=== PATIENT | female | born 1950 | race African-American/Black ===

== ENCOUNTER 2019-01-11 18:27 | Inpatient (IN) | payer MEDICARE, MEDICAID ==
[2019-01-11] MEDS ORDERED: Dextrose 50% Abboject 50 ML SYRINGE ONE ×2 (19:50→19:51)
[2019-01-11 19:52] LABS: Anion Gap 13 mmol/L (10-20); BUN (Urea Nitrogen) 87 mg/dL (9.8-20.1); Calc. Creatinine Clearance 0 mL/min (70-130); Calcium 7.3 mg/dL (7.8-10.44); Carbon Dioxide 9 mmol/L (23-31); Chloride 124 mmol/L (98-107); Estimated GFR-MDRD 16; Glucose 32 mg/dL (80-115); Potassium 3.7 mmol/L (3.5-5.1); Sodium 142 mmol/L (136-145)
[2019-01-11] MEDS ORDERED: Prevnar 13-Val Conj/PF 0.5 ML SYRINGE IM ONE (21:45)
[2019-01-11 22:24] LABS: Troponin I Less than 0.010 ng/mL (< 0.028)
[2019-01-11 22:52] VITALS: BMI 27.7
[2019-01-11] MEDS ORDERED: hydrALAZINE 20 MG/ML VIAL SLOW IVP PRN (23:09)
[2019-01-11] MEDS ORDERED: Ondansetron ODT 4 MG TAB PO PRN (23:09)
[2019-01-11] MEDS ORDERED: Loratadine 10 MG TAB PO PRN (23:09)
[2019-01-11] MEDS ORDERED: Ondansetron PF 4 MG/2 ML Vial IVP PRN (23:09)
[2019-01-11] MEDS ORDERED: Sodium Chloride 0.9% 1,000 ML IV SCH (23:15)
[2019-01-12 01:40] LABS: Troponin I Less than 0.010 ng/mL (< 0.028)
--- NOTE | 2019-01-12 03:31 | HP ---
PRIMARY CARE PROVIDER: Farzana Rose. PRIMARY OPERATIONS EXECUTIVE: Eulogio Gomez M.D. CHIEF COMPLAINT: Elevated potassium. HISTORY OF PRESENT ILLNESS: This is a 68-year-old female with longstanding history of chronic kidney disease, currently stage 4-5 monitored on outpatient basis by her primary manager truck. The patient states she was instructed to undergo routine laboratory evaluation at which point, a potassium level was drawn showing a value of 6.7. The patient was referred to the emergency room for treatment. The patient received 1 amp of D50 and repeat potassium level at 7:14 p.m. on 01/11/2019 showed a value of 3.7. The patient has been noted with elevated potassium levels intermittently over the last 2-3 years. The patient denies any dietary indiscretion, chest pain, shortness of breath or known symptoms. The patient states she feels fine and had no specific symptoms prior to doing her lab work. The patient denied any specific diarrhea, dysuria, blood in the stool, cough, congestion, or documented fever. PAST MEDICAL HISTORY: 1. Left eye cataracts. 2. Coronary artery disease. 3. History of gout. 4. Hypertension. 5. Chronic kidney disease stage 4 to 5. 6. Smokeless tobacco use. 7. Anxiety/depression. PAST SURGICAL HISTORY: 1. Status post hysterectomy. 2. Status post bilateral tubal ligation. CURRENT MEDICATIONS: 1. Amlodipine 10 mg p.o. daily. 2. Enteric-coated aspirin 81 mg p.o. daily. 3. Atenolol 50 mg p.o. b.i.d. 4. Claritin 10 mg p.o. daily. 5. Crestor 40 mg p.o. at bedtime. 6. Terazosin 2 mg p.o. at bedtime. ALLERGIES: LISINOPRIL, TRAMADOL, CODEINE. FAMILY HISTORY: Positive for hypertension. SOCIAL HISTORY: The patient resides in the [place], [place] area. Uses smokeless tobacco daily. No alcohol or illicit drug use. Ambulatory with occasional use of a cane. Lives independently. REVIEW OF SYSTEMS: CONSTITUTIONAL: Negative for weight loss or gain, ability to conduct usual activities. SKIN: Negative for rash, itching. EYES: Negative for double vision, pain. ENT/MOUTH: Negative for nose bleeding, neck stiffness, pain, tenderness. CARDIOVASCULAR: Negative for palpitations, dyspnea on exertion, orthopnea. RESPIRATORY: Negative for shortness of breath, wheezing, cough, hemoptysis, fever or night sweats. GASTROINTESTINAL: Negative for poor appetite, abdominal pain, heartburn, nausea, vomiting, constipation, or diarrhea. GENITOURINARY: Negative for urgency, frequency, dysuria, nocturia. MUSCULOSKELETAL: Negative for pain, swelling. NEUROLOGIC/PSYCHIATRIC: Negative for anxiety, depression. ALLERGY/IMMUNOLOGIC: Negative for skin rash, bleeding tendency Otherwise negative except as stated per HPI. PHYSICAL EXAMINATION: VITAL SIGNS: On admission, blood pressure 189/84, pulse 58, respiratory rate 16, temperature 98.4 degrees Fahrenheit, O2 saturation 99% on room air. GENERAL APPEARANCE: This is a 68-year-old female, alert and oriented x3, pleasant, responsive, in no acute distress. HEENT: Pupils are equal, round, reactive to light and accommodation. Extraocular muscles are intact. No scleral icterus. No conjunctival injection. Nares patent. OP is clear. Teeth in good repair. NECK: Supple. No cervical adenopathy. No thyromegaly. No carotid bruits. No JVD appreciated. Cervical spine with full active and passive range of motion. No meningeal signs noted. CHEST: Lungs are clear to auscultation bilaterally. CARDIOVASCULAR: S1, S2 without noted murmur, rub, or gallop. ABDOMEN: Rounded, soft, nontender, and nondistended. Bowel sounds are positive in all 4 quadrants. There is no hepatosplenomegaly. No abdominal bruits. No rebound or guarding appreciated. EXTREMITIES: Warm and dry with fair turgor. No clubbing, cyanosis, or asymmetric edema appreciated. Pulses palpable distally at the dorsalis pedis, posterior tibial, and popliteal arteries bilaterally. Capillary refill less than 2 seconds. NEUROLOGIC: Cranial nerves 2 through 12 are grossly intact. No focal or lateralizing signs appreciated. PERTINENT LAB AND X-RAY FINDINGS: Sodium 142, potassium ranged between 3.7 to 6.7, chloride 124, CO2 9, BUN 87, creatinine 3.41, estimated GFR of 16. Initial glucose greater than 200. Calcium 7.3, magnesium level 2.0. LFTs within normal limits. CBC showed a white blood cell count of 4.7, hemoglobin 10, hematocrit 33, MCV 87, platelet count 243 with normal differential. EKG dated 01/11/2019 by my interpretation shows sinus bradycardia with heart rates in the high 50s. Normal R-wave progression noted in the precordial leads. Normal axis. Voltage criteria consistent with left ventricular hypertrophy. No acute ST-T wave changes appreciated. ASSESSMENT/PLAN: 1. Hyperkalemia secondarily to chronic kidney disease. Improved after treatment with 1 amp of D50. We will continue serial potassium monitoring. Consult Nephrology Service in the a.m. Avoid potassium supplements. 2. Chronic kidney disease stage 4 to 5. We will continue serial creatinine monitoring. Avoid nephrotoxic agents and limit contrast exposure. Continue intravenous normal saline at 50 mL/hour. Consult Nephrology Service in the a.m. 3. Hyperglycemia. We will check A1c level in the a.m. Serial Accu-Cheks. 4. Sinus bradycardia. Hold atenolol. Suspect iatrogenic. Continue cardiac monitoring on the telemetry unit. 5. Hypertension. Resume home antihypertensive regimen with exception of atenolol. Serial blood pressure monitoring. Hydralazine IV p.r.n. systolic greater than or equal to 180. 6. Prophylaxis. Sequential compression devices while in bed. Pepcid 20 mg p.o. b.i.d.. CODE STATUS: Full. Surrogate medical decision maker is the patient's sister, Catalina Arechiga. Job ID: [id number]
[2019-01-12 05:45] LABS: Reticulocyte Count 1.6 % (0.5-1.5)
[2019-01-12 05:53] LABS: Hemoglobin A1c 4.4 % (4.0-6.0)
[2019-01-12 05:59] LABS: Eosinophils 5 % (0-10); Hemoglobin 8.3 g/dL (12.0-16.0); Lymphocytes 25 % (21-51); MDiff Complete? YES; Mean Corpuscular HGB CONC 32.2 g/dL (32.0-36.0); Mean Corpuscular Hemoglobin 27.5 pg (27.0-31.0); Mean Corpuscular Volume 85.5 fL (78.0-98.0); Mean Platelet Volume 9.2 fL (7.4-10.4); Monocytes 11 % (0-10); Neutrophil 59 % (42-75); Platelet Count 253 thou/uL (130-400); Platelet Morphology Comment Appears Adequate; RBC Distribution Width 15.4 % (11.5-14.5); Red Blood Cell (RBC) Count 3.02 mill/uL (4.20-5.40); White Blood Cell (WBC) Count 4.7 thou/uL (4.8-10.8)
[2019-01-12 06:04] LABS: Iron 58 ug/dL (50-170); Iron Binding Capacity, Total 234 mcg/dL (265-497); Phosphorus 2.6 mg/dL (2.3-4.7)
[2019-01-12 06:06] LABS: Iron 56 ug/dL (50-170); Iron Binding Capacity, Total 240 mcg/dL (265-497)
[2019-01-12 06:09] LABS: Troponin I Less than 0.010 ng/mL (< 0.028)
[2019-01-12 07:15] LABS: Anion Gap 14 mmol/L (10-20); BUN (Urea Nitrogen) 108 mg/dL (9.8-20.1); Calc. Creatinine Clearance 15 mL/min (70-130); Calcium 9.1 mg/dL (7.8-10.44); Carbon Dioxide 13 mmol/L (23-31); Chloride 114 mmol/L (98-107); Estimated GFR-MDRD 12; Glucose 110 mg/dL (80-115); Magnesium 1.6 mg/dL (1.6-2.6); Sodium 135 mmol/L (136-145)
--- NOTE | 2019-01-12 08:14 | PDOC.PN ---
- Subjective Encounter Start Date: 01/12/19 Encounter Start Time: 08:11 Subjective: no complaints - Objective Resuscitation Status - Order Detail: 01/11/19 23:04 Resuscitation Status Routine Resuscitation Status: FULL: Full Resuscitation MAR Reviewed: Yes Vital Signs & Weight: Vital Signs (12 hours) Temp Pulse Resp BP Pulse Ox 01/12/19 07:22 98.8 F 61 14 171/81 H 97 01/12/19 04:18 98.2 F 62 16 126/59 L 95 01/12/19 00:09 95.2 F L 01/11/19 21:10 95.7 F L 50 L 18 167/74 H 99 Weight Weight 166 lb 9 oz I&O: 01/11/19 01/12/19 01/13/19 06:59 06:59 06:59 Intake Total 1250 Output Total 1000 Balance 250 Result Diagrams: 01/12/19 04:50 01/12/19 06:37 Additional Labs: Accuchecks 01/12/19 01/11/19 01/11/19 06:08 22:08 20:34 POC Glucose 127 H 212 H 204 H Phys Exam - Physical Examination Neck: no JVD Respiratory: clear to auscultation bilateral Cardiovascular: RRR, no significant murmur Gastrointestinal: soft, positive bowel sounds Musculoskeletal: no edema Dx/Plan (1) CKD (chronic kidney disease) stage 4, GFR 15-29 ml/min Code(s): N18.4 - CHRONIC KIDNEY DISEASE, STAGE 4 (SEVERE) Status: Chronic (2) Hyperkalemia Code(s): E87.5 - HYPERKALEMIA Status: Acute Comment: improved (3) HTN (hypertension) Code(s): I10 - ESSENTIAL (PRIMARY) HYPERTENSION Status: Chronic Qualifiers: Hypertension type: essential hypertension Qualified Code(s): I10 - Essential (primary) hypertension (4) CAD (coronary artery disease) Code(s): I25.10 - ATHSCL HEART DISEASE OF [place] CORONARY ARTERY W/O ANG PCTRS Status: Acute Qualifiers: Coronary Disease-Associated Artery/Lesion type: [place] artery [place] vs. transplanted heart: [place] heart Associated angina: without angina Qualified Code(s): I25.10 - Atherosclerotic heart disease of [place] coronary artery without angina pectoris - Plan [facility] now -: renal consult -: selected home meds -: diertary consult for low K+, low protein diet * .
[2019-01-12] MEDS: Famotidine 20 MG TAB PO SCH (08:44)
[2019-01-12] MEDS: Aspirin 81 mg Enteric Coated Tablet PO SCH (08:44)
[2019-01-12] MEDS: Amlodipine 10 MG TAB PO SCH (08:44)
[2019-01-12] MEDS ORDERED: Sodium Bicarbonate 150 MEQ in Dextrose 5% in Water 1,000 ML IV SCH (08:45)
[2019-01-12 15:49] LABS: Anion Gap 15 mmol/L (10-20); BUN (Urea Nitrogen) 99 mg/dL (9.8-20.1); Calc. Creatinine Clearance 16 mL/min (70-130); Carbon Dioxide 16 mmol/L (23-31); Chloride 113 mmol/L (98-107); Estimated GFR-MDRD 13; Glucose 109 mg/dL (80-115); Potassium 5.9 mmol/L (3.5-5.1); Sodium 138 mmol/L (136-145)
--- NOTE | 2019-01-12 16:00 | PDOC.EVN ---
Event Note - Event Note Event Note: with Dr Guy re hyperkalemix, cont bicab infusion, rpt [facility]ex[facility]
[2019-01-12] MEDS: Terazosin HCl 1 MG CAP PO SCH (20:13)
[2019-01-12] MEDS: Acetaminophen 500 MG TAB PO PRN (21:41)
--- NOTE | 2019-01-12 21:51 | CON ---
DATE OF CONSULTATION: 01/12/2019 CONSULTING PHYSICIAN: Dr. Lake. REASON FOR CONSULT: Hyperkalemia and chronic kidney disease. REASON FOR ADMISSION: Abnormal labs. HISTORY OF PRESENT ILLNESS: A 68-year-old female with history of coronary artery disease, CKD, hypertension came to the hospital with above complaints and was admitted, potassium was 6.7, outpatient was 6. She also has worsening creatinine. She is noncompliant with her visits at the clinic. PAST MEDICAL HISTORY: Positive for cataracts, coronary artery disease, gout, hypertension, CKD, anxiety and depression. PAST SURGICAL HISTORY: Hysterectomy, bilateral tubal ligation. HOME MEDICATION: 1. Amlodipine. 2. Aspirin. 3. Atenolol. 4. Claritin. 5. Crestor. 6. Terazosin. ALLERGIES: LISINOPRIL, TRAMADOL, CODEINE. FAMILY HISTORY: Positive for hypertension. SOCIAL HISTORY: Uses smokeless tobacco. No alcohol or illicit drug abuse. REVIEW OF SYSTEMS: CONSTITUTIONAL: Negative for weight loss or gain, ability to conduct usual activities. SKIN: Negative for rash, itching. EYES: Negative for double vision, pain. ENT/MOUTH: Negative for nose bleeding, neck stiffness, pain, tenderness. CARDIOVASCULAR: Negative for palpitations, dyspnea on exertion, orthopnea. RESPIRATORY: Negative for shortness of breath, wheezing, cough, hemoptysis, fever or night sweats. GASTROINTESTINAL: Negative for poor appetite, abdominal pain, heartburn, nausea, vomiting, constipation, or diarrhea. GENITOURINARY: Negative for urgency, frequency, dysuria, nocturia. MUSCULOSKELETAL: Negative for pain, swelling. NEUROLOGIC/PSYCHIATRIC: Negative for anxiety, depression. ALLERGY/IMMUNOLOGIC: Negative for skin rash, bleeding tendency. PHYSICAL EXAMINATION: GENERAL: female, in no apparent distress. VITAL SIGNS: Temperature 98.6, pulse 65, respiratory rate 18, blood pressure 177/81. LABORATORY DATA: Potassium 6.7, BUN is 108, creatinine is 4.3. ASSESSMENT AND PLAN: 1. Acute kidney injury on chronic kidney disease stage 4. Agree with hydration as tolerated. 2. Hyperkalemia. Agree with medical management. 3. Metabolic acidosis. We will add bicarb drip. 4. Edema, controlled. 5. Hypertension. 6. Anemia. PLAN: No acute indication for dialysis, but we will continue to follow. Job ID: [id number]
[2019-01-13] MEDS: Acetaminophen 500 MG TAB PO PRN ×3 (04:01→13:45)
[2019-01-13] MEDS ORDERED: Eucerin (Mineral Oil/Petrolatum,White) 30 gm Jar TOP PRN (08:35)
[2019-01-13] MEDS ORDERED: Sodium Chloride 0.65% Nasal 44 ML BOT EA NARE PRN (08:35)
[2019-01-13] MEDS ORDERED: Cepastat Lozenges 1 LOZ PO PRN (08:35)
[2019-01-13] MEDS ORDERED: Diabetic Tussin 200 MG/10 ML UDCUP PO PRN (08:35)
[2019-01-13] MEDS ORDERED: Zolpidem Tartrate 5 MG TAB PO PRN (08:35)
[2019-01-13] MEDS ORDERED: Artificial Tear Sol 15 ML BOT EA EYE PRN (08:35)
[2019-01-13] MEDS ORDERED: Senokot S 8.6-50 MG TAB PO PRN (08:35)
[2019-01-13] MEDS ORDERED: Loperamide HCl 2 MG CAP PO PRN (08:35)
[2019-01-13] MEDS ORDERED: Bisacodyl 10 MG SUPP PR PRN (08:35)
[2019-01-13] MEDS: Aspirin 81 mg Enteric Coated Tablet PO SCH (09:04)
[2019-01-13] MEDS: Amlodipine 10 MG TAB PO SCH (09:04)
[2019-01-13] MEDS: Famotidine 20 MG TAB PO SCH (09:04)
[2019-01-13] MEDS: Heparin 5,000 UNITS/ML VIAL SC SCH ×2 (09:04→20:49)
[2019-01-13] MEDS ORDERED: Potassium Chloride 20 MEQ in Premix Bag 1 BAG IVPB SCH (10:00)
[2019-01-13] MEDS ORDERED: Colchicine 0.3 MG TAB PO SCH (10:15)
[2019-01-13 12:30] LABS: Anion Gap 16 mmol/L (10-20); BUN (Urea Nitrogen) 98 mg/dL (9.8-20.1); Calc. Creatinine Clearance 15 mL/min (70-130); Calcium 8.9 mg/dL (7.8-10.44); Carbon Dioxide 18 mmol/L (23-31); Chloride 109 mmol/L (98-107); Estimated GFR-MDRD 12; Glucose 137 mg/dL (80-115); Potassium 4.7 mmol/L (3.5-5.1); Sodium 138 mmol/L (136-145)
--- NOTE | 2019-01-13 12:41 | PDOC.PN ---
- Subjective Encounter Start Date: 01/13/19 Encounter Start Time: 07:50 -: old records requested/rev Patient seen and examined. No new complaints. No overnight events - Objective Resuscitation Status - Order Detail: 01/11/19 23:04 Resuscitation Status Routine Resuscitation Status: FULL: Full Resuscitation MAR Reviewed: Yes Vital Signs & Weight: Vital Signs (12 hours) Temp Pulse Resp BP Pulse Ox 01/13/19 12:11 67 22 H 170/81 H 97 01/13/19 09:04 97 01/13/19 07:13 97.6 F 65 14 143/67 H 97 01/13/19 04:17 98.6 F 66 139/65 98 Weight Weight 166 lb 14.4 oz I&O: 01/12/19 01/13/19 01/14/19 06:59 06:59 06:59 Intake Total 1250 2660 Output Total 1000 950 Balance 250 1710 Result Diagrams: 01/12/19 04:50 01/13/19 11:47 EKG Reviewed by me: Yes Phys Exam - Physical Examination Constitutional: NAD HEENT: PERRLA, moist MMs, sclera anicteric Neck: no JVD, supple Respiratory: no wheezing, no rales, no rhonchi Cardiovascular: RRR, no significant murmur, no rub Gastrointestinal: soft, non-tender, no distention, positive bowel sounds Musculoskeletal: no edema, pulses present Neurological: non-focal, normal sensation Lymphatic: no nodes Psychiatric: normal affect, A&O x 3 Skin: no rash, normal turgor Dx/Plan (1) Acute gout Code(s): M10.9 - GOUT, UNSPECIFIED Status: Acute (2) Acute worsening of stage 4 chronic kidney disease Code(s): N18.4 - CHRONIC KIDNEY DISEASE, STAGE 4 (SEVERE) Status: Acute (3) Hyperkalemia Code(s): E87.5 - HYPERKALEMIA Status: Acute Comment: improved (4) Metabolic acidosis Code(s): E87.2 - ACIDOSIS Status: Acute Comment: improved (5) Anemia of renal disease Code(s): N18.9 - CHRONIC KIDNEY DISEASE, UNSPECIFIED; D63.1 - ANEMIA IN CHRONIC KIDNEY DISEASE Status: Chronic (6) CAD (coronary artery disease) Code(s): I25.10 - ATHSCL HEART DISEASE OF [place] CORONARY ARTERY W/O ANG PCTRS Status: Chronic Qualifiers: Coronary Disease-Associated Artery/Lesion type: [place] artery [place] vs. transplanted heart: [place] heart Associated angina: without angina Qualified Code(s): I25.10 - Atherosclerotic heart disease of [place] coronary artery without angina pectoris (7) HTN (hypertension) Code(s): I10 - ESSENTIAL (PRIMARY) HYPERTENSION Status: Chronic Qualifiers: Hypertension type: essential hypertension Qualified Code(s): I10 - Essential (primary) hypertension - Plan cont current plan of care * medication reviewed as below * symptomatic treatment * continue bicarbonate * nephrology following * add colchicine. Review of Systems - Review of Systems ENT: negative: Ear Pain, Ear Discharge, Nose Pain, Nose Discharge, Nose Congestion, Mouth Pain, Mouth Swelling, Throat Pain, Throat Swelling, Other Respiratory: negative: Cough, Dry, Shortness of Breath, Hemoptysis, SOB with Excertion, Pleuritic Pain, Sputum, Wheezing Cardiovascular: negative: chest pain, palpitations, orthopnea, paroxysmal nocturnal dyspnea, edema, light headedness, other Gastrointestinal: negative: Nausea, Vomiting, Abdominal Pain, Diarrhea, Constipation, Melena, Hematochezia, Other Genitourinary: negative: Dysuria, Frequency, Incontinence, Hematuria, Retention , Other Musculoskeletal: negative: Neck Pain, Shoulder Pain, Arm Pain, Back Pain, Hand Pain, Leg Pain, Foot Pain, Other Skin: negative: Rash, Lesions, [place], Bruising, Other - Medications/Allergies Allergies/Adverse Reactions: Allergies Allergy/AdvReac Type Severity Reaction Status Date / Time lisinopril Allergy Nausea Verified 08/17/16 19:58 tramadol Allergy Nausea Verified 08/17/16 19:58 codeine AdvReac Nausea Verified 08/17/16 19:58 Medications: Current Medications Acetaminophen (Tylenol) 500 mg PO Q6H PRN PRN Reason: Mild Pain (1-3) Last Admin: 01/13/19 09:04 Dose: 500 mg Amlodipine Besylate (Norvasc) 10 mg PO DAILY [facility] Last Admin: 01/13/19 09:04 Dose: 10 mg Artificial Tears (Liquitears 15ml Bottle) 2 drop EA EYE PRN PRN PRN Reason: Dry Eyes Aspirin (Ecotrin) 81 mg PO DAILY [facility] Last Admin: 01/13/19 09:04 Dose: 81 mg Bisacodyl (Dulcolax) 10 mg [place] DAILYPRN PRN PRN Reason: Constipation Colchicine (Colcrys) 0.3 mg PO BID [facility] Famotidine (Pepcid) 20 mg PO 0900 [facility] Last Admin: 01/13/19 09:04 Dose: 20 mg Guaifenesin (Robitussin Sf) 200 mg PO Q4H PRN PRN Reason: Cough Heparin Sodium (Porcine) (Heparin) 5,000 units SC BID [facility] Last Admin: 01/13/19 09:04 Dose: 5,000 units Hydralazine HCl (Apresoline) 10 mg SLOW IVP Q4H PRN PRN Reason: SBP > 180 and HR < 70 Loperamide HCl (Imodium) 2 mg PO PRN PRN PRN Reason: Diarrhea/Loose Stools Loratadine (Claritin) 10 mg PO DAILY PRN PRN Reason: Allergies Mineral Oil/White Petrolatum (Eucerin Cream) 0 gm TOP BIDPRN PRN PRN Reason: Dry Skin Ondansetron HCl (Zofran Odt) 4 mg PO Q6H PRN PRN Reason: Nausea/Vomiting Ondansetron HCl (Zofran) 4 mg IVP Q6H PRN PRN Reason: Nausea/Vomiting Senna/Docusate Sodium (Senokot S) 2 tab PO BID PRN PRN Reason: Constipation Sodium Chloride (Flush - Normal Saline) 10 ml IVF Q12HR [facility] Last Admin: 01/13/19 09:05 Dose: 10 ml Sodium Chloride (Flush - Normal Saline) 10 ml IVF PRN PRN PRN Reason: Saline Flush Sodium Chloride ([place] Nasal [place] 0.65%) 0 ml EA NARE QIDPRN PRN PRN Reason: Nasal Congestion Terazosin HCl (Hytrin) 2 mg PO HS [facility] Last Admin: 01/12/19 20:13 Dose: 2 mg Throat Lozenges (Cepastat Lozenges) 1 yves PO Q2H PRN PRN Reason: Sore Throat Zolpidem Tartrate (Ambien) 5 mg PO HSPRN PRN PRN Reason: Insomnia
--- NOTE | 2019-01-13 12:48 | PRG ---
DATE OF SERVICE: 01/13/2019 SUBJECTIVE: Patient was seen and examined at bedside and overnight events noted. Patient denies any shortness of breath or chest pain or palpitation. No history of nausea or vomiting or diarrhea or fever or chills or cramps. OBJECTIVE: GENERAL: This is a thin-built female, in no apparent distress. VITAL SIGNS: Temperature 96. Heart rate 63. Respiratory rate 18. Blood pressure 129/65. HEENT: Atraumatic, normocephalic. Oral mucosa is moist NECK: Supple. CARDIOVASCULAR: S1, S2 heard. Rate and rhythm regular. RESPIRATORY: Clear to auscultation. GASTROINTESTINAL: Abdomen is soft. MUSCULOSKELETAL: No tenderness. No edema. DERMATOLOGIC: No skin rash. NEUROLOGIC: Alert and awake and oriented X3. No focal neurologic deficits. Moving all the extremities. PSYCHIATRIC: Mood and affect normal. LABORATORY DATA: Pending today. ASSESSMENT AND PLAN: 1. Acute kidney injury on chronic kidney disease, stage 4. 2. Hyperkalemia. Repeat labs. 3. Metabolic acidosis. 4. Edema. 5. Hypertension. 6. Anemia of chronic disease. We will continue to follow. Repeat labs. Job ID: [id number]
[2019-01-13] MEDS ORDERED: Sodium Bicarbonate Tab 325 MG TAB PO SCH (17:00)
[2019-01-13] MEDS ORDERED: Morphine 2 MG/ML SYRINGE SLOW IVP SCH (19:45)
[2019-01-13] MEDS: Colchicine 0.3 MG TAB PO SCH (20:44)
[2019-01-13] MEDS: Terazosin HCl 1 MG CAP PO SCH (20:51)
[2019-01-13] MEDS: Sodium Bicarbonate Tab 325 MG TAB PO SCH (20:51)
[2019-01-13] MEDS: HYDROcodone/Acetaminophen 5/325 mg Tablet PO PRN (20:56)
[2019-01-13] MEDS ORDERED: Colchicine 0.6 MG TAB PO SCH (21:00)
[2019-01-13] MEDS ORDERED: Morphine 4 MG/ML VIAL SLOW IVP PRN (23:17)
[2019-01-14] MEDS: HYDROcodone/Acetaminophen 5/325 mg Tablet PO PRN ×4 (01:43→20:07)
[2019-01-14] MEDS: Amlodipine 10 MG TAB PO SCH (08:31)
[2019-01-14] MEDS: Sodium Bicarbonate Tab 325 MG TAB PO SCH ×3 (08:31→20:06)
[2019-01-14] MEDS: Colchicine 0.3 MG TAB PO SCH ×2 (08:31→20:06)
[2019-01-14] MEDS: Famotidine 20 MG TAB PO SCH (08:31)
[2019-01-14] MEDS: Aspirin 81 mg Enteric Coated Tablet PO SCH (08:31)
[2019-01-14] MEDS: Heparin 5,000 UNITS/ML VIAL SC SCH ×2 (08:32→20:08)
[2019-01-14] MEDS ORDERED: NIFEdipine XL 30 MG TAB PO SCH (09:00)
[2019-01-14 09:06] LABS: #Eosinphils 0.1 thou/uL (0.0-0.7); #Monocytes 0.7 thou/uL (0.11-0.59); #Neutrophils 4.1 thou/uL (1.40-6.50); %Basophils 0.4 % (0.0-1.0); %Eosinophils 1.3 % (0.0-10.0); %Lymphocytes 16.4 % (21.0-51.0); %Monocytes 11.9 % (0.0-10.0); Hemoglobin 8.2 g/dL (12.0-16.0); Mean Corpuscular HGB CONC 33.1 g/dL (32.0-36.0); Mean Corpuscular Hemoglobin 27.7 pg (27.0-31.0); Mean Corpuscular Volume 83.5 fL (78.0-98.0); Platelet Count 195 thou/uL (130-400); RBC Distribution Width 15.1 % (11.5-14.5); Red Blood Cell (RBC) Count 2.97 mill/uL (4.20-5.40); White Blood Cell (WBC) Count 5.9 thou/uL (4.8-10.8)
[2019-01-14 09:25] LABS: Anion Gap 17 mmol/L (10-20); BUN (Urea Nitrogen) 89 mg/dL (9.8-20.1); CRP (Inflammatory) 7.32 mg/dL (= or < 0.5); Calc. Creatinine Clearance 16 mL/min (70-130); Calcium 8.9 mg/dL (7.8-10.44); Carbon Dioxide 18 mmol/L (23-31); Chloride 104 mmol/L (98-107); Estimated GFR-MDRD 13; Glucose 114 mg/dL (80-115); Potassium 4.8 mmol/L (3.5-5.1); Sodium 134 mmol/L (136-145)
[2019-01-14] MEDS ORDERED: predniSONE 20 MG TAB PO SCH (10:15)
--- NOTE | 2019-01-14 10:16 | PDOC.PN ---
- Subjective Encounter Start Date: 01/14/19 Encounter Start Time: 07:50 - Objective Resuscitation Status - Order Detail: 01/11/19 23:04 Resuscitation Status Routine Resuscitation Status: FULL: Full Resuscitation MAR Reviewed: Yes Vital Signs & Weight: Vital Signs (12 hours) Temp Pulse Resp BP Pulse Ox 01/14/19 08:31 97 01/14/19 07:12 82 01/14/19 07:06 98.1 F 82 18 182/80 H 97 01/14/19 04:00 98.5 F 79 16 156/77 H 96 Weight Weight 166 lb 14.4 oz I&O: 01/13/19 01/14/19 01/15/19 06:59 06:59 06:59 Intake Total 2660 2270 Output Total 950 1650 Balance 1710 620 Result Diagrams: 01/14/19 08:50 01/14/19 08:50 EKG Reviewed by me: Yes Phys Exam - Physical Examination Constitutional: NAD HEENT: PERRLA, moist MMs, sclera anicteric Neck: no JVD, supple Respiratory: no wheezing, no rales, no rhonchi Cardiovascular: RRR, no significant murmur, no rub, irregular Gastrointestinal: soft, non-tender, no distention, positive bowel sounds Musculoskeletal: no edema, pulses present, edema present Neurological: non-focal, normal sensation, moves all 4 limbs Lymphatic: no nodes Psychiatric: normal affect, A&O x 3 Skin: no rash, normal turgor Dx/Plan (1) Acute gout Code(s): M10.9 - GOUT, UNSPECIFIED Status: Acute (2) Acute worsening of stage 4 chronic kidney disease Code(s): N18.4 - CHRONIC KIDNEY DISEASE, STAGE 4 (SEVERE) Status: Acute (3) Hyperkalemia Code(s): E87.5 - HYPERKALEMIA Status: Acute Comment: improved (4) Metabolic acidosis Code(s): E87.2 - ACIDOSIS Status: Acute Comment: improved (5) Anemia of renal disease Code(s): N18.9 - CHRONIC KIDNEY DISEASE, UNSPECIFIED; D63.1 - ANEMIA IN CHRONIC KIDNEY DISEASE Status: Chronic (6) CAD (coronary artery disease) Code(s): I25.10 - ATHSCL HEART DISEASE OF [place] CORONARY ARTERY W/O ANG PCTRS Status: Chronic Qualifiers: Coronary Disease-Associated Artery/Lesion type: [place] artery [place] vs. transplanted heart: [place] heart Associated angina: without angina Qualified Code(s): I25.10 - Atherosclerotic heart disease of [place] coronary artery without angina pectoris (7) HTN (hypertension) Code(s): I10 - ESSENTIAL (PRIMARY) HYPERTENSION Status: Chronic Qualifiers: Hypertension type: essential hypertension Qualified Code(s): I10 - Essential (primary) hypertension - Plan cont current plan of care * pt is not interested in HD or necessary procedure * control acute gout * add prednisone * medication reviewed as below * symptomatic treatment. Review of Systems - Review of Systems ENT: negative: Ear Pain, Ear Discharge, Nose Pain, Nose Discharge, Nose Congestion, Mouth Pain, Mouth Swelling, Throat Pain, Throat Swelling, Other Respiratory: negative: Cough, Dry, Shortness of Breath, Hemoptysis, SOB with Excertion, Pleuritic Pain, Sputum, Wheezing Cardiovascular: negative: chest pain, palpitations, orthopnea, paroxysmal nocturnal dyspnea, edema, light headedness, other Genitourinary: negative: Dysuria, Frequency, Incontinence, Hematuria, Retention , Other Musculoskeletal: Foot Pain - Medications/Allergies Allergies/Adverse Reactions: Allergies Allergy/AdvReac Type Severity Reaction Status Date / Time lisinopril Allergy Nausea Verified 08/17/16 19:58 tramadol Allergy Nausea Verified 08/17/16 19:58 codeine AdvReac Nausea Verified 08/17/16 19:58 Medications: Current Medications Acetaminophen (Tylenol) 500 mg PO Q6H PRN PRN Reason: Mild Pain (1-3) Last Admin: 01/13/19 13:45 Dose: 500 mg Hydrocodone Bitart/Acetaminophen ([place] 5/325) 1 tab PO Q4H PRN PRN Reason: Moderate Pain (4-6) Last Admin: 01/14/19 06:56 Dose: 1 tab Amlodipine Besylate (Norvasc) 10 mg PO DAILY [facility] Last Admin: 01/14/19 08:31 Dose: 10 mg Artificial Tears (Liquitears 15ml Bottle) 2 drop EA EYE PRN PRN PRN Reason: Dry Eyes Aspirin (Ecotrin) 81 mg PO DAILY [facility] Last Admin: 01/14/19 08:31 Dose: 81 mg Bisacodyl (Dulcolax) 10 mg [place] DAILYPRN PRN PRN Reason: Constipation Colchicine (Colcrys) 0.3 mg PO BID [facility] Last Admin: 01/14/19 08:31 Dose: 0.3 mg Famotidine (Pepcid) 20 mg PO 0900 [facility] Last Admin: 01/14/19 08:31 Dose: 20 mg Guaifenesin (Robitussin Sf) 200 mg PO Q4H PRN PRN Reason: Cough Heparin Sodium (Porcine) (Heparin) 5,000 units SC BID [facility] Last Admin: 01/14/19 08:32 Dose: 5,000 units Hydralazine HCl (Apresoline) 10 mg SLOW IVP Q4H PRN PRN Reason: SBP > 180 and HR < 70 Last Admin: 01/14/19 07:12 Dose: 10 mg Loperamide HCl (Imodium) 2 mg PO PRN PRN PRN Reason: Diarrhea/Loose Stools Loratadine (Claritin) 10 mg PO DAILY PRN PRN Reason: Allergies Mineral Oil/White Petrolatum (Eucerin Cream) 0 gm TOP BIDPRN PRN PRN Reason: Dry Skin Morphine Sulfate (Morphine) 4 mg SLOW IVP Q4H PRN PRN Reason: Moderate to Severe Pain (6-10) Ondansetron HCl (Zofran Odt) 4 mg PO Q6H PRN PRN Reason: Nausea/Vomiting Ondansetron HCl (Zofran) 4 mg IVP Q6H PRN PRN Reason: Nausea/Vomiting Senna/Docusate Sodium (Senokot S) 2 tab PO BID PRN PRN Reason: Constipation Sodium Bicarbonate (Bicarbonate, Sodium) 650 mg PO TID [facility] Last Admin: 01/14/19 08:31 Dose: 650 mg Sodium Chloride (Flush - Normal Saline) 10 ml IVF Q12HR [facility] Last Admin: 01/14/19 08:32 Dose: 10 ml Sodium Chloride (Flush - Normal Saline) 10 ml IVF PRN PRN PRN Reason: Saline Flush Sodium Chloride ([place] Nasal [place] 0.65%) 0 ml EA NARE QIDPRN PRN PRN Reason: Nasal Congestion Terazosin HCl (Hytrin) 2 mg PO HS [facility] Last Admin: 01/13/19 20:51 Dose: 2 mg Throat Lozenges (Cepastat Lozenges) 1 yves PO Q2H PRN PRN Reason: Sore Throat Zolpidem Tartrate (Ambien) 5 mg PO HSPRN PRN PRN Reason: Insomnia Last Admin: 01/13/19 23:10 Dose: 5 mg
--- NOTE | 2019-01-14 11:58 | EKG ---
Test Reason : Blood Pressure : / mmHG Vent. Rate : 056 BPM Atrial Rate : 056 BPM P-R Int : 190 ms QRS Dur : 088 ms QT Int : 444 ms P-R-T Axes : 042 -21 047 degrees QTc Int : 428 ms Sinus bradycardia Voltage criteria for left ventricular hypertrophy Abnormal ECG Confirmed by STEVEN OLIVARES M.D. ([id number]), marketing editor ELAINA KERR ([id number] on 01/14/2019 11:58:13 AM Referred By: Confirmed By:STEVEN OLIVARES M.D.
[2019-01-14] MEDS ORDERED: EPOETIN ALFA-EPBX (ESRD) 10,000 UNIT/ML VIAL SC SCH (16:15)
--- NOTE | 2019-01-14 16:51 | PRG ---
DATE OF SERVICE: 01/14/2019 SUBJECTIVE: Patient was seen and examined at bedside and overnight events noted. Patient denies any shortness of breath or chest pain or palpitation. No history of nausea or vomiting or diarrhea or fever or chills or cramps. OBJECTIVE: GENERAL: This is a well-built female, in no acute distress. VITAL SIGNS: Temperature . Heart rate 82. Respiratory rate 16. Blood pressure 158/72. HEENT: Atraumatic, normocephalic. Oral mucosa is moist NECK: Supple. CARDIOVASCULAR: S1, S2 heard. Rate and rhythm regular. RESPIRATORY: Clear to auscultation. GASTROINTESTINAL: Abdomen is soft. MUSCULOSKELETAL: No tenderness. No edema. DERMATOLOGIC: No skin rash. NEUROLOGIC: Alert and awake and oriented X3. No focal neurologic deficits. Moving all the extremities. PSYCHIATRIC: Mood and affect normal. LABORATORY DATA: Potassium is 4.8, BUN is 89, and creatinine 4.06. ASSESSMENT AND PLAN: 1. Chronic kidney disease, stage IV, getting better. 2. Acute kidney injury. 3. Hyperkalemia, better. 4. Metabolic acidosis, stable. 5. Edema, controlled. 6. Hypertension. 7. Anemia of chronic disease. Labs are stable. The patient does not want to start fistula placement. We will add sodium bicarb and monitor. Job ID: [id number]
[2019-01-14] MEDS: Terazosin HCl 1 MG CAP PO SCH (20:05)
[2019-01-15 05:52] LABS: Anion Gap 17 mmol/L (10-20); BUN (Urea Nitrogen) 94 mg/dL (9.8-20.1); Calc. Creatinine Clearance 14 mL/min (70-130); Calcium 8.9 mg/dL (7.8-10.44); Carbon Dioxide 19 mmol/L (23-31); Chloride 103 mmol/L (98-107); Estimated GFR-MDRD 11; Glucose 103 mg/dL (80-115); Potassium 4.7 mmol/L (3.5-5.1); Sodium 134 mmol/L (136-145)
[2019-01-15] MEDS ORDERED: predniSONE 20 MG TAB PO SCH (08:00)
--- NOTE | 2019-01-15 08:10 | PDOC.PN ---
- Subjective Encounter Start Date: 01/15/19 Encounter Start Time: 07:10 Patient seen and examined. No new complaints. No overnight events - Objective Resuscitation Status - Order Detail: 01/11/19 23:04 Resuscitation Status Routine Resuscitation Status: FULL: Full Resuscitation MAR Reviewed: Yes Vital Signs & Weight: Vital Signs (12 hours) Temp Pulse Resp BP Pulse Ox 01/15/19 04:00 98.5 F 73 18 157/70 H 93 L 01/14/19 20:25 95 Weight Weight 166 lb 14.4 oz I&O: 01/14/19 01/15/19 01/16/19 06:59 06:59 06:59 Intake Total 2270 1160 Output Total 1650 800 Balance 620 360 Result Diagrams: 01/14/19 08:50 01/15/19 05:00 EKG Reviewed by me: Yes Phys Exam - Physical Examination Constitutional: NAD HEENT: PERRLA, moist MMs, sclera anicteric Neck: no JVD, supple Respiratory: no wheezing, no rales, no rhonchi Cardiovascular: RRR, no significant murmur, no rub Gastrointestinal: soft, non-tender, no distention, positive bowel sounds Musculoskeletal: no edema, pulses present Neurological: non-focal, normal sensation, moves all 4 limbs Psychiatric: normal affect, A&O x 3 Skin: no rash, normal turgor Dx/Plan (1) Acute gout Code(s): M10.9 - GOUT, UNSPECIFIED Status: Acute (2) Acute worsening of stage 4 chronic kidney disease Code(s): N18.4 - CHRONIC KIDNEY DISEASE, STAGE 4 (SEVERE) Status: Acute (3) Hyperkalemia Code(s): E87.5 - HYPERKALEMIA Status: Acute Comment: improved (4) Metabolic acidosis Code(s): E87.2 - ACIDOSIS Status: Acute Comment: improved (5) Anemia of renal disease Code(s): N18.9 - CHRONIC KIDNEY DISEASE, UNSPECIFIED; D63.1 - ANEMIA IN CHRONIC KIDNEY DISEASE Status: Chronic (6) CAD (coronary artery disease) Code(s): I25.10 - ATHSCL HEART DISEASE OF [place] CORONARY ARTERY W/O ANG PCTRS Status: Chronic Qualifiers: Coronary Disease-Associated Artery/Lesion type: [place] artery [place] vs. transplanted heart: [place] heart Associated angina: without angina Qualified Code(s): I25.10 - Atherosclerotic heart disease of [place] coronary artery without angina pectoris (7) HTN (hypertension) Code(s): I10 - ESSENTIAL (PRIMARY) HYPERTENSION Status: Chronic Qualifiers: Hypertension type: essential hypertension Qualified Code(s): I10 - Essential (primary) hypertension - Plan cont current plan of care * medication reviewed as below * symptomatic treatment * see discharge summery * prednisone, colchicine, allopurinol for gout. Review of Systems - Review of Systems ENT: negative: Ear Pain, Ear Discharge, Nose Pain, Nose Discharge, Nose Congestion, Mouth Pain, Mouth Swelling, Throat Pain, Throat Swelling, Other Respiratory: negative: Cough, Dry, Shortness of Breath, Hemoptysis, SOB with Excertion, Pleuritic Pain, Sputum, Wheezing Cardiovascular: negative: chest pain, palpitations, orthopnea, paroxysmal nocturnal dyspnea, edema, light headedness, other Gastrointestinal: negative: Nausea, Vomiting, Abdominal Pain, Diarrhea, Constipation, Melena, Hematochezia, Other Genitourinary: negative: Dysuria, Frequency, Incontinence, Hematuria, Retention , Other Musculoskeletal: negative: Neck Pain, Shoulder Pain, Arm Pain, Back Pain, Hand Pain, Leg Pain, Foot Pain, Other - Medications/Allergies Allergies/Adverse Reactions: Allergies Allergy/AdvReac Type Severity Reaction Status Date / Time lisinopril Allergy Nausea Verified 08/17/16 19:58 tramadol Allergy Nausea Verified 08/17/16 19:58 codeine AdvReac Nausea Verified 08/17/16 19:58 Medications: Current Medications Acetaminophen (Tylenol) 500 mg PO Q6H PRN PRN Reason: Mild Pain (1-3) Last Admin: 01/13/19 13:45 Dose: 500 mg Hydrocodone Bitart/Acetaminophen ([place] 5/325) 1 tab PO Q4H PRN PRN Reason: Moderate Pain (4-6) Last Admin: 01/14/19 20:07 Dose: 1 tab Amlodipine Besylate (Norvasc) 10 mg PO DAILY [facility] Last Admin: 01/14/19 08:31 Dose: 10 mg Artificial Tears (Liquitears 15ml Bottle) 2 drop EA EYE PRN PRN PRN Reason: Dry Eyes Aspirin (Ecotrin) 81 mg PO DAILY [facility] Last Admin: 01/14/19 08:31 Dose: 81 mg Bisacodyl (Dulcolax) 10 mg [place] DAILYPRN PRN PRN Reason: Constipation Calcitriol (Rocaltrol) 0.25 mcg PO DAILY [facility] Colchicine (Colcrys) 0.3 mg PO BID [facility] Last Admin: 01/14/19 20:06 Dose: 0.3 mg Famotidine (Pepcid) 20 mg PO 0900 [facility] Last Admin: 01/14/19 08:31 Dose: 20 mg Guaifenesin (Robitussin Sf) 200 mg PO Q4H PRN PRN Reason: Cough Heparin Sodium (Porcine) (Heparin) 5,000 units SC BID [facility] Last Admin: 01/14/19 20:08 Dose: 5,000 units Hydralazine HCl (Apresoline) 10 mg SLOW IVP Q4H PRN PRN Reason: SBP > 180 and HR < 70 Last Admin: 01/14/19 07:12 Dose: 10 mg Loperamide HCl (Imodium) 2 mg PO PRN PRN PRN Reason: Diarrhea/Loose Stools Loratadine (Claritin) 10 mg PO DAILY PRN PRN Reason: Allergies Mineral Oil/White Petrolatum (Eucerin Cream) 0 gm TOP BIDPRN PRN PRN Reason: Dry Skin Morphine Sulfate (Morphine) 4 mg SLOW IVP Q4H PRN PRN Reason: Moderate to Severe Pain (6-10) Last Admin: 01/14/19 10:12 Dose: 4 mg Ondansetron HCl (Zofran Odt) 4 mg PO Q6H PRN PRN Reason: Nausea/Vomiting Ondansetron HCl (Zofran) 4 mg IVP Q6H PRN PRN Reason: Nausea/Vomiting Prednisone (Prednisone) 40 mg PO QAM[facility] Senna/Docusate Sodium (Senokot S) 2 tab PO BID PRN PRN Reason: Constipation Sodium Bicarbonate (Bicarbonate, Sodium) 650 mg PO TID [facility] Last Admin: 01/14/19 20:06 Dose: 650 mg Sodium Chloride (Flush - Normal Saline) 10 ml IVF Q12HR [facility] Last Admin: 01/14/19 20:14 Dose: 10 ml Sodium Chloride (Flush - Normal Saline) 10 ml IVF PRN PRN PRN Reason: Saline Flush Sodium Chloride ([place] Nasal [place] 0.65%) 0 ml EA NARE QIDPRN PRN PRN Reason: Nasal Congestion Terazosin HCl (Hytrin) 2 mg PO HS [facility] Last Admin: 01/14/19 20:05 Dose: 2 mg Throat Lozenges (Cepastat Lozenges) 1 yves PO Q2H PRN PRN Reason: Sore Throat Zolpidem Tartrate (Ambien) 5 mg PO HSPRN PRN PRN Reason: Insomnia Last Admin: 01/13/19 23:10 Dose: 5 mg
--- NOTE | 2019-01-15 08:43 | DIS ---
DATE OF ADMISSION: 01/11/2019 DATE OF DISCHARGE: 01/15/2019 PRIMARY CARE PHYSICIAN: Abran Tapia MD. DISCHARGE DISPOSITION: Home. PRIMARY DISCHARGE DIAGNOSES: Acute on chronic kidney failure, baseline chronic kidney disease stage 4; acute gout; hyperkalemia; metabolic acidosis. SECONDARY DISCHARGE DIAGNOSES: Chronic kidney disease, stage 4; hypertension; coronary artery disease; anemia of renal disease; vitamin D deficiency. PRIMARY PROCEDURE/OPERATION: None. RADIOLOGICAL INVESTIGATION: None. SIGNIFICANT LABORATORY DATA: WBC 5.9, hemoglobin 8.2, platelets 195. Creatinine 4.64. Vitamin D level 7.1, PTH 292, CRP 7.32. DISCHARGE MEDICATIONS: 1. Amlodipine 10 mg daily. 2. Aspirin 81 mg daily. 3. Atenolol 50 mg b.i.d. 4. Claritin 10 mg daily p.r.n. 5. Omeprazole 40 mg daily. 6. Crestor 40 mg p.o. at bedtime. 7. Terazosin 2 mg p.o. at bedtime. 8. Tylenol 500 mg q.6 hourly p.r.n. 9. Allopurinol 100 mg daily. 10. Colchicine 0.3 mg b.i.d. 11. Calcitriol 0.25 mcg p.o. daily. 12. Lasix 20 mg p.o. daily. 13. Prednisone 40 mg p.o. daily for 5 days. 14. Sodium bicarbonate 650 mg t.i.d. CONTRAINDICATION: None. CODE STATUS: Full code. INPATIENT LEAD SOFTWARE TEST ENGINEER: Dr. Guy was following while in hospital. TEST RESULT PENDING ON DISCHARGE: None. ALLERGIES: LISINOPRIL, TRAMADOL, CODEINE. DISCHARGE PLAN: Posthospital, the patient will follow up with Dr. Guy as instructed, and she will make appointment with primary care physician. HOSPITAL COURSE: A 68-year-old female, who was admitted by Dr. Lake, please see his H and P for further details. On admission, the patient was having hyperkalemia, metabolic acidosis, and acute on chronic kidney failure. The patient was admitted to telemetry floor. She was treated in [facility] [place] for hyperkalemia. During this admission, we started on sodium bicarbonate. Vitamin D level was low and that is why calcitriol was prescribed on the day of discharge. While in hospital, she had acute gout, which was treated with colchicine, prednisone, and her uric acid level was high and that is why we started allopurinol on discharge. Nephrology was following while in hospital. This patient has advanced renal insufficiency. We discussed with her option of renal replacement therapy and possible need of AV fistula, but the patient is not interested in going for any kind of procedure to start dialysis. At this point, the patient has made her mind that she does not want to go for any surgical procedure for dialysis and that is why we are considering her discharge home and she will follow up with Nephrology as an outpatient basis, and outpatient followup Nephrology will arrange dialysis access if needed. This patient is at high risk for recurrent admission because of her advanced renal insufficiency. The patient is seen and examined at bedside today. Please see my progress note from today for further detail. All new medication prescription given to her. Job ID: [id number]
[2019-01-15] MEDS: Aspirin 81 mg Enteric Coated Tablet PO SCH (08:59)
[2019-01-15] MEDS: Colchicine 0.3 MG TAB PO SCH (08:59)
[2019-01-15] MEDS: Sodium Bicarbonate Tab 325 MG TAB PO SCH (08:59)
[2019-01-15] MEDS: Famotidine 20 MG TAB PO SCH (09:00)
[2019-01-15] MEDS: Heparin 5,000 UNITS/ML VIAL SC SCH (09:00)
[2019-01-15] MEDS ORDERED: Calcitriol 0.25 MCG CAP PO SCH (09:00)
[2019-01-15] MEDS: Amlodipine 10 MG TAB PO SCH (09:02)
[2019-01-15] MEDS: HYDROcodone/Acetaminophen 5/325 mg Tablet PO PRN (11:13)
[2019-01-15 12:41] VITALS: BP 179/84; TEMP 97.9
--- NOTE | 2019-01-16 10:01 | PRG ---
DATE OF SERVICE: 01/15/2019 SUBJECTIVE: Patient was seen and examined at bedside and overnight events noted. Patient denies any shortness of breath or chest pain or palpitation. No history of nausea or vomiting or diarrhea or fever or chills or cramps. OBJECTIVE: GENERAL: This is a well developed female, in no acute distress. VITAL SIGNS: Temperature 97.9. Heart rate 70. Respiratory rate 18. Blood pressure 179/84. HEENT: Atraumatic, normocephalic. Oral mucosa is moist NECK: Supple. CARDIOVASCULAR: S1, S2 heard. Rate and rhythm regular. RESPIRATORY: Clear to auscultation. GASTROINTESTINAL: Abdomen is soft. MUSCULOSKELETAL: No tenderness. No edema. DERMATOLOGIC: No skin rash. NEUROLOGIC: Alert and awake and oriented X3. No focal neurologic deficits. Moving all the extremities. PSYCHIATRIC: Mood and affect normal. LABORATORY DATA: Potassium 4.7, BUN is 94, creatinine is 4.0. ASSESSMENT AND PLAN: 1. Chronic kidney disease stage 5, stable. 2. Hyperkalemia, better. 3. Metabolic acidosis. 4. Hypertension. 5. Anemia. The patient refuses to have any access placement at this time. The patient was advised to follow up with in one week. Need access placement for getting ready for dialysis. She probably needs renal replacement in the next few months. Job ID: [id number]
== END 2019-01-15 14:40 | disposition home or self-care (01) | DRG 641 ==
LOC: ERS 18:27 → 2NO 19:21
PROVIDERS: ADMIT Internal Medicine; ATTEND Internal Medicine
DX: E87.5 Hyperkalemia (principal); N17.9 Acute kidney failure, unspecified; N18.4 Chronic kidney disease, stage 4 (severe); I25.10 Atherosclerotic heart disease of native coronary artery without angina pectoris; F41.9 Anxiety disorder, unspecified; F32.9 Major depressive disorder, single episode, unspecified; F17.290 Nicotine dependence, other tobacco product, uncomplicated; Z90.710 Acquired absence of both cervix and uterus; Z98.51 Tubal ligation status; Z79.82 Long term (current) use of aspirin; Z88.5 Allergy status to narcotic agent; Z79.899 Other long term (current) drug therapy; Z88.8 Allergy status to other drugs, medicaments and biological substances; R73.9 Hyperglycemia, unspecified; R00.1 Bradycardia, unspecified; D63.1 Anemia in chronic kidney disease; E87.2 Acidosis; M10.9 Gout, unspecified; I13.10 Hypertensive heart and chronic kidney disease without heart failure, with stage 1 through stage 4 chronic kidney disease, or unspecified chronic kidney disease; E55.9 Vitamin D deficiency, unspecified
CPT/HCPCS: 36415; 36416; 80048; 82274; 82306; 82728; 83036; 83540; 83550; 83735; 83970; 84100; 84484; 84550; 85007; 85025; 85027; 85046; 85652; 86140; 90471; 90670; 93005; 96374; G0009; J0360; J1644; J2270; J7070; J7512; Q5105

== ENCOUNTER 2019-02-08 17:07 | Inpatient (IN) | payer MEDICARE, MEDICAID ==
[2019-02-08 18:29] LABS: Anion Gap 16 mmol/L (10-20); BUN (Urea Nitrogen) 67 mg/dL (9.8-20.1); CK (CPK) 46 U/L (29-168); Calc. Creatinine Clearance 0 mL/min (70-130); Calcium 9.9 mg/dL (7.8-10.44); Carbon Dioxide 15 mmol/L (23-31); Chloride 110 mmol/L (98-107); Estimated GFR-MDRD 13; Glucose 88 mg/dL (80-115); Potassium 5.4 mmol/L (3.5-5.1); Sodium 136 mmol/L (136-145)
--- NOTE | 2019-02-08 18:46 | ULT ---
US Venous Doppler Rt Unilat History: [Pain in right shoulder] Comparison: None. Findings: Real-time grayscale, color, and spectral analysis of the right upper extremity venous syste m was performed. The internal jugular, subclavian, axillary veins as well as of the brachial, basilic, cephalic veins as well as the radial and ulnar veins were interrogated. Normal flow, augmentation, and compression. Impression: No deep venous thrombosis.
[2019-02-08] MEDS ORDERED: HYDROcodone/Acetaminophen 5/325 mg Tablet ONE (20:39)
[2019-02-08] MEDS ORDERED: Ondansetron ODT 4 MG TAB PO PRN (21:21)
[2019-02-08] MEDS ORDERED: Ondansetron PF 4 MG/2 ML Vial IVP PRN (21:21)
[2019-02-08] MEDS ORDERED: predniSONE 20 MG TAB PO SCH (21:30)
--- NOTE | 2019-02-08 21:58 | RAD ---
XR Elbow Rt 2 View History: [Swelling.] Comparison: None. Findings: Large joint effusion. Exam is limited to only 2 views. Likely a radial neck fracture. Impression: Large joint effusion limited to only 2 views. Likely a radial neck fracture. 4 views are recommended.
--- NOTE | 2019-02-08 21:59 | RAD ---
XR Hand Rt 2 View History: [Pain] Comparison: None. Findings: No acute fracture or malalignment. Subcortical cyst formation of the medial margin of the l unate. Erosive changes are present of the proximal phalangeal joint of the fourth digit. No acute fracture or malalignment. Impression: 1. No acute fracture or malalignment. 2. Erosive degenerative changes proximal and phalangeal joint of the fourth digit with soft tissue sw elling. 3. Erosive changes medial marginal lunate can be seen with ulnocarpal abutment syndrome.
--- NOTE | 2019-02-08 22:00 | RAD ---
XR Shoulder Rt 2 View History: [Pain] Comparison: None. Findings: No acute fracture or malalignment. Soft tissues are unremarkable. Ribs are unremarkable. Impression: No acute abnormality.
[2019-02-08 23:25] VITALS: BMI 27.6
[2019-02-08] MEDS: Acetaminophen 325 MG TAB PO PRN (23:49)
--- NOTE | 2019-02-09 01:25 | HP ---
PRIMARY CARE DOCTOR: Abran Tapia MD CODE STATUS: Full code. TIME OF EVALUATION: 08:15 p.m. CHIEF COMPLAINT: Body aches. HISTORY OF PRESENT ILLNESS: This is a 68-year-old female patient, transferred from [place]. The patient reported having some severe pain on the right arm and hand, also extended to bilateral feet with no clear triggers, no alleviating factors. The patient denies any trauma on the right upper extremity. The patient also has chronic kidney disease, followed by Dr. Gomez and she was found to have hyperkalemia. She reported being unable to stand up and walk since February 01. She was found to have hyperkalemia. For that reason, she has been transferred here. The patient received treatment for high potassium and the potassium has come down. Dr. Gomez will be consulted for any further recommendations. The patient also was found to have right elbow effusion associated with right radial head fracture that will need to be addressed with Orthopedics to see what treatment would be best for patient. REVIEW OF SYSTEMS: CONSTITUTIONAL: No fever, chills, or generalized weakness. RESPIRATORY: No cough, sputum production, or shortness of breath. CARDIOVASCULAR: No chest pain or palpitation. GASTROINTESTINAL: No nausea, vomiting, diarrhea, or abdominal pain. POWER ORIGINATOR: No dizziness, headache, or feeling lightheaded. GENITOURINARY: No burning on urination. EXTREMITIES: The patient has bilateral leg swelling and also right upper extremity swelling and decreased range of motion. The patient is unable to move the right arm. All other systems were reviewed and negative except for the findings mentioned above. PAST MEDICAL HISTORY: Positive for bilateral cataract, coronary artery disease, gout, hypertension, chronic kidney disease stage 3. PAST SURGICAL HISTORY: Bilateral cataract, hysterectomy, tubal ligation. FAMILY HISTORY: Reviewed and noncontributory for current presentation. PSYCHIATRIC HISTORY: No previous psych history except for anxiety and depression. SOCIAL HISTORY: No alcohol. No drugs. The patient lives alone at home. KNOWN ALLERGIES: Codeine, lisinopril, and tramadol. REPORTED MEDICATIONS: Aspirin, amlodipine, atenolol, furosemide, Crestor, omeprazole, sodium, calcitriol, terazosin, loratadine. PHYSICAL EXAMINATION: VITAL SIGNS: On presentation, blood pressure 151/113, heart rate 71, respiratory rate was 17, temperature 98.1. Pain was 9/10. GENERAL APPEARANCE: The patient is alert, oriented, not in acute distress. HEENT: Eyes, normal conjunctivae. Moist oral mucosa. Anicteric. No JVD. RESPIRATORY: Bilateral air entry. No rales. No wheezes. Symmetric expansion. CARDIOVASCULAR: Normal rate, regular rhythm. No murmurs. No gallop. Bilateral leg edema. ABDOMEN: Soft. Normal bowel sounds. MUSCULOSKELETAL: Baseline range of motion and strength. No tenderness except for bilateral lower extremities that seem to be tender and with decreased range of motion in the right upper extremity, the patient has decreased range of motion associated with tenderness and swelling. No redness. SKIN: Warm and intact. No pallor. No rash. No redness. Peripheral pulses are present. Capillary refill seems to be intact. NEUROLOGIC: No evidence of any new focal weakness. Baseline speech. Cranial nerves seem to be intact. PSYCH: The patient is in good mood. No anxiety. Optimal judgment. DIAGNOSTIC STUDIES: EKG was reviewed. The patient has sinus bradycardia at the rate of 58, left ventricular hypertrophy with repolarization abnormalities. Checks x-ray was not done. Vascular ultrasound was done and showed no DVT in the right upper extremity. Elbow x-ray was done and showed large joint effusion and likely a radial neck fracture. A hand x-ray showed no acute fracture or malalignment; erosive degenerative changes proximal to phalangeal joint of the 4th digit with soft tissue swelling and erosive changes of medial marginal lunate can be seen with ulnocarpal abutment syndrome. Shoulder x-rays show no acute abnormalities. LABORATORY DATA: Labs were reviewed. The patient had white count 9.0, hemoglobin 9.6, MCV 88.5, platelet count 297. Chemistry; sodium 136, potassium 5.4, chloride 110, carbon dioxide 15, anion gap 16, BUN 67, GFR today was 13, creatinine 4.12, glucose was 88. Lactic acid 0.9, calcium 9.9. Troponin was negative. Urine was done and was negative. ASSESSMENT AND PLAN: The patient will be placed in the hospital with following medical problems: 1. Hyperkalemia. The patient has potassium in the range of levels higher than 6. Received treatment before being transferred here. The last potassium here was 5.4, the patient has chronic kidney disease and has been followed with Dr. Gomez as outpatient. We will place consult for Dr. Gomez to see her as inpatient for any further recommendations prior to discharge. 2. Right radial fracture with large joint effusion in the elbow. We will consult Orthopedics to follow recommendations. 3. Chronic kidney disease. Treatment as above. 4. Chronic normocytic anemia. We will monitor. This is likely secondary to underlying chronic kidney disease. No need for any acute intervention at this point. 5. Non-anion gap metabolic acidosis likely secondary to chronic kidney disease. We will treat the underlying condition. 6. Uncontrolled hypertension. The patient had blood pressure on presentation, systolic 175. Reconcile home medications. We will adjust treatment as needed. Job ID: [id number] [facility]
[2019-02-09] MEDS ORDERED: HYDROcodone/Acetaminophen 7.5/325 mg Tablet PO SCH (03:00)
[2019-02-09] MEDS ORDERED: Atenolol 50 MG TAB PO SCH ×2 (03:00→09:00)
[2019-02-09 05:58] LABS: #Lymphocytes 0.7 thou/uL (1.20-3.40); #Monocytes 0.3 thou/uL (0.11-0.59); #Neutrophils 8.6 thou/uL (1.40-6.50); %Eosinophils 0.1 % (0.0-10.0); %Lymphocytes 6.8 % (21.0-51.0); %Monocytes 3.4 % (0.0-10.0); %Neutrophils 89.7 % (42.0-75.0); Hemoglobin 8.4 g/dL (12.0-16.0); Mean Corpuscular HGB CONC 32.1 g/dL (32.0-36.0); Mean Corpuscular Hemoglobin 28.5 pg (27.0-31.0); Mean Corpuscular Volume 88.6 fL (78.0-98.0); Mean Platelet Volume 8.4 fL (7.4-10.4); Platelet Count 308 thou/uL (130-400); RBC Distribution Width 15.3 % (11.5-14.5); Red Blood Cell (RBC) Count 2.95 mill/uL (4.20-5.40); White Blood Cell (WBC) Count 9.6 thou/uL (4.8-10.8)
[2019-02-09 06:20] LABS: Anion Gap 17 mmol/L (10-20); BUN (Urea Nitrogen) 66 mg/dL (9.8-20.1); Calc. Creatinine Clearance 16 mL/min (70-130); Calcium 9.4 mg/dL (7.8-10.44); Carbon Dioxide 13 mmol/L (23-31); Chloride 109 mmol/L (98-107); Estimated GFR-MDRD 13; Glucose 147 mg/dL (80-115); Potassium 6.2 mmol/L (3.5-5.1); Sodium 133 mmol/L (136-145)
[2019-02-09] MEDS: Amlodipine 10 MG TAB PO SCH (07:49)
[2019-02-09] MEDS: Aspirin 81 mg Enteric Coated Tablet PO SCH (07:49)
[2019-02-09] MEDS: predniSONE 20 MG TAB PO SCH (07:51)
[2019-02-09] MEDS ORDERED: Enoxaparin Sodium 40 MG/0.4 ML SYRINGE SC SCH (09:00)
--- NOTE | 2019-02-09 09:14 | RAD ---
Left knee: 3 views INDICATIONS: Knee pain and swelling Moderate degenerative changes. Mild loss of medial joint space. Prominent spurring from all joint com partments. No significant joint effusion. IMPRESSION: Moderately severe degenerative changes
[2019-02-09] MEDS ORDERED: Sodium Chloride 0.9% 1,000 ML IV SCH (11:00)
[2019-02-09] MEDS ORDERED: Sodium Bicarb 50 MEQ/50 ML VIAL IVP SCH (13:00)
[2019-02-09] MEDS: Sodium Bicarbonate 150 MEQ in Dextrose 5% in Water 1,000 ML IV SCH (13:15)
[2019-02-09 14:37] LABS: Anion Gap 15 mmol/L (10-20); BUN (Urea Nitrogen) 70 mg/dL (9.8-20.1); Calc. Creatinine Clearance 14 mL/min (70-130); Carbon Dioxide 18 mmol/L (23-31); Chloride 104 mmol/L (98-107); Estimated GFR-MDRD 12; Glucose 276 mg/dL (80-115); Potassium 6.2 mmol/L (3.5-5.1); Sodium 131 mmol/L (136-145)
--- NOTE | 2019-02-09 16:16 | CON ---
DATE OF CONSULTATION: This is Izaiah Barksdale PA-C dictating a report for Rusty Moe MD. HISTORY OF PRESENT ILLNESS: We were asked by the [facility] to see the patient. The patient states she awoke with some right elbow pain. She is not sure where it originated and she does not recall any falls or injury, but she has some increased edema. She is able to lift her arm and move her fingers. It is quite painful in doing so. No numbness or tingling. She also has some complaints of some left knee pain and swelling. Apparently over the past week or so, she has had increased body aches and pain that has prevented her from moving. She had to have a neighbor come with her up and I asked her again if could hit her elbow with moving her and the patient does not recall any incident. PAST MEDICAL HISTORY: Positive for cataract surgery, coronary artery disease, gout, hypertension, and chronic kidney disease. PAST SURGICAL HISTORY: Cataract, hysterectomy, tubal ligation. PSYCHIATRIC HISTORY: She also suffers from some mild anxiety and depression. SOCIAL HISTORY: Lives alone. No alcohol or nicotine products. No illicit drugs. ALLERGIES: CODEINE, LISINOPRIL, AND TRAMADOL. MEDICATIONS: 1. Aspirin. 2. Amlodipine. 3. Atenolol. 4. Furosemide. 5. Crestor. 6. Omeprazole. 7. Sodium. 8. Calcitriol. 9. Terazosin. 10. Loratadine. REVIEW OF SYSTEMS: No complaints of chest pain or shortness of breath. No bowel or bladder problems, but definitely has more achiness. She does state she has arthritis and it has gotten worse over the past week. Most notably pain in the elbow and left knee. PHYSICAL EXAMINATION: GENERAL: Well-nourished, well-developed female in room 4408, in no acute distress. Speech clear. Affect pleasant. Answers questions appropriately. Alert and oriented x3. HEENT: Face is symmetric. Tongue is midline. Eyes, track well. Ears, no hearing deficits. NECK: Supple. Trachea midline. EXTREMITIES: Upper extremities; right upper extremity is a little bit more swollen in the hand, in the elbow compared to the left, but both are moving okay having more pain in the right with movement. Palpation of the elbow does elicit little pain, but there is no increased warmth that would make me think there is some form of infection brewing currently. Pulses equal. Lower extremities; bilateral lower extremities equal size, shape, symmetry, normal bulk and tone. With exception, left knee is a little more swollen and painful and again, no increased warmth. Feet have some swelling, but DP and PT pulses are intact as are sensations. RESPIRATORY: No distress. DIAGNOSTIC DATA: X-rays, I reviewed x-rays. It looks like she has a sail sign and may be a radial head and neck fracture, but it is very subtle. The patient is a little tender over this area. ASSESSMENT: Right elbow pain, left knee pain. PLAN: At least for the elbow, we will get her put into a sling elevated and I see if this helps. She has very bad kidneys. Dr. Gomez has seen the patient for this, so no NSAIDs will be given at least by our group. I told her to work that arm little bit and see if she can get some of that edema out of there with some elevation and just movement. Sling for comfort only and for lower extremity, I ordered some knee x-rays on her left knee. Again, she has a history of gout and she has a history of arthritis, so this could be a flare or could be your kidneys, but anyhow patient is happy currently with the plan. We will review the x-rays once are done and see the patient on an as-needed basis. She can follow up in our clinic in 2 to 4 weeks. Job ID: [id number]
--- NOTE | 2019-02-09 16:51 | PRG ---
DATE OF SERVICE: 02/09/2019 SUBJECTIVE: The patient is seen and examined at the bedside. She had pain in her right leg, but now she is more complaining about the right upper extremity pain and the left knee pain. Her pain in the right side of the lower extremity is completely gone. OBJECTIVE: VITAL SIGNS: Blood pressure is 139/74, pulse is 70, temperature is 98.0, respirations 18, O2 saturation is 95% on room air. HEENT: Head is atraumatic and normocephalic. Eyes are PERRLA. Sclerae are nonicteric. Oral mucosa is moist. NECK: Supple. LUNGS: Clear. HEART: S1 and S2 normal. There is a systolic murmur mostly audible at the right sternal border, 2/6. ABDOMEN: Soft, nontender. Bowel sounds are present. No organomegaly. EXTREMITIES: Right upper extremity is swollen and tender to touch. The range of motion is significantly limited by the pain. The left knee area is somewhat swollen, also tender to palpation. Range of motion decreased too. NEUROLOGICAL: She is alert and oriented x4. There are no any motor deficits. Cranial nerves are intact. LABORATORY DATA: Labs showed sodium of 131, potassium 6.2, chloride 104, CO2 of 18, BUN 70, creatinine 4.57, glucose 276, calcium 9.0. Microbiology, nothing. Left knee x-ray showed moderately severe degenerative changes. IMPRESSION: 1. Hyperkalemia, recurrent. The patient was seen by Dr. Gomez, Nephrology evaluation. He started her on D5 water plus a bicarb and Kayexalate. We are going to follow up her potassium closely. 2. Right radial fracture with large joint effusion. I am still awaiting for the final report from Orthopedic consultation. Apparently, they do not recommend any surgical intervention at this point, and they recommend a sling. 3. Chronic kidney disease, it is getting worse. 4. Chronic normocytic anemia related to kidney disease stage 4 or 5. 5. Non-anion gap metabolic acidosis, again secondary to chronic kidney disease and worsening kidney function. 6. Uncontrolled hypertension, improved. PLAN: I am going to check uric acid level. The patient was started on prednisone. She is going to use the sling for her right arm. She received Kayexalate and bicarb, started on D5 water per Nephrology. We will continue that. We will follow up with serial potassium levels. With a worsening kidney function, Nephrology will make more recommendations amlodipine, aspirin, metoprolol, and prednisone. Job ID: [id number]
[2019-02-09 16:58] LABS: Potassium 5.6 mmol/L (3.5-5.1)
--- NOTE | 2019-02-09 19:09 | CON ---
DATE OF CONSULTATION: 02/09/2019 REASON FOR CONSULTATION: Hyperkalemia. HISTORY OF PRESENT ILLNESS: This is a very pleasant 68-year-old female, followed by me in the outpatient clinic, presented to the hospital after she was noted to have hyperkalemia and body aches. The patient also had a fracture. The patient's creatinine has increased from a baseline of 3 to gradually more than 4. The patient denies any headache or tingling. 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 SOCIAL HISTORY: No drug or alcohol use. FAMILY HISTORY: Negative for ESRD. ALLERGIES: REVIEWED. HOME MEDICATIONS: List reviewed. REVIEW OF SYSTEMS: A 15-point review of systems was performed and was negative except for positives noted above. GENERAL: HEAD: NECK: No swelling or lumps. NOSE: No epistaxis or discharge. EYES: No diplopia or pain. 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 NEUROPSYCHIATIC SYSTEMS: No suicidal ideation. No ideation. SKIN: Denies any rash or ulcer. CONSTITUTIONAL: No fever or chills. PHYSICAL EXAMINATION: See above. CONSTITUTIONAL: The patient is awake and alert, in no acute distress. VITAL SIGNS: Afebrile. Pulse 69, breathing 16, blood pressure GENERAL APPEARANCE AND MENTAL STATUS: Fair. HEAD/NECK: Normocephalic. Atraumatic. EYES: EOMI. No deformity. EARS: Clear. No ulcers. NOSE: Intact. No lesions. MOUTH: Clear. No discharge. THROAT: Clear. No exudate. LUNGS: Clear. No crackles. CARDIAC: S1, S2. No rub. ABDOMEN: Benign. Bowel sounds positive. GENITALIA/RECTUM: Lopez absent. BACK/EXTREMITIES: Edema 0+. NEUROLOGICAL: Alert and motor intact. SKIN: LYMPHATICS: LABORATORY DATA: Labs show potassium 6.2, bicarb 13. IMPRESSION AND PLAN: 1. Acute kidney injury with chronic kidney disease due to acute tubular necrosis. Offered dialysis. The patient declined. We will start the patient on bicarb drip and follow renal function closely. 2. Hyperkalemia. Plan bicarbonate drip and Kayexalate. 3. Metabolic acidosis. Plan bicarbonate drip. 4. Medication based on GFR, change atenolol to metoprolol and avoid Lovenox. Multiple findings were discussed with the patient. All questions were answered. Job ID: [id number]
[2019-02-09] MEDS: Rosuvastatin 10 MG TAB PO SCH (19:49)
[2019-02-09 20:21] LABS: Anion Gap 17 mmol/L (10-20); BUN (Urea Nitrogen) 70 mg/dL (9.8-20.1); Calc. Creatinine Clearance 14 mL/min (70-130); Calcium 8.8 mg/dL (7.8-10.44); Carbon Dioxide 16 mmol/L (23-31); Chloride 104 mmol/L (98-107); Estimated GFR-MDRD 12; Glucose 203 mg/dL (80-115); Sodium 132 mmol/L (136-145)
[2019-02-10] MEDS: Sodium Bicarbonate 150 MEQ in Dextrose 5% in Water 1,000 ML IV SCH ×2 (01:10→06:21)
[2019-02-10] MEDS: Acetaminophen 325 MG TAB PO PRN ×2 (05:10→09:24)
[2019-02-10 07:40] LABS: Anion Gap 16 mmol/L (10-20); BUN (Urea Nitrogen) 68 mg/dL (9.8-20.1); Calc. Creatinine Clearance 15 mL/min (70-130); Calcium 8.3 mg/dL (7.8-10.44); Carbon Dioxide 21 mmol/L (23-31); Chloride 103 mmol/L (98-107); Estimated GFR-MDRD 12; Glucose 112 mg/dL (80-115); Potassium 4.1 mmol/L (3.5-5.1); Sodium 136 mmol/L (136-145)
[2019-02-10 07:42] LABS: #Eosinphils 0.1 thou/uL (0.0-0.7); #Lymphocytes 0.9 thou/uL (1.20-3.40); #Monocytes 0.4 thou/uL (0.11-0.59); #Neutrophils 6.2 thou/uL (1.40-6.50); %Basophils 0.1 % (0.0-1.0); %Eosinophils 0.8 % (0.0-10.0); %Lymphocytes 11.3 % (21.0-51.0); %Monocytes 4.9 % (0.0-10.0); %Neutrophils 82.8 % (42.0-75.0); Hemoglobin 7.2 g/dL (12.0-16.0); Mean Corpuscular HGB CONC 31.9 g/dL (32.0-36.0); Mean Corpuscular Volume 87.6 fL (78.0-98.0); Platelet Count 267 thou/uL (130-400); RBC Distribution Width 15.1 % (11.5-14.5); Red Blood Cell (RBC) Count 2.57 mill/uL (4.20-5.40); White Blood Cell (WBC) Count 7.5 thou/uL (4.8-10.8)
[2019-02-10] MEDS: predniSONE 20 MG TAB PO SCH (08:21)
[2019-02-10] MEDS: Aspirin 81 mg Enteric Coated Tablet PO SCH (08:21)
[2019-02-10] MEDS: Amlodipine 10 MG TAB PO SCH (08:21)
--- NOTE | 2019-02-10 10:37 | PRG ---
DATE OF SERVICE: 02/10/2019 SUBJECTIVE: A 68-year-old female being seen for end-stage renal disease. The patient denied nausea, vomiting, or chest pain. OBJECTIVE: See above. CONSTITUTIONAL: The patient is awake, alert. VITAL SIGNS: Afebrile, pulse 75, breathing 16, and blood pressure 163/76. GENERAL APPEARANCE AND MENTAL STATUS: Fair. HEAD/NECK: Normocephalic. Atraumatic. EYES: EOMI. No deformity. EARS: Clear. No ulcers. NOSE: Intact. No lesions. MOUTH: Clear. No discharge. THROAT: Clear. No exudate. LUNGS: Clear. No crackles. CARDIAC: S1, S2. No rub. ABDOMEN: Benign. Bowel sounds positive. GENITALIA/RECTUM: Lopez absent. BACK/EXTREMITIES: Edema 0+. NEUROLOGICAL: Alert and motor intact. SKIN: LYMPHATICS: LABORATORY DATA: Hemoglobin 7.2. Creatinine 4.3. ASSESSMENT AND PLAN: 1. Chronic kidney disease stage 5, stable. Acute kidney injury due to acute tubular necrosis, improved. 2. Hyperkalemia, improved. 3. Metabolic acidosis. We can stop the bicarb drip as her bicarb has improved. No indication for dialysis, but we will consult Dr. Truong for low potassium diet. The patient will need Veltassa every day. Job ID: [id number]
[2019-02-10] MEDS ORDERED: hydrALAZINE 25 MG TAB PO SCH (11:00)
[2019-02-10] MEDS ORDERED: HYDROcodone/Acetaminophen 5/325 mg Tablet PO PRN (11:08)
--- NOTE | 2019-02-10 11:17 | PRG ---
DATE OF SERVICE: 02/10/2019 SUBJECTIVE: The patient is seen and examined at the bedside. She does not have good appetite. She still has quite a bit of pain in her right elbow and left knee and left ankle despite of taking Tylenol 650 mg. OBJECTIVE: VITAL SIGNS: Blood pressure is 176/74, pulse is 70, temperature is 98.1, maximal temperature is 99.6, respiratory rate is 18, and O2 saturation is 98% on room air. HEENT: Head is atraumatic and normocephalic. Sclerae are nonicteric. Oral mucosa is moist. NECK: Supple. LUNGS: Clear. HEART: S1 and S2 normal. No S3. No S4. ABDOMEN: Soft, nontender, and nondistended. EXTREMITIES: Right elbow area is swollen and tender to touch secondary to fracture and the left knee showed some swelling and range of motion is diminished. Left ankle shows lateral swelling and pain to palpation and range of motion significantly diminished. NEUROLOGIC: She is alert and oriented x3. There is no any motor deficits. LABORATORY DATA: Shows hemoglobin of 7.2, white count of 7.5, hematocrit 22.5, and platelet count is 267,000. Sodium of 136, potassium 4.1, chloride 103, CO2 of 21, BUN 68, creatinine 4.34, glucose 112, calcium 8.3, and estimated GFR is 12. IMPRESSION: 1. Hyperkalemia, recurrent, improved with a Nephrology help. 2. Right radial fracture with large joint effusion. Orthopedic surgeon is down to recommend any intervention at this point. 3. Chronic kidney disease. 4. Chronic normocytic anemia, most likely related to kidney disease, stage 4 or 5. 5. Nonanion gap metabolic acidosis, improved. 6. Uncontrolled hypertension. 7. Left ankle swelling and pain. PLAN: We are going to get x-ray of this left ankle 3 views. I am going to start her on hydrocodone 5 mg q.4 hours p.r.n. as needed, since this Tylenol is not really helping her pain. Also, I am going to start her on hydralazine 25 mg twice a day to help her blood pressure. We will continue her amlodipine and metoprolol on the top of that. We will continue prednisone. This should help her and as I mentioned before, uric acid level will be checked. Job ID: [id number]
--- NOTE | 2019-02-10 11:19 | RAD ---
LEFTankle 3 views INDICATION: Ankle injury. COMPARISON: None. FINDINGS: Bones: Intact. There is diffuse osteopenia Ankle mortise: Symmetric. Talar Dome: Intact. Subtalar joint: Normal. Visualized hindfoot: There is moderate to severe osteoarthrosis of the mid foot. There is moderate en thesopathic change off of the calcaneus. There are soft tissue calcifications involving the Achilles tendon. Periarticular soft tissues: Normal. IMPRESSION: 1. No acute fracture or subluxation demonstrated.
[2019-02-10] MEDS: HYDROcodone/Acetaminophen 5/325 mg Tablet PO PRN ×2 (11:49→20:08)
--- NOTE | 2019-02-10 15:38 | HP ---
HISTORY OF PRESENT ILLNESS: Susy Marcos is a 68-year-old black female, very pleasant with chronic kidney disease secondary to hypertension. The patient has been seen by Dr. Gomez who has asked me to see her regarding arrangement for dialysis access. She has a bandage over her left IC indicating IV access. She has an IV in left hand. She has extreme pain from her right shoulder to her hand. She has weakness of her right arm. She has weakness of her left leg. She has been nonambulatory in the last 5 to 6 days, but prior to that, was ambulating independently and normally. She has been admitted by the hospitalist service. She has been seen by Orthopedics. She thinks some of her problems could be related to her gout exacerbation. She, however, has severe weakness of her left leg, not able to ambulate. I have ordered Neurosurgery consultation evaluation and we will leave imaging up to them. The patient is right-handed. White count is 7, hemoglobin is 7.2. Sodium 136, carbon dioxide 21, BUN 68, creatinine 4.3, GFR 12. Plan is to obtain ultrasound vein mapping in both arms for dialysis access and plan right or left arm dialysis access as an inpatient or outpatient. If she is still in the hospital next Wednesday, she is scheduled for Wednesday for this; however, if she is discharged home in the interim, my office should be notified and the proper paperwork and forms can be made out for outpatient surgery Wednesday or another day of the patient's choosing. Access should be done soon as she will need to initiate dialysis in the near future. Hope is to avoid a dialysis catheter. ALLERGIES: LISINOPRIL, TRAMADOL, CODEINE. TRAMADOL CAUSES GI UPSET. CODEINE CAUSES GI UPSET. SOCIAL HISTORY: Tobacco, none. Alcohol, none. She does dip snuff. MEDICATIONS: Outpatient medications: 1. Veltassa 8.4 mg a day. 2. Claritin p.r.n. 3. Aspirin 81 mg a day. 4. Tylenol p.r.n. 5. Calcitriol 0.25 mcg daily. 6. Amlodipine 10 mg a day. 7. Terazosin 2 mg at bedtime. 8. Furosemide 20 mg a day. 9. Rosuvastatin 40 mg at bedtime. 10. Atenolol 50 mg b.i.d. 11. Bicarbonate 650 t.i.d. PAST SURGICAL HISTORY: Bilateral tubal ligation prior to a total abdominal hysterectomy, bilateral salpingo-oophorectomy. She is up-to-date on her colonoscopies, last performed 4 years ago. PAST MEDICAL HISTORY: Hypertension, gout. She has a history of coronary artery disease, but does not have a history of stenting or bypass. She reports having had a cardiac catheterization in the past, but did not require any intervention. REVIEW OF SYSTEMS: Ten-point noncontributory. SOCIAL HISTORY: The patient lives by herself in [place]. PHYSICAL EXAMINATION: VITAL SIGNS: Height 5 feet 5 inches, weight 166 pounds, 27 BMI, temperature 98.1 degrees, heart rate 71, blood pressure 79/66. HEAD, EYES, EARS, NOSE AND THROAT: Neurologically intact. LUNGS: Clear to auscultation. CARDIAC: Regular rate and rhythm without murmur or gallop. ABDOMEN: Soft and nontender. No hernia is evident. EXTREMITIES: Unremarkable. Palpable radial pulses bilaterally. Ice pack right arm. Pain in her right hand and right arm. Good palpable radial pulses. Left arm is normal. NEUROLOGICAL: The patient has severe pain in her right arm, shoulder to hand, hand is worse. She has weakness in her right arm. She has weakness in her left leg and cannot even lift it off the bed. ASSESSMENT/PLAN: 1. Chronic kidney disease. We will need dialysis access. We will plan hemodialysis access with a right or left arm fistula (right-handed) pending vein mapping, which has been ordered today, but has not yet been done. We will plan this next Wednesday, if she is still in the hospital; however, if it needs to be postponed for medical reasons, we can. If she needs hemodialysis catheter on the day, we can perform one if it is decided that she will need to initiate dialysis immediately. We will schedule left or right arm dialysis fistula under regional anesthesia and sedation, the right or left arm pending vein mapping. She understands risks and benefits, and consents. We will plan this in the hospital; however, if she is discharged home prior, nursing should call my office as I will be off Wednesday, Wednesday, Wednesday and Wednesday, and my office can rearrange another day per the patient's liking. This should be scheduled soon as the patient needs to have a dialysis fistula placed. All efforts should be made to avoid IV access and blood draws above her wrist preserving her veins for dialysis access. 2. Hypertension. 3. Anemia. 4. Up-to-date on colonoscopies. 5. Severe right arm pain and weakness, severe left leg weakness. No explanation has been provided, and we will ask Neurosurgery to see her with imaging to be determined by them. 6. History of coronary artery disease, although the patient denies history of intervention, she does report a cardiac catheterization in the past that did not require any intervention. Job ID: [id number]
--- NOTE | 2019-02-10 16:29 | ULT ---
BILATERAL UPPER EXTREMITY VENOUS DOPPLER ULTRASOUND FOR DIALYSIS ACCESS: 02/10/19 HISTORY: End-stage renal disease. RIGHT UPPER EXTREMITY BRACHIAL ARTERY: Duplicated measuring 4.3 and 4.4 mm respectively. RADIAL ARTERY: 2.6 mm ULNAR ARTERY: 2.5 mm CEPHALIC VEIN Proximal Arm: 3.1 mm Mid Arm: 2.5 mm Distal Arm: 2.7 mm Antecubital Fossa: 1.8 mm Proximal Forearm: 1.2 mm Mid Forearm: 1 mm Distal Forearm: 3.7 mm BASILIC VEIN Proximal Arm: 4 mm Mid Arm: 4.2 mm Distal Arm: 4.5 mm Antecubital Fossa: 5.1 mm Proximal Forearm: 1.9 mm Mid Forearm: 2.2 mm Distal Forearm: 1.5 mm LEFT UPPER EXTREMITY BRACHIAL ARTERY: 5 mm RADIAL ARTERY: 2.5 mm ULNAR ARTERY: 1.8 mm CEPHALIC VEIN Proximal Arm: 2.2 mm Mid Arm: 1.1 mm Distal Arm: 1.1 mm Antecubital Fossa: 2.3 mm Proximal Forearm: 1.7 mm Mid Forearm: 1 mm Distal Forearm: 1.1 mm BASILIC VEIN Proximal Arm: 3.1 mm Mid Arm: 5.6 mm Distal Arm: 3.1 mm Antecubital Fossa: 3.4 mm Proximal Forearm: 1 mm Mid Forearm: 1.1 mm Distal Forearm: 0.6 mm POS: [facility]
[2019-02-10] MEDS: Rosuvastatin 10 MG TAB PO SCH (20:07)
[2019-02-10] MEDS: hydrALAZINE 25 MG TAB PO SCH (20:07)
[2019-02-11] MEDS: HYDROcodone/Acetaminophen 5/325 mg Tablet PO PRN ×3 (01:14→10:39)
[2019-02-11] MEDS ORDERED: predniSONE 20 MG TAB PO SCH (08:00)
[2019-02-11] MEDS: Amlodipine 10 MG TAB PO SCH (08:01)
[2019-02-11] MEDS: Aspirin 81 mg Enteric Coated Tablet PO SCH (08:01)
[2019-02-11] MEDS: hydrALAZINE 25 MG TAB PO SCH ×3 (08:01→20:59)
[2019-02-11] MEDS: predniSONE 20 MG TAB PO SCH (08:01)
[2019-02-11 08:12] LABS: Anion Gap 17 mmol/L (10-20); BUN (Urea Nitrogen) 74 mg/dL (9.8-20.1); Calc. Creatinine Clearance 15 mL/min (70-130); Calcium 8.6 mg/dL (7.8-10.44); Carbon Dioxide 23 mmol/L (23-31); Chloride 105 mmol/L (98-107); Estimated GFR-MDRD 12; Glucose 84 mg/dL (80-115); Potassium 3.9 mmol/L (3.5-5.1); Sodium 141 mmol/L (136-145)
[2019-02-11 09:09] LABS: #Eosinphils 0.2 thou/uL (0.0-0.7); #Lymphocytes 1.6 thou/uL (1.20-3.40); #Neutrophils 7.5 thou/uL (1.40-6.50); %Basophils 0.4 % (0.0-1.0); %Eosinophils 1.5 % (0.0-10.0); %Lymphocytes 15.4 % (21.0-51.0); %Monocytes 10.1 % (0.0-10.0); %Neutrophils 72.7 % (42.0-75.0); Hemoglobin 8.1 g/dL (12.0-16.0); Mean Corpuscular HGB CONC 32.5 g/dL (32.0-36.0); Mean Corpuscular Hemoglobin 28.2 pg (27.0-31.0); Mean Corpuscular Volume 86.7 fL (78.0-98.0); Mean Platelet Volume 8.2 fL (7.4-10.4); Platelet Count 334 thou/uL (130-400); Red Blood Cell (RBC) Count 2.87 mill/uL (4.20-5.40); White Blood Cell (WBC) Count 10.3 thou/uL (4.8-10.8)
--- NOTE | 2019-02-11 11:22 | PRG ---
DATE OF SERVICE: 02/11/2019 SUBJECTIVE: Patient was seen and examined at bedside and overnight events noted. Patient denies any shortness of breath or chest pain or palpitation. No history of nausea or vomiting or diarrhea or fever or chills or cramps. OBJECTIVE: GENERAL: This is a well developed female, in no apparent distress. VITAL SIGNS: Temperature . Pulse 65. Respiratory rate 16. Blood pressure 151/76. HEENT: Atraumatic, normocephalic. Oral mucosa is moist NECK: Supple. CARDIOVASCULAR: S1, S2 heard. Rate and rhythm regular. RESPIRATORY: Clear to auscultation. GASTROINTESTINAL: Abdomen is soft. MUSCULOSKELETAL: No tenderness. No edema. DERMATOLOGIC: No skin rash. NEUROLOGIC: Alert and awake and oriented X3. No focal neurologic deficits. Moving all the extremities. PSYCHIATRIC: Mood and affect normal. LABORATORY DATA: Potassium is 3.9, BUN is 74, and creatinine is 4.3. ASSESSMENT AND PLAN: 1. Acute kidney injury on chronic kidney disease stage 5, renal function stable. 2. Acute tubular necrosis, stable. 3. Hyperkalemia, better. Limit potassium intake. 4. Metabolic acidosis. 5. Edema. 6. hypertension. 7. Anemia of chronic disease. No acute indication for dialysis. The patient is resisting to start dialysis. We will follow. Job ID: [id number]
--- NOTE | 2019-02-11 13:44 | PRG ---
DATE OF SERVICE: 02/11/2019 SUBJECTIVE: The patient is seen and examined at the bedside. She feels significantly better. Her pain is under better control. Her appetite is quite poor. OBJECTIVE: VITAL SIGNS: Blood pressure is 161/76, pulse is 65, temperature is 98.2, respiratory rate is 16, O2 saturation is 98% on room air. HEENT: Her eyes are PERRLA. Sclerae are nonicteric. Oral mucosa is moist. NECK: Supple. LUNGS: Clear. ABDOMEN: Soft, nontender. Bowel sounds present. HEART: S1, S2 normal. No S3. No S4. EXTREMITIES: Right upper extremity is in a sling area of the right elbow is significantly swollen and tender to palpation. The left knee is still swollen and tender to range of motion. NEUROLOGICAL: She follows my commands. She moves her all 4 extremities, but with limitations since she has significant amount of pain while doing range of motion. LABORATORY DATA: Labs showed white count of 10.3, hemoglobin of 8.1, hematocrit 24.9, platelet count is 334,000. Normal electrolytes. BUN is 74, creatinine 4.34, glucose is 84, calcium 8.6. Microbiology, none. Uric acid is elevated at 9.6. IMPRESSION: 1. Hyperkalemia, recurrent, improved. 2. Right radial fracture with large joint effusion. 3. Chronic kidney disease. Dr. Truong is seeing the patient for fistula placement ultrasound was done. Apparently, she resists hemodialysis so far. 4. Chronic normocytic anemia, most likely related to stage 4 or 5 of her kidney disease. 5. Non-anion gap metabolic acidosis, improved. 6. Uncontrolled hypertension. We will try to adjust medicine. 7. Left ankle swelling and pain, most likely related to gouty arthritis. I am going to increase her prednisone to 40 mg once a day since we could not use any colchicine or NSAIDs secondary to her advanced renal disease. Also, I am planning to continue her hydrocodone as needed and her hydralazine to 50 mg three times a day to control her blood pressure. She was not started on uric-lowering agent since this is most likely gouty arthritis in acute phase and first, we are going to treat her inflammation, then when this is under control, we will start using lowering uric acid agent. Job ID: [id number]
--- NOTE | 2019-02-11 18:45 | EKG ---
Test Reason : Blood Pressure : / mmHG Vent. Rate : 058 BPM Atrial Rate : 058 BPM P-R Int : 208 ms QRS Dur : 088 ms QT Int : 386 ms P-R-T Axes : 050 -11 106 degrees QTc Int : 378 ms Sinus bradycardia Left ventricular hypertrophy with repolarization abnormality Left axis deviation Abnormal ECG Confirmed by MARIA C PITT DO ([id number]), editorial manager ETHAN HARDY ([id number] on 02/11/2019 6:45:02 PM Referred By: Confirmed By:MARIA C PITT DO
[2019-02-11] MEDS: Rosuvastatin 10 MG TAB PO SCH (20:59)
[2019-02-12] MEDS: HYDROcodone/Acetaminophen 5/325 mg Tablet PO PRN ×4 (03:53→22:07)
[2019-02-12 06:16] LABS: Anion Gap 18 mmol/L (10-20); BUN (Urea Nitrogen) 83 mg/dL (9.8-20.1); Calc. Creatinine Clearance 15 mL/min (70-130); Calcium 8.4 mg/dL (7.8-10.44); Carbon Dioxide 22 mmol/L (23-31); Chloride 100 mmol/L (98-107); Estimated GFR-MDRD 12; Glucose 89 mg/dL (80-115); Potassium 3.8 mmol/L (3.5-5.1); Sodium 136 mmol/L (136-145)
[2019-02-12] MEDS ORDERED: Bisacodyl 5 MG TAB PO PRN (07:49)
[2019-02-12] MEDS: hydrALAZINE 25 MG TAB PO SCH ×3 (07:55→20:54)
[2019-02-12] MEDS: predniSONE 20 MG TAB PO SCH (07:56)
[2019-02-12] MEDS: Amlodipine 10 MG TAB PO SCH (07:56)
[2019-02-12] MEDS: Aspirin 81 mg Enteric Coated Tablet PO SCH (07:57)
--- NOTE | 2019-02-12 10:54 | PRG ---
DATE OF SERVICE: 02/12/2019 SUBJECTIVE: Patient was seen and examined at bedside and overnight events noted. Patient denies any shortness of breath or chest pain or palpitation. No history of nausea or vomiting or diarrhea or fever or chills or cramps. OBJECTIVE: GENERAL: This is a well built female, in no apparent distress. VITAL SIGNS: Temperature 98.3. Heart rate 93. Respiratory rate 18. Blood pressure 175/80. HEENT: Atraumatic, normocephalic. Oral mucosa is moist NECK: Supple. CARDIOVASCULAR: S1, S2 heard. Rate and rhythm regular. RESPIRATORY: Clear to auscultation. GASTROINTESTINAL: Abdomen is soft. MUSCULOSKELETAL: No tenderness. No edema. DERMATOLOGIC: No skin rash. NEUROLOGIC: Alert and awake and oriented X3. No focal neurologic deficits. Moving all the extremities. PSYCHIATRIC: Mood and affect normal. LABORATORY DATA: Potassium is 3.8, BUN is 33, and creatinine is 4.4. ASSESSMENT AND PLAN: 1. Acute kidney injury on chronic kidney disease stage 5 with stable labs. The patient does tend to have dialysis access placed. Consult regarding complications of emergent dialysis and catheter. Advised to have fistula placement during this admission. The patient wants to discuss with her family. 2. Hyperkalemia, better. High risk for recurrence and complications. The patient was advised to limit potassium intake and advised to take Veltassa regularly. 3. Metabolic acidosis. 4. Edema. 5. Hypertension. 6. Anemia of chronic disease. 7. Prognosis guarded. The patient was consulted to have dialysis access placed as soon as possible. Job ID: [id number]
--- NOTE | 2019-02-12 16:34 | PRG ---
DATE OF SERVICE: 02/12/2019 SUBJECTIVE: The patient is seen and examined at the bedside. She still complains about the pain in her right arm, left knee, and left ankle. We are still awaiting for orthopedic surgeon to come and re-evaluate her. OBJECTIVE: VITAL SIGNS: Blood pressure is 152/80, pulse is 76, temperature is 98.0, respiratory rate is 18, and O2 saturation is 100% on room air. HEENT: Head is atraumatic and normocephalic. Eyes are PERRLA. Sclerae are nonicteric. Oral mucosa is moist. NECK: Supple. LUNGS: Clear. HEART: S1 and S2 normal. ABDOMEN: Soft and nontender. EXTREMITIES: Right upper extremity in the sling and left knee swollen and tender to touch and left ankle is swollen and tender to touch to range of motion. NEUROLOGIC: She is responsive and alert appropriately. There is no any motor deficits. LABORATORY DATA: Labs showed sodium of 136, potassium 3.8, chloride 100, CO2 is 22, BUN 83, and creatinine 4.44. IMPRESSION AND PLAN: 1. Hyperkalemia, recurrent, improved. 2. Right radial fracture with large joint effusion. 3. Chronic kidney disease consulted to have dialysis access placed as soon as possible. She is somewhat resistant to that. She wants to discuss with the family. 4. Left knee and left ankle swelling and pain, most likely inflammatory arthritis secondary to hyperuricemia. Orthopedic surgeon is reconsulted and I increase her prednisone dose to 40 mg once a day and we will continue her Vicodin. We cannot use any nonsteroidal anti-inflammatory drugs because of the kidney failure at this point. We will consult PT. Job ID: [id number]
[2019-02-12] MEDS: cloNIDine 0.1 MG TAB PO SCH (20:54)
[2019-02-12] MEDS: Rosuvastatin 10 MG TAB PO SCH (20:54)
[2019-02-13] MEDS: cloNIDine 0.1 MG TAB PO SCH ×2 (08:35→20:47)
[2019-02-13] MEDS: hydrALAZINE 25 MG TAB PO SCH ×3 (08:36→20:47)
[2019-02-13] MEDS: HYDROcodone/Acetaminophen 5/325 mg Tablet PO PRN ×2 (08:37→12:54)
[2019-02-13] MEDS: Aspirin 81 mg Enteric Coated Tablet PO SCH (08:38)
[2019-02-13] MEDS: Amlodipine 10 MG TAB PO SCH (08:38)
[2019-02-13] MEDS: predniSONE 20 MG TAB PO SCH (08:39)
--- NOTE | 2019-02-13 10:44 | PRG ---
DATE OF SERVICE: 02/13/2019 SUBJECTIVE: Patient was seen and examined at bedside and overnight events noted. Patient denies any shortness of breath or chest pain or palpitation. No history of nausea or vomiting or diarrhea or fever or chills or cramps. OBJECTIVE: GENERAL: This is a well-built female, in no apparent distress. VITAL SIGNS: Temperature 97.8. Heart rate 53. Respiratory rate 18. Blood pressure 122/72. HEENT: Atraumatic, normocephalic. Oral mucosa is moist NECK: Supple. CARDIOVASCULAR: S1, S2 heard. Rate and rhythm regular. RESPIRATORY: Clear to auscultation. GASTROINTESTINAL: Abdomen is soft. MUSCULOSKELETAL: No tenderness. No edema. DERMATOLOGIC: No skin rash. NEUROLOGIC: Alert and awake and oriented X3. No focal neurologic deficits. Moving all the extremities. PSYCHIATRIC: Mood and affect normal. LABORATORY DATA: Potassium is 3.8, BUN is 83, and creatinine is 4.4. ASSESSMENT AND PLAN: 1. Chronic kidney disease stage 4. Renal function is stable. No acute indication for dialysis. The patient was sent to have dialysis access placed. 2. Hyperkalemia better. Limit potassium. 3. Edema. 4. Hypertension. 5. Anemia. The patient was advised to have dialysis access placed as soon as possible. Job ID: [id number]
--- NOTE | 2019-02-13 13:39 | PDOC.PN ---
- Subjective Encounter Start Date: 02/13/19 Encounter Start Time: 10:00 Subjective: is sitting in chair, family at bedside -: c/o pain in right forearm, left knee and ankle -: has barely stood up with PT - Objective Resuscitation Status - Order Detail: 02/08/19 21:21 Resuscitation Status Routine Resuscitation Status: FULL: Full Resuscitation MAR Reviewed: Yes Vital Signs & Weight: Vital Signs (12 hours) Temp Pulse Resp BP Pulse Ox 02/13/19 11:32 97.4 F L 59 L 18 106/62 100 02/13/19 08:00 97 02/13/19 07:23 97.8 F 56 L 17 122/72 97 Weight Admit Weight 166 lb 6 oz Weight 166 lb 6 oz I&O: 02/12/19 02/13/19 02/14/19 06:59 06:59 06:59 Intake Total 820 840 Balance 820 840 Result Diagrams: 02/11/19 08:48 02/12/19 04:33 Phys Exam - Physical Examination HEENT: PERRLA, moist MMs Neck: no JVD, supple Respiratory: no wheezing, no rales Cardiovascular: RRR, no significant murmur Gastrointestinal: soft, non-tender, positive bowel sounds Musculoskeletal: pulses present right UE in sling, has edema+ Neurological: non-focal, moves all 4 limbs Psychiatric: normal affect, A&O x 3 Dx/Plan (1) Acute worsening of stage 4 chronic kidney disease Code(s): N18.4 - CHRONIC KIDNEY DISEASE, STAGE 4 (SEVERE) Status: Acute (2) Acute gout Code(s): M10.9 - GOUT, UNSPECIFIED Status: Acute Qualifiers: Gout site: ankle Encounter type: subsequent encounter Laterality: left (3) Hyperkalemia Code(s): E87.5 - HYPERKALEMIA Status: Resolved (4) Metabolic acidosis Code(s): E87.2 - ACIDOSIS Status: Acute Comment: improved (5) Anemia of renal disease Code(s): N18.9 - CHRONIC KIDNEY DISEASE, UNSPECIFIED; D63.1 - ANEMIA IN CHRONIC KIDNEY DISEASE Status: Chronic (6) CAD (coronary artery disease) Code(s): I25.10 - ATHSCL HEART DISEASE OF [place] CORONARY ARTERY W/O ANG PCTRS Status: Chronic Qualifiers: Coronary Disease-Associated Artery/Lesion type: [place] artery [place] vs. transplanted heart: [place] heart Associated angina: without angina Qualified Code(s): I25.10 - Atherosclerotic heart disease of [place] coronary artery without angina pectoris (7) HTN (hypertension) Code(s): I10 - ESSENTIAL (PRIMARY) HYPERTENSION Status: Chronic Qualifiers: Hypertension type: essential hypertension Qualified Code(s): I10 - Essential (primary) hypertension (8) Dyslipidemia Code(s): E78.5 - HYPERLIPIDEMIA, UNSPECIFIED Status: Chronic - Plan is on prednisone for left knee and ankle pain sec to gout -: alex/ckd, will need HD access -: deconditioning, d/w CM, likely dc plan to [facility] -: continue asp, crestor, norvasc, clonidine, hydralazine, toprol xl -: needs to mobilize more, will place a lidocaine tts over knee/ankle * . Review of Systems - Medications/Allergies Allergies/Adverse Reactions: Allergies Allergy/AdvReac Type Severity Reaction Status Date / Time lisinopril Allergy Nausea Verified 02/08/19 23:23 tramadol Allergy Nausea Verified 02/08/19 23:23 codeine AdvReac Nausea Verified 02/08/19 23:23 Medications: Current Medications Acetaminophen (Tylenol) 650 mg PO Q4H PRN PRN Reason: Headache/Fever/Mild Pain (1-3) Last Admin: 02/10/19 09:24 Dose: 650 mg Hydrocodone Bitart/Acetaminophen ([place] 5/325) 1 tab PO Q4H PRN PRN Reason: Pain Last Admin: 02/13/19 12:54 Dose: 1 tab Hydrocodone Bitart/Acetaminophen ([place] 5/325) 1 tab PO Q4H PRN PRN Reason: Pain Amlodipine Besylate (Norvasc) 10 mg PO DAILY [facility] Last Admin: 02/13/19 08:38 Dose: 10 mg Aspirin (Ecotrin) 81 mg PO DAILY [facility] Last Admin: 02/13/19 08:38 Dose: 81 mg Bisacodyl (Dulcolax) 10 mg PO DAILYPRN PRN PRN Reason: Constipation Clonidine (Catapres) 0.1 mg PO BID [facility] Last Admin: 02/13/19 08:35 Dose: 0.1 mg Hydralazine HCl (Apresoline) 50 mg PO TID [facility] Last Admin: 02/13/19 08:36 Dose: 50 mg Metoprolol Succinate (Toprol Xl) 25 mg PO DAILY [facility] Last Admin: 02/13/19 08:38 Dose: 25 mg Ondansetron HCl (Zofran Odt) 4 mg PO Q6H PRN PRN Reason: Nausea/Vomiting Ondansetron HCl (Zofran) 4 mg IVP Q6H PRN PRN Reason: Nausea/Vomiting Prednisone (Prednisone) 40 mg PO QAM[facility] Last Admin: 02/13/19 08:39 Dose: 40 mg Rosuvastatin Calcium (Crestor) 10 mg PO [facility] Last Admin: 02/12/19 20:54 Dose: Not Given
[2019-02-13] MEDS: Lidocaine Patch Removal 1 EACH TOP SCH (20:47)
[2019-02-13] MEDS: Rosuvastatin 10 MG TAB PO SCH ×2 (20:47→20:48)
[2019-02-14] MEDS: Aspirin 81 mg Enteric Coated Tablet PO SCH (08:25)
[2019-02-14] MEDS: hydrALAZINE 25 MG TAB PO SCH ×3 (08:25→20:06)
[2019-02-14] MEDS: predniSONE 20 MG TAB PO SCH (08:25)
[2019-02-14] MEDS: Amlodipine 10 MG TAB PO SCH (08:25)
[2019-02-14] MEDS: cloNIDine 0.1 MG TAB PO SCH ×2 (08:25→20:06)
[2019-02-14] MEDS: HYDROcodone/Acetaminophen 5/325 mg Tablet PO PRN (08:26)
[2019-02-14] MEDS: Lidocaine 5% Patch TD SCH (08:26)
--- NOTE | 2019-02-14 12:30 | PDOC.PN ---
- Subjective Encounter Start Date: 02/14/19 Encounter Start Time: 09:30 Subjective: awake, son at bedside -: shoulder pain is better with lidocaine patch -: left knee and ankle pain is better as well - Objective Resuscitation Status - Order Detail: 02/08/19 21:21 Resuscitation Status Routine Resuscitation Status: FULL: Full Resuscitation MAR Reviewed: Yes Vital Signs & Weight: Vital Signs (12 hours) Temp Pulse Resp BP Pulse Ox 02/14/19 08:25 60 02/14/19 07:48 97.6 F 60 18 122/65 100 Weight Admit Weight 166 lb 6 oz Weight 166 lb 6 oz I&O: 02/13/19 02/14/19 02/15/19 06:59 06:59 06:59 Intake Total 840 Balance 840 Result Diagrams: 02/11/19 08:48 02/12/19 04:33 Phys Exam - Physical Examination HEENT: PERRLA, moist MMs Neck: no JVD, supple Respiratory: no wheezing, no rales Cardiovascular: RRR, no significant murmur Gastrointestinal: soft, non-tender, positive bowel sounds Musculoskeletal: pulses present right UE edema+ Neurological: non-focal, moves all 4 limbs Psychiatric: normal affect, A&O x 3 Dx/Plan (1) Acute worsening of stage 4 chronic kidney disease Code(s): N18.4 - CHRONIC KIDNEY DISEASE, STAGE 4 (SEVERE) Status: Acute (2) Acute gout Code(s): M10.9 - GOUT, UNSPECIFIED Status: Acute Qualifiers: Gout site: ankle Encounter type: subsequent encounter Laterality: left (3) Hyperkalemia Code(s): E87.5 - HYPERKALEMIA Status: Resolved (4) Metabolic acidosis Code(s): E87.2 - ACIDOSIS Status: Acute Comment: improved (5) Anemia of renal disease Code(s): N18.9 - CHRONIC KIDNEY DISEASE, UNSPECIFIED; D63.1 - ANEMIA IN CHRONIC KIDNEY DISEASE Status: Chronic (6) CAD (coronary artery disease) Code(s): I25.10 - ATHSCL HEART DISEASE OF [place] CORONARY ARTERY W/O ANG PCTRS Status: Chronic Qualifiers: Coronary Disease-Associated Artery/Lesion type: [place] artery [place] vs. transplanted heart: [place] heart Associated angina: without angina Qualified Code(s): I25.10 - Atherosclerotic heart disease of [place] coronary artery without angina pectoris (7) HTN (hypertension) Code(s): I10 - ESSENTIAL (PRIMARY) HYPERTENSION Status: Chronic Qualifiers: Hypertension type: essential hypertension Qualified Code(s): I10 - Essential (primary) hypertension (8) Dyslipidemia Code(s): E78.5 - HYPERLIPIDEMIA, UNSPECIFIED Status: Chronic - Plan hemostable -: prednisone, lidocaine patch -: awaiting swing bed placement, may dc if ready -: continue asp, crestor, norvasc, clonidine, hydralazine and toprol xl -: to mobilize more as tolerated * . Review of Systems - Medications/Allergies Allergies/Adverse Reactions: Allergies Allergy/AdvReac Type Severity Reaction Status Date / Time lisinopril Allergy Nausea Verified 02/08/19 23:23 tramadol Allergy Nausea Verified 02/08/19 23:23 codeine AdvReac Nausea Verified 02/08/19 23:23 Medications: Current Medications Acetaminophen (Tylenol) 650 mg PO Q4H PRN PRN Reason: Headache/Fever/Mild Pain (1-3) Last Admin: 02/10/19 09:24 Dose: 650 mg Hydrocodone Bitart/Acetaminophen ([place] 5/325) 1 tab PO Q4H PRN PRN Reason: Pain Last Admin: 02/14/19 08:26 Dose: 1 tab Hydrocodone Bitart/Acetaminophen ([place] 5/325) 1 tab PO Q4H PRN PRN Reason: Pain Amlodipine Besylate (Norvasc) 10 mg PO DAILY [facility] Last Admin: 02/14/19 08:25 Dose: 10 mg Aspirin (Ecotrin) 81 mg PO DAILY [facility] Last Admin: 02/14/19 08:25 Dose: 81 mg Bisacodyl (Dulcolax) 10 mg PO DAILYPRN PRN PRN Reason: Constipation Clonidine (Catapres) 0.1 mg PO BID [facility] Last Admin: 02/14/19 08:25 Dose: 0.1 mg Hydralazine HCl (Apresoline) 50 mg PO TID [facility] Last Admin: 02/14/19 08:25 Dose: 50 mg Lidocaine (Lidoderm 5% Patch) 1 patch TD DAILY REPLACED BY [facility] Last Admin: 02/14/19 08:26 Dose: 1 patch Metoprolol Succinate (Toprol Xl) 25 mg PO DAILY [facility] Last Admin: 02/14/19 08:24 Dose: 25 mg Miscellaneous Medication (Lidocaine Patch Removal) 1 each TOP 2100 REPLACED BY [facility] Last Admin: 02/13/19 20:47 Dose: 1 each Ondansetron HCl (Zofran Odt) 4 mg PO Q6H PRN PRN Reason: Nausea/Vomiting Ondansetron HCl (Zofran) 4 mg IVP Q6H PRN PRN Reason: Nausea/Vomiting Prednisone (Prednisone) 40 mg PO QAM-[facility] Last Admin: 02/14/19 08:25 Dose: 40 mg Rosuvastatin Calcium (Crestor) 10 mg PO [facility] Last Admin: 02/13/19 20:48 Dose: Not Given
--- NOTE | 2019-02-14 14:53 | PRG ---
DATE OF SERVICE: 02/14/2019 SUBJECTIVE: Patient was seen and examined at bedside and overnight events noted. Patient denies any shortness of breath or chest pain or palpitation. No history of nausea or vomiting or diarrhea or fever or chills or cramps. OBJECTIVE: GENERAL: This is a well-built female, in no apparent distress. VITAL SIGNS: Temperature 97.6. Heart rate 60. Respiratory rate 18. Blood pressure 122/65. HEENT: Atraumatic, normocephalic. Oral mucosa is moist NECK: Supple. CARDIOVASCULAR: S1, S2 heard. Rate and rhythm regular. RESPIRATORY: Clear to auscultation. GASTROINTESTINAL: Abdomen is soft. MUSCULOSKELETAL: No tenderness. No edema. DERMATOLOGIC: No skin rash. NEUROLOGIC: Alert and awake and oriented X3. No focal neurologic deficits. Moving all the extremities. PSYCHIATRIC: Mood and affect normal. LABORATORY DATA: No labs were done today. ASSESSMENT AND PLAN: 1. Chronic kidney disease, stage 5. No acute indication for dialysis. The patient will be scheduled to have a dialysis access placed. 2. Hyperkalemia. 3. Edema. 4. Hypertension. 5. Anemia. We will monitor. Continue counseling. Job ID: [id number]
[2019-02-14 20:02] VITALS: TEMP 97.4
[2019-02-14] MEDS: Lidocaine Patch Removal 1 EACH TOP SCH (20:07)
[2019-02-14] MEDS: Rosuvastatin 10 MG TAB PO SCH (20:07)
[2019-02-15] MEDS: Aspirin 81 mg Enteric Coated Tablet PO SCH (08:18)
[2019-02-15] MEDS: predniSONE 20 MG TAB PO SCH (08:18)
[2019-02-15] MEDS: Amlodipine 10 MG TAB PO SCH (08:19)
[2019-02-15] MEDS: hydrALAZINE 25 MG TAB PO SCH ×2 (08:20→14:32)
[2019-02-15] MEDS: cloNIDine 0.1 MG TAB PO SCH (08:20)
[2019-02-15] MEDS: Lidocaine 5% Patch TD SCH (08:21)
[2019-02-15] MEDS: HYDROcodone/Acetaminophen 5/325 mg Tablet PO PRN ×2 (08:25→14:33)
[2019-02-15 10:04] LABS: #Eosinphils 0.1 thou/uL (0.0-0.7); #Lymphocytes 1.6 thou/uL (1.20-3.40); #Monocytes 0.7 thou/uL (0.11-0.59); %Basophils 0.2 % (0.0-1.0); %Eosinophils 0.9 % (0.0-10.0); %Monocytes 6.6 % (0.0-10.0); %Neutrophils 77.3 % (42.0-75.0); Hemoglobin 8.1 g/dL (12.0-16.0); Mean Corpuscular HGB CONC 32.6 g/dL (32.0-36.0); Mean Corpuscular Hemoglobin 28.4 pg (27.0-31.0); Mean Corpuscular Volume 87.1 fL (78.0-98.0); Mean Platelet Volume 8.2 fL (7.4-10.4); Platelet Count 420 thou/uL (130-400); Red Blood Cell (RBC) Count 2.85 mill/uL (4.20-5.40); White Blood Cell (WBC) Count 10.4 thou/uL (4.8-10.8)
[2019-02-15 10:24] LABS: Anion Gap 19 mmol/L (10-20); Calc. Creatinine Clearance 15 mL/min (70-130); Calcium 8.2 mg/dL (7.8-10.44); Carbon Dioxide 18 mmol/L (23-31); Chloride 94 mmol/L (98-107); Estimated GFR-MDRD 12; Glucose 115 mg/dL (80-115); Potassium 4.4 mmol/L (3.5-5.1); Sodium 127 mmol/L (136-145)
[2019-02-15 10:41] LABS: BUN (Urea Nitrogen) 121 mg/dL (9.8-20.1)
[2019-02-15 14:14] VITALS: BP 127/65
--- NOTE | 2019-02-15 14:49 | PDOC.PN ---
- Subjective Encounter Start Date: 02/15/19 Encounter Start Time: 13:00 Subjective: no sob or chest pain -: refuses to have HD access put in today - Objective Resuscitation Status - Order Detail: 02/08/19 21:21 Resuscitation Status Routine Resuscitation Status: FULL: Full Resuscitation MAR Reviewed: Yes Vital Signs & Weight: Vital Signs (12 hours) Temp Pulse Resp BP BP Pulse Ox 02/15/19 14:32 68 127/65 02/15/19 14:13 68 20 127/65 96 02/15/19 08:20 56 L 02/15/19 08:19 56 L 124/68 02/15/19 08:07 97.4 F L 56 L 16 124/68 99 02/15/19 08:00 99 Weight Admit Weight 166 lb 6 oz Weight 166 lb 6 oz Result Diagrams: 02/15/19 09:47 02/15/19 09:47 Phys Exam - Physical Examination HEENT: PERRLA, moist MMs Neck: no JVD, supple Respiratory: no wheezing, no rales Cardiovascular: RRR, no significant murmur Gastrointestinal: soft, non-tender, positive bowel sounds Musculoskeletal: no edema, pulses present Neurological: non-focal, moves all 4 limbs Dx/Plan (1) Acute worsening of stage 4 chronic kidney disease Code(s): N18.4 - CHRONIC KIDNEY DISEASE, STAGE 4 (SEVERE) Status: Acute (2) Acute gout Code(s): M10.9 - GOUT, UNSPECIFIED Status: Acute Qualifiers: Gout site: ankle Encounter type: subsequent encounter Laterality: left (3) Hyperkalemia Code(s): E87.5 - HYPERKALEMIA Status: Resolved (4) Metabolic acidosis Code(s): E87.2 - ACIDOSIS Status: Acute Comment: improved (5) Anemia of renal disease Code(s): N18.9 - CHRONIC KIDNEY DISEASE, UNSPECIFIED; D63.1 - ANEMIA IN CHRONIC KIDNEY DISEASE Status: Chronic (6) CAD (coronary artery disease) Code(s): I25.10 - ATHSCL HEART DISEASE OF [place] CORONARY ARTERY W/O ANG PCTRS Status: Chronic Qualifiers: Coronary Disease-Associated Artery/Lesion type: three [place] artery [place] vs. transplanted heart: [place] heart Associated angina: without angina Qualified Code(s): I25.10 - Atherosclerotic heart disease of [place] coronary artery without angina pectoris (7) HTN (hypertension) Code(s): I10 - ESSENTIAL (PRIMARY) HYPERTENSION Status: Chronic Qualifiers: Hypertension type: essential hypertension Qualified Code(s): I10 - Essential (primary) hypertension (8) Dyslipidemia Code(s): E78.5 - HYPERLIPIDEMIA, UNSPECIFIED Status: Chronic - Plan will need rapid taper of prednisone -: bun has gone up likely due to steroids? -: d/w , pt has been refusing HD access and prep towards esrd -: I have updated , is high risk for re-admission -: Hopefully she will ambulate and go home from swing bed * . Continue current meds which are reconciled. Prognosis guarded.
--- NOTE | 2019-02-15 15:38 | PRG ---
DATE OF SERVICE: 02/15/2019 SUBJECTIVE: Patient was seen and examined at bedside and overnight events noted. Patient denies any shortness of breath or chest pain or palpitation. No history of nausea or vomiting or diarrhea or fever or chills or cramps. OBJECTIVE: GENERAL: This is a well-built female, in no apparent distress. VITAL SIGNS: Temperature 97.5. Heart rate 68. Respiratory rate . Blood pressure 127/65. HEENT: Atraumatic, normocephalic. Oral mucosa is moist NECK: Supple. CARDIOVASCULAR: S1, S2 heard. Rate and rhythm regular. RESPIRATORY: Clear to auscultation. GASTROINTESTINAL: Abdomen is soft. MUSCULOSKELETAL: No tenderness. No edema. DERMATOLOGIC: No skin rash. NEUROLOGIC: Alert and awake and oriented X3. No focal neurologic deficits. Moving all the extremities. PSYCHIATRIC: Mood and affect normal. LABORATORY DATA: Sodium 127, BUN is 121, and creatinine is 4.4. ASSESSMENT AND PLAN: 1. Acute kidney injury on chronic kidney disease stage 5, stable. 2. Azotemia, most likely from steroids. Agree with holding steroids. The patient has been refusing dialysis access placement. Okay to assess. 3. Hyperkalemia, better. 4. Edema. 5. Hypertension. 6. Anemia. Okay to discharge. We will continue close followup with Dr. Gomez as an outpatient. Job ID: [id number]
--- NOTE | 2019-02-16 11:39 | DIS ---
DATE OF ADMISSION: 02/09/2019 DATE OF DISCHARGE: 02/15/2019 DISCHARGE DISPOSITION: [facility]. PRIMARY DISCHARGE DIAGNOSES: Acute worsening of stage 4 chronic kidney disease, acute gout; hyperkalemia on admission, metabolic acidosis, both secondary to worsening kidney disease; coronary artery disease, hypertension, severe deconditioning, dyslipidemia. PROCEDURES DONE DURING HOSPITALIZATION: Right upper extremity venous Doppler done showed no evidence of DVT. Right hand two-view x-ray done showed no acute fracture or malalignment. There was erosive degenerative changes seen in the proximal interphalangeal joint of the fourth digit with soft tissue swelling, erosive changes at the medial marginal lunate with ulnocarpal abutment syndrome. Right elbow 2-view x-ray done showed large joint effusion with likely radial neck fracture. Left knee 3-view x-ray done shows moderately severe degenerative changes. Right shoulder 2-view x-ray done showed no acute abnormality. Left ankle 3-view x-ray done showed no acute fracture or subluxation. H and H of 8 and 24, platelet count 420, MCV is 87, white count of 10. Discharge BUN and creatinine were 121 and 4.4. Serum bicarb was 18 on the day of discharge. Uric acid was 9.6. Troponin I less than 0.01. Serum bicarb was 12 on the day of admission with discharge numbers of 18. Her potassium gone up to 6.2 on the with discharge numbers of 4.4. DISCHARGE MEDICATIONS: 1. Crestor 40 mg p.o. at bedtime. 2. Aspirin 81 mg p.o. daily. 3. Norvasc 10 mg p.o. daily. 4. Calcitriol 0.25 mcg p.o. daily. 5. Clonidine 0.1 mg p.o. twice daily. 6. Hydralazine 50 mg p.o. three times daily. 7. Lidoderm 5% transdermal patch daily. 8. Toprol-XL 25 mg daily. 9. Prednisone 10 mg twice daily for three days, then daily for 3 days, then half a tablet for 4 days and to discontinue. 10. Sodium bicarbonate 650 mg p.o. three times daily. ALLERGIES: LISINOPRIL, TRAMADOL, AND CODEINE. INPATIENT CONSULT: Dr. Guy for Nephrology; Dr. Moe for Orthopedic Surgery. DISCHARGE PLAN: The patient to follow up with Dr. Moe as advised. She also needs to follow up with Dr. Gomez/Brooks for Nephrology. The patient will likely need hemodialysis access, if she consents for the same through Dr. Truong. BRIEF COURSE DURING HOSPITALIZATION: The patient initially was taken to [place] [facility] with complaints of generalized body aches. She had multiple imaging studies done, which revealed right radial fracture. Her right upper extremity was edematous as well. She had ultrasound venous Doppler done, which showed no evidence of DVT. The patient has known history of CKD stage III and had worsening of the same. She also had severe pain in her left knee and left ankle as well. She had hyperkalemia with metabolic acidosis due to acute kidney injury on top of chronic kidney disease. The patient had multiple medical issues and was initially admitted to telemetry and later downgraded to medical floor. Multiple attempts at ambulating the patient were not successful, but the patient was able to stand for 30 seconds. She had refused placement to [facility]. The patient also refused dialysis access procedures. In fact, OR time was fixed on the for her to have an AV fistula in preparation for end-stage renal disease, but the patient declined the same. She was willing to go to [place] [facility] and this has been arranged via Case Management. Her right upper extremity is placed in a sling, and she was evaluated by Dr. Moe for Orthopedic Surgery. The patient had hypertensive emergency on arrival, which has resolved with current medications. A total of 35 minutes was spent on discharge plan. I have given complete updates to Dr. Rojas. The patient's elevated BUN likely is due to steroids that was placed for possible gout flare-up. She was also placed on lidocaine patch for pain relief, which has helped. She is hemodynamically stable and will be shortly discharged to swing bed in [place]. Please see a [id number] documentation for the day of discharge on [employer]. Job ID: [id number]
== END 2019-02-15 15:16 | DRG 640 ==
LOC: ERS 17:07 → T4-A 19:26 → OBSVTOIN 02-09 13:37
PROVIDERS: ADMIT Hospitalist; ATTEND Hospitalist
DX: E87.5 Hyperkalemia (principal); N17.0 Acute kidney failure with tubular necrosis; I12.0 Hypertensive chronic kidney disease with stage 5 chronic kidney disease or end stage renal disease; N18.5 Chronic kidney disease, stage 5; M10.9 Gout, unspecified; E87.2 Acidosis; F41.9 Anxiety disorder, unspecified; F32.9 Major depressive disorder, single episode, unspecified; D63.1 Anemia in chronic kidney disease; I25.10 Atherosclerotic heart disease of native coronary artery without angina pectoris; S52.91XG Unspecified fracture of right forearm, subsequent encounter for closed fracture with delayed healing; Z98.51 Tubal ligation status; Z90.710 Acquired absence of both cervix and uterus; Z88.5 Allergy status to narcotic agent; Z88.8 Allergy status to other drugs, medicaments and biological substances; Z79.82 Long term (current) use of aspirin; Z79.899 Other long term (current) drug therapy
CPT/HCPCS: 36415; 80048; 82550; 84550; 85025; 93005; 93970; G0365; J1650; J7070; J7512

== ENCOUNTER 2019-02-24 07:37 | Day surgery (SDC) | payer MEDICARE, MEDICAID ==
--- NOTE | 2019-02-23 12:46 | HP ---
HISTORY OF PRESENT ILLNESS: A 68-year-old black female, rehab patient, seen in the hospital initially for right arm pain, left leg pain, weakness, becoming nonambulatory, found to be with chronic kidney disease, followed by Dr. Guy. I am asked to see her regarding placement of a primary fistula. The patient, however, refused. Her pain in the right arm has improved. The patient now reports for placement of right arm fistula. Her ultrasound vein mapping suggests veins in the right arm to be more amenable to on arteriovenous fistula. She understands the risks and benefits, and consents. We will plan right arm fistula, possible graft as an outpatient. Questions were answered. Please see details of recent consultation/history and physical when I saw her in the hospital on 02/10/2019. She has not started dialysis yet. PHYSICAL EXAMINATION: VITAL SIGNS: Weight 170 pounds, blood pressure 130/56, heart rate 66, and temperature 97 degrees. HEAD, EARS, EYES, NOSE, AND THROAT: Unremarkable. LUNGS: Clear to auscultation. HEART: Regular rate and rhythm without murmur or gallop. ABDOMEN: Soft and nontender. EXTREMITIES: Left hand heplock reach the transfusion recently. ASSESSMENT AND PLAN: Chronic kidney disease, not yet started dialysis. We will plan placement of right arm fistula or graft. She understands risks and benefits, and consents. We will plan this under regional TIVA anesthesia or anesthesia of choice per Anesthesia evaluation. Job ID: [id number]
[2019-02-24] MEDS ORDERED: Fentanyl 100 MCG/2 ML VIAL ONE (09:10)
[2019-02-24] MEDS ORDERED: Ioversol 68 % 50 ML VIAL ONE (12:20)
[2019-02-24] MEDS ORDERED: Protamine Sulfate 250 MG/25 ML VIAL ONE (12:20)
[2019-02-24] MEDS ORDERED: Lidocaine 2% PF 5 ML VIAL ONE (12:20)
[2019-02-24] MEDS ORDERED: Heparin 5,000 UNITS/ML VIAL ONE (12:20)
[2019-02-24] MEDS ORDERED: Bupivacaine HCl 0.5%/Epinephrine 1:200,000/PF 30 ml Vial ONE (12:20)
[2019-02-24] MEDS ORDERED: Protamine Sulfate 50 MG/5 ML VIAL ONE (12:23)
[2019-02-24] MEDS ORDERED: Sodium Chloride 0.9% 20 ML ONE (12:23)
[2019-02-24] MEDS ORDERED: Meperidine HCl/PF 25 MG/ML VIAL ONE (12:38)
[2019-02-24] MEDS ORDERED: Propofol 1,000 MG/100 ML VIAL IV ONE (12:38)
[2019-02-24] MEDS ORDERED: Midazolam HCl 2 mg/2 ml Vial ONE (12:38)
[2019-02-24] MEDS ORDERED: HYDROcodone/Acetaminophen 5/325 mg Tablet ONE (15:34)
[2019-02-24] MEDS ORDERED: Heparin 10,000 UNITS/ 10 ML VIAL ONE (15:59)
--- NOTE | 2019-02-24 22:21 | OP ---
DATE OF PROCEDURE: 02/24/2019 PREOPERATIVE DIAGNOSIS: End-stage renal disease, in need of dialysis access to initiate dialysis, poor veins, ultrasound vein mapping. POSTOPERATIVE DIAGNOSIS: End-stage renal disease, in need of dialysis access to initiate dialysis, poor veins, ultrasound vein mapping with inadequate vein for an arteriovenous vein fistula. PROCEDURES PERFORMED: Right internal jugular cuffed tunneled hemodialysis catheter, AngioDynamics, precurved, using ultrasound fluoroscopy for placement. Right arm exploration finding veins inadequate requiring a right arm dialysis graft. Brachial artery above the antecubital fossa, outflow axillary vein. Both brachial artery and axillary vein with excellent caliber. Tapered graft 4T07 PTFE graft. ANESTHESIA: Regional, TIVA, local of 0.5% Marcaine with epinephrine 30 mL mixed with 2% Xylocaine 10 mL. DESCRIPTION OF PROCEDURE: The patient was taken to the operating room where under regional anesthesia, intravenous sedation, right upper extremity, neck and chest, axilla prepared with ChloraPrep and draped in routine fashion. Using ultrasound guidance, right internal jugular vein was cannulated with a trocar catheter, J-wire threaded, trocar catheter removed and skin site entry site enlarged sharply. A stab incision was made over the right chest at the planned exit site of the catheter. Using the tunneling device, the precurved AngioDynamics cuffed-tunneled hemodialysis catheter tunneled between 2 incisions, placed the fabric cuff beneath the skin exit site and catheter secured with 2 interrupted suture of 3-0 nylon and sterile dressings applied. Small and medium sized dilators were placed over the J-wire into the internal jugular vein and removed. Dilator and Peel-Away sheath placed over the J-wire into the internal jugular vein, superior vena cava and dilator and J-wire were removed. Catheter was placed with the Peel-Away sheath and Peel-Away sheath was removed. Platysma was approximated with 4-0 Monocryl, skin with subdermal 4-0 Monocryl and [place] glue applied. Each port aspirated blood and flushed with saline solution and heparinized saline solution 1000 units heparin per mL indicating the volume of the port. Dermabond. Sterile dressings applied. Attention was then turned to the right upper extremity. Right upper extremity had been prepared with ChloraPrep and draped in routine fashion. Incision was made in the right wrist and carried down through the skin and subcutaneous tissue and cephalic vein at the wrist was inadequate. Another incision was made below the antecubital fossa longitudinally, carried down through the skin and subcutaneous tissue and the cephalic vein was fibrotic. Basilic vein was inadequate. Both these incisions were closed by approximating subcutaneous tissues with 3-0 Monocryl, skin with subdermal 4-0 Monocryl and [place] glue applied. Attention was then turned to placement of right upper extremity graft. Incision was made over the brachial artery above the antecubital fossa with a longitudinal incision, deep to the fascia. The brachial artery was of excellent caliber, dissected free without arteriosclerotic disease and it was surrounded with silastic vessel loop. Another incision was made in the right axilla longitudinally, carried down through the skin and subcutaneous tissue and deep to the fascia. There was an excellent sized axillary vein, dissected free, controlled proximally and distally with silastic vessel loops and branch controlled with another silastic vessel loop. It was of excellent caliber vein. Radha Wick tunneler was then used to tunnel a tapered graft placed brachial artery. The patient was then given 6000 units of heparin intravenously. After adequate circulation time, the brachial artery was clamped proximally and distally with atraumatic vascular clamps. Longitudinal arteriotomy was made sharply, elongated with Xie scissors for a 2.5 cm anastomosis tailoring the 4 mm end of the graft appropriately for the end graft to side brachial artery anastomosis, created with continuous suture of 6-0 Prolene, completing the anastomosis, placing Surgicel, releasing the clamps from the brachial artery and placed a clamp on the graft. Attention was then turned to the axilla. The axillary vein was controlled proximally and distally with silastic vessel loops. Longitudinal venotomy made sharply, elongated for a 3 cm anastomosis with stay suture of 6-0 Prolene placed to control the vein. The graft was tailored to length for an end graft to side vein anastomosis. Continuous suture of 6-0 Prolene was used for the anastomosis. The arterial inflow was then released and the graft filled with blood and flushed with air and then venous outflow released and there was good flow in the fistula. Good hemostasis obtained with 6-0 Prolene. The patient given protamine by Anesthesia 50 mg intravenously. Good hemostasis noted. Good flow in the graft noted. Subcutaneous tissue was approximated with 3-0 Monocryl, skin with subdermal 4-0 Monocryl and [place] glue applied. The patient tolerated the procedure well. Job ID: [id number]
== END 2019-02-24 16:10 | disposition critical access hospital (66) ==
LOC: SDC 07:37
PROVIDERS: ATTEND Specialist
PROC: 05HM33Z Insertion of Infusion Device into Right Internal Jugular Vein, Percutaneous Approach (ICD-10-PCS; principal; 2019-02-24)
DX: N18.6 End stage renal disease (principal); Z88.5 Allergy status to narcotic agent
CPT/HCPCS: 36825; C1752; C1769; L8670; J0670; J0690; J1642; J1644; J2001; J2175; J2250; J2704; J2720; J3010; Q9967

== ENCOUNTER 2019-02-25 10:29 | Inpatient (IN) | payer MEDICARE, MEDICAID ==
[2019-02-25] MEDS ORDERED: Heparin 10,000 UNITS/ 10 ML VIAL ONE (11:11)
[2019-02-25] MEDS ORDERED: Ondansetron PF 4 MG/2 ML Vial IVP PRN (11:52)
[2019-02-25] MEDS ORDERED: Nitroglycerin 0.4 MG TAB (25 Tab Bottle) SL PRN (11:53)
[2019-02-25] MEDS ORDERED: Tuberculin PPD 0.1 ML VIAL I-DERMAL SCH (12:00)
[2019-02-25] MEDS ORDERED: Lidocaine 5% Patch TD SCH (13:00)
[2019-02-25 13:43] LABS: Anion Gap 19 mmol/L (10-20); CRP (Inflammatory) 1.55 mg/dL (= or < 0.5); Calc. Creatinine Clearance 0 mL/min (70-130); Calcium 9.2 mg/dL (7.8-10.44); Carbon Dioxide 18 mmol/L (23-31); Chloride 108 mmol/L (98-107); Estimated GFR-MDRD 12; Glucose 135 mg/dL (80-115); Potassium 5.7 mmol/L (3.5-5.1); Sodium 139 mmol/L (136-145)
[2019-02-25 13:54] LABS: BUN (Urea Nitrogen) 147 mg/dL (9.8-20.1)
[2019-02-25] MEDS: EPOETIN ALFA-EPBX (ESRD) 10,000 UNIT/ML VIAL IVP SCH (14:24)
[2019-02-25 15:21] VITALS: BMI 30.1
[2019-02-25] MEDS: Heparin 5,000 UNITS/ML VIAL SC SCH ×2 (15:24→20:13)
[2019-02-25] MEDS: hydrALAZINE 25 MG TAB PO SCH ×2 (15:24→20:13)
[2019-02-25] MEDS ORDERED: traMADol HCl 50 MG TAB PO PRN ×2 (17:02→17:33)
[2019-02-25] MEDS: Senokot S 8.6-50 MG TAB PO PRN (17:15)
[2019-02-25] MEDS ORDERED: Famotidine 20 MG TAB PO SCH (17:30)
[2019-02-25] MEDS: oxyCODONE 5 MG TAB PO PRN ×2 (17:55→23:36)
[2019-02-25] MEDS: cloNIDine 0.1 MG TAB PO SCH (20:13)
[2019-02-25] MEDS: Lidocaine Patch Removal 1 EACH TOP SCH (20:14)
--- NOTE | 2019-02-25 20:41 | HP ---
CHIEF COMPLAINT: Needs dialysis. HISTORY OF PRESENT ILLNESS: The patient is a 68-year-old female who recently was discharged from the hospital to a swing facility on the for rehabilitation, who comes in for dialysis. Apparently, per reports, it was noted that the patient was refusing dialysis at that point; however, after talking with her multiple times with different physicians, she agreed on dialysis. The patient had a catheter placed yesterday by surgery, it was a temporary dialysis catheter and the patient was initially transferred to our facility only for dialysis. However, since this is her first time dialysis, she would require multiple sessions of dialysis. At this time, the decision was made to admit her as an inpatient and this was also talked over with Nephrology. The patient currently denies any chest pain, nausea, vomiting, shortness of breath. She does state that she does have pain in her lower bilateral feet for which she was put on prednisone and states that she has been ambulating with maximal assistance at the facility. PAST MEDICAL HISTORY: 1. Coronary artery disease. 2. Hypertension. 3. Gout. 4. CKD, currently on dialysis. PAST SURGICAL HISTORY: 1. She has had a bilateral cataract extraction. 2. Hysterectomy. 3. Tubal ligation. 4. She has also had a temporary dialysis catheter and a graft that is supposed to be started on her right arm. FAMILY HISTORY: No history of heart disease or cancer. ALLERGIES: 1. LISINOPRIL. 2. TRAMADOL. 3. CODEINE. MEDICATIONS: 1. She takes Tylenol 500 mg q.6 hours p.r.n. 2. Amlodipine 10 mg daily. 3. Aspirin 81 mg daily. 4. Clonidine 0.1 p.o. b.i.d. 5. Hydralazine 50 mg t.i.d. 6. Lidoderm patch one daily. 7. Metoprolol 25 mg daily. REVIEW OF SYSTEMS: All negative except for the ones mentioned above in the HPI. PHYSICAL EXAMINATION: VITAL SIGNS: Are as of the following; temperature of 98.7, heart rate of 72, 16, 96% on room air, 130/76. GENERAL: She is awake, alert, and oriented x3. Does not appear in distress. HEENT: Normocephalic, atraumatic. No lymphadenopathy noted. Pupils are equal and reactive to light. CV: S1 and S2 present. No murmurs, rubs, or gallops. ABDOMEN: Soft and nontender. Bowel sounds are present x2. LUNGS: Clear to auscultation. No rhonchi or wheezes noted. NEUROLOGIC: No focal deficits noted. SKIN: No cuts, lesions or bruises noted. She does have carlos to her right arm around the graft site area and she does have a temporary catheter to her right chest wall area. LABORATORY RESULTS: As of the following; WBCs of 9.5, hemoglobin of 7.2, hematocrit of 22.7 with platelets of 262. Chemistry: Sodium of 139, potassium of 5.7, BUN of 147, creatinine of 4.40. ASSESSMENT AND PLAN: The patient is a very pleasant 68-year-old female who comes to the hospital for dialysis. 1. End-stage renal disease. Starting on new dialysis. The patient does have a temporary dialysis catheter. Nephrology has been consulted. The patient is going to have a few hours of dialysis today. 2. Bilateral lower extremity foot pain, most likely secondary to gout flare. The patient was given a steroid taper. I will check an ESR, CRP, and also I will get a uric acid level. The patient is not on any maintenance therapy for her gout. Possibly starting her on some medications for antigout would be helpful since the patient has been having difficulty walking due to pain in her bilateral lower feet. 3. Hypertension. We will continue her home medications. 4. Deep venous thrombosis prophylaxis. We will put the patient on sequential compression devices. Job ID: [id number]
[2019-02-26 05:04] LABS: #Eosinphils 0.1 thou/uL (0.0-0.7); #Lymphocytes 1.7 thou/uL (1.20-3.40); #Monocytes 1.1 thou/uL (0.11-0.59); #Neutrophils 5.3 thou/uL (1.40-6.50); %Basophils 0.4 % (0.0-1.0); %Eosinophils 1.5 % (0.0-10.0); %Lymphocytes 20.1 % (21.0-51.0); %Monocytes 13.3 % (0.0-10.0); %Neutrophils 64.8 % (42.0-75.0); Hemoglobin 7.3 g/dL (12.0-16.0); Mean Corpuscular HGB CONC 31.7 g/dL (32.0-36.0); Mean Corpuscular Hemoglobin 28.7 pg (27.0-31.0); Mean Corpuscular Volume 90.5 fL (78.0-98.0); Mean Platelet Volume 8.8 fL (7.4-10.4); Platelet Count 262 thou/uL (130-400); RBC Distribution Width 15.7 % (11.5-14.5); Red Blood Cell (RBC) Count 2.54 mill/uL (4.20-5.40); White Blood Cell (WBC) Count 8.3 thou/uL (4.8-10.8)
[2019-02-26 05:32] LABS: Anion Gap 15 mmol/L (10-20); BUN (Urea Nitrogen) 97 mg/dL (9.8-20.1); Calc. Creatinine Clearance 21 mL/min (70-130); Carbon Dioxide 23 mmol/L (23-31); Chloride 106 mmol/L (98-107); Estimated GFR-MDRD 16; Glucose 83 mg/dL (80-115); Potassium 5.3 mmol/L (3.5-5.1); Sodium 139 mmol/L (136-145)
[2019-02-26] MEDS ORDERED: Loratadine 10 MG TAB PO PRN (07:32)
[2019-02-26] MEDS ORDERED: hydrALAZINE 20 MG/ML VIAL SLOW IVP PRN (07:32)
[2019-02-26] MEDS ORDERED: Diabetic Tussin 200 MG/10 ML UDCUP PO PRN (07:32)
[2019-02-26] MEDS ORDERED: Cepastat Lozenges 1 LOZ PO PRN (07:32)
[2019-02-26] MEDS ORDERED: Zolpidem Tartrate 5 MG TAB PO PRN (07:32)
[2019-02-26] MEDS ORDERED: Artificial Tears 18 DROP/0.9 ML EA EYE PRN (07:32)
[2019-02-26] MEDS ORDERED: Sodium Chloride 0.65% Nasal 44 ML BOT EA NARE PRN (07:32)
[2019-02-26] MEDS ORDERED: Loperamide HCl 2 MG CAP PO PRN (07:32)
[2019-02-26] MEDS ORDERED: Ondansetron ODT 4 MG TAB PO PRN (07:32)
[2019-02-26] MEDS ORDERED: EPOETIN ALFA-EPBX (ESRD) 10,000 UNIT/ML VIAL SC SCH (08:00)
[2019-02-26] MEDS: hydrALAZINE 25 MG TAB PO SCH ×4 (08:35→20:25)
[2019-02-26] MEDS: Aspirin 81 mg Enteric Coated Tablet PO SCH (08:35)
[2019-02-26] MEDS: cloNIDine 0.1 MG TAB PO SCH ×2 (08:35→20:24)
[2019-02-26] MEDS: Heparin 5,000 UNITS/ML VIAL SC SCH ×3 (08:35→20:26)
[2019-02-26] MEDS: Ferrous Sulfate 325 MG TAB PO SCH ×2 (08:36→18:45)
[2019-02-26] MEDS: Amlodipine 10 MG TAB PO SCH (08:36)
[2019-02-26] MEDS: Lidocaine 5% Patch TD SCH (08:37)
[2019-02-26] MEDS: oxyCODONE 5 MG TAB PO PRN ×2 (08:37→23:37)
[2019-02-26] MEDS ORDERED: predniSONE 5 MG TAB PO SCH (09:00)
--- NOTE | 2019-02-26 09:50 | PDOC.PN ---
- Subjective Encounter Start Date: 02/26/19 Encounter Start Time: 07:30 -: old records requested/rev Patient seen and examined. No new complaints. No overnight events - Objective Resuscitation Status - Order Detail: 02/25/19 11:52 Resuscitation Status Routine Resuscitation Status: FULL: Full Resuscitation MAR Reviewed: Yes Vital Signs & Weight: Vital Signs (12 hours) Temp Pulse Resp BP BP Pulse Ox 02/26/19 08:36 74 02/26/19 08:35 74 173/78 H 02/26/19 03:05 98 F 77 18 137/63 95 Weight Weight 180 lb 15.992 oz Result Diagrams: 02/26/19 04:33 02/26/19 04:33 EKG Reviewed by me: Yes (nsr) Phys Exam - Physical Examination Constitutional: NAD HEENT: PERRLA, moist MMs, sclera anicteric Neck: no JVD, supple Respiratory: no wheezing, no rales, no rhonchi right side tunneled HD catheter Cardiovascular: RRR, no significant murmur, no rub Gastrointestinal: soft, non-tender, no distention, positive bowel sounds Musculoskeletal: no edema, pulses present Neurological: non-focal, normal sensation, moves all 4 limbs Lymphatic: no nodes Psychiatric: normal affect, A&O x 3 Skin: no rash, normal turgor Dx/Plan (1) ESRD on hemodialysis Code(s): N18.6 - END STAGE RENAL DISEASE; Z99.2 - DEPENDENCE ON RENAL DIALYSIS Status: Acute (2) Acute gout Code(s): M10.9 - GOUT, UNSPECIFIED Status: Acute (3) Hyperkalemia Code(s): E87.5 - HYPERKALEMIA Status: Acute (4) Anemia of renal disease Code(s): N18.9 - CHRONIC KIDNEY DISEASE, UNSPECIFIED; D63.1 - ANEMIA IN CHRONIC KIDNEY DISEASE Status: Chronic (5) CAD (coronary artery disease) Code(s): I25.10 - ATHSCL HEART DISEASE OF [place] CORONARY ARTERY W/O ANG PCTRS Status: Chronic Qualifiers: (6) Dyslipidemia Code(s): E78.5 - HYPERLIPIDEMIA, UNSPECIFIED Status: Chronic (7) HTN (hypertension) Code(s): I10 - ESSENTIAL (PRIMARY) HYPERTENSION Status: Chronic Qualifiers: (8) Obesity (BMI 30.0-34.9) Code(s): E66.9 - OBESITY, UNSPECIFIED Status: Chronic - Plan cont current plan of care * add colchicine for her gout pain in foot * continue HD as per nephrology * medication reviewed as below * symptomatic treatment * will need outpt HD arrangement * start PT/OT. Review of Systems - Review of Systems ENT: negative: Ear Pain, Ear Discharge, Nose Pain, Nose Discharge, Nose Congestion, Mouth Pain, Mouth Swelling, Throat Pain, Throat Swelling, Other Respiratory: negative: Cough, Dry, Shortness of Breath, Hemoptysis, SOB with Excertion, Pleuritic Pain, Sputum, Wheezing Cardiovascular: negative: chest pain, palpitations, orthopnea, paroxysmal nocturnal dyspnea, edema, light headedness, other Gastrointestinal: negative: Nausea, Vomiting, Abdominal Pain, Diarrhea, Constipation, Melena, Hematochezia, Other Genitourinary: negative: Dysuria, Frequency, Incontinence, Hematuria, Retention , Other Musculoskeletal: Foot Pain. negative: Neck Pain, Shoulder Pain, Arm Pain, Back Pain, Hand Pain, Leg Pain, Other - Medications/Allergies Allergies/Adverse Reactions: Allergies Allergy/AdvReac Type Severity Reaction Status Date / Time lisinopril Allergy Severe Swollen Verified 02/15/19 16:22 Lips tramadol Allergy Nausea Verified 02/15/19 16:22 codeine AdvReac Nausea Verified 02/15/19 16:22 Medications: Current Medications Acetaminophen (Tylenol) 650 mg PO Q4H PRN PRN Reason: Headache/Fever/Mild Pain (1-3) Hydrocodone Bitart/Acetaminophen ([place] 5/325) 1 tab PO Q6H PRN PRN Reason: Moderate Pain (4-6) Amlodipine Besylate (Norvasc) 10 mg PO DAILY [facility] Last Admin: 02/26/19 08:36 Dose: 10 mg Artificial Tears (Tears Naturale) 2 drop EA EYE PRN PRN PRN Reason: Dry Eyes Aspirin (Ecotrin) 81 mg PO DAILY [facility] Last Admin: 02/26/19 08:35 Dose: 81 mg Clonidine (Catapres) 0.1 mg PO BID [facility] Last Admin: 02/26/19 08:35 Dose: 0.1 mg Famotidine (Pepcid) 20 mg PO QPM [facility] Last Admin: 05/26/19 08:36 Dose: 325 mg Guaifenesin (Robitussin Sf) 200 mg PO Q4H PRN PRN Reason: Cough Heparin Sodium (Porcine) (Heparin) 5,000 units SC TID [facility] Last Admin: 02/26/19 08:35 Dose: 5,000 units Hydralazine HCl (Apresoline) 50 mg PO TID [facility] Last Admin: 02/26/19 08:35 Dose: 50 mg Hydralazine HCl (Apresoline) 10 mg SLOW IVP Q4H PRN PRN Reason: SBP > 180 and HR < 70 Lidocaine (Lidoderm 5% Patch) 1 patch TD 0900 [facility] Last Admin: 02/26/19 08:37 Dose: 1 patch Loperamide HCl (Imodium) 2 mg PO PRN PRN PRN Reason: Diarrhea/Loose Stools Loratadine (Claritin) 10 mg PO DAILYPRN PRN PRN Reason: Sinus Symptoms Metoprolol Succinate (Toprol Xl) 25 mg PO DAILY [facility] Last Admin: 02/26/19 08:36 Dose: 25 mg Miscellaneous Medication (Lidocaine Patch Removal) 1 each TOP 2100 [facility] Last Admin: 02/25/19 20:14 Dose: 1 each Nitroglycerin (Nitrostat) 0.4 mg SL Q5MIN PRN PRN Reason: Chest Pain Ondansetron HCl (Zofran) 4 mg IVP Q6H PRN PRN Reason: Nausea/Vomiting Ondansetron HCl (Zofran Odt) 4 mg PO Q6H PRN PRN Reason: Nausea/Vomiting Oxycodone HCl (Oxycodone Ir) 5 mg PO Q4H PRN PRN Reason: Severe Pain (7-10) Last Admin: 02/26/19 08:37 Dose: 5 mg Senna/Docusate Sodium (Senokot S) 2 tab PO BID PRN PRN Reason: Constipation Last Admin: 02/25/19 17:15 Dose: 2 tab Sodium Chloride ([place] Nasal [place] 0.65%) 0 ml EA NARE QIDPRN PRN PRN Reason: Nasal Congestion Throat Lozenges (Cepastat Lozenges) 1 yves PO Q2H PRN PRN Reason: Sore Throat Tramadol HCl (Ultram) 50 mg PO Q12H PRN PRN Reason: Moderate Pain (4-6) Tuberculin PPD (Tuberculin Ppd) 0.1 ml I-DERMAL ONE ALEKSANDER Stop: 02/28/19 12:01 Last Admin: 02/25/19 15:28 Dose: 0.1 ml Zolpidem Tartrate (Ambien) 5 mg PO HSPRN PRN PRN Reason: Insomnia
[2019-02-26] MEDS ORDERED: Heparin 10,000 UNITS/ 10 ML VIAL ONE (10:00)
--- NOTE | 2019-02-26 12:42 | PRG ---
DATE OF SERVICE: 02/26/2019 SUBJECTIVE: Patient was seen and examined at bedside and overnight events noted. Patient denies any shortness of breath or chest pain or palpitation. No history of nausea or vomiting or diarrhea or fever or chills or cramps. OBJECTIVE: GENERAL: This is a well-built female, in no apparent distress. VITAL SIGNS: Temperature 98.7, pulse 74, respiratory rate 18, and blood pressure 173/78. LABORATORY DATA: Potassium 5.3, BUN is 97, creatinine is 3.1. ASSESSMENT AND PLAN: 1. End-stage renal disease. Continue on dialysis as tolerated. We will have Case Management consult. 2. Hyperkalemia, limit potassium intake. We will have dialysis. 3. Anemia. Continue Epogen. 4. Edema, controlled. 5. Hypertension, stable. 6. Plan to continue dialysis. Case Management consult for outpatient placement and we will have dialysis for 2 hours. Job ID: [id number]
[2019-02-26] MEDS: HYDROcodone/Acetaminophen 5/325 mg Tablet PO PRN (18:45)
[2019-02-26] MEDS ORDERED: Metoprolol Tartrate 25 MG TAB PO SCH (20:15)
[2019-02-26] MEDS: Famotidine 20 MG TAB PO SCH (20:25)
[2019-02-26] MEDS: Lidocaine Patch Removal 1 EACH TOP SCH (20:26)
[2019-02-26] MEDS ORDERED: Colchicine 0.6 MG TAB PO SCH (21:00)
[2019-02-26] MEDS: Colchicine 0.3 MG TAB PO SCH (21:07)
[2019-02-27] MEDS: HYDROcodone/Acetaminophen 5/325 mg Tablet PO PRN ×3 (03:13→19:10)
[2019-02-27] MEDS: Colchicine 0.3 MG TAB PO SCH ×2 (08:17→21:20)
[2019-02-27] MEDS: Ferrous Sulfate 325 MG TAB PO SCH ×2 (08:17→16:02)
[2019-02-27] MEDS: oxyCODONE 5 MG TAB PO PRN (08:17)
[2019-02-27] MEDS: Aspirin 81 mg Enteric Coated Tablet PO SCH (08:17)
[2019-02-27] MEDS: cloNIDine 0.1 MG TAB PO SCH ×2 (08:18→21:20)
[2019-02-27] MEDS: hydrALAZINE 25 MG TAB PO SCH ×3 (08:18→21:21)
[2019-02-27] MEDS: Amlodipine 10 MG TAB PO SCH (08:19)
[2019-02-27] MEDS: Heparin 5,000 UNITS/ML VIAL SC SCH ×3 (08:19→21:21)
[2019-02-27] MEDS: Lidocaine 5% Patch TD SCH (08:20)
--- NOTE | 2019-02-27 12:30 | ULT ---
BILATERAL LOWER EXTREMITY VENOUS DOPPLER ULTRASOUND: HISTORY: Pain and edema in the lower extremities bilaterally. TECHNIQUE: [place] scale ultrasound with color flow and spectral Doppler imaging of the deep venous systems of the lower extremities was performed bilaterally. FINDINGS: The clinical counselor was unable to perform augmentation due to patient's pain. There is good flow and compression in the common femoral, femoral, deep femoral, popliteal, posterior tibial, and greater saphenous veins on both sides. IMPRESSION: No definite evidence of deep vein thrombosis in either lower extremity. POS: NICO
--- NOTE | 2019-02-27 13:49 | PRG ---
DATE OF SERVICE: 02/27/2019 SUBJECTIVE: Patient was seen and examined at bedside and overnight events noted. Patient denies any shortness of breath or chest pain or palpitation. No history of nausea or vomiting or diarrhea or fever or chills or cramps. OBJECTIVE: GENERAL: This is a well built female, in no apparent distress. VITAL SIGNS: Temperature . Pulse 82. Respiratory rate . Blood pressure 184/77. HEENT: Atraumatic, normocephalic. Oral mucosa is moist NECK: Supple. CARDIOVASCULAR: S1, S2 heard. Rate and rhythm regular. RESPIRATORY: Clear to auscultation. GASTROINTESTINAL: Abdomen is soft. MUSCULOSKELETAL: No tenderness. No edema. DERMATOLOGIC: No skin rash. NEUROLOGIC: Alert and awake and oriented X3. No focal neurologic deficits. Moving all the extremities. PSYCHIATRIC: Mood and affect normal. LABORATORY DATA: ASSESSMENT AND PLAN: 1. End-stage renal disease. Continue on dialysis as tolerated. 2. Hyperkalemia, better. 3. Edema. 4. Hypertension. 5. Anemia. 6. Plan to continue on dialysis as tolerated. Job ID: [id number]
--- NOTE | 2019-02-27 13:54 | CON ---
DATE OF CONSULTATION: 02/25/2019 CONSULTING PHYSICIAN: Dr. Aquino. REASON FOR CONSULT: End-stage renal disease evaluation. REASON FOR ADMISSION: Abnormal labs. HISTORY OF PRESENT ILLNESS: This is a 68-year-old female, was recently discharged from the hospital, was found to have worsening labs since she had . Her labs today morning showed potassium 5.8 with acidosis and worsening BUN. She was transferred over from the rehab . No chest pain or palpitation. The patient was seen during dialysis. No nausea or vomiting. PAST MEDICAL HISTORY: Positive for coronary artery disease, hypertension, gout, noncompliance, CKD stage 5, now end-stage renal disease. PAST SURGICAL HISTORY: . HOME MEDICATIONS: Include; 1. Tylenol. 2. Amlodipine. 3. Aspirin. 4. Clonidine. 5. Hydralazine. 6. Lidoderm. 7. Metoprolol. 8. Prednisone. ALLERGIES: CODEINE, LISINOPRIL, TRAMADOL. SOCIAL HISTORY: No smoking, alcohol, or drugs. FAMILY HISTORY: No significant disease. REVIEW OF SYSTEMS: CONSTITUTIONAL: Negative for weight loss or gain, ability to conduct usual activities. SKIN: Negative for rash, itching. EYES: Negative for double vision, pain. ENT/MOUTH: Negative for nose bleeding, neck stiffness, pain, tenderness. CARDIOVASCULAR: Negative for palpitations, dyspnea on exertion, orthopnea. RESPIRATORY: Negative for shortness of breath, wheezing, cough, hemoptysis, fever or night sweats. GASTROINTESTINAL: Negative for poor appetite, abdominal pain, heartburn, nausea, vomiting, constipation, or diarrhea. GENITOURINARY: Negative for urgency, frequency, dysuria, nocturia. MUSCULOSKELETAL: Negative for pain, swelling. NEUROLOGIC/PSYCHIATRIC: Negative for anxiety, depression. ALLERGY/IMMUNOLOGIC: Negative for skin rash, bleeding tendency. PHYSICAL EXAMINATION: GENERAL: This is a well-built female, in no apparent distress. VITAL SIGNS: Temperature respiratory rate 18, blood pressure HEENT: Atraumatic, normocephalic. Oral mucosa is moist. NECK: Supple. CARDIOVASCULAR: S1 and S2 heard. Rate and rhythm regular. RESPIRATORY: Clear. GASTROINTESTINAL: Abdomen is soft. MUSCULOSKELETAL: 1+ edema. DERMATOLOGIC: No skin rash. NEUROLOGIC: Alert and awake. PSYCHIATRIC: Mood and affect normal. LABORATORY DATA: Hemoglobin is 7.2, potassium 5.8, BUN 24, creatinine is 4.4. ASSESSMENT AND PLAN: 1. End-stage renal disease. Plan is to have dialysis. 2. Hyperkalemia . 3. Worsening metabolic acidosis. 4. . 5. Anemia of chronic disease. 6. Hypertension. Plan is to start on dialysis. We will have case management consult for outpatient dialysis placement. Thank you for the consult. Job ID: [id number]
--- NOTE | 2019-02-27 14:05 | PDOC.PN ---
- Subjective Encounter Start Date: 02/27/19 Encounter Start Time: 10:15 Subjective: pt up in bed complains of pain on both her feet - Objective Resuscitation Status - Order Detail: 02/25/19 11:52 Resuscitation Status Routine Resuscitation Status: FULL: Full Resuscitation Vital Signs & Weight: Vital Signs (12 hours) Temp Pulse Resp BP BP Pulse Ox 02/27/19 13:35 99.8 F H 02/27/19 11:32 100.6 F H 80 18 165/72 H 02/27/19 08:19 82 02/27/19 08:18 82 184/77 H 02/27/19 08:00 99.7 F H 82 20 184/77 H 97 02/27/19 03:19 98.5 F 76 20 167/76 H Weight Weight 181 lb 3 oz I&O: 02/26/19 02/27/19 02/28/19 06:59 06:59 06:59 Intake Total 720 Output Total 400 Balance 320 Result Diagrams: 02/26/19 04:33 02/26/19 04:33 Additional Labs: Accuchecks 02/27/19 02/26/19 02/26/19 05:13 20:42 17:19 POC Glucose 92 83 85 Phys Exam - Physical Examination Respiratory: no wheezing, no rales, no rhonchi, wheezing present, clear to auscultation bilateral Cardiovascular: RRR, no significant murmur, no rub, gallop, irregular pain on touch to both her ankles, right calf pain Neurological: non-focal, normal sensation, moves all 4 limbs Dx/Plan (1) ESRD on hemodialysis Code(s): N18.6 - END STAGE RENAL DISEASE; Z99.2 - DEPENDENCE ON RENAL DIALYSIS Status: Acute (2) Acute gout Code(s): M10.9 - GOUT, UNSPECIFIED Status: Acute (3) Anemia of renal disease Code(s): N18.9 - CHRONIC KIDNEY DISEASE, UNSPECIFIED; D63.1 - ANEMIA IN CHRONIC KIDNEY DISEASE Status: Chronic (4) CAD (coronary artery disease) Code(s): I25.10 - ATHSCL HEART DISEASE OF [place] CORONARY ARTERY W/O ANG PCTRS Status: Chronic Qualifiers: (5) HTN (hypertension) Code(s): I10 - ESSENTIAL (PRIMARY) HYPERTENSION Status: Chronic Qualifiers: (6) Obesity (BMI 30.0-34.9) Code(s): E66.9 - OBESITY, UNSPECIFIED Status: Chronic - Plan will get uric acid and esr, her crp was elevated. [facility] pending -: she is on colchicine dosed per her ESRD -: i will add steroids for total of 5 days -: she will go back to swing once ok with nephrology. lower ext doppler -: ordered due to right calf pain. * . Review of Systems - Review of Systems Cardiovascular: negative: chest pain, palpitations, orthopnea, paroxysmal nocturnal dyspnea, edema, light headedness, other Gastrointestinal: negative: Nausea, Vomiting, Abdominal Pain, Diarrhea, Constipation, Melena, Hematochezia, Other Musculoskeletal: Leg Pain, Foot Pain - Medications/Allergies Allergies/Adverse Reactions: Allergies Allergy/AdvReac Type Severity Reaction Status Date / Time lisinopril Allergy Severe Swollen Verified 02/15/19 16:22 Lips tramadol Allergy Nausea Verified 02/15/19 16:22 codeine AdvReac Nausea Verified 02/15/19 16:22 Medications: Current Medications Acetaminophen (Tylenol) 650 mg PO Q4H PRN PRN Reason: Headache/Fever/Mild Pain (1-3) Hydrocodone Bitart/Acetaminophen ([place] 5/325) 1 tab PO Q6H PRN PRN Reason: Moderate Pain (4-6) Last Admin: 02/27/19 11:33 Dose: 1 tab Amlodipine Besylate (Norvasc) 10 mg PO DAILY [facility] Last Admin: 02/27/19 08:19 Dose: 10 mg Artificial Tears (Tears Naturale) 2 drop EA EYE PRN PRN PRN Reason: Dry Eyes Aspirin (Ecotrin) 81 mg PO DAILY [facility] Last Admin: 02/27/19 08:17 Dose: Not Given Clonidine (Catapres) 0.1 mg PO BID [facility] Last Admin: 02/27/19 08:18 Dose: 0.1 mg Colchicine (Colcrys) 0.3 mg PO BID [facility] Last Admin: 02/27/19 08:17 Dose: 0.3 mg Famotidine (Pepcid) 20 mg PO QPM [facility] Last Admin: 02/26/19 20:25 Dose: 20 mg Ferrous Sulfate (Feosol) 325 mg PO BID-[facility] Last Admin: 02/27/19 08:17 Dose: 325 mg Guaifenesin (Robitussin Sf) 200 mg PO Q4H PRN PRN Reason: Cough Heparin Sodium (Porcine) (Heparin) 5,000 units SC TID [facility] Last Admin: 02/27/19 08:19 Dose: 5,000 units Hydralazine HCl (Apresoline) 50 mg PO TID [facility] Last Admin: 02/27/19 08:18 Dose: 50 mg Hydralazine HCl (Apresoline) 10 mg SLOW IVP Q4H PRN PRN Reason: SBP > 180 and HR < 70 Lidocaine (Lidoderm 5% Patch) 1 patch TD 0900 [facility] Last Admin: 02/27/19 08:20 Dose: 1 patch Loperamide HCl (Imodium) 2 mg PO PRN PRN PRN Reason: Diarrhea/Loose Stools Loratadine (Claritin) 10 mg PO DAILYPRN PRN PRN Reason: Sinus Symptoms Metoprolol Succinate (Toprol Xl) 25 mg PO DAILY [facility] Last Admin: 02/27/19 08:19 Dose: 25 mg Miscellaneous Medication (Lidocaine Patch Removal) 1 each TOP 2100 [facility] Last Admin: 02/26/19 20:26 Dose: 1 each Nitroglycerin (Nitrostat) 0.4 mg SL Q5MIN PRN PRN Reason: Chest Pain Ondansetron HCl (Zofran) 4 mg IVP Q6H PRN PRN Reason: Nausea/Vomiting Ondansetron HCl (Zofran Odt) 4 mg PO Q6H PRN PRN Reason: Nausea/Vomiting Oxycodone HCl (Oxycodone Ir) 5 mg PO Q4H PRN PRN Reason: Severe Pain (7-10) Last Admin: 02/27/19 08:17 Dose: 5 mg Prednisone (Prednisone) 20 mg PO DAILY [facility] Stop: 03/04/19 09:01 Senna/Docusate Sodium (Senokot S) 2 tab PO BID PRN PRN Reason: Constipation Last Admin: 02/25/19 17:15 Dose: 2 tab Sodium Chloride ([place] Nasal [place] 0.65%) 0 ml EA NARE QIDPRN PRN PRN Reason: Nasal Congestion Throat Lozenges (Cepastat Lozenges) 1 yves PO Q2H PRN PRN Reason: Sore Throat Tramadol HCl (Ultram) 50 mg PO Q12H PRN PRN Reason: Moderate Pain (4-6) Tuberculin PPD (Tuberculin Ppd) 0.1 ml I-[facility] Stop: 02/28/19 12:01 Last Admin: 02/25/19 15:28 Dose: 0.1 ml Zolpidem Tartrate (Ambien) 5 mg PO HSPRN PRN PRN Reason: Insomnia
[2019-02-27] MEDS: Acetaminophen 325 MG TAB PO PRN (16:02)
[2019-02-27] MEDS ORDERED: predniSONE 20 MG TAB PO SCH (21:00)
[2019-02-27] MEDS: Famotidine 20 MG TAB PO SCH (21:21)
[2019-02-27] MEDS: Lidocaine Patch Removal 1 EACH TOP SCH (21:26)
[2019-02-28] MEDS: HYDROcodone/Acetaminophen 5/325 mg Tablet PO PRN ×2 (01:00→21:04)
[2019-02-28 04:48] LABS: #Eosinphils 0.1 thou/uL (0.0-0.7); #Lymphocytes 1.4 thou/uL (1.20-3.40); #Monocytes 1.4 thou/uL (0.11-0.59); #Neutrophils 8.7 thou/uL (1.40-6.50); %Basophils 0.2 % (0.0-1.0); %Eosinophils 0.7 % (0.0-10.0); %Lymphocytes 12.2 % (21.0-51.0); %Monocytes 12.3 % (0.0-10.0); %Neutrophils 74.6 % (42.0-75.0); Mean Corpuscular HGB CONC 31.5 g/dL (32.0-36.0); Mean Corpuscular Hemoglobin 29.2 pg (27.0-31.0); Mean Corpuscular Volume 92.8 fL (78.0-98.0); Mean Platelet Volume 9.3 fL (7.4-10.4); Platelet Count 187 thou/uL (130-400); RBC Distribution Width 15.3 % (11.5-14.5); Red Blood Cell (RBC) Count 2.75 mill/uL (4.20-5.40); White Blood Cell (WBC) Count 11.6 thou/uL (4.8-10.8)
[2019-02-28 05:26] LABS: Anion Gap 16 mmol/L (10-20); BUN (Urea Nitrogen) 43 mg/dL (9.8-20.1); Calc. Creatinine Clearance 19 mL/min (70-130); Calcium 9.8 mg/dL (7.8-10.44); Carbon Dioxide 24 mmol/L (23-31); Chloride 100 mmol/L (98-107); Estimated GFR-MDRD 15; Glucose 95 mg/dL (80-115); Potassium 5.3 mmol/L (3.5-5.1); Sodium 135 mmol/L (136-145)
[2019-02-28] MEDS ORDERED: predniSONE 20 MG TAB PO SCH (08:00)
[2019-02-28] MEDS: Heparin 5,000 UNITS/ML VIAL SC SCH ×3 (08:56→21:03)
[2019-02-28] MEDS: Acetaminophen 325 MG TAB PO PRN (08:56)
[2019-02-28] MEDS: Ferrous Sulfate 325 MG TAB PO SCH ×2 (08:56→17:45)
[2019-02-28] MEDS: cloNIDine 0.1 MG TAB PO SCH ×2 (08:57→21:02)
[2019-02-28] MEDS: predniSONE 20 MG TAB PO SCH (08:57)
[2019-02-28] MEDS: hydrALAZINE 25 MG TAB PO SCH ×3 (08:57→21:03)
[2019-02-28] MEDS: Amlodipine 10 MG TAB PO SCH (08:57)
[2019-02-28] MEDS: Lidocaine 5% Patch TD SCH (08:58)
[2019-02-28] MEDS: Aspirin 81 mg Enteric Coated Tablet PO SCH (08:58)
--- NOTE | 2019-02-28 09:28 | PRG ---
DATE OF SERVICE: 02/28/2019 SUBJECTIVE: Patient was seen and examined at bedside and overnight events noted. Patient denies any shortness of breath or chest pain or palpitation. No history of nausea or vomiting or diarrhea or fever or chills or cramps. OBJECTIVE: GENERAL: This is a well-built female, in no acute distress. VITAL SIGNS: Temperature 99. Heart rate 109. Respiratory rate . Blood pressure 124/77. HEENT: Atraumatic, normocephalic. Oral mucosa is moist NECK: Supple. CARDIOVASCULAR: S1, S2 heard. Rate and rhythm regular. RESPIRATORY: Clear to auscultation. GASTROINTESTINAL: Abdomen is soft. MUSCULOSKELETAL: No tenderness. DERMATOLOGIC: No skin rash. NEUROLOGIC: Alert and awake and oriented X3. No focal neurologic deficits. Moving all the extremities. PSYCHIATRIC: Mood and affect normal. LABORATORY DATA: Potassium is 5.3, BUN is 43, and creatinine is 3.7. ASSESSMENT AND PLAN: 1. End-stage renal disease. We will continue dialysis orders. 2. Hyperkalemia, limit potassium. 3. Edema. 4. Hypertension. 5. Anemia. Plan to continue on dialysis as tolerated. No dialysis today, but we will continue dialysis tomorrow and then Wednesday, Wednesday, Wednesday as tolerated. Follow with Case Management for outpatient placement. Job ID: [id number]
[2019-02-28] MEDS: oxyCODONE 5 MG TAB PO PRN (10:04)
--- NOTE | 2019-02-28 10:41 | PDOC.PN ---
- Subjective Encounter Start Date: 02/28/19 Encounter Start Time: 07:40 -: old records requested/rev Patient seen and examined. No new complaints. No overnight events - Objective Resuscitation Status - Order Detail: 02/25/19 11:52 Resuscitation Status Routine Resuscitation Status: FULL: Full Resuscitation MAR Reviewed: Yes Vital Signs & Weight: Vital Signs (12 hours) Temp Pulse Resp BP BP Pulse Ox 02/28/19 08:57 91 145/70 H 02/28/19 08:33 99.4 F 91 20 145/70 H 95 02/28/19 08:30 95 02/28/19 03:31 98.9 F 109 H 20 124/77 99 Weight Weight 181 lb 3 oz I&O: 02/27/19 02/28/19 03/01/19 06:59 06:59 06:59 Intake Total 720 480 Output Total 400 500 Balance 320 -20 Result Diagrams: 02/28/19 04:32 02/28/19 04:32 EKG Reviewed by me: Yes Phys Exam - Physical Examination Constitutional: NAD HEENT: PERRLA, moist MMs, sclera anicteric Neck: no JVD, supple Respiratory: no wheezing, no rales, no rhonchi Cardiovascular: RRR, no significant murmur, no rub Gastrointestinal: soft, non-tender, no distention, positive bowel sounds Musculoskeletal: no edema, pulses present Neurological: non-focal, normal sensation Lymphatic: no nodes Psychiatric: normal affect Skin: no rash, normal turgor Dx/Plan (1) ESRD on hemodialysis Code(s): N18.6 - END STAGE RENAL DISEASE; Z99.2 - DEPENDENCE ON RENAL DIALYSIS Status: Acute (2) Acute gout Code(s): M10.9 - GOUT, UNSPECIFIED Status: Acute (3) Hyperkalemia Code(s): E87.5 - HYPERKALEMIA Status: Acute (4) Anemia of renal disease Code(s): N18.9 - CHRONIC KIDNEY DISEASE, UNSPECIFIED; D63.1 - ANEMIA IN CHRONIC KIDNEY DISEASE Status: Chronic (5) CAD (coronary artery disease) Code(s): I25.10 - ATHSCL HEART DISEASE OF [place] CORONARY ARTERY W/O ANG PCTRS Status: Chronic Qualifiers: (6) Dyslipidemia Code(s): E78.5 - HYPERLIPIDEMIA, UNSPECIFIED Status: Chronic (7) HTN (hypertension) Code(s): I10 - ESSENTIAL (PRIMARY) HYPERTENSION Status: Chronic Qualifiers: (8) Obesity (BMI 30.0-34.9) Code(s): E66.9 - OBESITY, UNSPECIFIED Status: Chronic - 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 Review of Systems - Review of Systems ENT: negative: Ear Pain, Ear Discharge, Nose Pain, Nose Discharge, Nose Congestion, Mouth Pain, Mouth Swelling, Throat Pain, Throat Swelling, Other Respiratory: negative: Cough, Dry, Shortness of Breath, Hemoptysis, SOB with Excertion, Pleuritic Pain, Sputum, Wheezing Cardiovascular: negative: chest pain, palpitations, orthopnea, paroxysmal nocturnal dyspnea, edema, light headedness, other Gastrointestinal: negative: Nausea, Vomiting, Abdominal Pain, Diarrhea, Constipation, Melena, Hematochezia, Other Genitourinary: negative: Dysuria, Frequency, Incontinence, Hematuria, Retention , Other Musculoskeletal: negative: Neck Pain, Shoulder Pain, Arm Pain, Back Pain, Hand Pain, Leg Pain, Foot Pain, Other - Medications/Allergies Allergies/Adverse Reactions: Allergies Allergy/AdvReac Type Severity Reaction Status Date / Time lisinopril Allergy Severe Swollen Verified 02/15/19 16:22 Lips tramadol Allergy Nausea Verified 02/15/19 16:22 codeine AdvReac Nausea Verified 02/15/19 16:22 Medications: Current Medications Acetaminophen (Tylenol) 650 mg PO Q4H PRN PRN Reason: Headache/Fever/Mild Pain (1-3) Last Admin: 02/28/19 08:56 Dose: 650 mg Hydrocodone Bitart/Acetaminophen ([place] 5/325) 1 tab PO Q6H PRN PRN Reason: Moderate Pain (4-6) Last Admin: 02/28/19 01:00 Dose: 1 tab Amlodipine Besylate (Norvasc) 10 mg PO DAILY [facility] Last Admin: 02/28/19 08:57 Dose: 10 mg Artificial Tears (Tears Naturale) 2 drop EA EYE PRN PRN PRN Reason: Dry Eyes Aspirin (Ecotrin) 81 mg PO DAILY [facility] Last Admin: 02/28/19 08:58 Dose: Not Given Clonidine (Catapres) 0.1 mg PO BID [facility] Last Admin: 02/28/19 08:57 Dose: 0.1 mg Colchicine (Colcrys) 0.3 mg PO BID [facility] Last Admin: 02/27/19 21:20 Dose: 0.3 mg Famotidine (Pepcid) 20 mg PO QPM [facility] Last Admin: 02/27/19 21:21 Dose: 20 mg Ferrous Sulfate (Feosol) 325 mg PO BID-[facility] Last Admin: 02/28/19 08:56 Dose: 325 mg Guaifenesin (Robitussin Sf) 200 mg PO Q4H PRN PRN Reason: Cough Heparin Sodium (Porcine) (Heparin) 5,000 units SC TID [facility] Last Admin: 02/28/19 08:56 Dose: 5,000 units Hydralazine HCl (Apresoline) 50 mg PO TID [facility] Last Admin: 02/28/19 08:57 Dose: 50 mg Hydralazine HCl (Apresoline) 10 mg SLOW IVP Q4H PRN PRN Reason: SBP > 180 and HR < 70 Lidocaine (Lidoderm 5% Patch) 1 patch TD 0900 [facility] Last Admin: 02/28/19 08:58 Dose: 1 patch Loperamide HCl (Imodium) 2 mg PO PRN PRN PRN Reason: Diarrhea/Loose Stools Loratadine (Claritin) 10 mg PO DAILYPRN PRN PRN Reason: Sinus Symptoms Metoprolol Succinate (Toprol Xl) 25 mg PO DAILY [facility] Last Admin: 02/28/19 08:57 Dose: 25 mg Miscellaneous Medication (Lidocaine Patch Removal) 1 each TOP 2100 [facility] Last Admin: 02/27/19 21:26 Dose: Not Given Nitroglycerin (Nitrostat) 0.4 mg SL Q5MIN PRN PRN Reason: Chest Pain Ondansetron HCl (Zofran) 4 mg IVP Q6H PRN PRN Reason: Nausea/Vomiting Ondansetron HCl (Zofran Odt) 4 mg PO Q6H PRN PRN Reason: Nausea/Vomiting Oxycodone HCl (Oxycodone Ir) 5 mg PO Q4H PRN PRN Reason: Severe Pain (7-10) Last Admin: 02/28/19 10:04 Dose: 5 mg Prednisone (Prednisone) 20 mg PO DAILY [facility] Stop: 03/04/19 09:01 Last Admin: 02/28/19 08:57 Dose: 20 mg Senna/Docusate Sodium (Senokot S) 2 tab PO BID PRN PRN Reason: Constipation Last Admin: 02/25/19 17:15 Dose: 2 tab Sodium Chloride ([place] Nasal [place] 0.65%) 0 ml EA NARE QIDPRN PRN PRN Reason: Nasal Congestion Throat Lozenges (Cepastat Lozenges) 1 yves PO Q2H PRN PRN Reason: Sore Throat Tramadol HCl (Ultram) 50 mg PO Q12H PRN PRN Reason: Moderate Pain (4-6) Tuberculin PPD (Tuberculin Ppd) 0.1 ml I-[facility] Stop: 02/28/19 12:01 Last Admin: 02/25/19 15:28 Dose: 0.1 ml Zolpidem Tartrate (Ambien) 5 mg PO HSPRN PRN PRN Reason: Insomnia
[2019-02-28] MEDS: Colchicine 0.3 MG TAB PO SCH ×2 (11:08→21:03)
[2019-02-28] MEDS: EPOETIN ALFA-EPBX (ESRD) 10,000 UNIT/ML VIAL IVP SCH (14:07)
[2019-02-28] MEDS: Famotidine 20 MG TAB PO SCH (21:03)
[2019-02-28] MEDS: Lidocaine Patch Removal 1 EACH TOP SCH (21:05)
[2019-03-01 05:58] LABS: Anion Gap 15 mmol/L (10-20); BUN (Urea Nitrogen) 55 mg/dL (9.8-20.1); Calc. Creatinine Clearance 16 mL/min (70-130); Calcium 9.5 mg/dL (7.8-10.44); Carbon Dioxide 22 mmol/L (23-31); Chloride 100 mmol/L (98-107); Estimated GFR-MDRD 12; Glucose 96 mg/dL (80-115); Potassium 5.4 mmol/L (3.5-5.1); Sodium 132 mmol/L (136-145)
[2019-03-01] MEDS: Ferrous Sulfate 325 MG TAB PO SCH ×2 (10:11→17:37)
[2019-03-01] MEDS: hydrALAZINE 25 MG TAB PO SCH ×3 (10:11→20:45)
[2019-03-01] MEDS: Heparin 5,000 UNITS/ML VIAL SC SCH ×3 (10:11→20:46)
--- NOTE | 2019-03-01 10:26 | PRG ---
DATE OF SERVICE: SUBJECTIVE: Patient was seen and examined at bedside and overnight events noted. Patient denies any shortness of breath or chest pain or palpitation. No history of nausea or vomiting or diarrhea or fever or chills or cramps. OBJECTIVE: GENERAL: This is a well-built female, in no apparent distress. VITAL SIGNS: Temperature . Heart rate 62. Respiratory rate . HEENT: Atraumatic, normocephalic. Oral mucosa is moist NECK: Supple. CARDIOVASCULAR: S1, S2 heard. Rate and rhythm regular. RESPIRATORY: Clear to auscultation. GASTROINTESTINAL: Abdomen is soft. MUSCULOSKELETAL: No tenderness. No edema. DERMATOLOGIC: No skin rash. NEUROLOGIC: Alert and awake and oriented X3. No focal neurologic deficits. Moving all the extremities. PSYCHIATRIC: Mood and affect normal. LABORATORY DATA: Potassium 5.4, BUN is 55, creatinine is 4.5. ASSESSMENT AND PLAN: 1. End-stage renal disease. Continue on dialysis as tolerated. 2. Edema, controlled. 3. Hypertension. 4. Hyperkalemia, limit potassium. 5. Anemia. We will continue Epogen. 6. Plan to continue on dialysis as tolerated. Job ID: [id number]
[2019-03-01] MEDS: predniSONE 20 MG TAB PO SCH (11:55)
[2019-03-01] MEDS: HYDROcodone/Acetaminophen 5/325 mg Tablet PO PRN ×2 (11:56→20:43)
[2019-03-01] MEDS: cloNIDine 0.1 MG TAB PO SCH ×2 (11:57→20:45)
[2019-03-01] MEDS: Colchicine 0.3 MG TAB PO SCH (11:57)
[2019-03-01] MEDS: Lidocaine 5% Patch TD SCH (11:58)
[2019-03-01] MEDS: Aspirin 81 mg Enteric Coated Tablet PO SCH (11:58)
[2019-03-01] MEDS: Amlodipine 10 MG TAB PO SCH (11:58)
--- NOTE | 2019-03-01 13:27 | PRG ---
DATE OF SERVICE: 03/01/2019 SUBJECTIVE: The patient is seen and examined at the bedside. She complains about her feet hurting and difficulty walking. OBJECTIVE: VITAL SIGNS: Blood pressure is 150/66, pulse is 72, respirations 18, temperature is 97.4, O2 saturation is 97% on 2 L by nasal cannula. HEENT: Head is atraumatic and normocephalic. Eyes are PERRLA. Sclerae are nonicteric. Conjunctivae palish. Oral mucosa is moist. NECK: Supple. LUNGS: Breath sounds diminished at both bases. HEART: S1 and S2. Somewhat irregular. No S3. No S4. ABDOMEN: Soft, nontender abdomen, and nondistended. EXTREMITIES: No clubbing, cyanosis, or edema. NEUROLOGIC: She follows my commands. She moves her all 4 extremities. She has quite significant pain applied to both soles. There is some pain on range of motion both ankles and right knee. LABORATORY DATA: Sodium of 132, potassium 5.4, chloride 100, CO2 of 22, BUN 55, creatinine 4.58, glucose 96, and calcium 9.5. C-reactive protein 1.55 that is from the time of admission. Her uric acid 5.1. IMPRESSION: 1. End-stage renal disease, on hemodialysis with dyselectrolytemia, hyperkalemia, and hyponatremia. The patient underwent hemodialysis today. 2. Acute inflammatory process in her joints, both feet, ankles, and right knee, unclear etiology. Elevated sedimentation rate. Started on prednisone and colchicine. We are going to stop colchicine since this is way too much dose for her. She is on 0.3 mg twice a day. We will continue prednisone. We will get Rehabilitation evaluation and screening for possible transfer. 3. Hyperkalemia, which should be corrected with hemodialysis. 4. Anemia of renal disease, chronic. 5. Coronary artery disease, chronic, stable. 6. Dyslipidemia. 7. Hypertension. PLAN: So plan is to stop colchicine. Continue prednisone. Obtain rheumatoid arthritis panel. I do not see results back from [facility], which is most likely sent out test. We will obtain rehab screening by the case supervisor and continue HD as per Dr. Guy. Job ID: [id number]
[2019-03-01 15:47] LABS: ANA Symphony (Qualitative) Negative (Negative); ANA Symphony (Quantitative) 0.1 Ratio (< 0.7 Negative); dsDNA IgG Antibody Less than 0.5 IU/mL (<10 Negative)
[2019-03-01 16:33] LABS: CCP IgG Antibody 3.9 EliAU/mL (<7 Negative); EliA RAS New Method **** NEW METHOD ****; Rheumatoid Factor IgA Antibody 0.6 IU/mL (<14 Negative); Rheumatoid Factor IgM Antibody 0.5 IU/mL (<3.5 Negative)
[2019-03-01] MEDS: Famotidine 20 MG TAB PO SCH (20:45)
[2019-03-01] MEDS: Lidocaine Patch Removal 1 EACH TOP SCH (20:47)
[2019-03-02 06:44] LABS: Anion Gap 14 mmol/L (10-20); BUN (Urea Nitrogen) 44 mg/dL (9.8-20.1); Calc. Creatinine Clearance 20 mL/min (70-130); Carbon Dioxide 27 mmol/L (23-31); Chloride 99 mmol/L (98-107); Estimated GFR-MDRD 15; Glucose 93 mg/dL (80-115); Potassium 5.1 mmol/L (3.5-5.1); Sodium 135 mmol/L (136-145)
[2019-03-02] MEDS: Ferrous Sulfate 325 MG TAB PO SCH ×2 (09:14→16:33)
[2019-03-02] MEDS: Aspirin 81 mg Enteric Coated Tablet PO SCH (09:14)
[2019-03-02] MEDS: hydrALAZINE 25 MG TAB PO SCH ×3 (09:14→20:16)
[2019-03-02] MEDS: cloNIDine 0.1 MG TAB PO SCH ×2 (09:14→20:15)
[2019-03-02] MEDS: predniSONE 20 MG TAB PO SCH (09:15)
[2019-03-02] MEDS: Amlodipine 10 MG TAB PO SCH (09:15)
[2019-03-02] MEDS: Heparin 5,000 UNITS/ML VIAL SC SCH ×3 (09:15→20:15)
[2019-03-02] MEDS: Lidocaine 5% Patch TD SCH (09:16)
[2019-03-02] MEDS: HYDROcodone/Acetaminophen 5/325 mg Tablet PO PRN (09:18)
--- NOTE | 2019-03-02 11:08 | PDOC.PN ---
- Subjective Encounter Start Date: 03/02/19 Encounter Start Time: 08:00 Patient seen and examined. No new complaints. No overnight events - Objective Resuscitation Status - Order Detail: 02/25/19 11:52 Resuscitation Status Routine Resuscitation Status: FULL: Full Resuscitation MAR Reviewed: Yes Vital Signs & Weight: Vital Signs (12 hours) Temp Pulse Resp BP BP Pulse Ox 03/02/19 09:15 65 03/02/19 09:14 65 139/61 03/02/19 08:22 98.1 F 65 18 138/64 96 03/02/19 08:00 96 03/02/19 04:00 98.1 F 64 16 125/60 98 Weight Weight 184 lb 4.903 oz I&O: 03/01/19 03/02/19 03/03/19 06:59 06:59 06:59 Intake Total 960 240 Output Total 0 Balance 960 240 Result Diagrams: 02/28/19 04:32 03/02/19 06:07 EKG Reviewed by me: Yes Phys Exam - Physical Examination Constitutional: NAD HEENT: PERRLA, moist MMs, sclera anicteric Neck: no JVD, supple Respiratory: no wheezing, no rales, no rhonchi Cardiovascular: RRR, no significant murmur, no rub Gastrointestinal: soft, non-tender, no distention, positive bowel sounds Musculoskeletal: no edema, pulses present Neurological: non-focal, normal sensation, moves all 4 limbs Lymphatic: no nodes Psychiatric: normal affect, A&O x 3 Skin: no rash, normal turgor Dx/Plan (1) ESRD on hemodialysis Code(s): N18.6 - END STAGE RENAL DISEASE; Z99.2 - DEPENDENCE ON RENAL DIALYSIS Status: Acute (2) Acute gout Code(s): M10.9 - GOUT, UNSPECIFIED Status: Acute (3) Hyperkalemia Code(s): E87.5 - HYPERKALEMIA Status: Acute (4) Anemia of renal disease Code(s): N18.9 - CHRONIC KIDNEY DISEASE, UNSPECIFIED; D63.1 - ANEMIA IN CHRONIC KIDNEY DISEASE Status: Chronic (5) CAD (coronary artery disease) Code(s): I25.10 - ATHSCL HEART DISEASE OF [place] CORONARY ARTERY W/O ANG PCTRS Status: Chronic Qualifiers: (6) Dyslipidemia Code(s): E78.5 - HYPERLIPIDEMIA, UNSPECIFIED Status: Chronic (7) HTN (hypertension) Code(s): I10 - ESSENTIAL (PRIMARY) HYPERTENSION Status: Chronic Qualifiers: (8) Obesity (BMI 30.0-34.9) Code(s): E66.9 - OBESITY, UNSPECIFIED Status: Chronic - 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 Review of Systems - Review of Systems ENT: negative: Ear Pain, Ear Discharge, Nose Pain, Nose Discharge, Nose Congestion, Mouth Pain, Mouth Swelling, Throat Pain, Throat Swelling, Other Respiratory: negative: Cough, Dry, Shortness of Breath, Hemoptysis, SOB with Excertion, Pleuritic Pain, Sputum, Wheezing Cardiovascular: negative: chest pain, palpitations, orthopnea, paroxysmal nocturnal dyspnea, edema, light headedness, other Gastrointestinal: negative: Nausea, Vomiting, Abdominal Pain, Diarrhea, Constipation, Melena, Hematochezia, Other Genitourinary: negative: Dysuria, Frequency, Incontinence, Hematuria, Retention , Other Musculoskeletal: negative: Neck Pain, Shoulder Pain, Arm Pain, Back Pain, Hand Pain, Leg Pain, Foot Pain, Other - Medications/Allergies Allergies/Adverse Reactions: Allergies Allergy/AdvReac Type Severity Reaction Status Date / Time lisinopril Allergy Severe Swollen Verified 02/15/19 16:22 Lips tramadol Allergy Nausea Verified 02/15/19 16:22 codeine AdvReac Nausea Verified 02/15/19 16:22 Medications: Current Medications Acetaminophen (Tylenol) 650 mg PO Q4H PRN PRN Reason: Headache/Fever/Mild Pain (1-3) Last Admin: 02/28/19 08:56 Dose: 650 mg Hydrocodone Bitart/Acetaminophen ([place] 5/325) 1 tab PO Q6H PRN PRN Reason: Moderate Pain (4-6) Last Admin: 03/02/19 09:18 Dose: 1 tab Amlodipine Besylate (Norvasc) 10 mg PO DAILY [facility] Last Admin: 03/02/19 09:15 Dose: 10 mg Artificial Tears (Tears Naturale) 2 drop EA EYE PRN PRN PRN Reason: Dry Eyes Aspirin (Ecotrin) 81 mg PO DAILY [facility] Last Admin: 03/02/19 09:14 Dose: 81 mg Clonidine (Catapres) 0.1 mg PO BID [facility] Last Admin: 03/02/19 09:14 Dose: 0.1 mg Famotidine (Pepcid) 20 mg PO QPM [facility] Last Admin: 03/01/19 20:45 Dose: 20 mg Ferrous Sulfate (Feosol) 325 mg PO BID-[facility] Last Admin: 03/02/19 09:14 Dose: 325 mg Guaifenesin (Robitussin Sf) 200 mg PO Q4H PRN PRN Reason: Cough Heparin Sodium (Porcine) (Heparin) 5,000 units SC TID [facility] Last Admin: 03/02/19 09:15 Dose: 5,000 units Hydralazine HCl (Apresoline) 50 mg PO TID [facility] Last Admin: 03/02/19 09:14 Dose: 50 mg Hydralazine HCl (Apresoline) 10 mg SLOW IVP Q4H PRN PRN Reason: SBP > 180 and HR < 70 Lidocaine (Lidoderm 5% Patch) 1 patch TD 0900 [facility] Last Admin: 03/02/19 09:16 Dose: 1 patch Loperamide HCl (Imodium) 2 mg PO PRN PRN PRN Reason: Diarrhea/Loose Stools Loratadine (Claritin) 10 mg PO DAILYPRN PRN PRN Reason: Sinus Symptoms Metoprolol Succinate (Toprol Xl) 25 mg PO DAILY [facility] Last Admin: 03/02/19 09:15 Dose: 25 mg Miscellaneous Medication (Lidocaine Patch Removal) 1 each TOP 2100 [facility] Last Admin: 03/01/19 20:47 Dose: Not Given Nitroglycerin (Nitrostat) 0.4 mg SL Q5MIN PRN PRN Reason: Chest Pain Ondansetron HCl (Zofran) 4 mg IVP Q6H PRN PRN Reason: Nausea/Vomiting Ondansetron HCl (Zofran Odt) 4 mg PO Q6H PRN PRN Reason: Nausea/Vomiting Oxycodone HCl (Oxycodone Ir) 5 mg PO Q4H PRN PRN Reason: Severe Pain (7-10) Last Admin: 02/28/19 10:04 Dose: 5 mg Prednisone (Prednisone) 20 mg PO DAILY [facility] Stop: 03/04/19 09:01 Last Admin: 03/02/19 09:15 Dose: 20 mg Senna/Docusate Sodium (Senokot S) 2 tab PO BID PRN PRN Reason: Constipation Last Admin: 02/25/19 17:15 Dose: 2 tab Sodium Chloride ([place] Nasal [place] 0.65%) 0 ml EA NARE QIDPRN PRN PRN Reason: Nasal Congestion Throat Lozenges (Cepastat Lozenges) 1 yves PO Q2H PRN PRN Reason: Sore Throat Tramadol HCl (Ultram) 50 mg PO Q12H PRN PRN Reason: Moderate Pain (4-6) Zolpidem Tartrate (Ambien) 5 mg PO HSPRN PRN PRN Reason: Insomnia
--- NOTE | 2019-03-02 12:20 | PRG ---
DATE OF SERVICE: 03/02/2019 SUBJECTIVE: Patient was seen and examined at bedside and overnight events noted. Patient denies any shortness of breath or chest pain or palpitation. No history of nausea or vomiting or diarrhea or fever or chills or cramps. OBJECTIVE: GENERAL: This is a well-built female, in no apparent distress. VITAL SIGNS: Temperature 98.1. Heart rate 65. Respiratory rate 18. Blood pressure 138/65. HEENT: Atraumatic, normocephalic. Oral mucosa is moist NECK: Supple. CARDIOVASCULAR: S1, S2 heard. Rate and rhythm regular. RESPIRATORY: Clear to auscultation. GASTROINTESTINAL: Abdomen is soft. MUSCULOSKELETAL: No tenderness. No edema. DERMATOLOGIC: No skin rash. NEUROLOGIC: Alert and awake and oriented X3. No focal neurologic deficits. Moving all the extremities. PSYCHIATRIC: Mood and affect normal. LABORATORY DATA: Potassium is 5.1, BUN is 44, creatinine is 3.6. ASSESSMENT AND PLAN: 1. End-stage renal disease. Continue on dialysis as tolerated. 2. Edema, controlled. 3. Hypertension. 4. Hyperkalemia, better. 5. Anemia. Monitor hemoglobin. Plan to continue on dialysis as tolerated on Wednesday, Wednesday, and Wednesday. Job ID: [id number]
[2019-03-02] MEDS: Famotidine 20 MG TAB PO SCH (20:16)
[2019-03-02] MEDS: Lidocaine Patch Removal 1 EACH TOP SCH (20:17)
[2019-03-03 06:44] LABS: Anion Gap 16 mmol/L (10-20); BUN (Urea Nitrogen) 65 mg/dL (9.8-20.1); Calc. Creatinine Clearance 17 mL/min (70-130); Calcium 9.1 mg/dL (7.8-10.44); Carbon Dioxide 23 mmol/L (23-31); Chloride 100 mmol/L (98-107); Estimated GFR-MDRD 12; Glucose 93 mg/dL (80-115); Sodium 134 mmol/L (136-145)
[2019-03-03] MEDS ORDERED: EPOETIN ALFA-EPBX (ESRD) 10,000 UNIT/ML VIAL IVP SCH (09:00)
[2019-03-03] MEDS: cloNIDine 0.1 MG TAB PO SCH ×2 (09:00→21:08)
[2019-03-03] MEDS: Ferrous Sulfate 325 MG TAB PO SCH ×2 (09:11→16:51)
[2019-03-03] MEDS: predniSONE 20 MG TAB PO SCH (09:12)
[2019-03-03] MEDS: Lidocaine 5% Patch TD SCH (09:14)
[2019-03-03] MEDS: hydrALAZINE 25 MG TAB PO SCH ×3 (09:20→21:08)
[2019-03-03] MEDS: Aspirin 81 mg Enteric Coated Tablet PO SCH (09:23)
[2019-03-03] MEDS: Heparin 5,000 UNITS/ML VIAL SC SCH ×3 (09:24→21:09)
--- NOTE | 2019-03-03 13:25 | PDOC.EVN ---
Event Note - Event Note Event Note: DC SUMMARY #[id number]
--- NOTE | 2019-03-03 15:45 | PRG ---
DATE OF SERVICE: 03/03/2019 SUBJECTIVE: Patient was seen and examined at bedside and overnight events noted. Patient denies any shortness of breath or chest pain or palpitation. No history of nausea or vomiting or diarrhea or fever or chills or cramps. OBJECTIVE: GENERAL: This is a thin built female, in no apparent distress. VITAL SIGNS: Temperature 98.0. Heart rate 74. Respiratory rate 16. Blood pressure 157/72. HEENT: Atraumatic, normocephalic. Oral mucosa is moist NECK: Supple. CARDIOVASCULAR: S1, S2 heard. Rate and rhythm regular. RESPIRATORY: Clear to auscultation. GASTROINTESTINAL: Abdomen is soft. MUSCULOSKELETAL: No tenderness. No edema. DERMATOLOGIC: No skin rash. NEUROLOGIC: Alert and awake and oriented X3. No focal neurologic deficits. Moving all the extremities. PSYCHIATRIC: Mood and affect normal. LABORATORY DATA: Potassium 5.0, BUN is 65, and creatinine is 4.3. ASSESSMENT AND PLAN: 1. End-stage renal disease. Continue dialysis Wednesday, Wednesday, and Wednesday. 2. Edema, controlled. 3. Hypertension. 4. Hyperkalemia. Plan to continue on dialysis as tolerated. The patient is seen during dialysis, tolerating well. Job ID: [id number]
[2019-03-03] MEDS: Amlodipine 10 MG TAB PO SCH (16:48)
[2019-03-03] MEDS: HYDROcodone/Acetaminophen 5/325 mg Tablet PO PRN (16:49)
[2019-03-03] MEDS: Famotidine 20 MG TAB PO SCH (21:08)
[2019-03-03] MEDS: Senokot S 8.6-50 MG TAB PO PRN (21:09)
[2019-03-03] MEDS: Lidocaine Patch Removal 1 EACH TOP SCH (21:16)
[2019-03-04] MEDS ORDERED: Bisacodyl 10 MG SUPP PR PRN (04:00)
--- NOTE | 2019-03-04 04:31 | DIS ---
DATE OF ADMISSION: 02/25/2019 DATE OF DISCHARGE: 03/04/2019 ADMITTING DIAGNOSES: Chronic kidney disease 5, worsened end-stage renal disease, dialysis initiation, hyperkalemia, hypertension, metabolic bone disease, anemia of renal disease, hyperlipidemia, heart failure. DISCHARGE DIAGNOSES: New declared end-stage renal disease patient; hyperkalemia, resolved; hypertension, stable; metabolic bone disease, stable; heart failure, stable; hyperlipidemia, stable. HOSPITAL COURSE: This is a 68-year-old female, admitted to Internal Medicine Team from rehab for dialysis initiation. The patient was admitted to the IM team with hyperkalemia and worsening CKD function. The patient was also evaluated by Nephrology. The patient was started on medications for potassium. Her renal function was noted to be very poor and dialysis was initiated. security operations manager was consulted for outpatient dialysis arrangements. The patient upon the time of discharge was stable. Denied any nausea, vomiting, diarrhea, constipation, chest pain, fevers, or shortness of breath. The patient was discharged to [facility] for further managing care and rehabilitation of her condition. The patient was to follow up with PCP within 1 week and continue dialysis treatments as directed by her director transition. The patient upon the time of discharge was stable. Case and plan discussed with the patient at length. She understood and agreed with this plan. DISPOSITION: Rehab. FOLLOWUP: Follow up with PCP within 1 week. MEDICATIONS: See MAR. ACTIVITY: As tolerated with assistance as needed. DIET: Low-fat low-calorie high-fiber renal diet. CONDITION: Stable. PROGNOSIS: Good. Case and plan once again discussed with the patient at length. She understood and agreed with this plan. Job ID: [id number]
[2019-03-04] MEDS ORDERED: Fleet Enema 133 ML BOT PR PRN (05:06)
[2019-03-04] MEDS ORDERED: Polyethylene Glycol 3350 17 GM Packet PO SCH (05:30)
[2019-03-04] MEDS: Lidocaine 5% Patch TD SCH (08:52)
[2019-03-04] MEDS: Ferrous Sulfate 325 MG TAB PO SCH ×2 (08:52→17:28)
[2019-03-04] MEDS: Amlodipine 10 MG TAB PO SCH (08:52)
[2019-03-04] MEDS: hydrALAZINE 25 MG TAB PO SCH ×2 (08:52→14:47)
[2019-03-04] MEDS: cloNIDine 0.1 MG TAB PO SCH (08:52)
[2019-03-04] MEDS: Heparin 5,000 UNITS/ML VIAL SC SCH ×2 (08:53→14:48)
[2019-03-04] MEDS: predniSONE 20 MG TAB PO SCH (08:53)
[2019-03-04] MEDS: Aspirin 81 mg Enteric Coated Tablet PO SCH (08:55)
--- NOTE | 2019-03-04 08:56 | PDOC.PN ---
- Subjective Encounter Start Date: 03/03/19 Encounter Start Time: 08:56 Patient seen and examined, no new issues. - Objective Resuscitation Status - Order Detail: 02/25/19 11:52 Resuscitation Status Routine Resuscitation Status: FULL: Full Resuscitation Vital Signs & Weight: Vital Signs (12 hours) Temp Pulse Resp BP BP Pulse Ox 03/04/19 08:52 83 163/72 H 03/04/19 04:00 97.9 F 83 20 158/85 H 95 03/03/19 23:00 98 F 70 20 139/63 94 L 03/03/19 21:08 75 163/72 H Weight Weight 179 lb 0.246 oz I&O: 03/03/19 03/04/19 03/05/19 06:59 06:59 06:59 Intake Total 1080 1560 Output Total 900 3900 Balance 180 -2340 Result Diagrams: 02/28/19 04:32 03/03/19 05:52 Phys Exam - Physical Examination Constitutional: NAD HEENT: PERRLA, moist MMs Neck: no nodes, no JVD, supple Respiratory: no wheezing, no rales, no rhonchi Cardiovascular: RRR, no significant murmur, no rub Gastrointestinal: soft, non-tender, no distention Musculoskeletal: pulses present, edema present (trace) Dx/Plan (1) ESRD on hemodialysis Code(s): N18.6 - END STAGE RENAL DISEASE; Z99.2 - DEPENDENCE ON RENAL DIALYSIS Status: Acute (2) CAD (coronary artery disease) Code(s): I25.10 - ATHSCL HEART DISEASE OF [place] CORONARY ARTERY W/O ANG PCTRS Status: Chronic Qualifiers: (3) Dyslipidemia Code(s): E78.5 - HYPERLIPIDEMIA, UNSPECIFIED Status: Chronic (4) HTN (hypertension) Code(s): I10 - ESSENTIAL (PRIMARY) HYPERTENSION Status: Chronic Qualifiers: (5) Obesity (BMI 30.0-34.9) Code(s): E66.9 - OBESITY, UNSPECIFIED Status: Chronic - Plan * pending rehab placement * no changes in plan of care * DC once arranged
--- NOTE | 2019-03-04 13:00 | PRG ---
DATE OF SERVICE: 03/04/2019 SUBJECTIVE: Patient was seen and examined at bedside and overnight events noted. Patient denies any shortness of breath or chest pain or palpitation. No history of nausea or vomiting or diarrhea or fever or chills or cramps. OBJECTIVE: GENERAL: This is a well-built female, in no apparent distress. VITAL SIGNS: Temperature 98.1. Heart rate 79. Respiratory rate 18. Blood pressure 138/74. HEENT: Atraumatic, normocephalic. Oral mucosa is moist. NECK: Supple. CARDIOVASCULAR: S1, S2 heard. Rate and rhythm regular. RESPIRATORY: Clear to auscultation. GASTROINTESTINAL: Abdomen is soft. MUSCULOSKELETAL: No tenderness. No edema. DERMATOLOGIC: No skin rash. NEUROLOGIC: Alert and awake and oriented x3. No focal neurologic deficits. Moving all the extremities. PSYCHIATRIC: Mood and affect normal. LABORATORY DATA: No labs done today. OBJECTIVE: 1. End-stage renal disease. Continue on dialysis, as tolerated. 2. Edema. Remove fluid. 3. Hypertension. 4. Hyperkalemia. Limit potassium intake. Plan to continue dialysis as tolerated. Job ID: [id number]
[2019-03-04] MEDS: HYDROcodone/Acetaminophen 5/325 mg Tablet PO PRN (14:46)
[2019-03-04 16:29] VITALS: BP 134/67; TEMP 98.7
== END 2019-03-04 18:02 | DRG 291 ==
LOC: SDC 10:29 → 2NO 11:35
PROVIDERS: ADMIT Internal Medicine; ATTEND Internal Medicine
PROC: 5A1D70Z Performance of Urinary Filtration, Intermittent, Less than 6 Hours Per Day (ICD-10-PCS; principal; 2019-02-25)
DX: I13.2 Hypertensive heart and chronic kidney disease with heart failure and with stage 5 chronic kidney disease, or end stage renal disease (principal); N18.6 End stage renal disease; E87.1 Hypo-osmolality and hyponatremia; M10.9 Gout, unspecified; I25.10 Atherosclerotic heart disease of native coronary artery without angina pectoris; E87.5 Hyperkalemia; I50.9 Heart failure, unspecified; D63.1 Anemia in chronic kidney disease; M89.9 Disorder of bone, unspecified; E78.5 Hyperlipidemia, unspecified; E66.9 Obesity, unspecified; Z68.29 Body mass index [BMI] 29.0-29.9, adult; Z90.710 Acquired absence of both cervix and uterus; Z88.8 Allergy status to other drugs, medicaments and biological substances; Z98.51 Tubal ligation status; Z88.5 Allergy status to narcotic agent; Z79.899 Other long term (current) drug therapy; Z79.82 Long term (current) use of aspirin
CPT/HCPCS: 36415; 36416; 80048; 83520; 84550; 85025; 85652; 86038; 86140; 86200; 86225; 86580; 90935; 93970; C1752; C1769; G0257; J0360; J0670; J0690; J1642; J1644; J2001; J2175; J2250; J2704; J2720; J3010; J7512; L8670; Q0162; Q5105; Q9967

== ENCOUNTER 2019-03-08 22:23 | Observation (INO) | payer MEDICARE, MEDICAID ==
[2019-03-09 00:08] LABS: Troponin I Less than 0.010 ng/mL (< 0.028)
[2019-03-09 02:32] VITALS: BMI 28.5
[2019-03-09 07:24] LABS: Troponin I Less than 0.010 ng/mL (< 0.028)
[2019-03-09] MEDS ORDERED: Nitroglycerin 0.4 MG TAB (25 Tab Bottle) SL PRN (08:43)
[2019-03-09] MEDS ORDERED: Acetaminophen 500 MG TAB PO PRN (08:43)
[2019-03-09] MEDS ORDERED: Aspirin 81 mg Enteric Coated Tablet PO SCH (09:00)
[2019-03-09] MEDS ORDERED: Amlodipine 10 MG TAB PO SCH (09:00)
[2019-03-09] MEDS: hydrALAZINE 25 MG TAB PO SCH ×2 (09:22→16:37)
[2019-03-09] MEDS ORDERED: ADENOSINE 60 MG/20 ML VIAL ONE (10:27)
[2019-03-09 16:00] VITALS: BP 173/70; TEMP 98.8
--- NOTE | 2019-03-09 16:14 | NM ---
Radionucleotide stress and rest myocardial perfusion scan with CT attenuation correction and SPECT im aging Left ventricular wall motion evaluation and ejection fraction. HISTORY: Chest pain. FINDINGS: Adenosine protocol. There is homogeneous uptake of radiotracer throughout the left ventricu lar myocardium on the stress and rest images. No focal perfusion defect or reversibility. QGS analysis of gated SPECT images shows no focal wall motion abnormalities. Ejection fraction calculated at 74%. IMPRESSION: Normal myocardial perfusion scan. Normal LVEF.
--- NOTE | 2019-03-09 19:19 | PRG ---
DATE OF SERVICE: 03/09/2019 SUBJECTIVE: A 68-year-old female, being seen for end-stage renal disease. The patient denies any nausea, vomiting, or chest pain. OBJECTIVE: CONSTITUTIONAL: The patient is alert and awake. VITAL SIGNS: Afebrile. Pulse 77, breathing 16, blood pressure 164/74. GENERAL APPEARANCE AND MENTAL STATUS: Fair. HEAD/NECK: Normocephalic. Atraumatic. EYES: EOMI. No deformity. EARS: Clear. No ulcers. NOSE: Intact. No lesions. MOUTH: Clear. No discharge. THROAT: Clear. No exudate. LUNGS: Clear. No crackles. CARDIAC: S1, S2. No rub. ABDOMEN: Benign. Bowel sounds positive. GENITALIA/RECTUM: Lopez absent. BACK/EXTREMITIES: Edema 0+. NEUROLOGICAL: Alert and motor intact. SKIN: LYMPHATICS: LABORATORY DATA: Reviewed. ASSESSMENT AND PLAN: 1. Stage 6 chronic kidney disease. Continue hemodialysis. 2. Hypertension, stable. 3. Anemia, stable. 4. Medications based on GFR, appropriate. Job ID: [id number]
--- NOTE | 2019-03-10 05:18 | SS ---
DATE OF ADMISSION: 03/09/2019 DATE OF DISCHARGE: 03/09/2019 CHIEF COMPLAINT ON ADMISSION: Chest pain. FINAL DIAGNOSES: 1. Chest pain, unclear etiology at this time, acute coronary syndrome ruled out , and nuclear stress test is negative for reversible ischemia. Although the chest pain was relieved with nitroglycerin, do suspect possible gastrointestinal etiology such as esophageal spasm. 2. End-stage renal disease, recently initiated on hemodialysis through a tunneled dialysis catheter, AV fistula/graft is still maturing. 3. Hypertension. 4. History of coronary artery disease. 5. Gout, stable. 6. Generalized weakness and deconditioning, currently residing in swing bed in [place]. HOSPITAL COURSE: The patient is a very pleasant, 68-year-old female who is currently residing in a swing bed in [place]. She has had some general debility and deconditioning given her recent hospitalizations and initiation on dialysis. She has been doing well there; however, yesterday evening, the patient began experiencing some chest discomfort. She states that she was watching TV when the chest discomfort came on. She describes it as both pressure and burning. The patient was given Maalox, which did not fully relieve her pain, but sublingual nitroglycerin did. Given her risk factors and known history of CAD, the patient was sent to [facility] for ACS rule out. Her serial troponin has been negative. Given the somewhat typical nature of her chest pain, nuclear stress test was ordered, which showed no evidence of reversible ischemia along with normal EF. The patient has done well today. She has had no further episodes of chest discomfort. The patient feels well. She has tolerated regular diet. She has had no nausea or vomiting. REVIEW OF SYSTEMS: A 12-point review of systems performed and is negative except that stated above. ALLERGIES: CODEINE, LISINOPRIL, AND TRAMADOL. HOME MEDICATIONS: Which we will not be changing at discharge include; 1. Acetaminophen 500 mg one tablet p.o. q.6 hours p.r.n. 2. Amlodipine 10 mg daily. 3. Aspirin 81 mg daily. 4. Hydrocodone/acetaminophen 5/325 one tablet p.o. q.6 p.r.n. 5. Sublingual nitroglycerin 0.4 mg sublingual q.5 minutes p.r.n. 6. Prednisone 5 mg tablet daily. 7. Clonidine 0.1 mg p.o. b.i.d. 8. Hydralazine 50 mg p.o. t.i.d. 9. Lidocaine patch p.r.n. 10. Toprol-XL 25 mg one tablet p.o. daily. LABORATORY DATA: White blood cell count 5.4, hemoglobin 8.2, hematocrit 27.7, platelet count is 240. Sodium 140, potassium 3.6, CO2 of 28, BUN 16, creatinine 1.8. Troponin was negative x2. EKG showed sinus rhythm with no acute ST or T- wave changes. PHYSICAL EXAMINATION: VITAL SIGNS: Blood pressure 159/74, pulse 87, O2 saturation is 97% on room air, respirations are 16. GENERAL: This is a middle-aged female, resting comfortably in bed, in no acute distress. HEENT: Head is atraumatic and normocephalic. Mucous membranes are moist. NECK: Supple. Trachea is midline. No JVD. CV: S1 and S2. Regular rate and rhythm. No appreciable murmurs, rubs, or gallops. LUNGS: Regular respiratory rate and pattern. Clear to auscultation bilaterally. ABDOMEN: Soft. Positive bowel sounds. MUSCULOSKELETAL: The patient has tunneled dialysis catheter in her upper right chest. Right forearm shows fistula with good thrill. EXTREMITIES: No edema. SKIN: Warm and dry. No rashes. NEUROLOGIC: Alert and oriented x3. Cranial nerves II through XII are intact. The patient is nonfocal. DISCHARGE DISPOSITION: Back to [facility]. DISCHARGE CONDITION: Stable. DISCHARGE AND FOLLOWUP INSTRUCTIONS: Care has been discussed with Dr. Oviedo, and she will be discharged back to the swing bed today. She will continue aspirin therapy. Her workup here has been negative, and she will continue physical therapy along with regular follow up with her PCP. She will return to the ER with any return of symptoms. Certainly, she should consider outpatient followup with Cardiology as well given her remote history of CAD along with risk factors. Care of this patient has been discussed with Dr. Aquino who agrees with discharge as above. Job ID: [id number] MTDD
== END 2019-03-09 20:22 | disposition short-term general hospital (02) ==
LOC: ERS 22:23 → 2SW 03-09 00:43
PROVIDERS: ADMIT Hospitalist; ATTEND Hospitalist
DX: R07.89 Other chest pain (principal); I12.0 Hypertensive chronic kidney disease with stage 5 chronic kidney disease or end stage renal disease; N18.6 End stage renal disease; D63.1 Anemia in chronic kidney disease; I25.10 Atherosclerotic heart disease of native coronary artery without angina pectoris; M10.9 Gout, unspecified; R53.1 Weakness; Z79.52 Long term (current) use of systemic steroids; Z79.82 Long term (current) use of aspirin; Z79.899 Other long term (current) drug therapy; Z88.5 Allergy status to narcotic agent; Z88.8 Allergy status to other drugs, medicaments and biological substances; Z99.2 Dependence on renal dialysis
CPT/HCPCS: 78452; 84484 ×2; 93005; 93017; 99285; A9500; G0378 ×2; 36415; J0153

== ENCOUNTER 2019-04-10 05:50 | Observation (INO) | payer MEDICARE, MEDICAID ==
[2019-04-10] MEDS ORDERED: Nitroglycerin 0.4 MG TAB 1 EACH ONE (06:35)
[2019-04-10 06:47] LABS: ALT (SGPT) 14 U/L (8-55); AST (SGOT) 24 U/L (5-34); Albumin 3.8 g/dL (3.4-4.8); Alkaline Phosphatase 79 U/L (40-150); Anion Gap 20 mmol/L (10-20); BUN (Urea Nitrogen) 41 mg/dL (9.8-20.1); Bilirubin, Total 0.3 mg/dL (0.2-1.2); CK (CPK) 69 U/L (29-168); Calc. Creatinine Clearance 0 mL/min (70-130); Carbon Dioxide 18 mmol/L (23-31); Chloride 99 mmol/L (98-107); Estimated GFR-MDRD 8; Globulin 3.7 g/dL (2.4-3.5); Glucose 88 mg/dL (80-115); Lipase 31 U/L (8-78); Potassium 4.8 mmol/L (3.5-5.1); Protein, Total 7.5 g/dL (6.0-8.3); Sodium 132 mmol/L (136-145)
[2019-04-10 06:57] LABS: #Eosinphils 0.1 thou/uL (0.0-0.7); #Lymphocytes 1.5 thou/uL (1.20-3.40); #Monocytes 0.6 thou/uL (0.11-0.59); #Neutrophils 2.8 thou/uL (1.40-6.50); %Basophils 0.3 % (0.0-1.0); %Eosinophils 2.9 % (0.0-10.0); %Lymphocytes 28.6 % (21.0-51.0); %Monocytes 12.5 % (0.0-10.0); %Neutrophils 55.8 % (42.0-75.0); Hemoglobin 8.4 g/dL (12.0-16.0); Mean Corpuscular HGB CONC 30.8 g/dL (32.0-36.0); Mean Corpuscular Hemoglobin 28.4 pg (27.0-31.0); Platelet Count 406 thou/uL (130-400); RBC Distribution Width 16.2 % (11.5-14.5); Red Blood Cell (RBC) Count 2.95 mill/uL (4.20-5.40); White Blood Cell (WBC) Count 5.1 thou/uL (4.8-10.8)
[2019-04-10] MEDS ORDERED: hydrALAZINE 20 MG/ML VIAL ONE (07:49)
--- NOTE | 2019-04-10 07:54 | RAD ---
RADIOGRAPH CHEST 1 VIEW: DATE: 04/10/2019 HISTORY: 68-year-old female with chest pain. FINDINGS: The thoracic aorta is tortuous and ectatic. There is no evidence of airspace density, pulmonary edema , cardiomegaly, or pneumothorax. The lateral costophrenic angles are not effaced. Double-lumen right IJ dialysis catheter with distal tips at SVC and SVC/right atrial junction. IMPRESSION: 1) No acute pulmonary findings. 2) ectasia of thoracic aorta. 3) right-sided hemodialysis catheter.
[2019-04-10] MEDS ORDERED: Acetaminophen 500 MG TAB ONE (10:16)
[2019-04-10 12:43] LABS: Troponin I Less than 0.010 ng/mL (< 0.028)
[2019-04-10] MEDS ORDERED: Nitroglycerin 0.4 MG TAB (25 Tab Bottle) SL PRN (16:35)
[2019-04-10 17:24] LABS: Troponin I Less than 0.010 ng/mL (< 0.028)
--- NOTE | 2019-04-10 17:25 | CON ---
DATE OF CONSULTATION: 04/10/2019 CONSULTING PHYSICIAN: Emergency Room doctor. REASON FOR CONSULTATION: End-stage renal disease evaluation. REASON FOR ADMISSION: Shortness of breath. HISTORY OF PRESENT ILLNESS: A 68-year-old female with history of end-stage renal disease, anemia, atrial fibrillation, hypertension, came to the hospital with above complaints. She is due for dialysis. She gets dialysis Wednesday, Wednesday, Wednesday. PAST MEDICAL HISTORY: Positive for ESRD, anemia, atrial fibrillation, hypertension, noncompliance, and coronary artery disease. PAST SURGICAL HISTORY: AV fistula placement, hysterectomy, tubal ligation, cataract surgery. HOME MEDICATIONS: 1. Tylenol. 2. . 3. Aspirin. 4. Clonidine. 5. Cardizem. 6. Pepcid. 7. Hydralazine. 8. Toprol. 9. Prednisone. 10. MiraLax. ALLERGIES: LISINOPRIL, TRAMADOL. SOCIAL HISTORY: No smoking, alcohol, or illicit drug abuse. FAMILY HISTORY: No history of kidney disease. REVIEW OF SYSTEMS: CONSTITUTIONAL: Negative for weight loss or gain, ability to conduct usual activities. SKIN: Negative for rash, itching. EYES: Negative for double vision, pain. ENT/MOUTH: Negative for nose bleeding, neck stiffness, pain, tenderness. CARDIOVASCULAR: Negative for palpitations, dyspnea on exertion, orthopnea. RESPIRATORY: Negative for shortness of breath, wheezing, cough, hemoptysis, fever or night sweats. GASTROINTESTINAL: Negative for poor appetite, abdominal pain, heartburn, nausea, vomiting, constipation, or diarrhea. GENITOURINARY: Negative for urgency, frequency, dysuria, nocturia. MUSCULOSKELETAL: Negative for pain, swelling. NEUROLOGIC/PSYCHIATRIC: Negative for anxiety, depression. ALLERGY/IMMUNOLOGIC: Negative for skin rash, bleeding tendency. Rest all negative. PHYSICAL EXAMINATION: GENERAL: This is a well-built female, in no apparent distress. VITAL SIGNS: Temperature 98.6, pulse 78, respiratory rate 18, blood pressure 174/84. HEENT: Atraumatic, normocephalic. Oral mucosa moist. NECK: Supple. CVS: S1 and S2 heard. Regular rate and rhythm. RESPIRATORY: Clear. GI: Abdomen is soft. MUSCULOSKELETAL: 1+ edema. DERMATOLOGIC: No skin rash. NEUROLOGIC: Alert and awake. PSYCHIATRIC: Normal mood and affect. LABORATORY DATA: Hemoglobin is 8.4. Potassium is 4.8, BUN is 41, and creatinine is 6.5. ASSESSMENT AND PLAN: 1. End-stage renal disease. Continue on hemodialysis as tolerated. 2. Edema, controlled. We will remove fluid. 3. Elevated BNP. 4. Anemia, chronic disease. 5. Hypertension limit fluid intake. Plan is to continue dialysis on Wednesday, Wednesday, Wednesday. We will follow. Job ID: [id number]
[2019-04-10] MEDS ORDERED: Metoprolol Tartrate 25 MG TAB PO SCH (18:00)
[2019-04-10 18:51] VITALS: BMI 25.4
[2019-04-10] MEDS: Acetaminophen 325 MG TAB PO PRN (20:58)
[2019-04-10] MEDS: hydrALAZINE 25 MG TAB PO SCH (20:59)
[2019-04-10] MEDS ORDERED: Allopurinol 100 MG TAB PO SCH (21:00)
[2019-04-10] MEDS ORDERED: Diclofenac 1% 100 GM GEL TP PRN (22:54)
[2019-04-10 23:25] LABS: Troponin I Less than 0.010 ng/mL (< 0.028)
--- NOTE | 2019-04-10 23:40 | HP ---
CHIEF COMPLAINT: Chest pain. HISTORY OF PRESENT ILLNESS: The patient reports that she started dialysis just over a month ago. Since that time, she has been experiencing significant dyspnea on exertion. States she can only walk very short distances without feeling short of breath and like her heart is racing and having some palpitations. The patient had the onset of similar symptoms with pain radiating down her right arm last night. She took some aspirin and it did feel somewhat better. She describes the pain as sharp in nature with no other associated radiations. The patient does admit that she missed dialysis on Wednesday because she was just simply feeling poorly. Says for the last 5 days or so, she has not been eating much at all, just simply because she has had no appetite, although she denies any nausea or vomiting. REVIEW OF SYSTEMS: The patient has no visual changes, abdominal pain, chest wall tenderness, vomiting, or nausea. All other systems reviewed, all pertinent positives and negatives noted in the history of present illness. PAST MEDICAL HISTORY: Medical history notable for coronary artery disease, hypertension, end-stage renal disease on hemodialysis, medication noncompliance, gout, anemia, chronic secondary hyperparathyroidism of renal origin, and history of paroxysmal atrial fibrillation. PAST SURGICAL HISTORY: Hysterectomy, tubal ligation, bilateral cataract surgery, temporary hemodialysis catheter placement, and right forearm AV fistula. PSYCHIATRIC HISTORY: Anxiety and depression. FAMILY HISTORY: Positive for colon cancer in her father. Heart disease and breast cancer in mother. SOCIAL HISTORY: The patient has a history of using smokeless tobacco. Denies alcohol or drugs. She is full code and 1 of her daughters would be her surrogate decision maker should that become necessary. ALLERGIES: LISINOPRIL, CLONIDINE, AND TRAMADOL. HOME MEDICATIONS: 1. Lactulose 30 mL p.o. daily p.r.n. 2. Toprol-XL 25 mg daily. 3. Nitrostat 0.4 mg q.5 minutes p.r.n. 4. Cardizem 30 mg p.o. t.i.d. 5. Aspirin 81 mg daily. 6. Zyloprim 100 mg daily. 7. Tylenol p.r.n. 8. Hydralazine 100 mg p.o. t.i.d. PHYSICAL EXAMINATION: VITAL SIGNS: Temperature 98.7, pulse 88, respirations 18, O2 saturation 98% on room air, and BP 193/87. GENERAL APPEARANCE: Age-appropriate female, in no distress, who is awake, alert, oriented, pleasant, and cooperative. HEENT: [place]. No OP lesions. NECK: Supple and symmetric. Tunneled right subclavian dialysis catheter in place. HEART: Regular with occasional ectopy. No murmurs. LUNGS: Clear bilaterally without significant wheezes or rales. ABDOMEN: Soft, nontender, and nondistended. Positive bowel sounds. No masses. No organomegaly. EXTREMITIES: No cyanosis, clubbing, or edema. She has brisk peripheral pulses of the lower extremities. NEUROLOGICAL: The patient appears to be intact, moving all extremities spontaneously with no gross focal deficits. PSYCH: The patient has normal affect and behavior. LABORATORY DATA: White count 5.1, hemoglobin 8.4, platelets 406. Sodium 132, potassium 4.8, chloride 99, CO2 18, BUN 41, creatinine 6.42, GFR is 8 and glucose 88. LFTs normal. BNP 436, lipase 31. Chest x-ray shows some evidence of pulmonary vascular engorgement. IMPRESSION AND PLAN: 1. Chest pain, unclear etiology. It appears the patient has a history of coronary artery disease based on prior records. She had a stress test performed on March 09, 2019, which was normal with an ejection fraction of 74%. She appears to have last had an echocardiogram in 2014, which revealed normal left ventricular function, moderate aortic insufficiency, mild mitral regurgitation and mild tricuspid regurgitation. We will obtain a series of cardiac isoenzymes. Keep her on telemetry. Repeat the echocardiogram. It is possible, and in fact, likely the patient has some adjustments to her dialysis, which are causing some of her symptoms. It is also possible she has some volume overload related to the dialysis and missing her scheduled session on Wednesday. She is currently on dialysis. We will consult Nephrology to continue to follow. 2. End-stage renal disease. Continue dialysis per Nephrology. 3. Anemia. She has chronic anemia, likely related to her end-stage renal disease. Her hemoglobin is actually higher than last. There was one last checked on 04/02, therefore considered generally stable. 4. Hypertension. Continue diltiazem and hydralazine. 5. History of gout. We will continue with the allopurinol. EKG per ER report shows a possible left ventricular hypertrophy, otherwise normal. 6. History of atrial fibrillation. The patient is not on any type of anticoagulation presently. It is unclear as to why that may be the case. We will need to investigate that further. Job ID: [id number]
[2019-04-11 05:53] LABS: Anion Gap 18 mmol/L (10-20); BUN (Urea Nitrogen) 16 mg/dL (9.8-20.1); Calc. Creatinine Clearance 16 mL/min (70-130); Calcium 9.6 mg/dL (7.8-10.44); Carbon Dioxide 25 mmol/L (23-31); Chloride 95 mmol/L (98-107); Estimated GFR-MDRD 14; Glucose 79 mg/dL (80-115); Potassium 4.3 mmol/L (3.5-5.1); Sodium 134 mmol/L (136-145)
[2019-04-11 06:14] LABS: Band 2 % (5-11); Eosinophils 3 % (0-10); Hemoglobin 8.6 g/dL (12.0-16.0); Lymphocytes 28 % (21-51); MDiff Complete? YES; Mean Corpuscular HGB CONC 30.7 g/dL (32.0-36.0); Mean Corpuscular Hemoglobin 28.2 pg (27.0-31.0); Mean Corpuscular Volume 91.9 fL (78.0-98.0); Mean Platelet Volume 7.4 fL (7.4-10.4); Monocytes 9 % (0-10); Myelocyte 2 % (0-0); Neutrophil 56 % (42-75); Platelet Count 488 thou/uL (130-400); RBC Distribution Width 16.1 % (11.5-14.5); Red Blood Cell (RBC) Count 3.03 mill/uL (4.20-5.40); White Blood Cell (WBC) Count 4.9 thou/uL (4.8-10.8)
[2019-04-11] MEDS: Acetaminophen 325 MG TAB PO PRN (08:40)
[2019-04-11] MEDS: hydrALAZINE 25 MG TAB PO SCH (08:40)
[2019-04-11] MEDS ORDERED: Aspirin 81 mg Enteric Coated Tablet PO SCH (09:00)
[2019-04-11] MEDS ORDERED: Allopurinol 100 MG TAB PO SCH (09:00)
[2019-04-11 12:06] VITALS: BP 127/59; TEMP 98
--- NOTE | 2019-04-11 15:02 | PRG ---
DATE OF SERVICE: 04/11/2019 SUBJECTIVE: Patient was seen and examined at bedside and overnight events noted. Patient denies any shortness of breath or chest pain or palpitation. No history of nausea or vomiting or diarrhea or fever or chills or cramps. OBJECTIVE: GENERAL: This is a well-built female, in no apparent distress. VITAL SIGNS: Temperature 98.7. Heart rate . Respiratory rate 18. Blood pressure 137/59. HEENT: Atraumatic, normocephalic. Oral mucosa is moist NECK: Supple. CARDIOVASCULAR: S1, S2 heard. Rate and rhythm regular. RESPIRATORY: Clear to auscultation. GASTROINTESTINAL: Abdomen is soft. MUSCULOSKELETAL: No tenderness. No edema. DERMATOLOGIC: No skin rash. NEUROLOGIC: Alert and awake and oriented X3. No focal neurologic deficits. Moving all the extremities. PSYCHIATRIC: Mood and affect normal. LABORATORY DATA: Potassium is 4.3, BUN is 69, and creatinine is 3.7. ASSESSMENT AND PLAN: 1. End-stage renal disease. Continue dialysis Wednesday, Wednesday, and Wednesday. 2. Edema. 3. Anemia of chronic disease. 4. Hypertension, stable. We will plan to continue dialysis as tolerated. Job ID: [id number]
--- NOTE | 2019-04-15 13:23 | EKG ---
Test Reason : Blood Pressure : / mmHG Vent. Rate : 090 BPM Atrial Rate : 090 BPM P-R Int : 194 ms QRS Dur : 090 ms QT Int : 386 ms P-R-T Axes : 052 -17 042 degrees QTc Int : 472 ms Normal sinus rhythm Minimal voltage criteria for LVH, may be normal variant Borderline ECG Confirmed by MARSHALL Cerna, STEVEN ([id number]), book or script editor ELAINA KERR ([id number]) on 04/15/2019 1:23:21 PM Referred By: WINNIE OLIVARES Confirmed By:STEVEN OLIVARES M.D.
== END 2019-04-11 13:37 | disposition home or self-care (01) ==
LOC: ERS 05:50 → 2SW 14:42
PROVIDERS: ADMIT Internal Medicine; ATTEND Internal Medicine
DX: R07.9 Chest pain, unspecified (principal); I12.0 Hypertensive chronic kidney disease with stage 5 chronic kidney disease or end stage renal disease; N18.6 End stage renal disease; D63.1 Anemia in chronic kidney disease; M10.9 Gout, unspecified; I48.0 Paroxysmal atrial fibrillation; R60.9 Edema, unspecified; N25.81 Secondary hyperparathyroidism of renal origin; I25.10 Atherosclerotic heart disease of native coronary artery without angina pectoris; F32.9 Major depressive disorder, single episode, unspecified; F41.9 Anxiety disorder, unspecified; F17.220 Nicotine dependence, chewing tobacco, uncomplicated; Z91.14 Patient's other noncompliance with medication regimen; Z99.2 Dependence on renal dialysis; Z88.5 Allergy status to narcotic agent; Z88.8 Allergy status to other drugs, medicaments and biological substances; Z79.82 Long term (current) use of aspirin; Z79.899 Other long term (current) drug therapy
CPT/HCPCS: 71045; 80048; 80053; 82550; 83690; 83880; 84484 ×2; 85025 ×2; 93005; 94760; 96374; 99285; G0378 ×2; 36415; 90935; 93010; G0257; J0360

== ENCOUNTER 2019-08-13 03:25 | Observation (INO) | payer MEDICARE, MEDICAID ==
[2019-08-13] MEDS ORDERED: Nitroglycerin 2% Ointment 1 INCH/1 GM Packet ONE (03:49)
[2019-08-13 03:59] LABS: #Eosinphils 0.5 thou/uL (0.0-0.7); #Lymphocytes 1.4 thou/uL (1.20-3.40); #Monocytes 0.4 thou/uL (0.11-0.59); #Neutrophils 2.9 thou/uL (1.40-6.50); %Basophils 0.9 % (0.0-1.0); %Eosinophils 8.7 % (0.0-10.0); %Lymphocytes 26.9 % (21.0-51.0); %Monocytes 8.4 % (0.0-10.0); Hemoglobin 10.5 g/dL (12.0-16.0); Mean Corpuscular HGB CONC 31.8 g/dL (32.0-36.0); Mean Corpuscular Hemoglobin 28.8 pg (27.0-31.0); Mean Corpuscular Volume 90.6 fL (78.0-98.0); Mean Platelet Volume 9.5 fL (7.4-10.4); Platelet Count 250 thou/uL (130-400); RBC Distribution Width 17.7 % (11.5-14.5); Red Blood Cell (RBC) Count 3.66 mill/uL (4.20-5.40); White Blood Cell (WBC) Count 5.2 thou/uL (4.8-10.8)
[2019-08-13 04:22] LABS: ALT (SGPT) 20 U/L (8-55); AST (SGOT) 32 U/L (5-34); Albumin 4.2 g/dL (3.4-4.8); Alkaline Phosphatase 124 U/L (40-110); Anion Gap 17 mmol/L (10-20); BUN (Urea Nitrogen) 39 mg/dL (9.8-20.1); Bilirubin, Total 0.5 mg/dL (0.2-1.2); CK (CPK) 84 U/L (29-168); Calc. Creatinine Clearance 0 mL/min (70-130); Carbon Dioxide 24 mmol/L (23-31); Chloride 100 mmol/L (98-107); Estimated GFR-MDRD 11; Globulin 2.8 g/dL (2.4-3.5); Glucose 88 mg/dL (80-115); Potassium 4.4 mmol/L (3.5-5.1); Sodium 137 mmol/L (136-145)
[2019-08-13 07:37] LABS: Troponin I Less than 0.010 ng/mL (< 0.028)
--- NOTE | 2019-08-13 07:59 | RAD ---
RADIOGRAPH CHEST 1 VIEW: DATE: 08/13/2019 TIME: 3:42 AM HISTORY: 69-year-old male with chest pain COMPARISON: 08/08/2019 FINDINGS: Cardiomegaly. Pulmonary venous engorgement. No consolidation or pneumothorax. No interval change. No kely pulmonary alveolar edema. IMPRESSION: Mild or borderline congestive heart failure
[2019-08-13] MEDS ORDERED: hydrALAZINE 20 MG/ML VIAL SLOW IVP PRN (08:13)
[2019-08-13 08:20] VITALS: BMI 26.7
--- NOTE | 2019-08-13 09:25 | CT ---
PRELIMINARY REPORT/[facility]/EMERGENCY AFTER HOURS PROCEDURE PROCEDURE INFORMATION: Exam: CT Angiography Chest With Contrast Exam date and time: 08/13/2019 5:28 AM Clinical history: 69 years old, female; Shortness of breath; Patient HX: Initial impression: . 69 yo F with HX of esrd on hd (mwf) and paf on rate control with verapamil and bb presents with c/p since midnight, sharp and stuttering, radiates to right shoulder; Family HX of cad; Improved with nitro; . -- -- ekg with new t wave inversions laterally; Will repeat after nitro; Has received aspirin; With fam HX of blood clots, will dimer; Will need to be admitted for R/O acs, but will not empirically a/c at this t harley. TECHNIQUE: Imaging protocol: Computed tomographic angiography of the chest with intravenous contrast. 3D rendering: MIP reconstructed images were created and reviewed. COMPARISON: No relevant prior studies available. FINDINGS: Pulmonary arteries: There is no evidence of peripheral filling defects within the pulmonary arterial circulation to suggest pulmonary embolism. Aorta: Unremarkable. No aortic aneurysm. No aortic dissection. Thyroid: The visualized thyroid gland is unremarkable. Lungs: There is mild interstitial edema at the lung bases. Pleural space: There are small bilateral pleural effusions. Heart: Unremarkable. No cardiomegaly. No pericardial effusion. Mediastinum: The trachea is normal. Lymph nodes: Unremarkable. No enlarged lymph nodes. Bones/joints: The thoracic spine demonstrates moderate degenerative changes at multiple levels. Soft tissues: Unremarkable. IMPRESSION: 1. No CT evidence of acute pulmonary embolism. 2. Mild bibasilar interstitial edema with small bilateral pleural effusions. Thank you for allowing us to participate in the care of your patient. Dictated and Authenticated by: Jalen Hayward MD 08/13/2019 5:51 AM Central Time ([place] & [place]) FINAL REPORT CT PULMONARY ANGIOGRAM WITH 3D RENDERING: Emergency after-hours exam 5:30 AM 08/13/2019 FINDINGS/IMPRESSION: Small pleural effusions and bilateral edema. No convincing CT evidence for acute pulmonary embolism. This report is in agreement with the preliminary report by Gautam. Transcribed Date/Time: 08/13/2019 10:09 AM
[2019-08-13] MEDS ORDERED: Nitroglycerin 0.4 MG TAB (25 Tab Bottle) SL PRN (09:57)
[2019-08-13] MEDS ORDERED: Acetaminophen 500 MG TAB PO PRN (09:57)
[2019-08-13] MEDS ORDERED: Acetaminophen 325 MG TAB PO PRN (10:13)
[2019-08-13] MEDS ORDERED: Calcium Carbonate 500 MG ChewTAB PO PRN (10:13)
[2019-08-13] MEDS ORDERED: Senokot S 8.6-50 MG TAB PO PRN (10:13)
[2019-08-13] MEDS ORDERED: hydrALAZINE 25 MG TAB PO SCH (10:15)
[2019-08-13] MEDS ORDERED: Diltiazem HCl SR 60 mg Capsule PO SCH (10:15)
[2019-08-13 10:47] LABS: Troponin I Less than 0.010 ng/mL (< 0.028)
[2019-08-13] MEDS ORDERED: Diabetic Tussin 200 MG/10 ML UDCUP PO PRN (10:51)
--- NOTE | 2019-08-13 10:51 | HP ---
PRIMARY CARE: [facility]. PRIMARY DIRECTOR OF EDUCATION AND TRAINING: Dr. Gomez. CHIEF COMPLAINT: Chest discomfort. Patient is a poor historian. HISTORY OF PRESENT ILLNESS: The patient is a 69-year-old female with end-stage renal disease on hemodialysis, hypertension, and hyperlipidemia, presented to the hospital with chest discomfort. The chest discomfort woke up the patient from sleep. It was substernal, radiating to her right shoulder. It was [id number] in intensity, sharp/stabbing in nature without any aggravating or relieving factor. She was also short of breath, palpitations and nauseous. She took three sublingual nitroglycerin with partial help. She denies any syncope, or worsening lower extremity swelling. She denies recent immobilization or travel. In the emergency room, initial vital signs showed temperature 98.5 with respirations of 20, pulse rate of 77, blood pressure of 178/91 with O2 saturation of 97% on room air. EKG showed T-wave inversions in the lateral leads with left axis deviation. Chest x-ray was negative for infiltrate. CT angiogram of the chest was negative for pulmonary embolism. It showed small pleural effusion with bilateral edema. The patient had Cardiolite stress test in March of this year that was negative for reversible ischemia. Ejection fraction was 74% without any wall motion abnormality. She also had an echocardiogram in 2014 that showed normal left ventricular ejection fraction with diastolic dysfunction. The patient's O2 saturation dropped to 88% while in the emergency room. She was started on 2 L nasal cannula. She is 98% on room air at this time. Patient was recently evaluated at [facility] (Dr Hayden) for palpitations. Last week event monitor was placed. PAST MEDICAL HISTORY: 1. Hypertension. 2. Hyperlipidemia. 3. End-stage renal disease on hemodialysis, Wednesday, Wednesday, Wednesday followed by Dr. Gomez. 4. Diabetes mellitus type 2, diet-controlled. 5. Gout. 6. Normal coronaries in 2002. 7. No reversible ischemia on the stress test earlier this year. 8. Chronic diastolic heart failure. 9. Anxiety and depression. 10. Secondary hyperparathyroidism. 11. Paroxysmal atrial fibrillation. PAST SURGICAL HISTORY: 1. Dialysis access. 2. Hysterectomy. 3. Tubal ligation. 4. Bilateral cataract surgery. 5. Cardiac catheterization. ALLERGIES: THE PATIENT IS ALLERGIC TO LISINOPRIL, CLONIDINE, AND TRAMADOL. MEDICATIONS: Current home medications; 1. Cardizem 60 mg 3 times a day. 2. Aspirin 81 mg daily. 3. Sublingual nitroglycerin as needed. 4. Lactulose as needed. 5. Allopurinol 100 mg daily. 6. Toprol-XL 25 mg daily. SOCIAL HISTORY: The patient currently lives at home with her family. She denies any history of alcohol or drug abuse. She currently chews tobacco. She is full code and makes her own decision with the help of her family. FAMILY HISTORY: Positive for diabetes and heart disease. REVIEW OF SYSTEMS: All other review of systems was reviewed and were found negative. PHYSICAL EXAMINATION: VITAL SIGNS: As discussed above. GENERAL: A 69-year-old female, in no apparent distress. Denies any chest discomfort at this time. HEENT: Head, atraumatic and normocephalic. Sclerae anicteric. Moist mucous membranes. No oral lesion. NECK: Supple. No JVD appreciated. No carotid bruit. LUNGS: Showed scattered rales and rhonchi, especially at bases. No wheezing. No accessory muscle use. HEART: S1 and S2 present. Regular rate and rhythm. No rubs or gallops. ABDOMEN: Soft, nontender. Bowel sounds present. No rebound or guarding. EXTREMITIES: 1+ edema in bilateral lower extremity. No calf tenderness. SKIN: Warm and dry. LYMPH NODES: No palpable lymph nodes in the neck. PERIPHERAL/VASCULAR: Radial pulses palpable bilaterally. MUSCULOSKELETAL: No joint swelling or tenderness. LABORATORY FINDINGS: Troponin was negative. WBC 5.2 with hemoglobin 10.5, hematocrit 33.2, and platelet 250. Chemistry showed sodium 137, potassium 4.4, chloride 100, bicarb 24, BUN 39, and creatinine 4.63. Troponin x2 have been negative. Chest x-ray and CT angiogram of the chest by my review as discussed above. EKG by my review as discussed above. IMPRESSION: 1. Chest pain/Palpitations. Symptoms only partially improved with nitroglycerin. She has event monitor placed last week 2. Acute on chronic diastolic heart failure. 3. Hypertension with hypertensive urgency. 4. Normal coronaries in 2002. 5. Abnormal EKG. 6. End-stage renal disease on hemodialysis, Wednesday, Wednesday, and Wednesday. 7. Gout. 8. Chronic anemia secondary to renal insufficiency. 9. History of paroxysmal atrial fibrillation, currently in sinus rhythm. 10. Anxiety. PLAN: The patient will be monitored in the hospital as a telemetry observation. We will continue aspirin. We will resume Cardizem and metoprolol. She had a negative stress test earlier this year. We will consult Cardiology. Echocardiogram will be obtained. Last echocardiogram was in 2014. Continue hydralazine. Vital signs q.4 hourly. Serial troponins. The patient will be kept n.p.o. past midnight. Plan of care was discussed with the patient in detail. She stated understanding. Job ID: [id number] MTDD
[2019-08-13] MEDS: hydrALAZINE 25 MG TAB PO SCH ×2 (15:24→21:35)
[2019-08-13] MEDS ORDERED: Iopamidol-370 76% 500 ML 1 ML ONE (16:49)
--- NOTE | 2019-08-13 18:07 | CON ---
DATE OF CONSULTATION: 08/13/2019 REASON FOR CONSULTATION: Chest pain and shortness of breath. HISTORY OF PRESENT ILLNESS: Ms. Marcos is a pleasant 69-year-old female, who comes to the hospital for chest tightness and shortness of breath. She has end-stage renal disease and has noticed in the last few days, dyspnea on exertion, shortness of breath and coughing while laying down on her back. She can lay flat at this time and chest tightness. She came in and was found to have O2 saturations in the upper 80s and improved with application of nasal cannula. She was seen in the ER. CT of the chest was done to rule out PE. There was no evidence of pulmonary embolism; however, she had florid heart failure. She is a patient of Dr. Currie, was seen last week and event monitor was placed as she was having a lot of palpitations. On my evaluation, she is pain free. She only has tightness when she lays down on her back. PAST MEDICAL HISTORY: 1. Hypertension. 2. Hyperlipidemia. 3. End-stage renal disease, on hemodialysis Wednesday, Wednesday, and Wednesday by Dr. Gomez. 4. Type 2 diabetes. 5. Gout. 6. Normal coronaries in 2002. 7. Normal stress test in March of this year. 8. Chronic diastolic heart failure. 9. Anxiety and depression. 10. Secondary hyperparathyroidism. 11. Paroxysmal atrial fibrillation. PAST SURGICAL HISTORY: 1. Dialysis access. 2. Hysterectomy. 3. Tubal ligation. 4. Bilateral cataract surgery. 5. Cardiac catheterization in the past. ALLERGIES: LISINOPRIL, CLONIDINE, AND TRAMADOL. MEDICATIONS: 1. Cardizem 60 mg three times a day. 2. Aspirin 81 a day. 3. Sublingual nitro p.r.n. 4. Lactulose. 5. Allopurinol. 6. Toprol-XL 25 mg daily. SOCIAL HISTORY: Lives at home with her family. No alcohol or drugs. No smoking, but chews tobacco. FAMILY HISTORY: Early coronary artery disease. REVIEW OF SYSTEMS: A 12-point review of systems was done and was all negative unless stated in the history of present illness. PHYSICAL EXAMINATION: VITAL SIGNS: Temperature 98.5, pulse 75, respiratory rate 20, saturating 95% on room air, and blood pressure 158/76. GENERAL: Awake, alert, and oriented x3, in no distress. HEENT: Normocephalic and atraumatic. NECK: Supple. LUNGS: Have coarse breath sounds. Bilateral crackles at the bases. CARDIOVASCULAR: S1 and S2. No S3 or S4. Grade 2/6 systolic murmur in the right upper sternal border. ABDOMEN: Soft. Positive bowel sounds. EXTREMITIES: No edema. SKIN: Warm and dry. LABORATORY DATA: Laboratory work was reviewed. CBC with a white count of 5, hemoglobin of 10, hematocrit 33, platelet count of 250. D-dimer was high. Chemistry unremarkable except for BUN of 39, creatinine 4.6, and glucose was 88. Troponin is undetectable x3. CT of the chest showed no evidence of dissection. No pulmonary embolism. Signs concerning for heart failure. ASSESSMENT: 1. Acute on chronic diastolic heart failure. 2. End-stage renal disease. 3. Volume overload. 4. Chest pain, but normal stress test just 5 months ago. 5. Palpitations. PLAN: 1. We would recommend increasing hemofiltration and during hemodialysis, try to get her a little more dry. We will talk with Dr. Gomez about this. 2. Currently, I offered a heart catheterization. She is not interested in not only that, she is unable to lay flat for now. 3. We will plan on trying to do a heart catheterization in the next few days once she is able to lay flat and we have made a more dry. 4. No need for full anticoagulation at this time as she has completely negative troponins and her symptoms are most likely related to volume overload. Thank you for letting us participate in the care of your patient. We will follow. Job ID: [id number]
[2019-08-13] MEDS: Famotidine 20 MG TAB PO SCH (21:35)
[2019-08-13] MEDS: Heparin 5,000 UNITS/ML VIAL SC SCH (21:36)
[2019-08-14 05:24] LABS: #Eosinphils 0.4 thou/uL (0.0-0.7); #Lymphocytes 1.1 thou/uL (1.20-3.40); #Monocytes 0.3 thou/uL (0.11-0.59); #Neutrophils 2.1 thou/uL (1.40-6.50); %Basophils 0.3 % (0.0-1.0); %Eosinophils 10.1 % (0.0-10.0); %Lymphocytes 28.1 % (21.0-51.0); %Monocytes 8.8 % (0.0-10.0); %Neutrophils 52.7 % (42.0-75.0); Hemoglobin 9.8 g/dL (12.0-16.0); Mean Corpuscular Hemoglobin 28.7 pg (27.0-31.0); Mean Corpuscular Volume 89.7 fL (78.0-98.0); Mean Platelet Volume 9.7 fL (7.4-10.4); Platelet Count 249 thou/uL (130-400); RBC Distribution Width 17.6 % (11.5-14.5); Red Blood Cell (RBC) Count 3.39 mill/uL (4.20-5.40); White Blood Cell (WBC) Count 3.9 thou/uL (4.8-10.8)
[2019-08-14 05:38] LABS: ALT (SGPT) 16 U/L (8-55); AST (SGOT) 21 U/L (5-34); Albumin 3.6 g/dL (3.4-4.8); Alkaline Phosphatase 104 U/L (40-110); Anion Gap 17 mmol/L (10-20); BUN (Urea Nitrogen) 53 mg/dL (9.8-20.1); Bilirubin, Total 0.4 mg/dL (0.2-1.2); Calc. Creatinine Clearance 10 mL/min (70-130); Calcium 9.5 mg/dL (7.8-10.44); Carbon Dioxide 22 mmol/L (23-31); Chloride 101 mmol/L (98-107); Estimated GFR-MDRD 9; Globulin 2.7 g/dL (2.4-3.5); Glucose 69 mg/dL (80-115); Potassium 4.7 mmol/L (3.5-5.1); Protein, Total 6.3 g/dL (6.0-8.3); Sodium 135 mmol/L (136-145)
--- NOTE | 2019-08-14 07:56 | CON ---
DATE OF CONSULTATION: REASON FOR CONSULTATION: Maintenance hemodialysis. HISTORY OF PRESENT ILLNESS: A 69-year-old female, who presented with unstable angina. She does have chest pain when she is started on dialysis and some fluttering. She is being seen by Cardiology, Dr. Muñoz in [place]. The patient denied any nausea, vomiting, or chest pain at this time. PAST MEDICAL HISTORY: Hypertension, hyperlipidemia, end-stage renal disease, anemia, diabetes mellitus, gout, history of stress test, history of cardiac catheterization, history of hysterectomy, cataract surgery. MEDICATIONS: Home medications, list reviewed. Hospital medications, list reviewed. SOCIAL HISTORY: No alcohol or drug use. ALLERGIES: REVIEWED. REVIEW OF SYSTEMS: 15-point review of system was performed, negative except as noted above. GENERAL: HEAD: NECK: No swelling or lumps. NOSE: No epistaxis or discharge. EYES: No diplopia or pain. 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 NEUROPSYCHIATIC SYSTEMS: No suicidal ideation. No ideation. SKIN: Denies any rash or ulcer. CONSTITUTIONAL: No fever or chills. PHYSICAL EXAMINATION: GENERAL: The patient is awake and alert. VITAL SIGNS: Pulse 78, breathing 16, blood pressure 159/72. GENERAL APPEARANCE AND MENTAL STATUS: Fair. HEAD/NECK: Normocephalic. Atraumatic. EYES: EOMI. No deformity. EARS: Clear. No ulcers. NOSE: Intact. No lesions. MOUTH: Clear. No discharge. THROAT: Clear. No exudate. LUNGS: Clear. No crackles. CARDIAC: S1, S2. No rub. ABDOMEN: Benign. Bowel sounds positive. GENITALIA/RECTUM: Lopez absent. BACK/EXTREMITIES: Edema 0+. NEUROLOGICAL: Alert and motor intact. SKIN: LYMPHATICS: LABORATORY DATA: Reviewed. ASSESSMENT: 1. Stage chronic kidney disease, continue hemodialysis. 2. Hypertension, stable. 3. Anemia, stable. 4. Medication based on GFR appropriate. Job ID: [id number]
--- NOTE | 2019-08-14 11:06 | PRG ---
DATE OF SERVICE: 08/14/2019 SUBJECTIVE: Patient was seen and examined at bedside and overnight events noted. Patient denies any shortness of breath or chest pain or palpitation. No history of nausea or vomiting or diarrhea or fever or chills or cramps. OBJECTIVE: GENERAL: This is a well-built female, in no apparent distress, seen during dialysis. VITAL SIGNS: Temperature 98.1. Heart rate 64. Respiratory rate 14. Blood pressure 141/65. HEENT: Atraumatic, normocephalic. Oral mucosa is moist NECK: Supple. CARDIOVASCULAR: S1, S2 heard. Rate and rhythm regular. RESPIRATORY: Clear to auscultation. GASTROINTESTINAL: Abdomen is soft. MUSCULOSKELETAL: No tenderness. No edema. DERMATOLOGIC: No skin rash. NEUROLOGIC: Alert and awake and oriented X3. No focal neurologic deficits. Moving all the extremities. PSYCHIATRIC: Mood and affect normal. LABORATORY DATA: Potassium 4.7, BUN is 53, and creatinine is 5.7. ASSESSMENT AND PLAN: 1. End-stage renal disease. Continue dialysis as tolerated. 2. Hypertension. 3. Anemia. 4. Edema, remove fluid with dialysis. 5. Hyponatremia, limit fluid intake. 6. Continue dialysis as tolerated on Wednesday, Wednesday, and Wednesday. Job ID: [id number]
[2019-08-14] MEDS: Heparin 5,000 UNITS/ML VIAL SC SCH ×2 (12:44→21:57)
[2019-08-14] MEDS: Aspirin 325 mg Enteric Coated Tablet PO SCH (12:44)
[2019-08-14] MEDS: Allopurinol 100 MG TAB PO SCH (12:45)
[2019-08-14] MEDS: hydrALAZINE 25 MG TAB PO SCH ×3 (12:45→21:56)
--- NOTE | 2019-08-14 18:00 | PDOC.CPN ---
- Subjective Date: 08/14/19 Time: 17:57 Interval history: She is feeling much better after HD today. Her SOB and chest tightness are completely resolved. She is still unable to lay flat, she states she has never been able to lay flat, - Review of Systems General: denies: fever/chills, weight/appetite/sleep changes, night sweats, fatigue Respiratory: denies: cough, congestion, shortness of breath, exercise intolerance Cardiovascular: denies: chest pain, palpitation, edema, paroxysmal nocturnal dyspnea, orthopnea Gastrointestinal: denies: nausea, vomiting, diarrhea, constipation, abd pain, GI bleeding Musculoskeletal: denies: pain, tenderness, stiffness, swelling, arthritis/ arthralgias Neurological: denies: numbness, syncope, seizure, weakness - Objective Allergies/Adverse Reactions: Allergies Allergy/AdvReac Type Severity Reaction Status Date / Time lisinopril Allergy Severe Swollen Verified 08/13/19 09:11 Lips clonidine Allergy Verified 08/13/19 09:11 tramadol Allergy Nausea Verified 08/13/19 09:11 Visit Medications: Current Medications Acetaminophen (Tylenol) 650 mg PO Q4H PRN PRN Reason: Headache/Fever/Mild Pain (1-3) Last Admin: 08/14/19 07:17 Dose: 650 mg Allopurinol (Zyloprim) 100 mg PO DAILY [facility] Last Admin: 08/14/19 12:45 Dose: 100 mg Aspirin (Ecotrin) 325 mg PO DAILY [facility] Last Admin: 08/14/19 12:44 Dose: 325 mg Calcium Carbonate (Tums) 1,000 mg PO Q4H PRN PRN Reason: Heartburn or Indigestion Diltiazem HCl (Cardizem) 60 mg PO TID [facility] Last Admin: 08/14/19 12:56 Dose: Not Given Famotidine (Pepcid) 20 mg PO Q24HR [facility] Last Admin: 08/13/19 21:35 Dose: 20 mg Guaifenesin (Robitussin Sf) 200 mg PO Q4H PRN PRN Reason: Cough Last Admin: 08/13/19 13:31 Dose: 200 mg Heparin Sodium (Porcine) (Heparin) 5,000 units SC BID [facility] Last Admin: 08/14/19 12:44 Dose: 5,000 units Hydralazine HCl (Apresoline) 100 mg PO TID [facility] Last Admin: 08/14/19 12:56 Dose: Not Given Lactulose (Lactulose) 300 gm PO DAILYPRN PRN PRN Reason: Constipation Metoprolol Succinate (Toprol Xl) 25 mg PO DAILY [facility] Last Admin: 08/14/19 12:45 Dose: 25 mg Nitroglycerin (Nitrostat) 0.4 mg SL Q5MIN PRN PRN Reason: Chest Pain Senna/Docusate Sodium (Senokot S) 2 tab PO BID PRN PRN Reason: Constipation Vital Signs & Weight: Vital Signs Temp Pulse Pulse Pulse Resp BP BP 08/14/19 16:10 97.2 F L 62 16 08/14/19 14:53 68 65 135/63 145/65 H 08/14/19 12:42 97.9 F 80 18 BP BP Pulse Ox Pulse Ox Pulse Ox 08/14/19 16:10 146/65 H 97 08/14/19 14:53 98 95 08/14/19 12:42 174/74 H 97 Weight 146 lb 11.2 oz - Physical Exam General: alert & oriented x3 HEENT: mucus membranes moist Neck: supple neck, midline trachea Cardiac: regular rate and rhythm, no murmur Lungs: clear to auscultation Neuro: grossly intact Abdomen: active bowel sounds, soft, non-tender Extremities: no edema Skin: clear Musculoskeletal: no pain - Labs Result Diagrams: 08/14/19 04:34 08/14/19 04:34 Troponin/CKMB Troponin I Less than 0.010 ng/mL (< 0.028) 08/13/19 09:57 - Telemetry Sinus rhythms and dysrhythmias: sinus rhythm - Assessment/Plan Assessment/Plan: 1. Acute diastolic heart failure. 2. ESRD on HD 3. Volume overload. 4. Chest tightness.. PLAN: - She states she will be unable to lay flat for a LHC but is willing to do a stress test as she only has to lay flat for a few minutes. Will plan on further risk stratification with a nuclear stress tomorrow. - If she ends up needing a LHC will probably ask anesthesia for assistance with sedation.
--- NOTE | 2019-08-14 18:26 | PDOC.HOSPP ---
- Subjective Encounter Date: 08/14/19 Encounter Time: 16:00 Subjective: Patient seen and examined for CP/SOB. Feels better. No CP. No new complaints. No overnight events - Objective Vital Signs & Weight: Vital Signs (12 hours) Temp Pulse Pulse Pulse Resp BP BP 08/14/19 16:10 97.2 F L 62 16 08/14/19 14:53 68 65 135/63 145/65 H 08/14/19 12:42 97.9 F 80 18 BP BP Pulse Ox Pulse Ox Pulse Ox 08/14/19 16:10 146/65 H 97 08/14/19 14:53 98 95 08/14/19 12:42 174/74 H 97 Weight Weight 146 lb 11.2 oz I&O: 08/13/19 08/14/19 08/15/19 06:59 06:59 06:59 Intake Total 1320 Output Total 1250 Balance 70 Result Diagrams: 08/14/19 04:34 08/14/19 04:34 Additional Labs: Accuchecks 08/14/19 16:55 POC Glucose 92 EKG Reviewed by me: Yes (Tele SR) Hospitalist ROS - Review of Systems Cardiovascular: denies: chest pain, palpitations, orthopnea, paroxysmal noc. dyspnea, edema, light headedness, other Gastrointestinal: denies: nausea, vomiting, abdominal pain, diarrhea, constipation, melena, hematochezia, other - Medication Medications: Active Medications Generic Name Dose Route Start Last Admin Trade Name Freq PRN Reason Stop Dose Admin Acetaminophen 650 mg 08/13/19 10:13 08/14/19 07:17 Tylenol PO 650 mg Q4H PRN Administration Headache/Fever/Mild Pain (1-3) Allopurinol 100 mg 08/14/19 09:00 08/14/19 12:45 Zyloprim PO 100 mg DAILY [facility] Administration Aspirin 325 mg 08/14/19 09:00 08/14/19 12:44 Ecotrin PO 325 mg DAILY [facility] Administration Diltiazem HCl 60 mg 08/13/19 15:00 08/14/19 12:56 Cardizem PO Not Given TID [facility]ER Famotidine 20 mg 08/13/19 21:00 08/13/19 21:35 Pepcid PO 20 mg Q24HR [facility] Administration Guaifenesin 200 mg 08/13/19 10:51 08/13/19 13:31 Robitussin Sf PO 200 mg Q4H PRN Administration Cough Heparin Sodium (Porcine) 5,000 units 08/13/19 21:00 08/14/19 12:44 Heparin SC 5,000 units BID [facility]ER Administration Hydralazine HCl 100 mg 08/13/19 15:00 08/14/19 12:56 Apresoline PO Not Given TID [facility]KSANDER Metoprolol Succinate 25 mg 08/14/19 09:00 08/14/19 12:45 Toprol Xl PO 25 mg DAILY [facility] Administration - Exam General Appearance: NAD Heart: RRR, no gallops, no rubs, normal peripheral pulses Respiratory: CTAB, no wheezes, no rales, normal chest expansion, no tachypnea, rhonchi Gastrointestinal: soft, non-tender, non-distended, normal bowel sounds Extremities: no cyanosis, no clubbing, no edema Psychiatric: normal affect, A&O x 3 Hosp A/P - Plan DVT proph w/SCDs 1. Chest pain/Palpitations. She has event monitor placed last week 2. Acute on chronic diastolic heart failure. improved after dialysis 3. Hypertension with hypertensive urgency. 4. Normal coronaries in 2002. 5. Abnormal EKG. 6. End-stage renal disease on hemodialysis, Wednesday, Wednesday, and Wednesday. 7. Gout. 8. Chronic anemia secondary to renal insufficiency. 9. History of paroxysmal atrial fibrillation, currently in sinus rhythm. 10. Anxiety. PLAN: s/p dialysis Cont ASA Cont home meds - Metoprolol/Cardizem/Hydralazine Cont other meds Patient unable to bring equipements for Event monitor check
[2019-08-14] MEDS: Famotidine 20 MG TAB PO SCH (21:57)
[2019-08-15 05:22] LABS: #Basophils 0.1 thou/uL (0.0-0.2); #Eosinphils 0.4 thou/uL (0.0-0.7); #Lymphocytes 1.4 thou/uL (1.20-3.40); #Monocytes 0.5 thou/uL (0.11-0.59); #Neutrophils 1.7 thou/uL (1.40-6.50); %Basophils 1.5 % (0.0-1.0); %Eosinophils 10.7 % (0.0-10.0); %Lymphocytes 34.3 % (21.0-51.0); %Monocytes 11.8 % (0.0-10.0); %Neutrophils 41.8 % (42.0-75.0); Hemoglobin 10.3 g/dL (12.0-16.0); Mean Corpuscular Volume 90.4 fL (78.0-98.0); Mean Platelet Volume 9.5 fL (7.4-10.4); Platelet Count 275 thou/uL (130-400); RBC Distribution Width 17.6 % (11.5-14.5); Red Blood Cell (RBC) Count 3.56 mill/uL (4.20-5.40); White Blood Cell (WBC) Count 4.1 thou/uL (4.8-10.8)
[2019-08-15 05:37] LABS: ALT (SGPT) 16 U/L (8-55); AST (SGOT) 18 U/L (5-34); Albumin 3.7 g/dL (3.4-4.8); Alkaline Phosphatase 108 U/L (40-110); Anion Gap 15 mmol/L (10-20); BUN (Urea Nitrogen) 26 mg/dL (9.8-20.1); Bilirubin, Total 0.4 mg/dL (0.2-1.2); Calc. Creatinine Clearance 16 mL/min (70-130); Calcium 9.4 mg/dL (7.8-10.44); Carbon Dioxide 26 mmol/L (23-31); Chloride 101 mmol/L (98-107); Estimated GFR-MDRD 16; Globulin 2.9 g/dL (2.4-3.5); Glucose 74 mg/dL (80-115); Potassium 4.8 mmol/L (3.5-5.1); Protein, Total 6.6 g/dL (6.0-8.3); Sodium 137 mmol/L (136-145)
--- NOTE | 2019-08-15 08:31 | PRG ---
DATE OF SERVICE: 08/15/2019 SUBJECTIVE: Patient was seen and examined at bedside and overnight events noted. Patient denies any shortness of breath or chest pain or palpitation. No history of nausea or vomiting or diarrhea or fever or chills or cramps. OBJECTIVE: GENERAL: This is a well-built female, in no apparent distress. VITAL SIGNS: Temperature 98.2. Heart rate 74. Respiratory rate 18. Blood pressure 159/71. HEENT: Atraumatic, normocephalic. Oral mucosa is moist NECK: Supple. CARDIOVASCULAR: S1, S2 heard. Rate and rhythm regular. RESPIRATORY: Clear to auscultation. GASTROINTESTINAL: Abdomen is soft. MUSCULOSKELETAL: No tenderness. No edema. DERMATOLOGIC: No skin rash. NEUROLOGIC: Alert and awake and oriented X3. No focal neurologic deficits. Moving all the extremities. PSYCHIATRIC: Mood and affect normal. LABORATORY DATA: Potassium 4.8, BUN is 26, creatinine is 3.4. ASSESSMENT AND PLAN: 1. End-stage renal disease, continue dialysis as tolerated. 2. Edema, remove fluid with dialysis. 3. History of hypertension, stable. 4. Anemia, monitor hemoglobin. Plan to continue on dialysis as tolerated. Job ID: [id number]
[2019-08-15] MEDS ORDERED: Sodium Chloride 0.9% 10 ML ONE (09:03)
--- NOTE | 2019-08-15 10:35 | NM ---
EXAM: Nuclear medicine cardiac perfusion examination with ejection fraction HISTORY: Chest pain COMPARISON: 03/09/2019 TECHNIQUE: Rest images: 10.9 mCi technetium 99m sestamibi Stress images: 32.5 mCi of technetium 9M sestamibi; Adenosine COMPARISON: None FINDINGS: Tomographic images: No fixed or reversible perfusion defects. Gated images: Normal wall motion and ejection fraction of 47%. EDV: 180 mL LHR: 0.5 TID: 1.0 IMPRESSION: No evidence of ischemia
[2019-08-15] MEDS: Allopurinol 100 MG TAB PO SCH (10:37)
[2019-08-15] MEDS: Aspirin 325 mg Enteric Coated Tablet PO SCH (10:38)
[2019-08-15] MEDS: hydrALAZINE 25 MG TAB PO SCH (10:38)
[2019-08-15] MEDS: Heparin 5,000 UNITS/ML VIAL SC SCH (10:45)
[2019-08-15 12:05] VITALS: BP 160/75; TEMP 97.8
[2019-08-15] MEDS ORDERED: Regadenoson 0.4 MG/5 ML SYRINGE ONE (13:37)
--- NOTE | 2019-08-15 22:29 | DIS ---
DATE OF ADMISSION: 08/13/2019 DATE OF DISCHARGE: 08/15/2019 DISCHARGE DISPOSITION: Home. FOLLOWUP: Follow up with primary care physician at [facility] in 1 week. Follow up with Cardiology, Dr. Muñoz in 1 week. ALLERGIES: THE PATIENT IS ALLERGIC TO LISINOPRIL, CLONIDINE, AND TRAMADOL. DISCHARGE MEDICATIONS: Same as admission medications. A prescription for albuterol inhaler, Claritin, and Flonase nasal spray was provided. No changes in her medications were made. INPATIENT COMMUNITY COORDINATOR [employer]: Cardiology, Dr. Shrestha. DIAGNOSTIC TESTS: 1. Echocardiogram showed left ventricular ejection fraction of 50% to 55% with [id number] mitral regurgitation, mild aortic regurgitation, moderate to severe tricuspid regurgitation, and markedly enlarged right atrium size. 2. CT angiogram of the chest was negative for pulmonary embolism. It showed bibasilar interstitial edema with small bilateral pleural effusion. 3. Chest x-ray showed mild pulmonary vascular congestion. BRIEF HOSPITAL COURSE: The patient is a 69-year-old female with end-stage renal disease, on hemodialysis, presented to the hospital on 08/13/2019, with chest discomfort along with shortness of breath and palpitations. Her workup was consistent with acute on chronic diastolic heart failure. Her symptoms gradually improved after dialysis. She was evaluated by Cardiology, Dr. Shrestha as well. She currently has an event monitor that was placed at Dr. Muñoz's office. She was, however, unable to bring the equipment to interrogate the device. Telemetry monitoring during this hospital stay did not show significant arrhythmias. Per Cardiology recommendation, she also underwent a Cardiolite stress test that was negative for reversible ischemia. Ejection fraction was 47% with TID of 1.0. There was no wall motion abnormality. She has been cleared by Cardiology for discharge. FINAL DIAGNOSES: 1. Chest discomfort with palpitations. The patient was advised to interrogate the event monitor as soon as possible when she reaches home. 2. Acute on chronic diastolic heart failure, improved after dialysis. 3. Hypertension with hypertensive urgency. 4. Normal coronaries in 2003 cardiac catheterization. 5. Abnormal EKG. 6. End-stage renal disease, on hemodialysis Wednesday, Wednesday, and Wednesday. 7. Gout. 8. Chronic anemia secondary to renal insufficiency. 9. History of paroxysmal atrial fibrillation, currently in sinus rhythm. 10. Anxiety. 11. Season allergies. 12. Anemia secondary to renal disease. 13. Hyponatremia. 14. Mild metabolic acidosis. PLAN: Plan was discussed with the patient in detail. She stated understanding. Job ID: [id number]
== END 2019-08-15 15:30 | disposition home or self-care (01) ==
LOC: ERS 03:25 → INTOOBSV 06:30 → 2NO 06:30
PROVIDERS: ADMIT Internal Medicine; ATTEND Internal Medicine
DX: R07.89 Other chest pain (principal); I16.0 Hypertensive urgency; I13.2 Hypertensive heart and chronic kidney disease with heart failure and with stage 5 chronic kidney disease, or end stage renal disease; E11.22 Type 2 diabetes mellitus with diabetic chronic kidney disease; N18.6 End stage renal disease; I50.33 Acute on chronic diastolic (congestive) heart failure; D63.1 Anemia in chronic kidney disease; N25.81 Secondary hyperparathyroidism of renal origin; E78.5 Hyperlipidemia, unspecified; M10.9 Gout, unspecified; I48.0 Paroxysmal atrial fibrillation; F41.9 Anxiety disorder, unspecified; F32.9 Major depressive disorder, single episode, unspecified; F17.220 Nicotine dependence, chewing tobacco, uncomplicated; J90 Pleural effusion, not elsewhere classified; E87.1 Hypo-osmolality and hyponatremia; E87.2 Acidosis; Z79.82 Long term (current) use of aspirin; Z79.899 Other long term (current) drug therapy; Z88.5 Allergy status to narcotic agent; Z88.8 Allergy status to other drugs, medicaments and biological substances
CPT/HCPCS: 71045; 71275; 78452; 80053 ×3; 82550; 82962 ×2; 84484 ×2; 85025 ×3; 85379; 93005; 93017; 93306; 93798; 94760; 96372 ×3; 99285; A9500; G0378 ×3; 36415; 36416; J1644; J2785; Q9967

== ENCOUNTER 2019-11-23 14:19 | Inpatient (IN) | payer MEDICARE, MEDICAID ==
[2019-11-23] MEDS ORDERED: Labetalol HCl 100 MG/20 ML VIAL ONE (16:48)
[2019-11-23 17:22] LABS: Troponin I Less than 0.010 ng/mL (< 0.028)
[2019-11-23] MEDS ORDERED: Acetaminophen 325 MG TAB PO PRN (18:30)
--- NOTE | 2019-11-23 19:59 | HP ---
CHIEF COMPLAINT: Shortness of breath. HISTORY OF PRESENT ILLNESS: The patient is a 69-year-old female with past medical history of end-stage renal disease, on dialysis. She has history of hypertension and history of diastolic heart failure, who presents to the hospital with complaints of shortness of breath, worsening for the past 2 weeks. The patient states that she has been having significant orthopnea and PND and also worsening shortness of breath on exertion. However, today, she came in because she has been having worsening shortness of breath for the past 2 days, especially today. She states that she has been compliant with her dialysis which is Wednesday, Wednesday, Wednesday. She is compliant with her fluid intake and also her salt intake and has been compliant with her medications. She denies any chest tightness currently; however, she at times felt a little tightness which was relieved after drinking some carbonated water. PAST MEDICAL HISTORY: End-stage renal disease, diastolic heart failure, and hypertension. PAST SURGICAL HISTORY: She has had a hysterectomy, tubal ligation, and she does have a fistula to her right arm. SOCIAL HISTORY: She is a nonsmoker; however, she uses snuff tobacco. No alcohol use. No drug use. She is independent, but uses a walker and she is a full code. REVIEW OF SYSTEMS: All negative except for the ones mentioned above in the HPI. ALLERGIES: SHE IS ALLERGIC TO LISINOPRIL, CLONIDINE, AND TRAMADOL. MEDICATIONS: She is on: 1. Hydralazine 100 mg t.i.d. 2. Nitroglycerin 0.5 sublingual q.5 p.r.n. 3. Metoprolol 25 mg daily. 4. Loratadine 5 mg daily. 5. Lactulose 30 mL as needed. 6. Diltiazem 60 mg daily. 7. Aspirin 81 mg daily. 8. Allopurinol 100 mg daily. 9. Tylenol as needed. 10. Albuterol as needed. PHYSICAL EXAMINATION: VITAL SIGNS: Temperature of 98.8, 100% on 2 L, respirations were 18, pulse of 103, blood pressure initially was 187/85, then improved to 140s/80s. GENERAL: She is awake, alert, and oriented x3. Does not appear in distress. She is able to speak complete sentences. HEENT: Normocephalic, atraumatic. No lymphadenopathy noted. Pupils equal reactive to light. CV: S1 and S2 present. No murmurs, rubs, or gallops. LUNGS: She has mild crackles to bilateral lung bases. ABDOMEN: Soft and nontender. Bowel sounds are present x2. EXTREMITIES: No edema. Pedal pulses are present x2. NEUROVASCULAR: No focal deficits noted. SKIN: No cuts, lesions, or bruises noted. FAMILY HISTORY: Mother had heart disease and son had heart disease and there is also diabetes in the family. LABORATORY RESULTS: Troponin x1 was negative. WBCs of 4.8, hemoglobin of 10.5, hematocrit of 34.0. Her platelets were 241. Chemistry; sodium of 138, potassium of 3.8, BUN of 22, creatinine of 3.80, glucose of 75. Her calcium was mildly elevated at . Her chest x-ray appeared to indicate some mild pulmonary congestion. EKG, no acute changes. No ST elevation or depression noted. X-ray also indicated some cardiomegaly. She had an echocardiogram in August 2019 which indicated an EF of 50% to 55%. She has moderately to severely dilated left atrium and moderate to severe tricuspid regurgitation. ASSESSMENT AND PLAN: The patient is a 69-year-old female, presents to the hospital with complains of shortness of breath. 1. Shortness of breath, most likely secondary to acute on chronic diastolic heart failure versus not enough fluid removed from dialysis versus infectious etiology, which is unlikely versus possible pulmonary embolism, which is also unlikely. The patient states that she is very compliant with her medications and with her diet and fluid intake. We will go ahead and consult Nephrology for dialysis. She is currently able to speak complete sentences. Her normal dialysis days are Wednesday, Wednesday, Wednesday. She is not aware of her dry weight; however, she states that she has gained some weight. I do not believe she needs to have her echo rechecked. She also has some mild tricuspid regurgitation, so her shortness of breath could be multifactorial also. She also has had a stress test in August, which indicated no evidence of ischemia. No wall motion abnormalities. 2. End-stage renal disease, on dialysis. We will consult Nephrology. 3. Chronic anemia, most likely due to anemia of chronic disease. 4. Hypertension. We will continue her home medications. 5. Elevated BNP, most likely in the setting of her pulmonary congestion and also her being on end-stage renal disease, on dialysis. We will also trend her troponins and continue to monitor. 6. Deep vein thrombosis prophylaxis. We will put the patient on some subcu Lovenox or heparin. Job ID: [id number]
[2019-11-23 20:22] LABS: Troponin I Less than 0.010 ng/mL (< 0.028)
[2019-11-23] MEDS: Heparin 5,000 UNITS/ML VIAL SC SCH (21:24)
[2019-11-23] MEDS: hydrALAZINE 25 MG TAB PO SCH (21:24)
[2019-11-24 04:49] LABS: #Eosinphils 0.4 thou/uL (0.0-0.7); #Lymphocytes 1.3 thou/uL (1.20-3.40); #Monocytes 0.4 thou/uL (0.11-0.59); #Neutrophils 2.2 thou/uL (1.40-6.50); %Basophils 0.4 % (0.0-1.0); %Eosinophils 8.3 % (0.0-10.0); %Lymphocytes 30.6 % (21.0-51.0); %Monocytes 9.4 % (0.0-10.0); %Neutrophils 51.3 % (42.0-75.0); Hemoglobin 10.3 g/dL (12.0-16.0); Mean Corpuscular HGB CONC 32.2 g/dL (32.0-36.0); Mean Corpuscular Hemoglobin 30.1 pg (27.0-31.0); Mean Corpuscular Volume 93.6 fL (78.0-98.0); Mean Platelet Volume 9.1 fL (7.4-10.4); Platelet Count 250 thou/uL (130-400); RBC Distribution Width 15.9 % (11.5-14.5); Red Blood Cell (RBC) Count 3.43 mill/uL (4.20-5.40); White Blood Cell (WBC) Count 4.4 thou/uL (4.8-10.8)
[2019-11-24 05:05] LABS: Anion Gap 16 mmol/L (10-20); BUN (Urea Nitrogen) 30 mg/dL (9.8-20.1); Calc. Creatinine Clearance 11 mL/min (70-130); Calcium 9.9 mg/dL (7.8-10.44); Carbon Dioxide 24 mmol/L (23-31); Chloride 102 mmol/L (98-107); Estimated GFR-MDRD 11; Glucose 77 mg/dL (80-115); Potassium 4.9 mmol/L (3.5-5.1); Sodium 137 mmol/L (136-145)
[2019-11-24] MEDS ORDERED: Sodium Chloride 0.9% 10 ML ONE (07:32)
[2019-11-24] MEDS: Heparin 5,000 UNITS/ML VIAL SC SCH ×3 (08:19→21:26)
[2019-11-24] MEDS: Aspirin Chewable 81 MG TAB PO SCH (08:19)
[2019-11-24] MEDS: Allopurinol 100 MG TAB PO SCH (08:20)
[2019-11-24] MEDS: hydrALAZINE 25 MG TAB PO SCH ×3 (08:20→21:26)
[2019-11-24] MEDS: Aspirin 81 mg Enteric Coated Tablet PO SCH (09:16)
[2019-11-24 12:45] VITALS: BMI 22.0
--- NOTE | 2019-11-24 12:47 | CON ---
DATE OF CONSULTATION: 11/24/2019 CONSULTING PHYSICIAN: Penny Aquino MD REASON FOR CONSULTATION: End-stage renal disease evaluation. REASON FOR ADMISSION: Shortness of breath. HISTORY OF PRESENT ILLNESS: A 69-year-old female with history of end-stage renal disease, CHF, and hypertension, came to the hospital with shortness of breath and fluid overload and she is due for dialysis today. We will have dialysis. She is noncompliant with fluid . PAST MEDICAL HISTORY: Positive for end-stage renal disease, CHF, hypertension, and gout. PAST SURGICAL HISTORY: Hysterectomy, tubal ligation, and fistula. HOME MEDICATIONS: Reviewed. ALLERGIES: TO LISINOPRIL, CLONIDINE, AND TRAMADOL. SOCIAL HISTORY: No smoking, alcohol, or illicit drug abuse. FAMILY HISTORY: No history of kidney disease. REVIEW OF SYSTEMS: CONSTITUTIONAL: Negative for weight loss or gain, ability to conduct usual activities. SKIN: Negative for rash, itching. EYES: Negative for double vision, pain. ENT/MOUTH: Negative for nose bleeding, neck stiffness, pain, tenderness. CARDIOVASCULAR: Negative for palpitations, dyspnea on exertion, orthopnea. RESPIRATORY: Negative for shortness of breath, wheezing, cough, hemoptysis, fever or night sweats. GASTROINTESTINAL: Negative for poor appetite, abdominal pain, heartburn, nausea , vomiting, constipation, or diarrhea. GENITOURINARY: Negative for urgency, frequency, dysuria, nocturia. MUSCULOSKELETAL: Negative for pain, swelling. NEUROLOGIC/PSYCHIATRIC: Negative for anxiety, depression. ALLERGY/IMMUNOLOGIC: Negative for skin rash, bleeding tendency. PHYSICAL EXAMINATION: GENERAL: This is a well-built female, in no apparent distress. VITAL SIGNS: Temperature 97.9, pulse 74, respiratory rate 20, and blood pressure noted HEENT: Atraumatic, normocephalic. Oral mucosa moist. NECK: Supple. CARDIOVASCULAR: S1 and S2. Rate and rhythm regular. RESPIRATORY: Clear. GASTROINTESTINAL: Abdomen is soft. MUSCULOSKELETAL: 1+ edema. DERMATOLOGIC: No skin rash. NEUROLOGIC: Alert and awake. PSYCHIATRIC: Mood and affect normal. LABORATORY DATA: Hemoglobin is 10.3. Potassium 4.9, BUN is 30, and creatinine is 4.6. ASSESSMENT AND PLAN: 1. End-stage renal disease. Continue on dialysis as tolerated. Plan is to have dialysis today. We will remove fluid. 2. Fluid overload with shortness of breath and hypoxia. We will have fluid removal with dialysis as tolerated. Plan to remove 4 L. 3. Anemia of chronic disease. 4. Edema, as above. 5. History of hypertension. Remove fluids. Blood pressure seems to be better. Plan to have dialysis today with fluid removal. Limit fluid and salt intake and we will follow. Thank you for the consult. Job ID: [id number] MTDD
--- NOTE | 2019-11-24 16:09 | PDOC.HOSPP ---
- Subjective Encounter Date: 11/24/19 Encounter Time: 10:30 Subjective: pt up in bed states she feels well today - Objective Vital Signs & Weight: Vital Signs (12 hours) Temp Pulse Resp BP BP BP BP 11/24/19 11:47 130/62 137/65 11/24/19 11:40 97.9 F 74 20 139/64 11/24/19 07:45 11/24/19 07:38 98.5 F 83 16 170/80 H 11/24/19 04:36 98.7 F 78 18 158/73 H Pulse Ox Pulse Ox Pulse Ox 11/24/19 11:47 100 98 11/24/19 11:40 97 11/24/19 07:45 94 L 11/24/19 07:38 94 L 11/24/19 04:36 99 Weight Admit Weight 135 lb 3.2 oz Weight 132 lb 9 oz I&O: 11/23/19 11/24/19 11/25/19 06:59 06:59 06:59 Intake Total 240 240 Output Total 100 Balance 140 240 Result Diagrams: 11/24/19 04:25 11/24/19 04:25 Hospitalist ROS - Review of Systems Respiratory: reports: shortness of breath Cardiovascular: denies: chest pain, palpitations, orthopnea, paroxysmal noc. dyspnea, edema, light headedness, other Gastrointestinal: denies: nausea, vomiting, abdominal pain, diarrhea, constipation, melena, hematochezia, other Genitourinary: denies: dysuria, frequency, incontinence, hematuria, retention, other - Medication Medications: Active Medications Generic Name Dose Route Start Last Admin Trade Name Lisa PRN Reason Stop Dose Admin Acetaminophen 650 mg 11/23/19 18:30 11/23/19 23:05 Tylenol PO 650 mg Q4H PRN Administration Headache/Fever/Mild Pain (1-3) Allopurinol 100 mg 11/24/19 09:00 11/24/19 08:20 Zyloprim PO 100 mg DAILY ALEKSANDER Administration Aspirin 81 mg 11/24/19 09:00 11/24/19 08:19 Aspirin Chewable PO 81 mg DAILY ALEKSANDER Administration Aspirin 81 mg 11/24/19 09:00 11/24/19 09:16 Ecotrin PO 81 mg DAILY ALEKSANDER Administration Diltiazem HCl 60 mg 11/23/19 21:00 11/24/19 08:19 Cardizem PO 60 mg TID ALEKSANDER Administration Heparin Sodium (Porcine) 5,000 units 11/23/19 21:00 11/24/19 08:19 Heparin SC 5,000 units TID ALEKSANDER Administration Hydralazine HCl 100 mg 11/23/19 21:00 11/24/19 08:20 Apresoline PO 100 mg TID ALEKSANDER Administration Metoprolol Succinate 25 mg 11/24/19 09:00 11/24/19 08:20 Toprol Xl PO 25 mg DAILY ALEKSANDER Administration - Exam Neck: negative: supple, symmetric, no JVD, no thyromegaly, no lymphadenopathy, no carotid bruit, JVD Heart: negative: RRR, no murmur, no gallops, no rubs, normal peripheral pulses, irregular, diminshed peripheral pulses, murmur present, II/IV, III/IV Respiratory: rales Gastrointestinal: negative: soft, non-tender, non-distended, normal bowel sounds , no palpable masses, no hepatomegaly, no splenomegaly, no bruit, no guarding, no rigidity, tender to palpation, distended, diminished bowl sounds, voluntary guarding Hosp A/P (1) SOB (shortness of breath) Code(s): R06.02 - SHORTNESS OF BREATH Status: Acute (2) Acute on chronic diastolic heart failure Code(s): I50.33 - ACUTE ON CHRONIC DIASTOLIC (CONGESTIVE) HEART FAILURE Status : Acute (3) CAD (coronary artery disease) Code(s): I25.10 - ATHSCL HEART DISEASE OF [place] CORONARY ARTERY W/O ANG PCTRS Status: Chronic Qualifiers: (4) ESRD on hemodialysis Code(s): N18.6 - END STAGE RENAL DISEASE; Z99.2 - DEPENDENCE ON RENAL DIALYSIS Status: Chronic (5) HTN (hypertension) Code(s): I10 - ESSENTIAL (PRIMARY) HYPERTENSION Status: Chronic Qualifiers: - Plan pt has been very compliant with her diet and meds. she may need extra fluid to be removed from dialysis. she states that she does not eat salty foods and is very careful with her water intake.
[2019-11-24] MEDS: Dronedarone HCl 400 MG TAB PO SCH (17:48)
[2019-11-24] MEDS: Senokot S 8.6-50 MG TAB PO PRN (21:37)
[2019-11-25] MEDS: Aspirin Chewable 81 MG TAB PO SCH (09:16)
[2019-11-25] MEDS: Heparin 5,000 UNITS/ML VIAL SC SCH ×3 (09:16→20:24)
[2019-11-25] MEDS: Dronedarone HCl 400 MG TAB PO SCH ×2 (09:16→16:41)
[2019-11-25] MEDS: Aspirin 81 mg Enteric Coated Tablet PO SCH (09:16)
[2019-11-25] MEDS: Allopurinol 100 MG TAB PO SCH (09:16)
[2019-11-25] MEDS: hydrALAZINE 25 MG TAB PO SCH ×3 (09:17→20:23)
[2019-11-25] MEDS: Senokot S 8.6-50 MG TAB PO PRN (09:32)
--- NOTE | 2019-11-25 12:22 | PRG ---
DATE OF SERVICE: 11/25/2019 SUBJECTIVE: Patient was seen and examined at bedside and overnight events noted. Patient denies any shortness of breath or chest pain or palpitation. No history of nausea or vomiting or diarrhea or fever or chills or cramps. OBJECTIVE: GENERAL: This is a well-built female, in no apparent distress. VITAL SIGNS: Temperature 99.0. Heart rate 75. Respiratory rate 18. Blood pressure 152/72. HEENT: Atraumatic, normocephalic. Oral mucosa is moist NECK: Supple. CARDIOVASCULAR: S1, S2 heard. Rate and rhythm regular. RESPIRATORY: Clear to auscultation. GASTROINTESTINAL: Abdomen is soft. MUSCULOSKELETAL: No tenderness. No edema. DERMATOLOGIC: No skin rash. NEUROLOGIC: Alert and awake and oriented X3. No focal neurologic deficits. Moving all the extremities. PSYCHIATRIC: Mood and affect normal. LABORATORY DATA: Potassium is 4.9, BUN is 30, and creatinine is 4.6. ASSESSMENT: 1. End-stage renal disease. Continue hemodialysis as tolerated. 2. Fluid overload. We will remove fluids. 3. Anemia of chronic disease. 4. Edema. 5. History of hypertension. PLAN: Plan to continue on dialysis as tolerated. Job ID: [id number]
--- NOTE | 2019-11-25 19:14 | PDOC.HOSPP ---
- Subjective Encounter Date: 11/25/19 Encounter Time: 09:45 Subjective: pt up in bed states she feels well. - Objective Vital Signs & Weight: Vital Signs (12 hours) Temp Pulse Pulse Pulse Resp BP BP 11/25/19 15:09 67 134/65 11/25/19 15:06 98.5 F 67 18 11/25/19 12:32 79 73 158/73 H 11/25/19 12:09 99.8 F H 70 14 11/25/19 09:17 75 152/72 H 11/25/19 09:12 99.0 F 75 18 11/25/19 08:52 BP BP BP Pulse Ox Pulse Ox Pulse Ox 11/25/19 15:09 11/25/19 15:06 134/65 98 11/25/19 12:32 154/72 H 96 93 L 11/25/19 12:09 111/55 L 96 11/25/19 09:17 11/25/19 09:12 152/72 H 98 11/25/19 08:52 98 Weight Admit Weight 135 lb 3.2 oz Weight 123 lb 10.24 oz I&O: 11/24/19 11/25/19 11/26/19 06:59 06:59 06:59 Intake Total 240 1320 Output Total 100 Balance 140 1320 Result Diagrams: 11/24/19 04:25 11/24/19 04:25 Hospitalist ROS - Review of Systems Cardiovascular: denies: chest pain, palpitations, orthopnea, paroxysmal noc. dyspnea, edema, light headedness, other Gastrointestinal: denies: nausea, vomiting, abdominal pain, diarrhea, constipation, melena, hematochezia, other Genitourinary: denies: dysuria, frequency, incontinence, hematuria, retention, other - Medication Medications: Active Medications Generic Name Dose Route Start Last Admin Trade Name Freq PRN Reason Stop Dose Admin Acetaminophen 650 mg 11/23/19 18:30 11/23/19 23:05 Tylenol PO 650 mg Q4H PRN Administration Headache/Fever/Mild Pain (1-3) Allopurinol 100 mg 11/24/19 09:00 11/25/19 09:16 Zyloprim PO 100 mg DAILY ALEKSANDER Administration Aspirin 81 mg 11/24/19 09:00 11/25/19 09:16 Aspirin Chewable PO 81 mg DAILY ALEKSANDER Administration Aspirin 81 mg 11/24/19 09:00 11/25/19 09:16 Ecotrin PO 81 mg DAILY ALEKSANDER Administration Diltiazem HCl 60 mg 11/23/19 21:00 11/25/19 15:09 Cardizem PO 60 mg TID ALEKSANDER Administration Dronedarone 400 mg 11/24/19 17:00 11/25/19 16:41 Multaq PO 400 mg BID-WM ALEKSANDER Administration Heparin Sodium (Porcine) 5,000 units 11/23/19 21:00 11/25/19 15:09 Heparin SC 5,000 units TID ALEKSANDER Administration Hydralazine HCl 100 mg 11/23/19 21:00 11/25/19 15:09 Apresoline PO 100 mg TID ALEKSANDER Administration Metoprolol Succinate 25 mg 11/24/19 09:00 11/25/19 09:17 Toprol Xl PO 25 mg DAILY ALEKSANDER Administration Senna/Docusate Sodium 2 tab 11/23/19 18:30 11/25/19 09:32 Senokot S PO 2 tab BIDPRN PRN Administration Constipation - Exam Heart: negative: RRR, no murmur, no gallops, no rubs, normal peripheral pulses, irregular, diminshed peripheral pulses, murmur present, II/IV, III/IV Respiratory: negative: CTAB, no wheezes, no rales, no ronchi, normal chest expansion, no tachypnea, normal percussion, rales, rhonchi, tachypneic, wheezes Gastrointestinal: negative: soft, non-tender, non-distended, normal bowel sounds , no palpable masses, no hepatomegaly, no splenomegaly, no bruit, no guarding, no rigidity, tender to palpation, distended, diminished bowl sounds, voluntary guarding Extremities: negative: no cyanosis, no clubbing, no edema, 1+ LE edema, 2+ LE edema, clubbing Hosp A/P (1) SOB (shortness of breath) Code(s): R06.02 - SHORTNESS OF BREATH Status: Acute (2) Acute on chronic diastolic heart failure Code(s): I50.33 - ACUTE ON CHRONIC DIASTOLIC (CONGESTIVE) HEART FAILURE Status : Acute (3) CAD (coronary artery disease) Code(s): I25.10 - ATHSCL HEART DISEASE OF [place] CORONARY ARTERY W/O ANG PCTRS Status: Chronic Qualifiers: (4) ESRD on hemodialysis Code(s): N18.6 - END STAGE RENAL DISEASE; Z99.2 - DEPENDENCE ON RENAL DIALYSIS Status: Chronic (5) HTN (hypertension) Code(s): I10 - ESSENTIAL (PRIMARY) HYPERTENSION Status: Chronic Qualifiers: - Plan pt has been very compliant with her diet and meds. she may need extra fluid to be removed from dialysis. she states that she does not eat salty foods and is very careful with her water intake. 11/25 pt was feeling well and had 4L out but then stated to get sob after taking a shower. will watch her for one more night. she has no more rales to her lung bases. 08/22 echo has a good ef but has TR.
[2019-11-26] MEDS: Senokot S 8.6-50 MG TAB PO PRN (05:29)
[2019-11-26] MEDS: hydrALAZINE 25 MG TAB PO SCH (09:45)
[2019-11-26] MEDS: Aspirin Chewable 81 MG TAB PO SCH (09:45)
[2019-11-26] MEDS: Aspirin 81 mg Enteric Coated Tablet PO SCH (09:45)
[2019-11-26] MEDS: Allopurinol 100 MG TAB PO SCH (09:45)
[2019-11-26] MEDS: Dronedarone HCl 400 MG TAB PO SCH (09:45)
[2019-11-26] MEDS: Heparin 5,000 UNITS/ML VIAL SC SCH (09:46)
[2019-11-26 11:39] VITALS: TEMP 98.1
[2019-11-26 12:41] VITALS: BP 138/65
--- NOTE | 2019-11-26 13:21 | PRG ---
DATE OF SERVICE: 11/26/2019 SUBJECTIVE: Patient was seen and examined at bedside and overnight events noted. Patient denies any shortness of breath or chest pain or palpitation. No history of nausea or vomiting or diarrhea or fever or chills or cramps. OBJECTIVE: GENERAL: This is an elderly female, in no apparent distress. VITAL SIGNS: Temperature 98.1. Pulse 71. Respiratory rate 18. Blood pressure 128/62. HEENT: Atraumatic, normocephalic. Oral mucosa is moist NECK: Supple. CARDIOVASCULAR: S1, S2 heard. Rate and rhythm regular. RESPIRATORY: Clear to auscultation. GASTROINTESTINAL: Abdomen is soft. MUSCULOSKELETAL: No tenderness. No edema. DERMATOLOGIC: No skin rash. NEUROLOGIC: Alert and awake and oriented X3. No focal neurologic deficits. Moving all the extremities. PSYCHIATRIC: Mood and affect normal. LABORATORY DATA: Potassium 4.9, BUN is 30, and creatinine is 4.6. ASSESSMENT AND PLAN: 1. End-stage renal disease, continue hemodialysis Wednesday, Wednesday, Wednesday. No dialysis today. 2. Fluid overload. 3. Anemia of chronic disease. 4. Edema. 5. Hypertension. 6. No dialysis today. We will continue dialysis Wednesday, Wednesday, Wednesday. Job ID: [id number]
--- NOTE | 2019-11-27 06:10 | DIS ---
DATE OF ADMISSION: 11/23/2019 DATE OF DISCHARGE: 11/26/2019 PRIMARY CARE PROVIDER: Analy Mendosa MD DISCHARGE DIAGNOSES: 1. Volume overload. 2. Acute on chronic diastolic congestive heart failure, [employer], class III. CONDITION OF PATIENT ON THE DAY OF DISCHARGE: Stable. I assessed Ms. Marcos on the day of discharge. She denies any chest pain or shortness of breath. Vital signs are stable. S1 and S2 are heard, regular. Lungs are clear to auscultation bilaterally. DISCHARGE MEDICATIONS: No change was made to her pre-admission home medications as dictated by Dr. Aquino in her history and physical note dated November 23, 2019. CONSULTATIONS DURING THIS HOSPITALIZATION: Nephrology, Dr. Guy. POST-ACUTE CARE FOLLOWUP: With primary care provider on November 30, 2019 at 1 p.m. The patient is also advised to follow up with her Budget Examiner and Book Coverer. HOSPITAL COURSE: Ms. Marcos is a pleasant 69-year-old lady, who was admitted to [facility] on November 23, 2019 for shortness of breath secondary to volume overload and congestive heart failure exacerbation. She was seen by Nephrology Service and underwent hemodialysis with improvement in her symptoms. She has been cleared for discharge by Nephrology Service. She is being discharged home in a stable condition. ACTIVITY: No restrictions. DIET: Renal, fluid restriction, heart healthy and low-sodium. Many thanks for allowing me to participate in your patient's care. Please feel free to contact me with any questions or concerns. DISCHARGE DESTINATION: Home. TIME SPENT: Total amount of time spent coordinating this discharge: 33 minutes. Job ID: [id number]
== END 2019-11-26 15:07 | disposition home or self-care (01) | DRG 291 ==
LOC: ERS 14:19 → 2NO 16:29
PROVIDERS: ADMIT Internal Medicine; ATTEND Internal Medicine
PROC: 5A1D70Z Performance of Urinary Filtration, Intermittent, Less than 6 Hours Per Day (ICD-10-PCS; principal; 2019-11-24)
DX: I13.2 Hypertensive heart and chronic kidney disease with heart failure and with stage 5 chronic kidney disease, or end stage renal disease (principal); N18.6 End stage renal disease; I50.33 Acute on chronic diastolic (congestive) heart failure; F41.9 Anxiety disorder, unspecified; F32.9 Major depressive disorder, single episode, unspecified; F17.220 Nicotine dependence, chewing tobacco, uncomplicated; M10.9 Gout, unspecified; I25.10 Atherosclerotic heart disease of native coronary artery without angina pectoris; I07.1 Rheumatic tricuspid insufficiency; R09.02 Hypoxemia; D63.1 Anemia in chronic kidney disease; Z99.2 Dependence on renal dialysis; Z98.51 Tubal ligation status; Z88.8 Allergy status to other drugs, medicaments and biological substances; Z88.5 Allergy status to narcotic agent; Z79.82 Long term (current) use of aspirin; Z79.899 Other long term (current) drug therapy; Z90.710 Acquired absence of both cervix and uterus; Z79.51 Long term (current) use of inhaled steroids
CPT/HCPCS: 36415; 36416; 80048; 83880; 85025; 90935; 93798; 96374; G0257; J1644

== ENCOUNTER 2020-02-04 21:27 | Emergency (ER) | payer MEDICARE, MEDICAID ==
[2020-02-04 22:31] LABS: Anion Gap 20 mmol/L (10-20); BUN (Urea Nitrogen) 84 mg/dL (9.8-20.1); Calc. Creatinine Clearance 0 mL/min (70-130); Calcium 10.5 mg/dL (7.8-10.44); Carbon Dioxide 15 mmol/L (23-31); Chloride 107 mmol/L (98-107); Estimated GFR-MDRD 6; Glucose 71 mg/dL (80-115); Sodium 135 mmol/L (136-145)
[2020-02-04 22:36] LABS: Potassium 6.6 mmol/L (3.5-5.1)
[2020-02-04] MEDS ORDERED: Dextrose 50% Abboject 50 ML SYRINGE ONE (22:55)
[2020-02-04] MEDS ORDERED: Sodium Bicarb 50 MEQ/50 ML Abboject 8.4% SYRINGE ONE (22:55)
[2020-02-04] MEDS ORDERED: Insulin Regular 300 UNITS/3 ML VIAL ONE (22:55)
[2020-02-04] MEDS ORDERED: Calcium Chloride 1 GM/10 ML Abboject SYRINGE ONE ×2 (22:55→22:59)
[2020-02-04] MEDS ORDERED: Albuterol Sulfate 2.5 mg/3 ml Neb ONE (23:02)
[2020-02-05 00:12] LABS: HBSAg Index 0.18 S/CO (0-0.99); Hep B Surf Ag Non-Reactive S/CO (NonReactive)
== END 2020-02-05 03:46 | disposition home or self-care (01) ==
LOC: ERS 21:27
DX: E87.5 Hyperkalemia (principal); F41.9 Anxiety disorder, unspecified; F32.9 Major depressive disorder, single episode, unspecified; I13.2 Hypertensive heart and chronic kidney disease with heart failure and with stage 5 chronic kidney disease, or end stage renal disease; I50.9 Heart failure, unspecified; N18.6 End stage renal disease; M10.9 Gout, unspecified; Z87.01 Personal history of pneumonia (recurrent); Z79.899 Other long term (current) drug therapy; Z79.82 Long term (current) use of aspirin
CPT/HCPCS: 36415; 87340; 90935; 93005; 94640; 96374; 96375; G0257; J1815; J7611

== ENCOUNTER 2020-05-02 15:09 | Emergency (ER) | payer MEDICARE, OTHER ==
[2020-05-02] MEDS ORDERED: Albuterol Sulfate 2.5 mg/3 ml Neb ONE (16:08)
[2020-05-02] MEDS ORDERED: Furosemide 40 MG/4 ML VIAL ONE (16:24)
== END 2020-05-02 22:55 | disposition home or self-care (01) ==
LOC: ERS 15:09
DX: E87.5 Hyperkalemia (principal); I13.2 Hypertensive heart and chronic kidney disease with heart failure and with stage 5 chronic kidney disease, or end stage renal disease; I50.9 Heart failure, unspecified; N18.6 End stage renal disease; M10.9 Gout, unspecified; Z99.2 Dependence on renal dialysis; F41.9 Anxiety disorder, unspecified; F32.9 Major depressive disorder, single episode, unspecified; F17.220 Nicotine dependence, chewing tobacco, uncomplicated; Z79.82 Long term (current) use of aspirin; Z79.899 Other long term (current) drug therapy
CPT/HCPCS: 90935; 93005; 96374; G0257; J1940; J7611

== ENCOUNTER 2020-09-01 23:05 | Observation (INO) | payer MEDICARE, OTHER ==
--- NOTE | 2020-09-01 23:45 | RAD ---
PORTABLE CHEST: Date: 09/01/2020 PROVIDED CLINICAL HISTORY: Shortness of breath. FINDINGS/IMPRESSION: Comparison with 05/18/2020. Cardiac silhouette remains enlarged. Prominence of the pulmonary vasculature and pulmonary interstiti um. Blunting of the right costophrenic angle. No pneumothorax is evident. IMPRESSION: Cardiomegaly and pulmonary vascular congestion suggests congestive failure/volume overload with small right pleural fluid suspected. POS: RAÚL
[2020-09-01 23:56] LABS: #Eosinphils 0.1 thou/uL (0.0-0.7); #Lymphocytes 1.2 thou/uL (1.20-3.40); #Monocytes 0.3 thou/uL (0.11-0.59); #Neutrophils 3.8 thou/uL (1.40-6.50); %Basophils 0.7 % (0.0-1.0); %Eosinophils 2.7 % (0.0-10.0); %Lymphocytes 21.6 % (21.0-51.0); Hemoglobin 10.7 g/dL (12.0-16.0); Mean Corpuscular HGB CONC 33.8 g/dL (32.0-36.0); Mean Corpuscular Hemoglobin 31.6 pg (27.0-31.0); Mean Corpuscular Volume 93.6 fL (78.0-98.0); Mean Platelet Volume 9.7 fL (7.4-10.4); Platelet Count 224 thou/uL (130-400); RBC Distribution Width 13.5 % (11.5-14.5); White Blood Cell (WBC) Count 5.5 thou/uL (4.8-10.8)
[2020-09-02] MEDS ORDERED: Nitroglycerin 2% Ointment 1 INCH/1 GM Packet ONE (00:29)
[2020-09-02 01:33] LABS: Albumin 4.3 g/dL (3.4-4.8)
[2020-09-02 01:34] LABS: Chloride 103 mmol/L (98-107); Sodium 139 mmol/L (136-145)
[2020-09-02 01:35] LABS: Calcium 9.6 mg/dL (7.8-10.44); Globulin 3.6 g/dL (2.4-3.5); Glucose 94 mg/dL (80-115); Protein, Total 7.9 g/dL (6.0-8.3)
[2020-09-02 01:37] LABS: Anion Gap 24 mmol/L (10-20); Bilirubin, Total 0.9 mg/dL (0.2-1.2); Carbon Dioxide 18 mmol/L (23-31)
[2020-09-02 01:38] LABS: Alkaline Phosphatase 80 U/L (40-110)
[2020-09-02 01:39] LABS: Calc. Creatinine Clearance 0 mL/min (70-130); Estimated GFR-MDRD 5
[2020-09-02 01:40] LABS: AST (SGOT) 124 U/L (5-34); BUN (Urea Nitrogen) 83 mg/dL (9.8-20.1)
[2020-09-02 01:41] LABS: ALT (SGPT) 106 U/L (8-55)
[2020-09-02] MEDS ORDERED: Dextrose 50% Abboject 50 ML SYRINGE ONE (01:56)
[2020-09-02] MEDS ORDERED: Sodium Bicarb 50 MEQ/50 ML Abboject 8.4% SYRINGE ONE (01:56)
[2020-09-02] MEDS ORDERED: Calcium Chloride 1 GM/10 ML Abboject SYRINGE ONE (01:56)
[2020-09-02] MEDS ORDERED: Insulin Regular 300 UNITS/3 ML VIAL ONE (01:56)
--- NOTE | 2020-09-02 01:59 | PDOC.FPRHP ---
- History of Present Illness Chief Complaint: Shortness of Breath History of Present Illness: Patient is a 70 yo ESRD patient that presents with dyspnea. She is on dialysis and was switched to /Sunday 11/05 the Holiday. She was unable to make her Wednesday dialysis appointment. She reports she started getting SOB worse last night. She has SOB most days but got worse last night. Reports some sweating and fatigue. Endorses chest tightness. Decreased appetite the last 2 days. Reports back pain and soreness that started about 1 week ago. Denies NVD, fever. Reports chills, chronic cough. She reports feeling more weak. Uses a walker. Reports has to sleep with many pillows stacked behind her when she sleeps. ED Course: 1 amp sodium bicarb, 1 amp D50, 10 u Humulin R, 1 amp CaCl, 1 inch nitro paste - Allergies/Adverse Reactions Allergies Allergy/AdvReac Type Severity Reaction Status Date / Time lisinopril Allergy Severe Swollen Verified 12/23/19 00:51 Lips clonidine Allergy Verified 12/23/19 00:51 tramadol Allergy Nausea Verified 12/23/19 00:51 - Home Medications Medication Instructions Recorded Confirmed Type Aspirin [Ecotrin Low Strength] 81 mg PO DAILY 02/10/16 11/23/19 History Acetaminophen [Mapap] 500 mg PO Q6HR PRN 02/23/19 11/23/19 History Nitroglycerin [Nitrostat] 0.4 mg SL Q5MIN PRN 02/23/19 11/23/19 History Allopurinol [Zyloprim] 100 mg PO DAILY tablet 03/17/19 11/23/19 Rx Diltiazem HCl [Cardizem] 60 mg PO TID 04/10/19 11/23/19 History Lactulose 30 ml PO DAILYPRN PRN 04/10/19 11/23/19 History hydrALAZINE [Apresoline] 100 mg PO TID 04/10/19 11/23/19 History Albuterol Sulfate HFA (OR) 2 puff INH Q4H #1 inh 08/15/19 11/23/19 Rx [Proventil Hfa (or)] Dronedarone HCl [Multaq] 400 mg PO BID-WM 11/23/19 11/23/19 History Loratadine 5 mg PO DAILY PRN 11/23/19 11/23/19 History Metoprolol Succinate [Toprol XL] 25 mg PO DAILY #30 tab 11/26/19 Rx - History PMHx: ESRD on HD, gout, CHF PSHx: shunt to R arm, tubal ligation, b/l cataracts, hysterectomy FHx: mother - HTN, breast cancer Social: denies alcohol, drug use. Dips tobacco - about 3-4 dips/day, takes about 2-3 weeks to get through a can. - Review of Systems General: reports: fever/chills, weight/appetite/sleep changes, fatigue. denies: night sweats Eyes: denies: vision changes ENT: reports: nasal congestion. denies: rhinorrhea Respiratory: reports: cough, shortness of breath, exercise intolerance. denies: congestion Cardiovascular: reports: chest pain, paroxysmal nocturnal dyspnea, orthopnea. denies: palpitation, edema Gastrointestinal: reports: constipation. denies: nausea, vomiting, diarrhea, abdominal pain Genitourinary: denies: dysuria, polyuria Skin: denies: rashes Musculoskeletal: reports: pain (back). denies: tenderness, stiffness, swelling Neurological: reports: weakness - Vital signs BP: 183/97, Pulse: 77, Resp: 14, Pain: 4, O2 sat: 97 on (Room Air), Time: 09/02/2020 00:30. Wt 82 kg - Physical Exam Constitutional: NAD, awake, alert and oriented HEENT: normocephalic and atraumatic, PERRLA, EOMI, grossly normal vision, grossly normal hearing, MMM Neck: supple, FROM, trachea midline Chest: no-tender to palpation Heart: RRR, normal S1/S2, no murmurs/rubs/gallops, pulses present Lungs: no respiratory distress, good air movement, no retractions -Lungs: Bibasilar crackles, R>L Abdomen: soft, bowel sounds present -Abdomen: mild epigastric tenderness -Musculoskeletal: fistula R arm Neurological: no focal deficit Skin: no rash/lesions, good turgor, capillary refill <2 seconds Psychiatric: normal mood and affect FMR H&P: Results - Labs Result Diagrams: 09/01/20 23:36 09/02/20 01:10 Lab results: WBC 5.5 thou/uL (4.8-10.8) 09/01/20 23:36 Hgb 10.7 g/dL (12.0-16.0) L 09/01/20 23:36 Hct 31.8 % (36.0-47.0) L 09/01/20 23:36 MCV 93.6 fL (78.0-98.0) 09/01/20 23:36 Plt Count 224 thou/uL (130-400) 09/01/20 23:36 Neutrophils % 70.0 % (42.0-75.0) 09/01/20 23:36 Sodium 139 mmol/L (136-145) 09/02/20 01:10 Potassium 6.0 mmol/L (3.5-5.1) H 09/02/20 01:10 Chloride 103 mmol/L (98-107) 09/02/20 01:10 Carbon Dioxide 18 mmol/L (23-31) L 09/02/20 01:10 BUN 83 mg/dL (9.8-20.1) H 09/02/20 01:10 Creatinine 9.58 mg/dL (0.6-1.1) H 09/02/20 01:10 Glucose 94 mg/dL (80-115) 09/02/20 01:10 Calcium 9.6 mg/dL (7.8-10.44) 09/02/20 01:10 Total Bilirubin 0.9 mg/dL (0.2-1.2) 09/02/20 01:10 AST 124 U/L (5-34) H 09/02/20 01:10 ALT 106 U/L (8-55) H 09/02/20 01:10 Alkaline Phosphatase 80 U/L (40-110) 09/02/20 01:10 B-Natriuretic Peptide 7153.2 pg/mL (0-100) H 09/01/20 23:36 Serum Total Protein 7.9 g/dL (6.0-8.3) 09/02/20 01:10 Albumin 4.3 g/dL (3.4-4.8) 09/02/20 01:10 - EKG Interpretation EKG: NSR, no peaked T waves - Radiology Interpretation Chest x-ray Status: report reviewed by me (cardiomegaly and pulm vasc congestion) FMR H&P: A/P - Problem List (1) Hyperkalemia Current Visit: No Status: Acute Code(s): E87.5 - HYPERKALEMIA (2) SOB (shortness of breath) Current Visit: No Status: Acute Code(s): R06.02 - SHORTNESS OF BREATH (3) Anemia of renal disease Current Visit: No Status: Chronic Code(s): N18.9 - CHRONIC KIDNEY DISEASE, UNSPECIFIED; D63.1 - ANEMIA IN CHRONIC KIDNEY DISEASE (4) ESRD on hemodialysis Current Visit: No Status: Chronic Code(s): N18.6 - END STAGE RENAL DISEASE; Z99.2 - DEPENDENCE ON RENAL DIALYSIS (5) HTN (hypertension) Current Visit: No Status: Chronic Code(s): I10 - ESSENTIAL (PRIMARY) HYPERTENSION Qualifiers: - Plan Hyperkalemia - s/p Na bicard, Insulin/D5 in ED - Monitor with repeat BMP - EKG showed no changes - Nephrology aware, plans for urgent dialysis - Lasix 40 mg IV ESRD - dialysis as above HTN - Patient did not take medications yesterday - Restart home medications - continue to monitor HFpEF - EF 50-55% with tricuspid regurgitation and dilated LA in ECHO from 2019 - BNP >7000, elevated from normal - Repeat ECHO Transaminitis - Likely 2/2 fluid overload, continue to monitor - CMP post dialysis Anemia - Stable, likely 2/2 CKD Back Pain - Heating pad, tylenol DVT ppx: heparin GI ppx: pepcid Diet: renal Code: Full PCP: DOUGIE Powell Dispo: Admit to tele obs, los likely < 48 hrs FMR H&P: Upper Level - Plan Date/Time: 09/02/20 0157 IRanda MD, have evaluated this patient and agree with findings/plan as outlined by continuous improvement intern resident. Pertinent changes/additions are listed here. This is a 70yo F with hx of CHF, ESRD on HD who presents to the ER with a CC of SOB. She goes to dialysis MWF but was rescheduled to Sat due to the holiday but she missed that appointment. Her last dialysis was Wed. She started to feel more SOB than usual last night and it worsened throughout the day. She reports a chronic cough, constipation. Reports having to sleep with multiple pillows behind her head. Endorses chills, denies fever. Patient reports she still does make urine, no changes with urination, denies dysuria. Patient previously seen by [facility] but recently changed clinics to [facility]. Her VS showed HTN. Other VS wnl. Her PE is significant for an older than stated age. She had crackles on the RLL>LLL. Trace edema in LE. Otherwise normal exam. CXR showed cardiomegaly and pulm vas congestion. BNP elevated. K of 6. She was given bicarb, calcium, insulin in the ER. Will admit patient to tele, obs for fluid overload 2/2 missed dialysis. Nephro consulted from the ER for dialysis. Will monitor on tele due to elevated K and will repeat labs in 4-6hrs. Hx of CHF, echo in 08/2019 showing normal EF, but TR. Will get echo due to elevated BNP and cardiomegaly on CXR. Will give dose of lasix. Transaminitis - likely due to fluid overload, will monitor for now. Anemia due to CKD - stable. For her back pain can give heating pad and tylenol. Will continue her chronic meds. Dispo: admit to tele, obs <48hrs Diet: CC, fluid restrict Code: FULL PCP: [facility] Case to be discussed with Dr. Salinas in the AM.
[2020-09-02] MEDS ORDERED: Bisacodyl 10 MG SUPP PR PRN (02:32)
[2020-09-02] MEDS ORDERED: Acetaminophen 650 MG Suppository PR PRN (02:32)
[2020-09-02] MEDS ORDERED: Bisacodyl 5 MG TAB PO PRN (02:32)
[2020-09-02] MEDS ORDERED: Senokot S 8.6-50 MG TAB PO PRN (02:32)
[2020-09-02] MEDS ORDERED: Calcium Carbonate 500 MG ChewTAB PO PRN (02:32)
[2020-09-02] MEDS ORDERED: Acetaminophen 500 MG TAB ONE (02:53)
[2020-09-02] MEDS ORDERED: Furosemide 40 MG/4 ML VIAL SLOW IVP SCH (03:00)
[2020-09-02] MEDS ORDERED: hydrALAZINE 25 MG TAB ONE (03:11)
[2020-09-02] MEDS ORDERED: Furosemide 40 MG/4 ML VIAL ONE (05:01)
[2020-09-02 05:10] VITALS: BMI 27.1
[2020-09-02 05:57] LABS: #Eosinphils 0.1 thou/uL (0.0-0.7); #Lymphocytes 0.8 thou/uL (1.20-3.40); #Monocytes 0.6 thou/uL (0.11-0.59); #Neutrophils 5.2 thou/uL (1.40-6.50); %Basophils 0.3 % (0.0-1.0); %Eosinophils 1.3 % (0.0-10.0); %Lymphocytes 12.4 % (21.0-51.0); %Monocytes 8.2 % (0.0-10.0); %Neutrophils 77.8 % (42.0-75.0); Hemoglobin 8.8 g/dL (12.0-16.0); Mean Corpuscular HGB CONC 33.3 g/dL (32.0-36.0); Mean Corpuscular Hemoglobin 31.1 pg (27.0-31.0); Mean Corpuscular Volume 93.2 fL (78.0-98.0); Mean Platelet Volume 8.9 fL (7.4-10.4); Platelet Count 202 thou/uL (130-400); RBC Distribution Width 13.1 % (11.5-14.5); Red Blood Cell (RBC) Count 2.84 mill/uL (4.20-5.40); White Blood Cell (WBC) Count 6.6 thou/uL (4.8-10.8)
--- NOTE | 2020-09-02 06:07 | PDOC.FM ---
- Objective Vital Signs & Weight: Weight Weight 67.2 kg Result Diagrams: 09/02/20 05:16 09/02/20 01:10 Dx/Plan - Plan Plan: Hyperkalemia - s/p Na bicard, Insulin/D5 in ED - Monitor with repeat BMP - EKG showed no changes - Nephrology aware, plans for urgent dialysis - Lasix 40 mg IV ESRD - dialysis as above HTN - Patient did not take medications yesterday - Restart home medications - continue to monitor HFpEF - EF 50-55% with tricuspid regurgitation and dilated LA in ECHO from 2019 - BNP >7000, elevated from normal - Repeat ECHO Transaminitis - Likely 2/2 fluid overload, continue to monitor - CMP post dialysis Anemia - Stable, likely 2/2 CKD Back Pain - Heating pad, tylenol DVT ppx: heparin GI ppx: pepcid Diet: renal Code: Full PCP: DOUGIE Powell Dispo: Admit to tele obs, los likely < 48 hrs
[2020-09-02 06:16] LABS: ALT (SGPT) 138 U/L (8-55); AST (SGOT) 168 U/L (5-34); Alkaline Phosphatase 71 U/L (40-110); Anion Gap 20 mmol/L (10-20); BUN (Urea Nitrogen) 85 mg/dL (9.8-20.1); Bilirubin, Total 0.7 mg/dL (0.2-1.2); Calc. Creatinine Clearance 6 mL/min (70-130); Calcium 10.3 mg/dL (7.8-10.44); Carbon Dioxide 22 mmol/L (23-31); Chloride 103 mmol/L (98-107); Estimated GFR-MDRD 5; Globulin 3.4 g/dL (2.4-3.5); Potassium 4.9 mmol/L (3.5-5.1); Protein, Total 7.4 g/dL (6.0-8.3); Sodium 140 mmol/L (136-145)
[2020-09-02 06:33] LABS: Glucose 51 mg/dL (80-115)
[2020-09-02] MEDS ORDERED: Famotidine 20 MG TAB ONE (08:10)
[2020-09-02] MEDS ORDERED: Heparin 10,000 UNITS/ 10 ML VIAL ONE (08:10)
[2020-09-02 08:50] LABS: SARS-CoV-2 MS2 Positive; SARS-CoV-2 N Gene Negative; SARS-CoV-2 S Gene Negative; SARS-CoV-2 by NAA Not Detected (NotDetected); SARS-CoV-2 orf1ab Negative
[2020-09-02] MEDS ORDERED: EPOETIN ALFA-EPBX (ESRD) 10,000 UNIT/ML VIAL IVP SCH (10:00)
--- NOTE | 2020-09-02 10:27 | CON ---
DATE OF CONSULTATION: 09/02/2020 CONSULTING PHYSICIAN: Dr. Tamayo. REASON FOR CONSULTATION: End-stage renal disease evaluation. REASON FOR ADMISSION: Shortness of breath. HISTORY OF PRESENT ILLNESS: A 70-year-old female with history of end-stage renal disease, coronary artery disease, CHF, came to the hospital with shortness of breath. The patient missed dialysis at the end of last week and started having shortness of breath, came to the hospital. No fever or chills. No nausea or vomiting. She was tested negative for COVID. PAST MEDICAL HISTORY: Positive for end-stage renal disease, on hemodialysis; gout; hypertension. PAST SURGICAL HISTORY: Dialysis access placement, hysterectomy, cataract surgery, tubal ligation. HOME MEDICATIONS: Reviewed. ALLERGIES: LISINOPRIL, CLONIDINE, TRAMADOL. SOCIAL HISTORY: No smoking, alcohol, or illicit drugs. FAMILY HISTORY: No history of kidney disease. REVIEW OF SYSTEMS: The following complete review of systems was negative, unless otherwise mentioned in the HPI or below: CONSTITUTIONAL: Weight loss or gain, ability to conduct usual activities. SKIN: Rash, itching. EYES: Double vision, pain. ENT/MOUTH: Nose bleeding, neck stiffness, pain, tenderness. CARDIOVASCULAR: Palpitations, dyspnea on exertion, orthopnea. RESPIRATORY: Shortness of breath, wheezing, cough, hemoptysis, fever or night sweats. GASTROINTESTINAL: Poor appetite, abdominal pain, heartburn, nausea, vomiting, constipation, or diarrhea. GENITOURINARY: Urgency, frequency, dysuria, nocturia. MUSCULOSKELETAL: Pain, swelling. NEUROLOGIC/PSYCHIATRIC: Anxiety, depression. ALLERGY/IMMUNOLOGIC: Skin rash, bleeding tendency. PHYSICAL EXAMINATION: GENERAL: This is a well-built female, in no apparent distress. VITAL SIGNS: Reviewed. HEENT: Atraumatic, normocephalic. Oral mucosa is moist. NECK: Supple. CARDIOVASCULAR: S1 and S2. Rate and rhythm regular. RESPIRATORY: Clear. GASTROINTESTINAL: Abdomen is soft. MUSCULOSKELETAL: No tenderness. No edema. DERMATOLOGIC: No skin rash. NEUROLOGIC: Alert and awake. PSYCHIATRIC: Normal mood and affect. LABORATORY DATA: Hemoglobin 8.8. Potassium 4.9, BUN is 85, creatinine is 9.6. ASSESSMENT AND PLAN: 1. End-stage renal disease. Plan to have emergent dialysis. Dialysis as tolerated. 2. Hyperkalemia. Potassium was 6, but down to 4.9 with medical management. She will have dialysis. 3. Edema. 4. Hypertension. 5. Anemia of chronic disease. We will add Epogen. Continue dialysis as tolerated. The patient is seen during dialysis and tolerating well. Job ID: [id number]
--- NOTE | 2020-09-02 10:46 | PRG ---
DATE OF SERVICE: 09/02/2020 Ms. Marcos is a pleasant 70-year-old black female patient with end-stage renal disease. She had been scheduled for dialysis on Wednesday, but was unable to keep her appointment. Over the weekend, she became progressively more short of breath and presented to our ER. She was shortly thereafter taken back for dialysis, which is where I saw her this morning. She is currently moderately to mildly short of breath, says she is feeling better and is undergoing dialysis. She was also treated earlier for hyperkalemia, dropping it from [address] Guy has already seen the patient. She can likely be discharged after dialysis. Job ID: [id number]
[2020-09-02 11:37] LABS: HBSAg Index 0.11 S/CO (0-0.99); Hep A IgM AB Non-Reactive (NonReactive); Hep A IgM S/CO 0.16 S/CO (0-0.79); Hep B Surf Ag Non-Reactive S/CO (NonReactive); Hep C IgG Ab Non-Reactive (NonReactive); Hep C Index 0.07 S/CO (0-0.79)
[2020-09-02] MEDS: Heparin 5,000 UNITS/ML VIAL SC SCH ×3 (13:49→20:58)
[2020-09-02] MEDS: Famotidine 20 MG TAB PO SCH (13:49)
[2020-09-02] MEDS: hydrALAZINE 25 MG TAB PO SCH ×2 (13:57→20:57)
[2020-09-02] MEDS: Acetaminophen 325 MG TAB PO PRN ×2 (15:11→20:57)
--- NOTE | 2020-09-02 15:20 | ULT ---
US Gallbladder RUQ: 09/02/2020 2:15 PM CLINICAL HISTORY: Transaminitis. STUDY: Limited right upper quadrant ultrasound of abdomen. COMPARISON: CT abdomen/pelvis 03/23/2016 FINDINGS: Liver: Size: Normal. Echogenicity: Normal. Contour: Smooth. Mass: None. Bile ducts: No intrahepatic or extrahepatic biliary dilatation. Common bile duct measures 4 mm. Gallbladder: Normal. There may be a trace amount of sludge in the gallbladder. Pancreas: Head, body, and tail appear normal. Right kidney: No pelvicalyceal dilatation. A 1.2 cm cyst is seen in the right kidney. Right kidney me asuring 6.1 cm in length. IMPRESSION: Atrophic right kidney containing a cyst
[2020-09-02] MEDS: Dronedarone HCl 400 MG TAB PO SCH (16:56)
[2020-09-03 04:48] LABS: #Eosinphils 0.2 thou/uL (0.0-0.7); #Lymphocytes 1.2 thou/uL (1.20-3.40); #Monocytes 0.4 thou/uL (0.11-0.59); #Neutrophils 2.7 thou/uL (1.40-6.50); %Basophils 0.2 % (0.0-1.0); %Lymphocytes 25.9 % (21.0-51.0); %Monocytes 8.9 % (0.0-10.0); Hemoglobin 9.2 g/dL (12.0-16.0); Mean Corpuscular HGB CONC 32.5 g/dL (32.0-36.0); Mean Corpuscular Volume 95.4 fL (78.0-98.0); Mean Platelet Volume 8.8 fL (7.4-10.4); Platelet Count 210 thou/uL (130-400); RBC Distribution Width 13.1 % (11.5-14.5); Red Blood Cell (RBC) Count 2.95 mill/uL (4.20-5.40); White Blood Cell (WBC) Count 4.6 thou/uL (4.8-10.8)
[2020-09-03 05:18] LABS: ALT (SGPT) 144 U/L (8-55); AST (SGOT) 100 U/L (5-34); Albumin 3.5 g/dL (3.4-4.8); Alkaline Phosphatase 72 U/L (40-110); Anion Gap 17 mmol/L (10-20); BUN (Urea Nitrogen) 40 mg/dL (9.8-20.1); Bilirubin, Total 0.5 mg/dL (0.2-1.2); Calc. Creatinine Clearance 10 mL/min (70-130); Calcium 8.9 mg/dL (7.8-10.44); Carbon Dioxide 25 mmol/L (23-31); Chloride 102 mmol/L (98-107); Estimated GFR-MDRD 9; Globulin 3.3 g/dL (2.4-3.5); Glucose 81 mg/dL (80-115); Potassium 4.2 mmol/L (3.5-5.1); Protein, Total 6.8 g/dL (6.0-8.3); Sodium 140 mmol/L (136-145)
--- NOTE | 2020-09-03 07:18 | PDOC.FM ---
- Subjective Subjective: Patient reports she is feeling much better this morning. She does report she is feeling short of breath but that is not new for her. She often feels short of breath at home and has asked her PCP about if she needs oxygen at home or not. - Objective Vital Signs & Weight: Vital Signs (12 hours) Temp Pulse Resp BP BP Pulse Ox 09/03/20 07:09 98.3 F 70 18 168/75 H 95 09/03/20 03:45 98.5 F 69 16 147/65 H 96 09/02/20 20:57 80 131/60 09/02/20 20:20 99.4 F 80 22 H 131/60 97 Weight Weight 58.513 kg I&O: 09/02/20 09/03/20 09/04/20 06:59 06:59 06:59 Intake Total 800 Output Total 130 Balance 670 Result Diagrams: 09/03/20 04:31 09/03/20 04:31 EKG Reviewed by me: Yes (tele: Afib, Aflutter - converted to SR at 1500) Phys Exam - Physical Examination Constitutional: NAD HEENT: moist MMs, sclera anicteric Neck: no nodes, full ROM Respiratory: no wheezing, clear to auscultation bilateral Cardiovascular: RRR, no significant murmur Gastrointestinal: soft, non-tender, no distention Musculoskeletal: no edema, pulses present Neurological: moves all 4 limbs Psychiatric: normal affect, A&O x 3 Skin: no rash Dx/Plan - Plan Plan: Hyperkalemia, resolved - received Na bicard, Insulin/D5 in ED - 4.2 this AM, s/p dialysis yesterday ESRD - Nephrology consult - received dialysis yesterday HTN - Continue home medications HFpEF - EF 50-55% with tricuspid regurgitation and dilated LA in ECHO from 2019 - BNP >7000, elevated from normal - Repeat ECHO pending - Dyspnea may be due to patients HF history and may be chronic. Consider evaluating for home oxygen Transaminitis, improved - AST 124, 168, 100 - ALT 106, 138, 144 - Suspected due to fluid overload. Has improved post-dialysis though not back to baseline - Hep A, B, C negative. HIV negative. RPR negative Anemia - Stable, likely 2/2 CKD Back Pain - Heating pad, tylenol DVT ppx: heparin GI ppx: pepcid Diet: renal Code: Full PCP: DOUGIE Powell Dispo: Patient likely to be discharged today. Will review ECHO results and try to wean oxygen. May consider patient using home oxygen as she reports chronic dyspnea. Addendum - Attending - Attending Attestation Date/Time: 09/03/20 1037 I personally evaluated the patient and discussed the management with Dr. Kenney. I agree with the History, Examination, Assessment and Plan documented above with any addition or exceptions noted below. Still short of breath but no cp. Fatigued. No fever,chills. Bibasilar crackles. Will need additional dialysis. RUQ sono and TTE to eval lab abnormalities.
[2020-09-03] MEDS: Famotidine 20 MG TAB PO SCH (08:08)
[2020-09-03] MEDS: Heparin 5,000 UNITS/ML VIAL SC SCH (08:09)
[2020-09-03] MEDS: hydrALAZINE 25 MG TAB PO SCH ×2 (08:09→15:09)
[2020-09-03] MEDS: Dronedarone HCl 400 MG TAB PO SCH (08:09)
[2020-09-03] MEDS ORDERED: FLU VACC QS2020-21(65YR UP)/PF 240 MCG/0.7 ML SYRINGE IM ONE (09:00)
[2020-09-03] MEDS ORDERED: Allopurinol 100 MG TAB PO SCH (09:00)
[2020-09-03] MEDS ORDERED: Aspirin 81 mg Enteric Coated Tablet PO SCH (09:00)
--- NOTE | 2020-09-03 09:40 | PRG ---
DATE OF SERVICE: 09/03/2020 SUBJECTIVE: Patient was seen and examined at bedside and overnight events noted. No chest pain or palpitation. No history of nausea or vomiting or diarrhea or fever or chills or cramps. The patient complains of mild shortness of breath. OBJECTIVE: General: This is a well-built female, in no apparent distress. Vital Signs: Temperature 98.3. Heart Rate 71. Respiratory rate 18. Blood pressure 168/75. HEENT: Atraumatic, normocephalic. Oral mucosa is moist. Neck: Supple. Cardiovascular: S1, S2 heard. Rate and rhythm regular. Respiratory: Clear to auscultation. Gastrointestinal: Abdomen is soft. Musculoskeletal: No tenderness. No edema. Dermatologic: No skin rash. Neurologic: Alert and awake and oriented x3. No focal neurologic deficits. Moving all the extremities. Psychiatric: Mood and affect normal. LABORATORY DATA: Potassium 4.2, BUN is 40, creatinine is 5.9. ASSESSMENT AND PLAN: 1. End-stage renal disease. Plan to have dialysis today for 2 hours for ultrafiltration only. The patient still seems fluid overloaded. 2. Fluid overload. We will have extra dialysis today. 3. Hyperkalemia, better. 4. Edema. 5. Hypertension. 6. Anemia of chronic disease. Plan to have an extra session of dialysis for 2 hours for ultrafiltration. The patient was advised to limit salt and fluid intake. We will follow. Job ID: [id number]
[2020-09-03 13:48] VITALS: TEMP 98.6
[2020-09-03 15:08] VITALS: BP 150/66
--- NOTE | 2020-09-04 12:44 | DIS ---
DATE OF ADMISSION: 09/01/2020 DATE OF DISCHARGE: 09/03/2020 RESIDENT: Iván Kenney MD ADMITTING ATTENDING: Nikita Mojica MD CONSULT: Nephrology, Dr. Guy. PROCEDURES: 1. Chest x-ray revealed cardiomegaly and pulmonary vascular congestion suggesting congestive failure/volume overload with small right pleural fluid suspected. 2. Abdominal ultrasound revealed atrophic right kidney containing a cyst. 3. Echocardiogram revealed ejection fraction 50% to 55%, mildly increased left ventricle size, moderately dilated left atrium, moderate mitral regurgitation, sclerotic aortic valve, moderate aortic regurgitation, moderate to severe tricuspid regurgitation, and moderate pulmonic regurgitation. PRIMARY DIAGNOSES: 1. Hyperkalemia. 2. End-stage renal disease. 3. Heart failure with preserved ejection fraction. SECONDARY DIAGNOSES: 1. Hypertension. 2. Transaminitis. 3. Anemia. 4. Back pain. DISCHARGE MEDICATIONS: 1. Aspirin 81 mg daily. 2. Nitrostat 0.4 mg p.r.n. 3. Tylenol 500 mg p.r.n. 4. Allopurinol 100 mg daily. 5. Diltiazem 60 mg p.o. t.i.d. 6. Hydralazine 100 mg p.o. t.i.d. 7. Lactulose 30 mg daily p.r.n. 8. Albuterol 2 puffs inhaler every 4 hours. 9. Multaq 400 mg b.i.d. with meals. 10. Loratadine 5 mg p.o. daily p.r.n. 11. Metoprolol 25 mg p.o. daily. DISCONTINUED MEDICATIONS: None. HISTORY OF PRESENT ILLNESS AND HOSPITAL COURSE: Ms. Marcos is a 70-year-old end-stage renal disease patient, on hemodialysis, who presented complaining of dyspnea. She typically has dialysis Wednesday, Wednesday, Wednesday and was switched to Wednesday secondary to the holiday but was unable to make the appointment. She reports she started getting short of breath the night before admission. She was short of breath most days, but it was worse. Reports some swelling and fatigue. Endorses chest tightness and decreased appetite the last two days. Patient also reports back pain and soreness that started about a week ago. She denied nausea, vomiting, diarrhea, or fever and reported chills and a chronic cough. On admission, patient's potassium was found to be 6.0 and creatinine was 9.58. Nephrology was consulted and planned for urgent dialysis. Patient received dialysis the day of admission and potassium improved to 4.9 and 4.2 before discharge. Creatinine improved to 5.91. Patient received a second dose of dialysis the following day, that was only 2 hours long for ultrafiltration as patient was still volume overloaded. Of note, patient does not use oxygen at home but complaints of increasing shortness of breath, especially when lying flat, this is most likely due to her heart failure. Patient used oxygen during hospitalization but was weaned down to room air and tolerated that well. Patient was discharged on a Wednesday and encouraged to make sure she went to dialysis the following Wednesday. DISPOSITION: Stable. DISCHARGE INSTRUCTIONS: 1. Location: Home. 2. Diet: Heart healthy. 3. Activity: As tolerated. 4. Follow up with PCP in one week. Job ID: [id number] MTDD
== END 2020-09-03 15:50 | disposition home or self-care (01) ==
LOC: ERS 23:05 → ERHOLD 09-02 01:56 → 2NO 09-02 13:49
PROVIDERS: ADMIT Family Medicine; ATTEND Family Medicine
DX: I13.2 Hypertensive heart and chronic kidney disease with heart failure and with stage 5 chronic kidney disease, or end stage renal disease (principal); N18.6 End stage renal disease; I50.30 Unspecified diastolic (congestive) heart failure; D63.1 Anemia in chronic kidney disease; E87.5 Hyperkalemia; E87.70 Fluid overload, unspecified; M10.9 Gout, unspecified; F17.220 Nicotine dependence, chewing tobacco, uncomplicated; R74.01 Elevation of levels of liver transaminase levels; M54.9 Dorsalgia, unspecified; F41.9 Anxiety disorder, unspecified; F32.9 Major depressive disorder, single episode, unspecified; I25.10 Atherosclerotic heart disease of native coronary artery without angina pectoris; I08.3 Combined rheumatic disorders of mitral, aortic and tricuspid valves; Z79.82 Long term (current) use of aspirin; Z79.899 Other long term (current) drug therapy; Z88.5 Allergy status to narcotic agent; Z88.8 Allergy status to other drugs, medicaments and biological substances; Z99.2 Dependence on renal dialysis; Z20.828 Contact with and (suspected) exposure to other viral communicable diseases
CPT/HCPCS: 71045; 76705; 80053 ×3; 82962; 83880; 84145 ×2; 84484; 85025 ×3; 86707; 86709; 86803; 87340; 93005; 93306; 94760; Q5105; U0003; 36415; 36416; 87635; 96375; G0378; J1644; J1815; J1940

== ENCOUNTER 2020-09-04 04:33 | Emergency (ER) | payer MEDICARE, OTHER ==
[2020-09-04 05:15] LABS: #Eosinphils 0.2 thou/uL (0.0-0.7); #Lymphocytes 1.3 thou/uL (1.20-3.40); #Monocytes 0.7 thou/uL (0.11-0.59); #Neutrophils 3.3 thou/uL (1.40-6.50); %Basophils 0.8 % (0.0-1.0); %Eosinophils 4.4 % (0.0-10.0); %Lymphocytes 23.8 % (21.0-51.0); %Monocytes 11.7 % (0.0-10.0); %Neutrophils 59.3 % (42.0-75.0); Hemoglobin 10.4 g/dL (12.0-16.0); Mean Corpuscular HGB CONC 32.8 g/dL (32.0-36.0); Mean Corpuscular Hemoglobin 31.2 pg (27.0-31.0); Mean Corpuscular Volume 95.1 fL (78.0-98.0); Mean Platelet Volume 8.7 fL (7.4-10.4); Platelet Count 240 thou/uL (130-400); RBC Distribution Width 13.3 % (11.5-14.5); Red Blood Cell (RBC) Count 3.32 mill/uL (4.20-5.40); White Blood Cell (WBC) Count 5.6 thou/uL (4.8-10.8)
[2020-09-04 05:27] LABS: ALT (SGPT) 162 U/L (8-55); AST (SGOT) 86 U/L (5-34); Albumin 4.1 g/dL (3.4-4.8); Alkaline Phosphatase 73 U/L (40-110); Anion Gap 22 mmol/L (10-20); BUN (Urea Nitrogen) 54 mg/dL (9.8-20.1); Bilirubin, Total 0.4 mg/dL (0.2-1.2); Calc. Creatinine Clearance 0 mL/min (70-130); Calcium 9.6 mg/dL (7.8-10.44); Carbon Dioxide 20 mmol/L (23-31); Chloride 101 mmol/L (98-107); Estimated GFR-MDRD 6; Globulin 3.3 g/dL (2.4-3.5); Glucose 78 mg/dL (80-115); Protein, Total 7.4 g/dL (6.0-8.3); Sodium 139 mmol/L (136-145)
--- NOTE | 2020-09-04 07:59 | RAD ---
PORTABLE CHEST: HISTORY: Dyspnea. COMPARISON: 09/01/2020. FINDINGS: Cardiomegaly. No infiltrate or vascular congestion. No effusion. IMPRESSION: No acute lung process. POS: AGW
--- NOTE | 2020-09-07 12:44 | EKG ---
Test Reason : Blood Pressure : / mmHG Vent. Rate : 070 BPM Atrial Rate : 258 BPM P-R Int : 000 ms QRS Dur : 096 ms QT Int : 530 ms P-R-T Axes : 000 -26 -69 degrees QTc Int : 572 ms Atrial flutter with variable A-V block Minimal voltage criteria for LVH, may be normal variant Nonspecific ST and T wave abnormality Prolonged QT Abnormal ECG Confirmed by NELSON DIAZ ([id number]), purchasing expeditor ELAINA KERR ([id number]) on 09/07/2020 12:44:03 PM Referred By: Confirmed By:NELSON DIAZ
== END 2020-09-04 06:24 | disposition home or self-care (01) ==
LOC: ERS 04:33
DX: I13.2 Hypertensive heart and chronic kidney disease with heart failure and with stage 5 chronic kidney disease, or end stage renal disease (principal); I50.9 Heart failure, unspecified; N18.6 End stage renal disease; M10.9 Gout, unspecified; F17.220 Nicotine dependence, chewing tobacco, uncomplicated; Z79.82 Long term (current) use of aspirin; Z79.899 Other long term (current) drug therapy
CPT/HCPCS: 36415; 71045; 80053; 83880; 84484; 85025; 93005

== ENCOUNTER 2020-10-15 19:07 | Emergency (ER) | payer MEDICARE, OTHER | END 2020-10-15 23:29 | disposition home or self-care (01) | LOC: ERS 19:07 | DX: I13.2 Hypertensive heart and chronic kidney disease with heart failure and with stage 5 chronic kidney disease, or end stage renal disease (principal); N18.6 End stage renal disease; I50.9 Heart failure, unspecified; E87.70 Fluid overload, unspecified; E87.5 Hyperkalemia; M10.9 Gout, unspecified; F17.200 Nicotine dependence, unspecified, uncomplicated; F17.290 Nicotine dependence, other tobacco product, uncomplicated; Z79.899 Other long term (current) drug therapy; Z99.2 Dependence on renal dialysis; Z79.82 Long term (current) use of aspirin | CPT/HCPCS: 90935; 99284; G0257 ==

== ENCOUNTER 2021-05-03 03:22 | Inpatient (IN) | payer MEDICARE, OTHER ==
[2021-05-03 04:38] LABS: Hemoglobin 9.9 g/dL (12.0-16.0); Mean Corpuscular HGB CONC 33.2 g/dL (32.0-36.0); Mean Corpuscular Volume 93.4 fL (78.0-98.0); RBC Distribution Width 13.3 % (11.5-14.5); Red Blood Cell (RBC) Count 3.19 mill/uL (4.20-5.40); White Blood Cell (WBC) Count 3.1 thou/uL (4.8-10.8)
[2021-05-03 04:49] LABS: ALT (SGPT) 9 U/L (8-55); AST (SGOT) 30 U/L (5-34); Albumin 3.5 g/dL (3.4-4.8); Alkaline Phosphatase 49 U/L (40-110); Anion Gap 21 mmol/L (10-20); BUN (Urea Nitrogen) 57 mg/dL (9.8-20.1); Bilirubin, Total 0.5 mg/dL (0.2-1.2); Calc. Creatinine Clearance 0 mL/min (70-130); Calcium 8.2 mg/dL (7.8-10.44); Carbon Dioxide 17 mmol/L (23-31); Chloride 101 mmol/L (98-107); Glucose 64 mg/dL (80-115); Potassium 5.3 mmol/L (3.5-5.1); Protein, Total 6.5 g/dL (5.8-8.1); Sodium 134 mmol/L (136-145)
[2021-05-03 05:11] LABS: CKMB 2.2 ng/mL (0-6.6)
[2021-05-03 05:16] LABS: #Lymphocytes 0.3 thou/uL (1.20-3.40); #Monocytes 0.2 thou/uL (0.11-0.59); #Neutrophils 2.6 thou/uL (1.40-6.50); %Basophils 0.2 % (0.0-1.0); %Eosinophils 0.4 % (0.0-10.0); %Lymphocytes 10.9 % (21.0-51.0); %Monocytes 4.9 % (0.0-10.0); %Neutrophils 83.6 % (42.0-75.0); Mean Platelet Volume 9.9 fL (7.4-10.4); Platelet Count 116 thou/uL (130-400); Platelet Morphology Comment Appears Decreased
[2021-05-03] MEDS ORDERED: Aspirin 325 MG TAB ONE (05:51)
[2021-05-03 07:27] LABS: Troponin I 0.048 ng/mL (< 0.028)
[2021-05-03 07:40] VITALS: BMI 22.5
[2021-05-03] MEDS ORDERED: Ondansetron ODT 4 MG TAB SL PRN (07:45)
[2021-05-03] MEDS ORDERED: Acetaminophen 325 MG TAB PO PRN (07:45)
[2021-05-03] MEDS ORDERED: Ondansetron PF 4 MG/2 ML Vial IVP PRN (07:45)
[2021-05-03] MEDS ORDERED: Dextrose 5% in Water 1,000 ML IV PRN (07:46)
[2021-05-03] MEDS ORDERED: Dextrose 50% Abboject 50 ML SYRINGE SLOW IVP PRN (07:46)
[2021-05-03] MEDS: Dronedarone HCl 400 MG TAB PO SCH ×2 (08:56→16:38)
[2021-05-03] MEDS: Heparin 5,000 UNITS/ML VIAL SC SCH ×3 (08:57→20:36)
[2021-05-03] MEDS: Allopurinol 100 MG TAB PO SCH (08:57)
[2021-05-03] MEDS: hydrALAZINE 25 MG TAB PO SCH ×3 (08:57→23:20)
[2021-05-03] MEDS: Pantoprazole 40 MG GRANULES PACKET PO SCH (08:57)
[2021-05-03 10:40] LABS: Troponin I 0.049 ng/mL (< 0.028)
[2021-05-03] MEDS: Acetaminophen 325 MG TAB PO PRN ×3 (11:22→20:35)
[2021-05-03] MEDS ORDERED: Dexamethasone 6 MG in Sodium Chloride 0.9% 50 ML IVPB SCH (12:00)
[2021-05-03] MEDS: Metoclopramide HCl 10 MG/2 ML VIAL IVP PRN (23:20)
[2021-05-04] MEDS: Acetaminophen 325 MG TAB PO PRN ×2 (05:22→09:45)
[2021-05-04] MEDS: Albuterol 200 PUFF (6.7GM INHALER) INH PRN (05:22)
[2021-05-04 06:01] LABS: Anion Gap 17 mmol/L (10-20); BUN (Urea Nitrogen) 27 mg/dL (9.8-20.1); Calc. Creatinine Clearance 7 mL/min (70-130); Calcium 9.1 mg/dL (7.8-10.44); Carbon Dioxide 26 mmol/L (23-31); Chloride 98 mmol/L (98-107); Glucose 128 mg/dL (80-115); Potassium 4.8 mmol/L (3.5-5.1); Sodium 136 mmol/L (136-145)
[2021-05-04 06:11] LABS: Hemoglobin 12.3 g/dL (12.0-16.0); Mean Corpuscular HGB CONC 33.9 g/dL (32.0-36.0); Mean Corpuscular Hemoglobin 31.8 pg (27.0-31.0); Mean Corpuscular Volume 93.7 fL (78.0-98.0); Platelet Count 161 thou/uL (130-400); Red Blood Cell (RBC) Count 3.87 mill/uL (4.20-5.40)
[2021-05-04 06:12] LABS: Band 10 % (5-11); Lymphocytes 22 % (21-51); MDiff Complete? YES; Monocytes 6 % (0-10); Neutrophil 62 % (42-75)
[2021-05-04] MEDS: Dronedarone HCl 400 MG TAB PO SCH ×2 (09:44→17:04)
[2021-05-04] MEDS: Allopurinol 100 MG TAB PO SCH (09:45)
[2021-05-04] MEDS: Pantoprazole 40 MG GRANULES PACKET PO SCH (09:45)
[2021-05-04] MEDS: Heparin 5,000 UNITS/ML VIAL SC SCH ×3 (09:45→20:00)
[2021-05-04] MEDS: hydrALAZINE 25 MG TAB PO SCH ×3 (09:45→20:00)
[2021-05-04] MEDS: Dexamethasone 4 mg/ml Vial SLOW IVP SCH (11:03)
[2021-05-04] MEDS: Guaifenesin DM 100-10/5 ML UDCUP PO PRN (22:01)
[2021-05-05] MEDS: Albuterol 200 PUFF (6.7GM INHALER) INH PRN ×2 (02:37→13:32)
[2021-05-05] MEDS: Allopurinol 100 MG TAB PO SCH ×2 (12:44→15:44)
[2021-05-05] MEDS: Heparin 5,000 UNITS/ML VIAL SC SCH ×3 (12:44→21:13)
[2021-05-05] MEDS: Dronedarone HCl 400 MG TAB PO SCH ×2 (12:44→21:13)
[2021-05-05] MEDS: hydrALAZINE 25 MG TAB PO SCH ×4 (12:44→21:40)
[2021-05-05] MEDS: Dexamethasone 4 mg/ml Vial SLOW IVP SCH (13:32)
[2021-05-05] MEDS: Acetaminophen 325 MG TAB PO PRN (13:32)
[2021-05-05] MEDS: Pantoprazole 40 MG GRANULES PACKET PO SCH (15:44)
[2021-05-05] MEDS ORDERED: Metoprolol Tartrate 5 MG/5 ML VIAL IVP SCH (15:45)
[2021-05-05] MEDS: Guaifenesin DM 100-10/5 ML UDCUP PO PRN (21:41)
[2021-05-06] MEDS: Acetaminophen 325 MG TAB PO PRN ×2 (01:53→19:56)
[2021-05-06] MEDS: Albuterol 200 PUFF (6.7GM INHALER) INH PRN ×3 (04:00→16:02)
[2021-05-06] MEDS: Ascorbic Acid 500 mg Chewable Tablet PO SCH (08:54)
[2021-05-06] MEDS: Pantoprazole 40 MG GRANULES PACKET PO SCH (08:54)
[2021-05-06] MEDS: Dronedarone HCl 400 MG TAB PO SCH ×2 (08:54→16:25)
[2021-05-06] MEDS: Allopurinol 100 MG TAB PO SCH (08:54)
[2021-05-06] MEDS: Zinc Sulfate 220 MG CAP PO SCH (08:54)
[2021-05-06] MEDS: Heparin 5,000 UNITS/ML VIAL SC SCH ×3 (09:00→19:56)
[2021-05-06] MEDS: hydrALAZINE 25 MG TAB PO SCH ×3 (09:02→19:57)
[2021-05-06] MEDS: Vitamin A 10,000 UNITS CAP PO SCH (09:08)
[2021-05-06] MEDS: Ivermectin 3 MG TAB PO SCH (09:08)
[2021-05-06 13:20] LABS: Anion Gap 17 mmol/L (10-20); BUN (Urea Nitrogen) 33 mg/dL (9.8-20.1); Calc. Creatinine Clearance 8 mL/min (70-130); Calcium 8.7 mg/dL (7.8-10.44); Carbon Dioxide 31 mmol/L (23-31); Chloride 89 mmol/L (98-107); Glucose 123 mg/dL (80-115); Potassium 4.1 mmol/L (3.5-5.1); Sodium 133 mmol/L (136-145)
[2021-05-06] MEDS: Dexamethasone 4 mg/ml Vial SLOW IVP SCH (13:52)
[2021-05-06] MEDS: Guaifenesin DM 100-10/5 ML UDCUP PO PRN (16:25)
[2021-05-07] MEDS: Nitroglycerin 0.4 MG TAB (25 Tab Bottle) SL PRN ×2 (05:17→05:32)
[2021-05-07 06:50] LABS: Troponin I 0.015 ng/mL (< 0.028)
[2021-05-07] MEDS: hydrALAZINE 25 MG TAB PO SCH ×3 (07:29→21:56)
[2021-05-07] MEDS: Heparin 5,000 UNITS/ML VIAL SC SCH ×3 (07:46→21:54)
[2021-05-07] MEDS: Dronedarone HCl 400 MG TAB PO SCH ×2 (07:48→18:19)
[2021-05-07] MEDS: Zinc Sulfate 220 MG CAP PO SCH (07:49)
[2021-05-07] MEDS: Vitamin A 10,000 UNITS CAP PO SCH (07:49)
[2021-05-07] MEDS: Pantoprazole 40 MG GRANULES PACKET PO SCH (07:49)
[2021-05-07] MEDS: Allopurinol 100 MG TAB PO SCH (07:49)
[2021-05-07] MEDS: Ivermectin 3 MG TAB PO SCH (07:49)
[2021-05-07] MEDS: Ascorbic Acid 500 mg Chewable Tablet PO SCH (07:49)
[2021-05-07] MEDS: Metoclopramide HCl 10 MG/2 ML VIAL IVP PRN (09:13)
[2021-05-07] MEDS ORDERED: Loratadine 10 MG TAB PO PRN (09:30)
[2021-05-07] MEDS ORDERED: Ondansetron PF 4 MG/2 ML Vial IVP SCH (10:45)
[2021-05-07] MEDS ORDERED: Metoclopramide HCl 10 MG/2 ML VIAL IVP SCH (12:00)
[2021-05-07] MEDS: Dexamethasone 4 mg/ml Vial SLOW IVP SCH (12:16)
[2021-05-07] MEDS: Megestrol Acetate 40 MG TAB PO SCH (12:19)
[2021-05-07] MEDS ORDERED: Non-Formulary Item 1 EACH (Hydralazine Hcl [Hydralazine Hcl] 100 MG Tablet) PO SCH (15:00)
[2021-05-07] MEDS: Metoclopramide HCl 10 MG/2 ML VIAL IVP SCH ×2 (16:40→21:55)
[2021-05-07] MEDS ORDERED: hydrALAZINE 25 MG TAB PO SCH (21:00)
[2021-05-08] MEDS: Metoclopramide HCl 10 MG/2 ML VIAL IVP SCH ×3 (03:12→15:59)
[2021-05-08 05:40] LABS: #Basophils 0.1 thou/uL (0.0-0.2); #Lymphocytes 0.5 thou/uL (1.20-3.40); #Monocytes 0.6 thou/uL (0.11-0.59); %Basophils 1.2 % (0.0-1.0); %Eosinophils 0.1 % (0.0-10.0); %Lymphocytes 9.4 % (21.0-51.0); %Monocytes 10.9 % (0.0-10.0); %Neutrophils 78.4 % (42.0-75.0); Hemoglobin 10.8 g/dL (12.0-16.0); Mean Corpuscular HGB CONC 33.1 g/dL (32.0-36.0); Mean Corpuscular Hemoglobin 31.4 pg (27.0-31.0); Mean Corpuscular Volume 94.7 fL (78.0-98.0); Platelet Count 206 thou/uL (130-400); RBC Distribution Width 12.7 % (11.5-14.5); Red Blood Cell (RBC) Count 3.44 mill/uL (4.20-5.40); White Blood Cell (WBC) Count 5.1 thou/uL (4.8-10.8)
[2021-05-08 06:01] LABS: Anion Gap 16 mmol/L (10-20); BUN (Urea Nitrogen) 40 mg/dL (9.8-20.1); Calc. Creatinine Clearance 8 mL/min (70-130); Calcium 8.6 mg/dL (7.8-10.44); Carbon Dioxide 31 mmol/L (23-31); Chloride 93 mmol/L (98-107); Glucose 108 mg/dL (80-115); Potassium 4.4 mmol/L (3.5-5.1); Sodium 136 mmol/L (136-145)
[2021-05-08] MEDS: Aspirin 81 mg Enteric Coated Tablet PO SCH (08:19)
[2021-05-08] MEDS: Ascorbic Acid 500 mg Chewable Tablet PO SCH (08:19)
[2021-05-08] MEDS: Allopurinol 100 MG TAB PO SCH (08:19)
[2021-05-08] MEDS: Zinc Sulfate 220 MG CAP PO SCH (08:19)
[2021-05-08] MEDS: Megestrol Acetate 40 MG TAB PO SCH (08:20)
[2021-05-08] MEDS: Dronedarone HCl 400 MG TAB PO SCH ×2 (08:20→15:52)
[2021-05-08] MEDS: Vitamin A 10,000 UNITS CAP PO SCH (08:21)
[2021-05-08] MEDS: Ivermectin 3 MG TAB PO SCH (08:21)
[2021-05-08] MEDS: hydrALAZINE 25 MG TAB PO SCH ×3 (08:23→21:44)
[2021-05-08] MEDS: Heparin 5,000 UNITS/ML VIAL SC SCH ×3 (08:23→21:44)
[2021-05-08] MEDS: Pantoprazole 40 MG GRANULES PACKET PO SCH (08:31)
[2021-05-08] MEDS ORDERED: hydrALAZINE 25 MG TAB PO SCH (09:00)
[2021-05-08] MEDS ORDERED: MEGESTROL ACETATE 20 MG PO SCH (09:00)
[2021-05-08] MEDS: Dexamethasone 4 mg/ml Vial SLOW IVP SCH (11:20)
[2021-05-08] MEDS ORDERED: Metoclopramide HCl 10 MG/2 ML VIAL IVP PRN (21:00)
[2021-05-09] MEDS: Pantoprazole 40 MG GRANULES PACKET PO SCH (08:14)
[2021-05-09] MEDS: Ivermectin 3 MG TAB PO SCH (08:14)
[2021-05-09] MEDS: Vitamin A 10,000 UNITS CAP PO SCH (08:14)
[2021-05-09] MEDS: Heparin 5,000 UNITS/ML VIAL SC SCH ×3 (08:14→20:30)
[2021-05-09] MEDS: Zinc Sulfate 220 MG CAP PO SCH (08:15)
[2021-05-09] MEDS: Ascorbic Acid 500 mg Chewable Tablet PO SCH (08:15)
[2021-05-09] MEDS: Aspirin 81 mg Enteric Coated Tablet PO SCH (08:15)
[2021-05-09] MEDS: Dronedarone HCl 400 MG TAB PO SCH ×2 (08:15→18:06)
[2021-05-09] MEDS: hydrALAZINE 25 MG TAB PO SCH ×2 (08:15→14:31)
[2021-05-09] MEDS: Megestrol Acetate 40 MG TAB PO SCH (08:15)
[2021-05-09] MEDS: Allopurinol 100 MG TAB PO SCH (08:15)
[2021-05-09 12:12] LABS: Anion Gap 19 mmol/L (10-20); BUN (Urea Nitrogen) 75 mg/dL (9.8-20.1); Calc. Creatinine Clearance 6 mL/min (70-130); Calcium 8.7 mg/dL (7.8-10.44); Carbon Dioxide 28 mmol/L (23-31); Chloride 91 mmol/L (98-107); Glucose 105 mg/dL (80-115); Potassium 4.2 mmol/L (3.5-5.1); Sodium 134 mmol/L (136-145)
[2021-05-09] MEDS: Dexamethasone 4 mg/ml Vial SLOW IVP SCH (12:36)
[2021-05-10] MEDS: hydrALAZINE 25 MG TAB PO SCH ×3 (00:59→13:55)
[2021-05-10 05:11] LABS: #Lymphocytes 0.6 thou/uL (1.20-3.40); #Monocytes 0.6 thou/uL (0.11-0.59); #Neutrophils 4.1 thou/uL (1.40-6.50); %Basophils 0.2 % (0.0-1.0); %Lymphocytes 11.3 % (21.0-51.0); %Monocytes 11.1 % (0.0-10.0); %Neutrophils 77.5 % (42.0-75.0); Hemoglobin 10.5 g/dL (12.0-16.0); Mean Corpuscular HGB CONC 32.4 g/dL (32.0-36.0); Mean Corpuscular Hemoglobin 30.3 pg (27.0-31.0); Mean Corpuscular Volume 93.3 fL (78.0-98.0); Mean Platelet Volume 8.9 fL (7.4-10.4); Platelet Count 275 thou/uL (130-400); RBC Distribution Width 12.6 % (11.5-14.5); Red Blood Cell (RBC) Count 3.46 mill/uL (4.20-5.40); White Blood Cell (WBC) Count 5.3 thou/uL (4.8-10.8)
[2021-05-10 05:28] LABS: Anion Gap 14 mmol/L (10-20); BUN (Urea Nitrogen) 38 mg/dL (9.8-20.1); Calc. Creatinine Clearance 8 mL/min (70-130); Carbon Dioxide 30 mmol/L (23-31); Chloride 95 mmol/L (98-107); Potassium 4.7 mmol/L (3.5-5.1); Sodium 134 mmol/L (136-145)
[2021-05-10 05:29] LABS: Calcium 8.5 mg/dL (7.8-10.44); Glucose 119 mg/dL (80-115)
[2021-05-10] MEDS: Dexamethasone 4 mg/ml Vial SLOW IVP SCH (12:45)
[2021-05-10] MEDS: Aspirin 81 mg Enteric Coated Tablet PO SCH (13:53)
[2021-05-10] MEDS: Acetaminophen 325 MG TAB PO PRN (13:53)
[2021-05-10] MEDS: Vitamin A 10,000 UNITS CAP PO SCH (13:53)
[2021-05-10] MEDS: Megestrol Acetate 40 MG TAB PO SCH (13:54)
[2021-05-10] MEDS: Zinc Sulfate 220 MG CAP PO SCH (13:54)
[2021-05-10] MEDS: Pantoprazole 40 MG GRANULES PACKET PO SCH (13:54)
[2021-05-10] MEDS: Allopurinol 100 MG TAB PO SCH (13:54)
[2021-05-10] MEDS: Ivermectin 3 MG TAB PO SCH (13:54)
[2021-05-10] MEDS: Ascorbic Acid 500 mg Chewable Tablet PO SCH (13:54)
[2021-05-10] MEDS: Dronedarone HCl 400 MG TAB PO SCH ×2 (13:55→17:27)
[2021-05-10] MEDS: Heparin 5,000 UNITS/ML VIAL SC SCH ×2 (13:55)
[2021-05-10 16:41] VITALS: BP 95/54; TEMP 98.5
== END 2021-05-10 18:08 | disposition home health service (06) | DRG 177 ==
LOC: ERS 03:22 → 2SW 06:09 → OBSVTOIN 06:09
PROVIDERS: ADMIT Internal Medicine; ATTEND Family Medicine
PROC: 8E0ZXY6 Isolation (ICD-10-PCS; principal; 2021-05-03)
PROC: 5A1D70Z Performance of Urinary Filtration, Intermittent, Less than 6 Hours Per Day (ICD-10-PCS; 2021-05-05)
DX: U07.1 COVID-19 (principal); N18.6 End stage renal disease; J12.82 Pneumonia due to coronavirus disease 2019; J96.01 Acute respiratory failure with hypoxia; I12.0 Hypertensive chronic kidney disease with stage 5 chronic kidney disease or end stage renal disease; E87.2 Acidosis; K92.0 Hematemesis; E44.0 Moderate protein-calorie malnutrition; I48.92 Unspecified atrial flutter; E87.1 Hypo-osmolality and hyponatremia; E16.2 Hypoglycemia, unspecified; E87.5 Hyperkalemia; R94.31 Abnormal electrocardiogram [ECG] [EKG]; E87.70 Fluid overload, unspecified; I48.0 Paroxysmal atrial fibrillation; F41.9 Anxiety disorder, unspecified; D63.1 Anemia in chronic kidney disease; F32.9 Major depressive disorder, single episode, unspecified; E78.5 Hyperlipidemia, unspecified; M10.9 Gout, unspecified; Z99.2 Dependence on renal dialysis; Z79.82 Long term (current) use of aspirin; Z79.899 Other long term (current) drug therapy; Z90.710 Acquired absence of both cervix and uterus; Z90.722 Acquired absence of ovaries, bilateral; Z98.51 Tubal ligation status; Z98.42 Cataract extraction status, left eye; Z98.41 Cataract extraction status, right eye; Z88.8 Allergy status to other drugs, medicaments and biological substances; Z68.21 Body mass index [BMI] 21.0-21.9, adult; Z83.3 Family history of diabetes mellitus; Z80.0 Family history of malignant neoplasm of digestive organs; F17.220 Nicotine dependence, chewing tobacco, uncomplicated; F17.290 Nicotine dependence, other tobacco product, uncomplicated
CPT/HCPCS: 36415; 36416; 71045; 80048; 80053; 82553; 83880; 84484; 85025; 90935; 93005; 93010; 94760; G0257; J1100; J1644; J2405; J2765; S0179

== ENCOUNTER 2021-05-25 13:10 | Inpatient (IN) | payer MEDICARE, OTHER ==
[~2021-05-25 13:10] MED LIST: Iopamidol-370 76% 500 ML 1 ML ONE
[2021-05-25 14:16] LABS: Actual Bicarbonate (HCO3v) 23 mEq/L (22-28); Analyzer IN Cardio ER; Base Excess 0.6 mEq/L (-2.0 to +3.0); Calcium, Ionized (venous) 1.06 mmol/L (1.16-1.32); Chloride (VBG) 103 mmol/L (98-106); Potassium (VBG) 4.18 mmol/L (3.70-5.30); Sodium 138.5 mmol/L (133-146); pH (venous) 7.52 (7.32-7.43)
[2021-05-25 14:35] LABS: #Eosinphils 0.1 thou/uL (0.0-0.7); #Lymphocytes 0.8 thou/uL (1.20-3.40); #Monocytes 0.7 thou/uL (0.11-0.59); #Neutrophils 6.1 thou/uL (1.40-6.50); %Basophils 0.2 % (0.0-1.0); %Eosinophils 0.9 % (0.0-10.0); %Lymphocytes 9.9 % (21.0-51.0); %Monocytes 8.5 % (0.0-10.0); %Neutrophils 80.5 % (42.0-75.0); Hemoglobin 8.2 g/dL (12.0-16.0); Mean Corpuscular Hemoglobin 31.8 pg (27.0-31.0); Mean Corpuscular Volume 96.2 fL (78.0-98.0); Mean Platelet Volume 8.6 fL (7.4-10.4); Platelet Count 189 thou/uL (130-400); RBC Distribution Width 14.3 % (11.5-14.5); Red Blood Cell (RBC) Count 2.59 mill/uL (4.20-5.40); White Blood Cell (WBC) Count 7.6 thou/uL (4.8-10.8)
[2021-05-25 14:56] LABS: ALT (SGPT) 8 U/L (8-55); AST (SGOT) 16 U/L (5-34); Albumin 3.6 g/dL (3.4-4.8); Alkaline Phosphatase 75 U/L (40-110); Anion Gap 21 mmol/L (10-20); BUN (Urea Nitrogen) 49 mg/dL (9.8-20.1); Bilirubin, Total 0.5 mg/dL (0.2-1.2); Calc. Creatinine Clearance 0 mL/min (70-130); Calcium 9.6 mg/dL (7.8-10.44); Carbon Dioxide 23 mmol/L (23-31); Chloride 102 mmol/L (98-107); Globulin 3.6 g/dL (2.4-3.5); Glucose 91 mg/dL (80-115); Potassium 4.5 mmol/L (3.5-5.1); Protein, Total 7.2 g/dL (5.8-8.1); Sodium 141 mmol/L (136-145)
[2021-05-25] MEDS ORDERED: Acetaminophen 650 MG Suppository PR PRN (17:29)
[2021-05-25] MEDS ORDERED: Benzonatate 100 MG CAP PO PRN (17:31)
[2021-05-25] MEDS ORDERED: Cefepime 2 GM VIAL ONE (17:34)
[2021-05-25] MEDS ORDERED: Aspirin 325 MG TAB ONE (17:34)
[2021-05-25] MEDS ORDERED: Vancomycin 1 GM in Premix Bag 1 BAG IVPB SCH (17:45)
[2021-05-25] MEDS ORDERED: Metoclopramide HCl 10 MG/2 ML VIAL IVP PRN (17:50)
[2021-05-25] MEDS ORDERED: Dexamethasone 20 MG/5 ML VIAL SLOW IVP SCH (18:13)
[2021-05-25 18:21] LABS: Troponin I 0.017 ng/mL (< 0.028)
[2021-05-25] MEDS ORDERED: Lorazepam 2 MG/ML VIAL ONE (18:25)
[2021-05-25] MEDS ORDERED: Bacteriostatic Water 30 ML VIAL FS PRN (18:30)
[2021-05-25] MEDS ORDERED: Pantoprazole 40 MG VIAL IVP SCH (18:30)
[2021-05-25] MEDS ORDERED: Zinc Sulfate 220 MG CAP PO SCH (18:30)
[2021-05-25 18:31] LABS: Magnesium 1.9 mg/dL (1.6-2.6)
[2021-05-25 20:56] LABS: Troponin I 0.014 ng/mL (< 0.028)
[2021-05-25] MEDS ORDERED: Heparin 5,000 UNITS/ML VIAL SC SCH (21:00)
[2021-05-26 02:45] VITALS: BMI 22.6
[2021-05-26] MEDS: Dexamethasone 10 MG/ML VIAL SLOW IVP SCH ×2 (02:56→04:38)
[2021-05-26] MEDS ORDERED: hydrALAZINE 20 MG/ML VIAL SLOW IVP PRN (03:33)
[2021-05-26 04:22] LABS: #Eosinphils 0.1 thou/uL (0.0-0.7); #Lymphocytes 0.8 thou/uL (1.20-3.40); #Monocytes 0.7 thou/uL (0.11-0.59); #Neutrophils 5.3 thou/uL (1.40-6.50); %Basophils 0.4 % (0.0-1.0); %Eosinophils 1.4 % (0.0-10.0); %Lymphocytes 11.6 % (21.0-51.0); %Monocytes 9.8 % (0.0-10.0); %Neutrophils 76.8 % (42.0-75.0); Mean Corpuscular HGB CONC 33.4 g/dL (32.0-36.0); Mean Corpuscular Hemoglobin 31.9 pg (27.0-31.0); Mean Corpuscular Volume 95.5 fL (78.0-98.0); Mean Platelet Volume 8.8 fL (7.4-10.4); Platelet Count 199 thou/uL (130-400); RBC Distribution Width 14.5 % (11.5-14.5); Red Blood Cell (RBC) Count 2.51 mill/uL (4.20-5.40)
[2021-05-26] MEDS: Acetaminophen 325 MG TAB PO PRN ×2 (04:25→10:03)
[2021-05-26 04:44] LABS: Anion Gap 16 mmol/L (10-20); BUN (Urea Nitrogen) 26 mg/dL (9.8-20.1); Calc. Creatinine Clearance 11 mL/min (70-130); Calcium 9.8 mg/dL (7.8-10.44); Carbon Dioxide 26 mmol/L (23-31); Chloride 101 mmol/L (98-107); Glucose 62 mg/dL (80-115); Potassium 4.2 mmol/L (3.5-5.1); Sodium 139 mmol/L (136-145)
[2021-05-26 05:37] LABS: SARS-CoV-2 NAA Rapid Test Not Detected (NotDetected)
[2021-05-26] MEDS: Megestrol Acetate 40 MG TAB PO SCH (08:09)
[2021-05-26] MEDS: hydrALAZINE 25 MG TAB PO SCH ×4 (08:10→20:54)
[2021-05-26] MEDS: Aspirin 81 mg Enteric Coated Tablet PO SCH (08:10)
[2021-05-26] MEDS: Dronedarone HCl 400 MG TAB PO SCH ×2 (08:10→17:26)
[2021-05-26] MEDS: Pantoprazole 40 MG VIAL IVP SCH (08:11)
[2021-05-26] MEDS: Zinc Sulfate 220 MG CAP PO SCH (08:11)
[2021-05-26] MEDS ORDERED: Ondansetron PF 4 MG/2 ML Vial IVP PRN (18:12)
[2021-05-26] MEDS: Enoxaparin Sodium 30 MG/0.3 ML SYRINGE SC SCH (20:53)
[2021-05-26] MEDS: Rosuvastatin 5 MG TAB PO SCH (20:55)
[2021-05-27 05:43] LABS: Phosphorus 2.4 mg/dL (2.3-4.7)
[2021-05-27 05:44] LABS: Anion Gap 13 mmol/L (10-20); BUN (Urea Nitrogen) 22 mg/dL (9.8-20.1); Calc. Creatinine Clearance 12 mL/min (70-130); Calcium 9.3 mg/dL (7.8-10.44); Carbon Dioxide 30 mmol/L (23-31); Chloride 100 mmol/L (98-107); Glucose 101 mg/dL (80-115); Magnesium 2.1 mg/dL (1.6-2.6); Sodium 139 mmol/L (136-145)
[2021-05-27] MEDS: Pantoprazole 40 MG VIAL IVP SCH (09:28)
[2021-05-27] MEDS: Zinc Sulfate 220 MG CAP PO SCH (09:29)
[2021-05-27] MEDS: Aspirin 81 mg Enteric Coated Tablet PO SCH (09:29)
[2021-05-27] MEDS: hydrALAZINE 25 MG TAB PO SCH ×3 (09:29→20:41)
[2021-05-27] MEDS: Megestrol Acetate 40 MG TAB PO SCH (09:29)
[2021-05-27] MEDS: Dronedarone HCl 400 MG TAB PO SCH ×2 (09:29→16:09)
[2021-05-27] MEDS: Rosuvastatin 5 MG TAB PO SCH (20:40)
[2021-05-27] MEDS: Enoxaparin Sodium 30 MG/0.3 ML SYRINGE SC SCH (20:41)
[2021-05-28] MEDS ORDERED: Metoprolol Tartrate 5 MG/5 ML VIAL IVP PRN (01:07)
[2021-05-28] MEDS: Acetaminophen 325 MG TAB PO PRN (01:37)
[2021-05-28 01:50] LABS: Troponin I Less than 0.010 ng/mL (< 0.028)
[2021-05-28] MEDS: hydrALAZINE 25 MG TAB PO SCH ×3 (09:33→20:45)
[2021-05-28] MEDS: Aspirin 81 mg Enteric Coated Tablet PO SCH (12:53)
[2021-05-28] MEDS: Megestrol Acetate 40 MG TAB PO SCH (12:53)
[2021-05-28] MEDS: Dronedarone HCl 400 MG TAB PO SCH ×2 (12:53→16:48)
[2021-05-28] MEDS: Zinc Sulfate 220 MG CAP PO SCH (12:54)
[2021-05-28] MEDS ORDERED: Heparin 25,000 units/D5W 500 ML IVPB SCH (13:45)
[2021-05-28 14:44] LABS: Hemoglobin 9.6 g/dL (12.0-16.0); Platelet Count 250 thou/uL (130-400)
[2021-05-28] MEDS: Heparin 10,000 UNITS/ 10 ML VIAL SLOW IVP SCH ×2 (15:42→21:33)
[2021-05-28] MEDS: Rosuvastatin 5 MG TAB PO SCH (20:45)
[2021-05-28 22:56] LABS: PTT 168.9 sec (22.9-36.1)
[2021-05-29] MEDS: Acetaminophen 325 MG TAB PO PRN ×2 (00:49→23:44)
[2021-05-29] MEDS: Dronedarone HCl 400 MG TAB PO SCH ×2 (09:16→16:17)
[2021-05-29] MEDS: hydrALAZINE 25 MG TAB PO SCH ×3 (09:16→21:41)
[2021-05-29] MEDS: Zinc Sulfate 220 MG CAP PO SCH (09:17)
[2021-05-29] MEDS: Aspirin 81 mg Enteric Coated Tablet PO SCH (09:17)
[2021-05-29] MEDS: Megestrol Acetate 40 MG TAB PO SCH (09:17)
[2021-05-29] MEDS: Apixaban 2.5 MG TAB PO SCH (21:41)
[2021-05-29] MEDS: Rosuvastatin 5 MG TAB PO SCH (21:41)
[2021-05-30 04:50] LABS: Hemoglobin 7.5 g/dL (12.0-16.0); Mean Corpuscular HGB CONC 32.4 g/dL (32.0-36.0); Mean Corpuscular Volume 95.4 fL (78.0-98.0); Mean Platelet Volume 8.5 fL (7.4-10.4); Platelet Count 219 thou/uL (130-400); RBC Distribution Width 14.2 % (11.5-14.5); Red Blood Cell (RBC) Count 2.43 mill/uL (4.20-5.40); White Blood Cell (WBC) Count 3.9 thou/uL (4.8-10.8)
[2021-05-30 05:23] LABS: Band 1 % (5-11); Eosinophils 7 % (0-10); Lymphocytes 36 % (21-51); MDiff Complete? YES; Monocytes 6 % (0-10); Myelocyte 2 % (0-0); Neutrophil 48 % (42-75); Platelet Morphology Comment Appears Adequate
[2021-05-30] MEDS: Dronedarone HCl 400 MG TAB PO SCH ×2 (10:09→16:22)
[2021-05-30] MEDS: Apixaban 2.5 MG TAB PO SCH ×2 (10:10→21:12)
[2021-05-30] MEDS: hydrALAZINE 25 MG TAB PO SCH ×3 (10:16→21:12)
[2021-05-30 13:56] LABS: Hemoglobin 12.5 g/dL (12.0-16.0); Platelet Count 215 thou/uL (130-400)
[2021-05-30] MEDS: Aspirin 81 mg Enteric Coated Tablet PO SCH (14:12)
[2021-05-30] MEDS: Zinc Sulfate 220 MG CAP PO SCH (14:13)
[2021-05-30] MEDS: Megestrol Acetate 40 MG TAB PO SCH (14:15)
[2021-05-30] MEDS: Rosuvastatin 5 MG TAB PO SCH (21:12)
[2021-05-30] MEDS: Polyethylene Glycol 3350 17 GM Packet PO SCH (21:13)
[2021-05-31 07:31] VITALS: TEMP 98.4
[2021-05-31] MEDS: Polyethylene Glycol 3350 17 GM Packet PO SCH (08:23)
[2021-05-31] MEDS: Apixaban 2.5 MG TAB PO SCH (08:23)
[2021-05-31] MEDS: Dronedarone HCl 400 MG TAB PO SCH (08:23)
[2021-05-31] MEDS: hydrALAZINE 25 MG TAB PO SCH (08:23)
[2021-05-31] MEDS: Aspirin 81 mg Enteric Coated Tablet PO SCH (08:23)
[2021-05-31] MEDS: Megestrol Acetate 40 MG TAB PO SCH (08:24)
[2021-05-31] MEDS: Zinc Sulfate 220 MG CAP PO SCH (08:24)
[2021-05-31 11:39] VITALS: BP 158/69
== END 2021-05-31 14:55 | disposition home or self-care (01) | DRG 682 ==
LOC: ERS 13:10 → ERHOLD 17:10 → 2NO 22:34
PROVIDERS: ADMIT Internal Medicine; ATTEND Hospitalist
PROC: 5A1D70Z Performance of Urinary Filtration, Intermittent, Less than 6 Hours Per Day (ICD-10-PCS; principal; 2021-05-26)
PROC: 30233N1 Transfusion of Nonautologous Red Blood Cells into Peripheral Vein, Percutaneous Approach (ICD-10-PCS; 2021-05-30)
DX: N17.9 Acute kidney failure, unspecified (principal); J96.01 Acute respiratory failure with hypoxia; I50.33 Acute on chronic diastolic (congestive) heart failure; I13.2 Hypertensive heart and chronic kidney disease with heart failure and with stage 5 chronic kidney disease, or end stage renal disease; I16.1 Hypertensive emergency; I48.4 Atypical atrial flutter; J84.10 Pulmonary fibrosis, unspecified; N18.6 End stage renal disease; Z20.822 Contact with and (suspected) exposure to COVID-19; I48.0 Paroxysmal atrial fibrillation; F41.9 Anxiety disorder, unspecified; F32.9 Major depressive disorder, single episode, unspecified; M10.9 Gout, unspecified; F17.220 Nicotine dependence, chewing tobacco, uncomplicated; D63.1 Anemia in chronic kidney disease; E78.5 Hyperlipidemia, unspecified; I45.81 Long QT syndrome; G30.9 Alzheimer's disease, unspecified; F02.80 Dementia in other diseases classified elsewhere, unspecified severity, without behavioral disturbance, psychotic disturbance, mood disturbance, and anxiety; Z86.16 Personal history of COVID-19; Z79.82 Long term (current) use of aspirin; Z79.01 Long term (current) use of anticoagulants; Z79.899 Other long term (current) drug therapy; Z88.5 Allergy status to narcotic agent; Z88.8 Allergy status to other drugs, medicaments and biological substances; Z99.81 Dependence on supplemental oxygen; Z99.2 Dependence on renal dialysis; Z90.710 Acquired absence of both cervix and uterus; Z98.42 Cataract extraction status, left eye; Z98.41 Cataract extraction status, right eye; Z91.15 Patient's noncompliance with renal dialysis
CPT/HCPCS: 0240U; 36415; 36416; 36430; 71045; 71275; 80048; 80053; 82728; 82805; 83615; 83735; 83880; 84100; 84484; 85014; 85018; 85025; 85049; 85379; 85730; 86140; 86850; 86900; 86901; 90935; 93005; 93010; 93306; 96365; 96375; C9113; G0257; J0360; J0692; J1100; J1644; J1650; J2060; P9016; Q9967; S0179

== ENCOUNTER 2025-05-02 00:19 | Inpatient (IN) | payer OTHER ==
[2025-05-02] MEDS ORDERED: Vasopressin In 0.9 % NaCl 100 ML ONE (02:44)
[2025-05-02] MEDS ORDERED: Ondansetron PF 4 MG/2 ML Vial IVP PRN (03:33)
[2025-05-02 05:41] VITALS: BMI 21.4
[2025-05-02 05:50] LABS: Troponin I Less than 0.010 ng/mL (< 0.028)
[2025-05-02] MEDS: Losartan 25 MG TAB PO SCH (09:31)
[2025-05-02] MEDS: Amiodarone 200 MG TAB PO SCH (11:54)
[2025-05-02] MEDS: Isosorbide Mononitrate 60 MG ER.TAB PO SCH (11:56)
[2025-05-02] MEDS: NIFEdipine XL 60 MG ER.TAB PO SCH (11:56)
[2025-05-02] MEDS: EPOETIN ALFA-EPBX (ESRD) 10,000 UNITS/ML VIAL IVP SCH (13:56)
[2025-05-02] MEDS: Lidocaine/Transparent Dressing 1 EACH KIT TP SCH (13:56)
[2025-05-02] MEDS: Lidocaine 4% Cream 5 GM TUBE w/ Tegaderm TOP SCH (14:02)
[2025-05-03 05:56] LABS: Anion Gap 12 mmol/L (10-20); BUN (Urea Nitrogen) 16 mg/dL (9.8-20.1); Calc. Creatinine Clearance 12 mL/min (70-130); Carbon Dioxide 29 mmol/L (23-31); Chloride 99 mmol/L (98-107); Potassium 4.3 mmol/L (3.5-5.1); Sodium 136 mmol/L (136-145)
[2025-05-03 05:57] LABS: Calcium 8.7 mg/dL (7.8-10.44); Glucose 70 mg/dL (83-110)
[2025-05-03 05:59] LABS: #Basophils Less than 0.03 10x3/uL (0.0-0.2); #Eosinophils 0.12 10x3/uL (0.0-0.7); #Monocytes 0.24 10x3/uL (0.11-0.59); #Neutrophils 1.51 10x3/uL (1.40-6.50); %Basophils 0.4 % (0.0-1.0); %Eosinophils 4.8 % (0.0-10.0); %Lymphocytes 25.0 % (21.0-51.0); %Monocytes 9.5 % (0.0-10.0); %Neutrophils 59.9 % (42.0-75.0); Hematocrit 28.3 % (36.0-47.0); Hemoglobin 8.7 g/dL (12.0-16.0); Mean Corpuscular Hemoglobin 27.0 pg (27.0-31.0); Mean Corpuscular Volume 87.9 fL (78.0-98.0); Platelet Count 109 10x3/uL (130-400); Red Blood Cell (RBC) Count 3.22 mill/uL (4.20-5.40); White Blood Cell (WBC) Count 2.52 10x3/uL (4.8-10.8)
[2025-05-03] MEDS: Acetaminophen 325 MG TAB PO PRN (12:12)
[2025-05-04] MEDS: Lidocaine 4% Cream 5 GM TUBE w/ Tegaderm TOP SCH (13:14)
[2025-05-05 08:05] VITALS: BP 169/68; TEMP 97.6
== END 2025-05-05 09:29 | disposition home health service (06) | DRG 308 ==
LOC: ERS 00:19 → ERHOLD 03:11 → OBS 05:16 → OBSVTOIN 05-03 13:01
PROVIDERS: ADMIT Internal Medicine; ATTEND Internal Medicine
PROC: 3E033XZ Introduction of Vasopressor into Peripheral Vein, Percutaneous Approach (ICD-10-PCS; principal; 2025-05-02)
PROC: 5A1D70Z Performance of Urinary Filtration, Intermittent, Less than 6 Hours Per Day (ICD-10-PCS; 2025-05-02)
DX: R00.1 Bradycardia, unspecified (principal); J96.01 Acute respiratory failure with hypoxia; N18.6 End stage renal disease; I13.2 Hypertensive heart and chronic kidney disease with heart failure and with stage 5 chronic kidney disease, or end stage renal disease; D61.818 Other pancytopenia; J81.1 Chronic pulmonary edema; I50.32 Chronic diastolic (congestive) heart failure; E87.70 Fluid overload, unspecified; I48.0 Paroxysmal atrial fibrillation; I25.10 Atherosclerotic heart disease of native coronary artery without angina pectoris; F41.9 Anxiety disorder, unspecified; D63.1 Anemia in chronic kidney disease; F32.A Depression, unspecified; Z95.1 Presence of aortocoronary bypass graft; Z99.2 Dependence on renal dialysis; Z88.5 Allergy status to narcotic agent; Z88.8 Allergy status to other drugs, medicaments and biological substances; Z79.899 Other long term (current) drug therapy; Z98.51 Tubal ligation status; Z98.41 Cataract extraction status, right eye; Z98.42 Cataract extraction status, left eye; Z90.710 Acquired absence of both cervix and uterus; Z98.890 Other specified postprocedural states; Z86.16 Personal history of COVID-19; R07.89 Other chest pain; R79.1 Abnormal coagulation profile
CPT/HCPCS: 36415; 80048; 83880; 84484; 85025; 90935; 93005; 93010; 93306; 93970; G0257; G0378; Q0162; Q5105

== ENCOUNTER 2025-05-16 07:09 | Inpatient (IN) | payer OTHER ==
[2025-05-16] MEDS ORDERED: Ondansetron PF 4 MG/2 ML Vial ONE (08:07)
[2025-05-16 08:17] LABS: Bacteria/HPF None Seen HPF (None Seen); CAUTI Indications for Culture Dysuria,urgency,freq; Glucose, Urine (Dipstick) Normal (Negative); Leukocyte Negative Leu/uL (Negative); Protein, Urine (Dipstick) 100 mg/dL (Neg-Trace); RBC/HPF 0-3 HPF (0-3); Specific Gravity, Urine 1.009 (1.002-1.036); WBC/HPF 0-3 HPF (0-3)
[2025-05-16 08:22] LABS: #Basophils Less than 0.03 10x3/uL (0.0-0.2); #Eosinophils 0.17 10x3/uL (0.0-0.7); #Monocytes 0.23 10x3/uL (0.11-0.59); #Neutrophils 1.85 10x3/uL (1.40-6.50); %Basophils 0.3 % (0.0-1.0); %Eosinophils 5.7 % (0.0-10.0); %Lymphocytes 23.9 % (21.0-51.0); %Monocytes 7.7 % (0.0-10.0); %Neutrophils 62.4 % (42.0-75.0); Hematocrit 32.7 % (36.0-47.0); Hemoglobin 10.2 g/dL (12.0-16.0); Mean Corpuscular Hemoglobin 26.6 pg (27.0-31.0); Mean Corpuscular Volume 85.4 fL (78.0-98.0); Platelet Count 123 10x3/uL (130-400); Red Blood Cell (RBC) Count 3.83 mill/uL (4.20-5.40); White Blood Cell (WBC) Count 2.97 10x3/uL (4.8-10.8)
[2025-05-16 08:26] LABS: Urine Culture Reflex No No
[2025-05-16 08:28] LABS: ALT (SGPT) Less than 7 U/L (Less than 34); AST (SGOT) 21 U/L (11-34); Albumin 3.7 g/dL (3.1-4.5); Alkaline Phosphatase 112 U/L (40-110); Anion Gap 25 mmol/L (10-20); BUN (Urea Nitrogen) 61 mg/dL (9.8-20.1); Bilirubin, Total 0.5 mg/dL (0.3-1.2); Calc. Creatinine Clearance 0 mL/min (70-130); Calcium 9.5 mg/dL (7.8-10.44); Carbon Dioxide 23 mmol/L (23-31); Chloride 102 mmol/L (98-107); Globulin 3.7 g/dL (2.4-3.5); Glucose 75 mg/dL (83-110); Lipase 30 U/L (8-78); Potassium 4.7 mmol/L (3.5-5.1); Sodium 145 mmol/L (136-145)
[2025-05-16] MEDS ORDERED: cefTRIAXone (ROCEPHIN) 1 GM VIAL ONE (10:32)
[2025-05-16 20:07] VITALS: BMI 19.6
[2025-05-16] MEDS: Heparin 5,000 UNITS/ML VIAL SC SCH (20:51)
[2025-05-16] MEDS: EPOETIN ALFA-EPBX (ESRD) 10,000 UNITS/ML VIAL IVP SCH ×2 (21:10→22:24)
[2025-05-16] MEDS: cefTRIAXone\\ROCEPHIN 1 GM in Sodium Chloride 0.9% 100 ML IVPB SCH ×2 (21:10→22:24)
[2025-05-17] MEDS: Losartan 25 MG TAB PO SCH (10:13)
[2025-05-17] MEDS: Amiodarone 200 MG TAB PO SCH (10:14)
[2025-05-17] MEDS: NIFEdipine XL 60 MG ER.TAB PO SCH (10:14)
[2025-05-17] MEDS: Isosorbide Mononitrate 60 MG ER.TAB PO SCH (10:14)
[2025-05-17] MEDS: Lidocaine-Prilocaine 2.5% Cream 5 GM TUBE TOP SCH (11:59)
[2025-05-17] MEDS: Acetaminophen 325 MG TAB PO PRN (20:29)
[2025-05-18] MEDS: Ketorolac Tromethamine 30 MG (1 mL) VIAL IVP SCH (00:27)
[2025-05-18 05:05] LABS: #Basophils Less than 0.03 10x3/uL (0.0-0.2); #Eosinophils 0.20 10x3/uL (0.0-0.7); #Monocytes 0.34 10x3/uL (0.11-0.59); #Neutrophils 1.60 10x3/uL (1.40-6.50); %Basophils 0.7 % (0.0-1.0); %Eosinophils 6.8 % (0.0-10.0); %Lymphocytes 26.2 % (21.0-51.0); %Monocytes 11.6 % (0.0-10.0); %Neutrophils 54.4 % (42.0-75.0); Hematocrit 31.4 % (36.0-47.0); Hemoglobin 9.5 g/dL (12.0-16.0); Mean Corpuscular Hemoglobin 26.8 pg (27.0-31.0); Mean Corpuscular Volume 88.5 fL (78.0-98.0); Platelet Count 125 10x3/uL (130-400); Red Blood Cell (RBC) Count 3.55 mill/uL (4.20-5.40); White Blood Cell (WBC) Count 2.94 10x3/uL (4.8-10.8)
[2025-05-18] MEDS ORDERED: Albumin 25% 25 GM (100 mL) BOT IVPB PRN (10:26)
[2025-05-18 10:45] LABS: Anion Gap 21 mmol/L (10-20); BUN (Urea Nitrogen) 38 mg/dL (9.8-20.1); Calc. Creatinine Clearance 6 mL/min (70-130); Calcium 8.9 mg/dL (7.8-10.44); Carbon Dioxide 22 mmol/L (23-31); Chloride 101 mmol/L (98-107); Glucose 73 mg/dL (83-110); Potassium 4.6 mmol/L (3.5-5.1); Sodium 139 mmol/L (136-145)
[2025-05-18] MEDS: Nitroglycerin 0.4 MG TAB (25 Tab Bottle) SL PRN (17:54)
[2025-05-19] MEDS: Melatonin 3 MG TAB PO PRN (19:41)
[2025-05-20 16:39] VITALS: BP 116/53; TEMP 98.3
== END 2025-05-20 18:00 | disposition home or self-care (01) | DRG 640 ==
LOC: ERS 07:09 → 2NO 16:51
PROVIDERS: ADMIT Internal Medicine; ATTEND Internal Medicine
PROC: 3E03329 Introduction of Other Anti-infective into Peripheral Vein, Percutaneous Approach (ICD-10-PCS; principal; 2025-05-16)
PROC: 5A1D70Z Performance of Urinary Filtration, Intermittent, Less than 6 Hours Per Day (ICD-10-PCS; 2025-05-16)
PROC: 30233J1 Transfusion of Nonautologous Serum Albumin into Peripheral Vein, Percutaneous Approach (ICD-10-PCS; 2025-05-18)
DX: E87.70 Fluid overload, unspecified (principal); J96.01 Acute respiratory failure with hypoxia; N18.6 End stage renal disease; I13.2 Hypertensive heart and chronic kidney disease with heart failure and with stage 5 chronic kidney disease, or end stage renal disease; I48.20 Chronic atrial fibrillation, unspecified; I25.10 Atherosclerotic heart disease of native coronary artery without angina pectoris; D63.1 Anemia in chronic kidney disease; M10.9 Gout, unspecified; F41.9 Anxiety disorder, unspecified; F32.A Depression, unspecified; F17.200 Nicotine dependence, unspecified, uncomplicated; Z79.899 Other long term (current) drug therapy; R00.1 Bradycardia, unspecified; Z91.158 Patient's noncompliance with renal dialysis for other reason; I50.9 Heart failure, unspecified; Z88.5 Allergy status to narcotic agent; Z88.8 Allergy status to other drugs, medicaments and biological substances; Z99.2 Dependence on renal dialysis; Z98.51 Tubal ligation status; Z82.49 Family history of ischemic heart disease and other diseases of the circulatory system; Z90.710 Acquired absence of both cervix and uterus; Z98.890 Other specified postprocedural states; Z95.1 Presence of aortocoronary bypass graft; Z83.3 Family history of diabetes mellitus
CPT/HCPCS: 36415; 51701; 71045; 74176; 80048; 80053; 81001; 83690; 83880; 84484; 85025; 87086; 87426; 90935; 93005; 93010; 96374; 96375; G0257; J0696; J1644; J1885; J2270; J2405; Q5105

== ENCOUNTER 2025-06-22 01:22 | Inpatient (IN) | payer OTHER ==
[2025-06-22 02:13] LABS: #Basophils Less than 0.03 10x3/uL (0.0-0.2); #Eosinophils 0.16 10x3/uL (0.0-0.7); #Monocytes 0.32 10x3/uL (0.11-0.59); #Neutrophils 1.63 10x3/uL (1.40-6.50); %Basophils 0.3 % (0.0-1.0); %Eosinophils 5.4 % (0.0-10.0); %Lymphocytes 27.6 % (21.0-51.0); %Monocytes 10.9 % (0.0-10.0); %Neutrophils 55.5 % (42.0-75.0); Hematocrit 27.6 % (36.0-47.0); Hemoglobin 8.8 g/dL (12.0-16.0); Mean Corpuscular Hemoglobin 28.2 pg (27.0-31.0); Mean Corpuscular Volume 88.5 fL (78.0-98.0); Platelet Count 127 10x3/uL (130-400); Red Blood Cell (RBC) Count 3.12 mill/uL (4.20-5.40); White Blood Cell (WBC) Count 2.94 10x3/uL (4.8-10.8)
[2025-06-22 02:55] LABS: ALT (SGPT) Less than 7 U/L (Less than 34); AST (SGOT) 24 U/L (11-34); Albumin 3.3 g/dL (3.1-4.5); Alkaline Phosphatase 156 U/L (40-110); Anion Gap 20 mmol/L (10-20); BUN (Urea Nitrogen) 32 mg/dL (9.8-20.1); Bilirubin, Total 0.4 mg/dL (0.3-1.2); Calc. Creatinine Clearance 0 mL/min (70-130); Calcium 9.0 mg/dL (7.8-10.44); Carbon Dioxide 23 mmol/L (23-31); Chloride 99 mmol/L (98-107); Globulin 3.7 g/dL (2.4-3.5); Glucose 93 mg/dL (83-110); Potassium 3.4 mmol/L (3.5-5.1); Sodium 139 mmol/L (136-145)
[2025-06-22] MEDS ORDERED: Tetrahydrozoline 0.05% OPTH 15 ML BOT EA EYE PRN (04:53)
[2025-06-22 08:28] VITALS: BMI 21.8
[2025-06-22] MEDS ORDERED: Pantoprazole 40 MG DR.TAB ONE (09:29)
[2025-06-22] MEDS ORDERED: Losartan 25 MG TAB ONE (09:29)
[2025-06-22] MEDS ORDERED: Heparin 5,000 UNITS/ML VIAL ONE (09:29)
[2025-06-22] MEDS ORDERED: Amiodarone 200 MG TAB ONE (09:30)
[2025-06-22] MEDS: Heparin 5,000 UNITS/ML VIAL SC SCH (10:04)
[2025-06-22] MEDS: Amiodarone 200 MG TAB PO SCH (10:07)
[2025-06-22] MEDS: Pantoprazole 40 MG DR.TAB PO SCH (10:21)
[2025-06-22] MEDS: Losartan 25 MG TAB PO SCH (10:21)
[2025-06-22] MEDS: Isosorbide Mononitrate 60 MG ER.TAB PO SCH (12:03)
[2025-06-22] MEDS: NIFEdipine XL 60 MG ER.TAB PO SCH (12:03)
[2025-06-22] MEDS: EPOETIN ALFA-EPBX (ESRD) 10,000 UNITS/ML VIAL SC SCH (15:38)
[2025-06-22] MEDS: Acetaminophen 325 MG TAB PO PRN (15:38)
[2025-06-22] MEDS: Nitroglycerin 0.4 MG TAB (25 Tab Bottle) SL PRN (19:47)
[2025-06-23 05:56] LABS: #Basophils Less than 0.03 10x3/uL (0.0-0.2); #Eosinophils 0.15 10x3/uL (0.0-0.7); #Monocytes 0.23 10x3/uL (0.11-0.59); #Neutrophils 1.63 10x3/uL (1.40-6.50); %Basophils 0.7 % (0.0-1.0); %Eosinophils 5.6 % (0.0-10.0); %Lymphocytes 24.8 % (21.0-51.0); %Monocytes 8.5 % (0.0-10.0); %Neutrophils 60.4 % (42.0-75.0); Hematocrit 27.7 % (36.0-47.0); Hemoglobin 8.6 g/dL (12.0-16.0); Mean Corpuscular Hemoglobin 27.7 pg (27.0-31.0); Mean Corpuscular Volume 89.1 fL (78.0-98.0); Platelet Count 117 10x3/uL (130-400); Red Blood Cell (RBC) Count 3.11 mill/uL (4.20-5.40); White Blood Cell (WBC) Count 2.70 10x3/uL (4.8-10.8)
[2025-06-23 06:24] LABS: ALT (SGPT) Less than 7 U/L (Less than 34); AST (SGOT) 19 U/L (11-34); Albumin 3.1 g/dL (3.1-4.5); Alkaline Phosphatase 112 U/L (40-110); Anion Gap 18 mmol/L (10-20); BUN (Urea Nitrogen) 50 mg/dL (9.8-20.1); Bilirubin, Total 0.5 mg/dL (0.3-1.2); Calc. Creatinine Clearance 7 mL/min (70-130); Calcium 8.6 mg/dL (7.8-10.44); Carbon Dioxide 26 mmol/L (23-31); Chloride 98 mmol/L (98-107); Globulin 3.3 g/dL (2.4-3.5); Glucose 68 mg/dL (83-110); Potassium 4.3 mmol/L (3.5-5.1); Sodium 138 mmol/L (136-145)
[2025-06-23] MEDS: Aspirin 81 mg Enteric Coated Tablet PO SCH (08:31)
[2025-06-23 09:33] LABS: Cardiac Risk 2.6 (Less than 4.5); Cholesterol 192.0 mg/dl (< 200 Desired); HDL Cholesterol 73.0 mg/dL (>60 Neg Risk); LDL Cholesterol, Calculated 108.0 mg/dL; Triglycerides 57.0 mg/dL (Less than 150)
[2025-06-23] MEDS: Lidocaine-Prilocaine 2.5% Cream 5 GM TUBE TOP SCH (11:16)
[2025-06-23 11:22] VITALS: BMI 21.7
[2025-06-24 06:14] LABS: #Basophils Less than 0.03 10x3/uL (0.0-0.2); #Eosinophils 0.14 10x3/uL (0.0-0.7); #Monocytes 0.23 10x3/uL (0.11-0.59); #Neutrophils 1.44 10x3/uL (1.40-6.50); %Basophils 0.4 % (0.0-1.0); %Eosinophils 5.7 % (0.0-10.0); %Lymphocytes 25.0 % (21.0-51.0); %Monocytes 9.4 % (0.0-10.0); %Neutrophils 59.1 % (42.0-75.0); Hematocrit 27.1 % (36.0-47.0); Hemoglobin 8.5 g/dL (12.0-16.0); Mean Corpuscular Hemoglobin 27.9 pg (27.0-31.0); Mean Corpuscular Volume 88.9 fL (78.0-98.0); Platelet Count 120 10x3/uL (130-400); Red Blood Cell (RBC) Count 3.05 mill/uL (4.20-5.40); White Blood Cell (WBC) Count 2.44 10x3/uL (4.8-10.8)
[2025-06-24 06:29] LABS: ALT (SGPT) Less than 7 U/L (Less than 34); AST (SGOT) 16 U/L (11-34); Albumin 3.0 g/dL (3.1-4.5); Alkaline Phosphatase 108 U/L (40-110); Anion Gap 13 mmol/L (10-20); BUN (Urea Nitrogen) 31 mg/dL (9.8-20.1); Bilirubin, Total 0.5 mg/dL (0.3-1.2); Calc. Creatinine Clearance 9 mL/min (70-130); Calcium 8.5 mg/dL (7.8-10.44); Carbon Dioxide 24 mmol/L (23-31); Chloride 98 mmol/L (98-107); Globulin 3.4 g/dL (2.4-3.5); Glucose 68 mg/dL (83-110); Potassium 4.4 mmol/L (3.5-5.1); Sodium 131 mmol/L (136-145)
[2025-06-24] MEDS ORDERED: Non-Formulary Item 1 EACH (Amiodarone Hcl [Amiodarone Hcl] 100 MG Tablet) PO SCH (09:00)
[2025-06-24 15:48] VITALS: BP 108/57; TEMP 97.6
== END 2025-06-24 17:28 | disposition home or self-care (01) | DRG 302 ==
LOC: ERS 01:22 → ERHOLD 03:58 → PCU 14:11 → OBS 19:22 → PCU 19:42 → OBS 20:09 → OBSVTOIN 06-24 10:26
PROVIDERS: ADMIT Family Medicine; ATTEND Family Medicine
PROC: 3E03329 Introduction of Other Anti-infective into Peripheral Vein, Percutaneous Approach (ICD-10-PCS; principal; 2025-06-24)
PROC: 5A1D70Z Performance of Urinary Filtration, Intermittent, Less than 6 Hours Per Day (ICD-10-PCS; 2025-06-24)
DX: I25.118 Atherosclerotic heart disease of native coronary artery with other forms of angina pectoris (principal); N18.6 End stage renal disease; I13.0 Hypertensive heart and chronic kidney disease with heart failure and stage 1 through stage 4 chronic kidney disease, or unspecified chronic kidney disease; I50.32 Chronic diastolic (congestive) heart failure; I48.92 Unspecified atrial flutter; F17.210 Nicotine dependence, cigarettes, uncomplicated; M10.9 Gout, unspecified; I48.0 Paroxysmal atrial fibrillation; F32.A Depression, unspecified; F41.9 Anxiety disorder, unspecified; Z99.2 Dependence on renal dialysis; Z95.1 Presence of aortocoronary bypass graft; Z88.5 Allergy status to narcotic agent; Z88.8 Allergy status to other drugs, medicaments and biological substances; Z98.41 Cataract extraction status, right eye; Z98.42 Cataract extraction status, left eye; Z90.710 Acquired absence of both cervix and uterus; Z98.890 Other specified postprocedural states; Z82.49 Family history of ischemic heart disease and other diseases of the circulatory system; Z83.3 Family history of diabetes mellitus; Z79.2 Long term (current) use of antibiotics; Z79.899 Other long term (current) drug therapy; Z99.81 Dependence on supplemental oxygen; Z87.01 Personal history of pneumonia (recurrent); F17.220 Nicotine dependence, chewing tobacco, uncomplicated; K02.9 Dental caries, unspecified; D63.1 Anemia in chronic kidney disease; K04.7 Periapical abscess without sinus; R94.31 Abnormal electrocardiogram [ECG] [EKG]
CPT/HCPCS: 36415; 71045; 78451; 80053; 80061; 83880; 84484; 85025; 90935; 93005; 96372; A9502; G0257; G0378; J1644; J2785; Q5105

== ENCOUNTER 2025-08-10 15:44 | Emergency (ER) | payer OTHER ==
[2025-08-10 16:35] LABS: #Basophils Less than 0.03 10x3/uL (0.0-0.2); #Eosinophils 0.25 10x3/uL (0.0-0.7); #Monocytes 0.34 10x3/uL (0.11-0.59); #Neutrophils 1.94 10x3/uL (1.40-6.50); %Basophils 0.6 % (0.0-1.0); %Eosinophils 7.4 % (0.0-10.0); %Lymphocytes 24.5 % (21.0-51.0); %Monocytes 10.0 % (0.0-10.0); %Neutrophils 57.2 % (42.0-75.0); Hematocrit 29.5 % (36.0-47.0); Hemoglobin 9.3 g/dL (12.0-16.0); Mean Corpuscular Hemoglobin 28.0 pg (27.0-31.0); Mean Corpuscular Volume 88.9 fL (78.0-98.0); Platelet Count 155 10x3/uL (130-400); Red Blood Cell (RBC) Count 3.32 mill/uL (4.20-5.40); White Blood Cell (WBC) Count 3.39 10x3/uL (4.8-10.8)
[2025-08-10 16:47] LABS: INR-International Normal Ratio 1.0; Prothrombin Time 12.9 sec (12.0-14.7)
[2025-08-10 16:48] LABS: PTT 37.1 sec (22.9-36.1)
[2025-08-10 16:57] LABS: ALT (SGPT) Less than 7 U/L (Less than 34); AST (SGOT) 24 U/L (11-34); Albumin 3.7 g/dL (3.1-4.5); Alkaline Phosphatase 88 U/L (40-110); Anion Gap 20 mmol/L (10-20); BUN (Urea Nitrogen) 35 mg/dL (9.8-20.1); Bilirubin, Total 0.5 mg/dL (0.3-1.2); Calc. Creatinine Clearance 0 mL/min (70-130); Calcium 9.2 mg/dL (7.8-10.44); Carbon Dioxide 25 mmol/L (23-31); Chloride 99 mmol/L (98-107); Globulin 4.0 g/dL (2.4-3.5); Glucose 83 mg/dL (83-110); Potassium 3.9 mmol/L (3.5-5.1); Sodium 140 mmol/L (136-145)
== END 2025-08-11 07:55 | disposition home or self-care (01) ==
LOC: ERS 15:44
DX: I13.2 Hypertensive heart and chronic kidney disease with heart failure and with stage 5 chronic kidney disease, or end stage renal disease (principal); I50.9 Heart failure, unspecified; N18.6 End stage renal disease; M79.605 Pain in left leg; E87.70 Fluid overload, unspecified; I48.91 Unspecified atrial fibrillation; I25.10 Atherosclerotic heart disease of native coronary artery without angina pectoris; Z55.6 Problems related to health literacy
CPT/HCPCS: 71045; 80053; 83880; 84484; 85025; 85610; 85730; 93005; 93971; 96374; 99285; J3010; 90935; G0257

== ENCOUNTER 2025-09-14 05:35 | Inpatient (IN) | payer OTHER ==
[2025-09-14 06:18] LABS: #Basophils Less than 0.03 10x3/uL (0.0-0.2); #Eosinophils 0.12 10x3/uL (0.0-0.7); #Monocytes 0.33 10x3/uL (0.11-0.59); #Neutrophils 1.80 10x3/uL (1.40-6.50); %Basophils 0.3 % (0.0-1.0); %Eosinophils 3.8 % (0.0-10.0); %Lymphocytes 28.4 % (21.0-51.0); %Monocytes 10.4 % (0.0-10.0); %Neutrophils 56.8 % (42.0-75.0); Hematocrit 28.7 % (36.0-47.0); Hemoglobin 8.9 g/dL (12.0-16.0); Mean Corpuscular Hemoglobin 27.8 pg (27.0-31.0); Mean Corpuscular Volume 89.7 fL (78.0-98.0); Platelet Count 134 10x3/uL (130-400); Red Blood Cell (RBC) Count 3.20 mill/uL (4.20-5.40); White Blood Cell (WBC) Count 3.17 10x3/uL (4.8-10.8)
[2025-09-14 06:26] LABS: ALT (SGPT) Less than 7 U/L (Less than 34); AST (SGOT) 21 U/L (11-34); Albumin 3.9 g/dL (3.1-4.5); Alkaline Phosphatase 94 U/L (40-110); Anion Gap 14 mmol/L (10-20); BUN (Urea Nitrogen) 27 mg/dL (9.8-20.1); Bilirubin, Total 0.5 mg/dL (0.3-1.2); Calc. Creatinine Clearance 0 mL/min (70-130); Calcium 9.8 mg/dL (7.8-10.44); Carbon Dioxide 29 mmol/L (23-31); Chloride 103 mmol/L (98-107); Globulin 3.8 g/dL (2.4-3.5); Glucose 88 mg/dL (83-110); Potassium 3.8 mmol/L (3.5-5.1); Sodium 142 mmol/L (136-145)
[2025-09-14 07:38] VITALS: BMI 18.3
[2025-09-14 08:40] LABS: Hep C Index 0.10 S/CO (0-0.79)
[2025-09-14] MEDS ORDERED: Heparin 5,000 UNITS/ML VIAL ONE (09:10)
[2025-09-14] MEDS: Heparin 5,000 UNITS/ML VIAL SC SCH (09:16)
[2025-09-14 09:39] LABS: Hep B Core Total Ab REACTIVE (NonReactive)
[2025-09-14 09:44] LABS: HBSAB Concentration 33.43 mIU/mL; Hep B Core Total Index 8.80 S/CO (0-0.79); Hep B Surf Ag NONREACTIVE S/CO (NonReactive); Hep C IgG Ab NONREACTIVE S/CO (NonReactive)
[2025-09-14] MEDS ORDERED: Acetaminophen 325 MG TAB ONE (12:24)
[2025-09-14] MEDS: Acetaminophen 325 MG TAB PO PRN (12:27)
[2025-09-14] MEDS: NIFEdipine XL 60 MG ER.TAB PO SCH (20:45)
[2025-09-15 05:07] LABS: #Basophils Less than 0.03 10x3/uL (0.0-0.2); #Eosinophils 0.20 10x3/uL (0.0-0.7); #Monocytes 0.41 10x3/uL (0.11-0.59); #Neutrophils 1.93 10x3/uL (1.40-6.50); %Basophils 0.6 % (0.0-1.0); %Eosinophils 5.6 % (0.0-10.0); %Lymphocytes 27.8 % (21.0-51.0); %Monocytes 11.5 % (0.0-10.0); %Neutrophils 54.2 % (42.0-75.0); Hematocrit 29.9 % (36.0-47.0); Hemoglobin 9.1 g/dL (12.0-16.0); Mean Corpuscular Hemoglobin 28.0 pg (27.0-31.0); Mean Corpuscular Volume 92.0 fL (78.0-98.0); Platelet Count 166 10x3/uL (130-400); Red Blood Cell (RBC) Count 3.25 mill/uL (4.20-5.40); White Blood Cell (WBC) Count 3.56 10x3/uL (4.8-10.8)
[2025-09-15 05:44] LABS: ALT (SGPT) Less than 7 U/L (Less than 34); AST (SGOT) 18 U/L (11-34); Albumin 3.5 g/dL (3.1-4.5); Alkaline Phosphatase 87 U/L (40-110); Anion Gap 18 mmol/L (10-20); BUN (Urea Nitrogen) 13 mg/dL (9.8-20.1); Bilirubin, Total 0.6 mg/dL (0.3-1.2); Calc. Creatinine Clearance 11 mL/min (70-130); Calcium 9.5 mg/dL (7.8-10.44); Carbon Dioxide 24 mmol/L (23-31); Cardiac Risk 2.6 (Less than 4.5); Chloride 102 mmol/L (98-107); Cholesterol 216 mg/dl (< 200 Desired); Globulin 3.6 g/dL (2.4-3.5); Glucose 77 mg/dL (83-110); HDL Cholesterol 83 mg/dL (>60 Neg Risk); LDL Cholesterol, Calculated 122 mg/dL; Potassium 3.9 mmol/L (3.5-5.1); Sodium 140 mmol/L (136-145); Triglycerides 57 mg/dL (Less than 150)
[2025-09-15] MEDS: Pantoprazole 40 MG DR.TAB PO SCH (10:41)
[2025-09-15] MEDS: Losartan 25 MG TAB PO SCH (10:41)
[2025-09-15] MEDS: Amiodarone 200 MG TAB PO SCH (10:42)
[2025-09-15] MEDS: Aspirin 81 mg Enteric Coated Tablet PO SCH (10:42)
[2025-09-15 13:55] VITALS: BMI 18.3
[2025-09-16 05:33] LABS: #Basophils Less than 0.03 10x3/uL (0.0-0.2); #Eosinophils 0.23 10x3/uL (0.0-0.7); #Monocytes 0.47 10x3/uL (0.11-0.59); #Neutrophils 2.16 10x3/uL (1.40-6.50); %Basophils 0.5 % (0.0-1.0); %Eosinophils 5.8 % (0.0-10.0); %Lymphocytes 27.4 % (21.0-51.0); %Monocytes 11.8 % (0.0-10.0); %Neutrophils 54.2 % (42.0-75.0); Hematocrit 32.0 % (36.0-47.0); Hemoglobin 10.0 g/dL (12.0-16.0); Mean Corpuscular Hemoglobin 28.5 pg (27.0-31.0); Mean Corpuscular Volume 91.2 fL (78.0-98.0); Platelet Count 145 10x3/uL (130-400); Red Blood Cell (RBC) Count 3.51 mill/uL (4.20-5.40); White Blood Cell (WBC) Count 3.98 10x3/uL (4.8-10.8)
[2025-09-16 05:55] LABS: ALT (SGPT) Less than 7 U/L (Less than 34); AST (SGOT) 12 U/L (11-34); Albumin 3.4 g/dL (3.1-4.5); Alkaline Phosphatase 83 U/L (40-110); Anion Gap 18 mmol/L (10-20); BUN (Urea Nitrogen) 29 mg/dL (9.8-20.1); Bilirubin, Total 0.4 mg/dL (0.3-1.2); Calc. Creatinine Clearance 7 mL/min (70-130); Calcium 9.6 mg/dL (7.8-10.44); Carbon Dioxide 25 mmol/L (23-31); Chloride 101 mmol/L (98-107); Globulin 3.5 g/dL (2.4-3.5); Glucose 87 mg/dL (83-110); Potassium 4.8 mmol/L (3.5-5.1); Sodium 139 mmol/L (136-145)
[2025-09-16] MEDS: Acetaminophen 325 MG TAB PO PRN (17:22)
[2025-09-16] MEDS: Melatonin 3 MG TAB PO SCH (20:33)
[2025-09-17 05:57] LABS: #Basophils Less than 0.03 10x3/uL (0.0-0.2); #Eosinophils 0.18 10x3/uL (0.0-0.7); #Monocytes 0.38 10x3/uL (0.11-0.59); #Neutrophils 1.80 10x3/uL (1.40-6.50); %Basophils 0.6 % (0.0-1.0); %Eosinophils 5.4 % (0.0-10.0); %Lymphocytes 28.0 % (21.0-51.0); %Monocytes 11.4 % (0.0-10.0); %Neutrophils 54.3 % (42.0-75.0); Hematocrit 28.9 % (36.0-47.0); Hemoglobin 8.6 g/dL (12.0-16.0); Mean Corpuscular Hemoglobin 28.2 pg (27.0-31.0); Mean Corpuscular Volume 94.8 fL (78.0-98.0); Platelet Count 145 10x3/uL (130-400); Red Blood Cell (RBC) Count 3.05 mill/uL (4.20-5.40); White Blood Cell (WBC) Count 3.32 10x3/uL (4.8-10.8)
[2025-09-17 06:20] LABS: ALT (SGPT) Less than 7 U/L (Less than 34); AST (SGOT) 12 U/L (11-34); Albumin 3.2 g/dL (3.1-4.5); Alkaline Phosphatase 78 U/L (40-110); Anion Gap 16 mmol/L (10-20); BUN (Urea Nitrogen) 55 mg/dL (9.8-20.1); Bilirubin, Total 0.3 mg/dL (0.3-1.2); Calc. Creatinine Clearance 5 mL/min (70-130); Calcium 9.2 mg/dL (7.8-10.44); Carbon Dioxide 23 mmol/L (23-31); Chloride 99 mmol/L (98-107); Globulin 3.3 g/dL (2.4-3.5); Glucose 76 mg/dL (83-110); Potassium 4.9 mmol/L (3.5-5.1); Sodium 133 mmol/L (136-145)
[2025-09-17] MEDS: EPOETIN ALFA-EPBX (ESRD) 10,000 UNITS/ML VIAL IVP SCH (12:30)
[2025-09-18 00:46] LABS: Hematocrit 33.3 % (36.0-47.0); Hemoglobin 10.6 g/dL (12.0-16.0)
[2025-09-18 04:51] LABS: #Basophils Less than 0.03 10x3/uL (0.0-0.2); #Eosinophils 0.21 10x3/uL (0.0-0.7); #Monocytes 0.54 10x3/uL (0.11-0.59); #Neutrophils 2.51 10x3/uL (1.40-6.50); %Basophils 0.5 % (0.0-1.0); %Eosinophils 4.8 % (0.0-10.0); %Lymphocytes 24.0 % (21.0-51.0); %Monocytes 12.4 % (0.0-10.0); %Neutrophils 57.4 % (42.0-75.0); Hematocrit 36.0 % (36.0-47.0); Hemoglobin 11.4 g/dL (12.0-16.0); Mean Corpuscular Hemoglobin 28.7 pg (27.0-31.0); Mean Corpuscular Volume 90.7 fL (78.0-98.0); Platelet Count 150 10x3/uL (130-400); Red Blood Cell (RBC) Count 3.97 mill/uL (4.20-5.40); White Blood Cell (WBC) Count 4.37 10x3/uL (4.8-10.8)
[2025-09-18 05:25] LABS: ALT (SGPT) Less than 7 U/L (Less than 34); AST (SGOT) 14 U/L (11-34); Albumin 3.5 g/dL (3.1-4.5); Alkaline Phosphatase 94 U/L (40-110); Anion Gap 15 mmol/L (10-20); BUN (Urea Nitrogen) 30 mg/dL (9.8-20.1); Bilirubin, Total 0.4 mg/dL (0.3-1.2); Calc. Creatinine Clearance 9 mL/min (70-130); Calcium 9.8 mg/dL (7.8-10.44); Carbon Dioxide 26 mmol/L (23-31); Chloride 98 mmol/L (98-107); Globulin 3.6 g/dL (2.4-3.5); Glucose 92 mg/dL (83-110); Potassium 4.8 mmol/L (3.5-5.1); Sodium 134 mmol/L (136-145)
[2025-09-18] MEDS ORDERED: EPOETIN ALFA-EPBX (ESRD) 10,000 UNITS/ML VIAL IVP SCH (09:00)
[2025-09-18] MEDS: Ondansetron PF 4 MG/2 ML Vial IVP PRN (20:48)
[2025-09-19] MEDS: Calcium Carbonate 500 MG ChewTAB PO PRN (04:01)
[2025-09-19 04:32] LABS: #Basophils Less than 0.03 10x3/uL (0.0-0.2); #Eosinophils 0.21 10x3/uL (0.0-0.7); #Monocytes 0.49 10x3/uL (0.11-0.59); #Neutrophils 2.44 10x3/uL (1.40-6.50); %Basophils 0.5 % (0.0-1.0); %Eosinophils 4.8 % (0.0-10.0); %Lymphocytes 26.4 % (21.0-51.0); %Monocytes 11.3 % (0.0-10.0); %Neutrophils 56.1 % (42.0-75.0); Hematocrit 35.1 % (36.0-47.0); Hemoglobin 11.0 g/dL (12.0-16.0); Mean Corpuscular Hemoglobin 28.5 pg (27.0-31.0); Mean Corpuscular Volume 90.9 fL (78.0-98.0); Platelet Count 162 10x3/uL (130-400); Red Blood Cell (RBC) Count 3.86 mill/uL (4.20-5.40); White Blood Cell (WBC) Count 4.35 10x3/uL (4.8-10.8)
[2025-09-19 06:37] LABS: ALT (SGPT) Less than 7 U/L (Less than 34); AST (SGOT) 15 U/L (11-34); Albumin 3.4 g/dL (3.1-4.5); Alkaline Phosphatase 96 U/L (40-110); Anion Gap 16 mmol/L (10-20); BUN (Urea Nitrogen) 46 mg/dL (9.8-20.1); Bilirubin, Total 0.4 mg/dL (0.3-1.2); Calc. Creatinine Clearance 6 mL/min (70-130); Calcium 9.7 mg/dL (7.8-10.44); Carbon Dioxide 23 mmol/L (23-31); Chloride 100 mmol/L (98-107); Globulin 3.4 g/dL (2.4-3.5); Glucose 76 mg/dL (83-110); Potassium 5.6 mmol/L (3.5-5.1); Sodium 133 mmol/L (136-145)
[2025-09-19] MEDS: EPOETIN ALFA-EPBX (ESRD) 10,000 UNITS/ML VIAL IVP SCH (08:15)
[2025-09-19] MEDS: Lidocaine-Prilocaine 2.5% Cream 5 GM TUBE TOP SCH (08:16)
[2025-09-19 17:21] LABS: Bacteria/HPF None Seen HPF (None Seen); Glucose, Urine (Dipstick) Normal (Negative); Leukocyte Negative Leu/uL (Negative); Protein, Urine (Dipstick) 200 mg/dL (Neg-Trace); RBC/HPF 0-3 HPF (0-3); Specific Gravity, Urine 1.008 (1.002-1.036); WBC/HPF 0-3 HPF (0-3)
[2025-09-20 04:51] LABS: #Basophils Less than 0.03 10x3/uL (0.0-0.2); #Eosinophils 0.22 10x3/uL (0.0-0.7); #Monocytes 0.61 10x3/uL (0.11-0.59); #Neutrophils 3.10 10x3/uL (1.40-6.50); %Basophils 0.4 % (0.0-1.0); %Eosinophils 4.4 % (0.0-10.0); %Lymphocytes 19.4 % (21.0-51.0); %Monocytes 12.3 % (0.0-10.0); %Neutrophils 62.5 % (42.0-75.0); Hematocrit 39.0 % (36.0-47.0); Hemoglobin 11.8 g/dL (12.0-16.0); Mean Corpuscular Hemoglobin 28.2 pg (27.0-31.0); Mean Corpuscular Volume 93.3 fL (78.0-98.0); Platelet Count 161 10x3/uL (130-400); Red Blood Cell (RBC) Count 4.18 mill/uL (4.20-5.40); White Blood Cell (WBC) Count 4.96 10x3/uL (4.8-10.8)
[2025-09-20 05:18] LABS: ALT (SGPT) Less than 7 U/L (Less than 34); AST (SGOT) 16 U/L (11-34); Albumin 3.7 g/dL (3.1-4.5); Alkaline Phosphatase 93 U/L (40-110); Anion Gap 18 mmol/L (10-20); BUN (Urea Nitrogen) 36 mg/dL (9.8-20.1); Bilirubin, Total 0.4 mg/dL (0.3-1.2); Calc. Creatinine Clearance 7 mL/min (70-130); Calcium 10.6 mg/dL (7.8-10.44); Carbon Dioxide 25 mmol/L (23-31); Chloride 99 mmol/L (98-107); Globulin 3.9 g/dL (2.4-3.5); Glucose 86 mg/dL (83-110); Potassium 5.1 mmol/L (3.5-5.1); Sodium 137 mmol/L (136-145)
[2025-09-20 15:32] VITALS: BP 124/60; TEMP 98
== END 2025-09-20 17:13 | disposition home health service (06) | DRG 313 ==
LOC: ERS 05:35 → ERHOLD 07:07 → OBS 18:14 → OBSVTOIN 09-16 12:15
PROVIDERS: ADMIT Family Medicine; ATTEND Family Medicine
PROC: 5A1D70Z Performance of Urinary Filtration, Intermittent, Less than 6 Hours Per Day (ICD-10-PCS; 2025-09-14)
PROC: 30233N1 Transfusion of Nonautologous Red Blood Cells into Peripheral Vein, Percutaneous Approach (ICD-10-PCS; principal; 2025-09-17)
DX: R07.9 Chest pain, unspecified (principal); N18.6 End stage renal disease; I13.2 Hypertensive heart and chronic kidney disease with heart failure and with stage 5 chronic kidney disease, or end stage renal disease; I50.32 Chronic diastolic (congestive) heart failure; I48.0 Paroxysmal atrial fibrillation; F17.200 Nicotine dependence, unspecified, uncomplicated; D63.1 Anemia in chronic kidney disease; F41.9 Anxiety disorder, unspecified; F32.A Depression, unspecified; J44.9 Chronic obstructive pulmonary disease, unspecified; I25.10 Atherosclerotic heart disease of native coronary artery without angina pectoris; M10.9 Gout, unspecified; Z88.8 Allergy status to other drugs, medicaments and biological substances; Z99.2 Dependence on renal dialysis; Z95.1 Presence of aortocoronary bypass graft; Z88.5 Allergy status to narcotic agent; Z79.899 Other long term (current) drug therapy; Z79.82 Long term (current) use of aspirin; Z79.2 Long term (current) use of antibiotics; Z98.51 Tubal ligation status; Z98.41 Cataract extraction status, right eye; Z98.42 Cataract extraction status, left eye; Z90.710 Acquired absence of both cervix and uterus; Z98.890 Other specified postprocedural states; Z82.49 Family history of ischemic heart disease and other diseases of the circulatory system; Z83.3 Family history of diabetes mellitus; Z99.81 Dependence on supplemental oxygen
CPT/HCPCS: 36415; 36430; 71045; 78452; 80053; 80061; 81003; 81015; 83036; 83880; 84443; 84484; 85025; 86704; 86706; 86803; 86850; 86900; 86901; 87340; 90935; 93005; 93010; 93017; 94760; 96372; A9500; A9502; G0257; G0378; J1644; J2405; J2785; P9016; Q5105